=== PATIENT | male | born 1965 | race Caucasian/White ===

== ENCOUNTER 2019-12-11 11:06 | Outpatient (REF) | payer OTHER, SELFPAY ==
[2019-12-11 15:08] LABS: Alanine Aminotransferase 51 U/L (0-40); Albumin Level 4.7 g/dL (3.5-5.0); Alkaline Phosphatase 66 U/L (39-117); Anion Gap 14 (12-20); Aspartate Amino Transferase 38 U/L (5-37); Bilirubin Total 0.8 mg/dL (0.0-1.0); Blood Urea Nitrogen 19 mg/dL (9-16); Calcium 9.6 mg/dL (8.4-10.2); Carbon Dioxide 29 mmol/L (22-29); Chloride 100 mmol/L (96-108); Cholesterol 246 mg/dL; Estimated Glomerular Filt Rate > 60; Glucose Fasting 96 mg/dL (60-99); HDL Cholesterol 44 mg/dL; Potassium 4.2 mmol/l (3.3-5.1); Sodium 139 mmol/L (135-145); Total Protein 7.1 g/dL (6.5-8.0); Triglycerides 565 mg/dL
== END 2019-12-11 11:07 | disposition home or self-care (01) ==
LOC: HO.HMGCLDS 11:06
PROVIDERS: PCP Internal Medicine; Visit Provider Internal Medicine
DX: I10 Essential (primary) hypertension (principal); R79.89 Other specified abnormal findings of blood chemistry
CPT/HCPCS: 80053; 80061

== ENCOUNTER 2019-12-18 11:42 | Outpatient (REF) | payer OTHER, SELFPAY ==
[2019-12-18 13:53] LABS: MANUAL DIFF FLAG NO
[2019-12-18 14:04] LABS: Basophils Percent Auto 0.8 % (0-2); Eosinophils Absolute Auto 0.1 X10*3/uL (0.0-0.4); Eosinophils Percent Auto 2.7 % (0-4); Hematocrit 39.4 % (42-52); Hemoglobin 12.9 g/dl (14.0-18.0); Imm Gran Abs Auto 0.02 X10*3/uL (0.00-0.03); Imm Gran Pct Auto 0.5 % (0.0-0.4); Lymphocytes Absolute Auto 1.3 X10*3/uL (1.2-4.9); Lymphocytes Percent Auto 35.8 % (20-40); Mean Corpuscular HGB Conc 32.7 g/dl (31.0-36.0); Mean Corpuscular Hemoglobin 29.5 pg (27.0-33.0); Mean Corpuscular Volume 90.2 fL (80-98); Mean Platelet Volume 10.2 fL (9.4-12.4); Monocytes Absolute Auto 0.4 X10*3/uL (0.1-1.2); Monocytes Percent Auto 9.5 % (2-11); Neutrophils Absolute Auto 1.9 X10*3/uL (2.0-8.3); Neutrophils Percent Auto 50.7 % (45-73); Platelet Count 192 X10*3/uL (160-400); Red Blood Count 4.37 X10*6/uL (4.60-5.80); Red Cell Distribution Width 12.9 % (11.0-16.0); White Blood Count 3.7 X10*3/uL (4.8-10.8)
[2019-12-18 14:39] LABS: Glucose Urine UA NEG (NEG); Leukocyte Esterase Urine NEG (NEG); Nitrite Urine NEG (NEG); PH 8.5 (5.0-8.0); Specific Gravity - Urine 1.015 (1.005-1.025); Urine Blood NEG (NEG); Urine Ketones NEG (NEG); Urine Protein NEG (NEG-TRACE)
[2019-12-18 14:40] LABS: C Reactive Protein 6.06 mg/dL (< or = 0.50)
[2019-12-18 14:42] LABS: Appearance Urine CLEAR; Color Urine YELLOW
== END 2019-12-18 11:43 | disposition home or self-care (01) ==
LOC: HO.HMGCLDS 11:42
PROVIDERS: PCP Internal Medicine; Visit Provider Internal Medicine
DX: R10.32 Left lower quadrant pain (principal); Z86.010 Personal history of colon polyps; I10 Essential (primary) hypertension
CPT/HCPCS: 36415; 81003; 85025; 86140

== ENCOUNTER 2020-02-10 06:52 | Day surgery (SDC) | payer OTHER, SELFPAY ==
[2020-02-04 15:31] VITALS: BMI 33.0
--- NOTE | 2020-02-07 09:34 | HO.ANESPROP2 ---
Documented by User: Ludmila Saini 02/07/20 09:38 HPI - Anesthesia Eval Consult details Narrative: 54yo M for Upper Endoscopy and Colonoscopy [facility] Past Medical History Medical History Anxiety Asthma Back pain Elevated cholesterol HTN (hypertension) Left elbow tendonitis Nephrotic syndrome Sleep apnea Surgical History Surgical History H/O bilateral inguinal hernia repair History of arthroscopy of both shoulders History of bilateral carpal tunnel release Social History Social History Alcohol intake: current Alcohol intake frequency: a few times a month Alcohol type: beer Smoking Status: Never smoker Use of substances other than those prescribed or required for medical reasons: No Advance Directives: No Advance Directives Information Provided: No Advance Directives on File: No Meds Allergies Allergy/AdvReac Type Severity Reaction Status Date / Time No Known Allergies Allergy Mild N/A Verified 02/04/20 15:25 most pain meds Allergy Unknown mild Uncoded 09/11/18 00:00 itching Home Medications Medication Instructions Recorded Confirmed Type Flovent 02/04/20 02/04/20 History atorvastatin 40 mg PO DAILY 02/04/20 02/04/20 History citalopram 40 mg PO DAILY 02/04/20 02/04/20 History fenofibrate nanocrystallized 145 mg PO DAILY 02/04/20 02/04/20 History lisinopril 40 mg PO DAILY 02/04/20 02/04/20 History meclizine 12.5 mg PO BID PRN 02/04/20 02/04/20 History omeprazole 20 mg PO DAILY 02/04/20 02/10/20 History zolpidem [Ambien] 10 mg PO BEDTIME PRN 02/04/20 02/04/20 History Exam Exam Date and Time: February 07, 2020 0934 Height,Weight and Vital Signs: Height 5 ft 10 in Weight 104.326 kg Pertinent Lab Results Pertinent Lab Results: Laboratory Tests 12/11/19 12/18/19 11:16 11:52 WBC 3.7 L Hgb 12.9 L Hct 39.4 L Plt Count 192 Sodium 139 Potassium 4.2 Chloride 100 Carbon Dioxide 29 BUN 19 H Creatinine 1.01 Assessment and Plan Assessment Anesthesia Assessment: Chart Reviewed Documented by User: Real Cooper 02/10/20 08:11 PMFSH Past Medical History Medical History Anxiety Asthma Back pain Elevated cholesterol HTN (hypertension) Left elbow tendonitis Nephrotic syndrome Sleep apnea Surgical History Surgical History H/O bilateral inguinal hernia repair History of arthroscopy of both shoulders History of bilateral carpal tunnel release Social History Social History Alcohol intake: current Alcohol intake frequency: a few times a month Alcohol type: beer Smoking Status: Never smoker Use of substances other than those prescribed or required for medical reasons: No Advance Directives: No Advance Directives Information Provided: No Advance Directives on File: No Meds Allergies Allergy/AdvReac Type Severity Reaction Status Date / Time No Known Allergies Allergy Mild N/A Verified 02/04/20 15:25 most pain meds Allergy Unknown mild Uncoded 09/11/18 00:00 itching Home Medications Medication Instructions Recorded Confirmed Type Flovent 02/04/20 02/04/20 History atorvastatin 40 mg PO DAILY 02/04/20 02/04/20 History citalopram 40 mg PO DAILY 02/04/20 02/04/20 History fenofibrate nanocrystallized 145 mg PO DAILY 02/04/20 02/04/20 History lisinopril 40 mg PO DAILY 02/04/20 02/04/20 History meclizine 12.5 mg PO BID PRN 02/04/20 02/04/20 History omeprazole 20 mg PO DAILY 02/04/20 02/10/20 History zolpidem [Ambien] 10 mg PO BEDTIME PRN 02/04/20 02/04/20 History Exam Airway Mallampati Class: III TM Dist: >3cm Neck ROM: Full
[2020-02-10 07:27] VITALS: BP 139/93; PULSE 72; RESP 16; TEMP 36; O2SAT 98
[2020-02-10] MEDS: Lactated Ringers 1,000 ML 100 ML IVCONT (07:35)
[2020-02-10 09:09] VITALS: BP 115/81; PULSE 68; RESP 17; TEMP 36.1; O2SAT 97
--- NOTE | 2020-02-10 09:13 | PM.OP ---
Brief Operative Note Date of Service: 02/10/20 Pre-op diagnosis: Hx of gastric ulcer and screening Post-op diagnosis: other (Erosive gastritis, Hiatal hernia, Diverticulosis, Internal hemorrhoids) Procedure: EGD with biopsies, Colonoscopy to cecum Surgeon: Anthony Hidalgo Anesthesia: MAC Estimated blood loss (mL): 3.0 Pathology: other (A. Gastric antrum) Condition: stable Disposition: PACU
[2020-02-10 09:24] VITALS: PULSE 69; RESP 16; O2SAT 97
--- NOTE | 2020-02-10 09:39 | HO.POSTANES ---
Post Anesthesia Evaluation Post Anesthesia Evaluation Vital Signs: Vital Signs Temp Pulse Resp BP Pulse Ox 02/10/20 09:24 69 16 97 02/10/20 09:09 97 F 68 17 115/81 97 02/10/20 07:27 96.8 F 72 16 139/93 H 98 Anesthesia: Monitored Mental Status: Awake Pain Control: Satisfactory Nausea/Vomiting: None Hydration: Adequate Anesthesia-Related Issues: No Anes. Related Issues
--- NOTE | 2020-02-10 10:08 | OP_ITS ---
SURGEON: Anthony Hidalgo MD INDICATIONS: The patient presents for evaluation of previous history of gastric ulcer and personal history of tubular adenoma of the colon. Full consent has been obtained from him for both procedures, including risks of bleeding and perforation. PREOPERATIVE DIAGNOSIS: POSTOPERATIVE DIAGNOSIS: PROCEDURE PERFORMED: Esophagogastroduodenoscopy with biopsies and colonoscopy to the cecum. ESTIMATED BLOOD LOSS: COMPLICATIONS: ANESTHESIA: Monitored anesthesia care. ASSISTANTS: SPECIMENS: PREOPERATIVE DIAGNOSES: History of gastric ulcer and personal history of tubular adenoma of the colon. POSTOPERATIVE DIAGNOSES: History of gastric ulcer, personal history of tubular adenoma of the colon, gastritis, hiatal hernia, diverticulosis, and internal hemorrhoids. DESCRIPTION OF PROCEDURE: The patient was placed in the left lateral decubitus position. The Olympus video gastroscope was passed in the posterior oropharynx and upper esophagus under direct vision. The scope was passed slowly into the distal esophagus. The gastroesophageal junction appeared at 38 cm. There was some slight irregularity consistent with his known area of Ojeda's esophagus. There was no esophagitis. The scope was entered into the stomach. There was a moderate-sized hiatal hernia. The scope was advanced to the pylorus and duodenum was cannulated to the descending portion. The duodenum including the bulb appeared normal without mass or ulceration. The scope was withdrawn back into the stomach. The gastric antrum had areas of gastritis and less than 5 mm erosions in the prepyloric antrum. There was no ulceration or mass. There was good peristalsis. The scope was retroflexed visualizing the proximal stomach carefully, which appeared normal, without any sign of mass or ulceration. The scope was straightened. Biopsies were obtained from the gastric antrum. The scope was withdrawn back into the esophagus. The esophageal mucosa otherwise appeared normal. Biopsies were not obtained from the Ojeda's mucosa, given that he had biopsies 1 year ago that were negative for dysplasia. The scope was withdrawn from the patient. He was turned around for colonoscopy. The digital rectal exam revealed no abnormalities. The Olympus video pediatric colonoscope was entered into the rectum and advanced easily to the cecum. Once in the cecum, I did identify cecal pouch with appendiceal orifice and a normal-appearing ileocecal valve. The entire cecum was carefully inspected and appeared normal other than a single diverticulum as well as some scarring from the presumed previous polypectomy site. I did not see any sign of residual polyp tissue. The scope was then slowly withdrawn assessing all mucosal surfaces carefully. For the most part, preparation was very good, although there were some small areas of liquid stool, which were suctioned and irrigated as best as possible. I did not visualize any polyps, colitis, or angiodysplasia. There was a mild amount of sigmoid diverticulosis. In the rectum, scope was retroflexed visualizing internal hemorrhoids, but no other pathology. The rectal mucosa appeared normal. The scope was straightened out and withdrawn from the patient. He tolerated both procedures well and was returned to the recovery area in stable condition. IMPRESSION: 1. Erosive gastritis. 2. Hiatal hernia. 3. Diverticulosis. 4. Internal hemorrhoids. PLAN: The results of the biopsies will be checked. If Helicobacter pylori is present in the gastric biopsies, I would recommend treating that, although biopsies from last year were negative. I do suspect the residual erosive gastritis is as a result of his continued alcohol use. He was advised to continue his daily omeprazole. I would recommend a repeat upper endoscopy and colonoscopy in 2 years for further surveillance in regard to the Ojeda's esophagus and history of cecal adenoma. He will otherwise see me on a p.r.n. basis. MD ISAAC Hyatt/KEN / [id number]
== END 2020-02-10 09:45 | disposition home or self-care (01) ==
PROVIDERS: PCP Internal Medicine; Visit Provider Internal Medicine
PROC: (CPT 45378; principal; 2020-02-10 08:10)
DX: Z12.11 Encounter for screening for malignant neoplasm of colon (principal); K57.30 Diverticulosis of large intestine without perforation or abscess without bleeding; K64.8 Other hemorrhoids; K29.60 Other gastritis without bleeding; K44.9 Diaphragmatic hernia without obstruction or gangrene; K22.70 Barrett's esophagus without dysplasia; K21.9 Gastro-esophageal reflux disease without esophagitis; Z86.010 Personal history of colon polyps; Z87.19 Personal history of other diseases of the digestive system; Z90.49 Acquired absence of other specified parts of digestive tract
CPT/HCPCS: 45378; 43239; 88305; 88342

== ENCOUNTER 2020-02-27 06:51 | Outpatient (REF) | payer OTHER, SELFPAY ==
[2020-02-27 12:06] LABS: Cholesterol 238 mg/dL; HDL Cholesterol 46 mg/dL; LDL Cholesterol Calculated 127 mg/dl; Triglycerides 327 mg/dL
== END 2020-02-27 06:52 | disposition home or self-care (01) ==
LOC: HO.HMGCLDS 06:51
PROVIDERS: PCP Internal Medicine; Visit Provider Internal Medicine
DX: E78.5 Hyperlipidemia, unspecified (principal)
CPT/HCPCS: 80061

== ENCOUNTER 2020-06-04 11:21 | Outpatient (REF) | payer OTHER, SELFPAY ==
[2020-06-04 14:25] LABS: Cholesterol 227 mg/dL; HDL Cholesterol 43 mg/dL; LDL Cholesterol Calculated 107 mg/dl; Triglycerides 387 mg/dL
[2020-06-04 14:44] LABS: Glucose Urine UA NEG (NEG); Leukocyte Esterase Urine NEG (NEG); Nitrite Urine NEG (NEG); PH >= 9.0 (5.0-8.0); Specific Gravity - Urine 1.015 (1.005-1.025); Urine Blood NEG (NEG); Urine Ketones NEG (NEG); Urine Protein NEG (NEG-TRACE)
[2020-06-04 14:49] LABS: Appearance Urine CLEAR; Color Urine YELLOW
== END 2020-06-04 11:22 | disposition home or self-care (01) ==
LOC: HO.HMGCLDS 11:21
PROVIDERS: PCP Internal Medicine; Visit Provider Internal Medicine
DX: E78.00 Pure hypercholesterolemia, unspecified (principal)
CPT/HCPCS: 36415; 80061; 81003

== ENCOUNTER 2020-07-28 09:33 | Outpatient (REF) | payer OTHER, SELFPAY ==
[2020-07-28 11:28] LABS: MANUAL DIFF FLAG NO
[2020-07-28 11:36] LABS: Glucose Urine UA NEG (NEG); Leukocyte Esterase Urine NEG (NEG); Nitrite Urine NEG (NEG); PH 8.5 (5.0-8.0); Urine Blood NEG (NEG); Urine Ketones NEG (NEG); Urine Protein NEG (NEG-TRACE)
[2020-07-28 11:44] LABS: Basophils Percent Auto 0.8 % (0-2); Eosinophils Absolute Auto 0.1 X10*3/uL (0.0-0.4); Eosinophils Percent Auto 2.4 % (0-4); Hematocrit 41.9 % (42-52); Hemoglobin 13.6 g/dl (14.0-18.0); Imm Gran Abs Auto 0.03 X10*3/uL (0.00-0.03); Imm Gran Pct Auto 0.8 % (0.0-0.4); Lymphocytes Absolute Auto 1.3 X10*3/uL (1.2-4.9); Lymphocytes Percent Auto 35.9 % (20-40); Mean Corpuscular HGB Conc 32.5 g/dl (31.0-36.0); Mean Corpuscular Volume 92.5 fL (80-98); Mean Platelet Volume 10.3 fL (9.4-12.4); Monocytes Absolute Auto 0.4 X10*3/uL (0.1-1.2); Monocytes Percent Auto 9.5 % (2-11); Neutrophils Absolute Auto 1.9 X10*3/uL (2.0-8.3); Neutrophils Percent Auto 50.6 % (45-73); Platelet Count 180 X10*3/uL (160-400); Red Blood Count 4.53 X10*6/uL (4.60-5.80); Red Cell Distribution Width 12.6 % (11.0-16.0); White Blood Count 3.7 X10*3/uL (4.8-10.8)
[2020-07-28 11:48] LABS: Appearance Urine CLEAR; Color Urine YELLOW
[2020-07-28 12:11] LABS: Alanine Aminotransferase 45 U/L (0-40); Albumin Level 4.5 g/dL (3.5-5.0); Alkaline Phosphatase 65 U/L (39-117); Anion Gap 16 (12-20); Aspartate Amino Transferase 30 U/L (5-37); Bilirubin Total 0.6 mg/dL (0.0-1.0); Blood Urea Nitrogen 19 mg/dL (9-16); Calcium 9.3 mg/dL (8.4-10.2); Carbon Dioxide 27 mmol/L (22-29); Chloride 101 mmol/L (96-108); Cholesterol 238 mg/dL; Estimated Glomerular Filt Rate > 60; Glucose Fasting 110 mg/dL (60-99); HDL Cholesterol 53 mg/dL; Potassium 4.1 mmol/L (3.3-5.1); Sodium 140 mmol/L (135-145); Total Protein 6.9 g/dL (6.5-8.0); Triglycerides 497 mg/dL
== END 2020-07-28 09:34 | disposition home or self-care (01) ==
LOC: HO.HMGCLDS 09:33
PROVIDERS: PCP Internal Medicine; Visit Provider Internal Medicine
DX: E78.00 Pure hypercholesterolemia, unspecified (principal); N05.9 Unspecified nephritic syndrome with unspecified morphologic changes
CPT/HCPCS: 36415; 80053; 80061; 81003; 85025

== ENCOUNTER 2020-09-17 10:45 | Outpatient (REF) | payer OTHER, SELFPAY ==
[2020-09-17 12:23] LABS: Influenza A PCR NEGATIVE (Negative); Influenza B PCR NEGATIVE (Negative); Resp Syncy Virus RNA Qual PCR NEGATIVE (Negative); SARS COV2 PCR INHOUSE NEGATIVE (Negative)
== END 2020-09-17 10:46 | disposition home or self-care (01) ==
LOC: HO.LNP 10:45
PROVIDERS: Visit Provider Internal Medicine
DX: Z20.822 Contact with and (suspected) exposure to COVID-19 (principal)
CPT/HCPCS: 0241U

== ENCOUNTER 2020-09-21 09:33 | Outpatient (REF) | payer OTHER, SELFPAY | END 2020-09-21 09:34 | disposition home or self-care (01) | LOC: HO.LAB 09:33 | PROVIDERS: PCP Internal Medicine; Visit Provider Internal Medicine | DX: Z20.822 Contact with and (suspected) exposure to COVID-19 (principal) | CPT/HCPCS: C9803; U0003; U0005 ==

== ENCOUNTER 2020-09-24 14:17 | Outpatient (REF) | payer OTHER, SELFPAY ==
--- NOTE | ~2020-09-24 | XR_ITS ---
EXAMINATION: XR CHEST CLINICAL INFORMATION: : Positive, cough. COMPARISON: None TECHNIQUE: 2 views of the chest were obtained. FINDINGS: The lungs are well-expanded and clear of acute process. The heart size and pulmonary vascularity is normal. No gross bony abnormality seen. XR/XR chest 2V IMPRESSION: Unremarkable chest exam.
== END 2020-09-24 14:18 | disposition home or self-care (01) ==
LOC: HO.HMGCX 14:17
PROVIDERS: PCP Internal Medicine; Visit Provider Internal Medicine
DX: U07.1 COVID-19 (principal); R05 Cough
CPT/HCPCS: 71046

== ENCOUNTER 2020-12-07 10:46 | Outpatient (REF) | payer OTHER, SELFPAY ==
[2020-12-07 11:52] LABS: MANUAL DIFF FLAG NO
[2020-12-07 11:53] LABS: Appearance Urine HAZY; Color Urine YELLOW; Glucose Urine UA NEG (NEG); Leukocyte Esterase Urine NEG (NEG); Nitrite Urine NEG (NEG); PH 7.5 (5.0-8.0); Urine Blood NEG (NEG); Urine Ketones NEG (NEG); Urine Protein NEG (NEG-TRACE)
[2020-12-07 12:11] LABS: Basophils Percent Auto 0.5 % (0-2); Eosinophils Absolute Auto 0.1 X10*3/uL (0.0-0.4); Eosinophils Percent Auto 2.7 % (0-4); Hematocrit 42.6 % (42-52); Imm Gran Abs Auto 0.02 X10*3/uL (0.00-0.03); Imm Gran Pct Auto 0.5 % (0.0-0.4); Lymphocytes Percent Auto 25.5 % (20-40); Mean Corpuscular HGB Conc 32.9 g/dl (31.0-36.0); Mean Corpuscular Volume 91.2 fL (80-98); Mean Platelet Volume 10.5 fL (9.4-12.4); Monocytes Absolute Auto 0.4 X10*3/uL (0.1-1.2); Monocytes Percent Auto 9.7 % (2-11); Neutrophils Absolute Auto 2.5 X10*3/uL (2.0-8.3); Neutrophils Percent Auto 61.1 % (45-73); Platelet Count 199 X10*3/uL (160-400); Red Blood Count 4.67 X10*6/uL (4.60-5.80); Red Cell Distribution Width 13.2 % (11.0-16.0)
[2020-12-07 12:38] LABS: Alanine Aminotransferase 33 U/L (0-40); Albumin Level 4.4 g/dL (3.5-5.0); Alkaline Phosphatase 48 U/L (39-117); Anion Gap 11 (12-20); Aspartate Amino Transferase 25 U/L (5-37); Bilirubin Total 0.6 mg/dL (0.0-1.0); Blood Urea Nitrogen 16 mg/dL (9-16); Calcium 9.1 mg/dL (8.4-10.2); Carbon Dioxide 29 mmol/L (22-29); Chloride 104 mmol/L (96-108); Cholesterol 202 mg/dL; Estimated Glomerular Filt Rate > 60; Glucose Fasting 102 mg/dL (60-99); HDL Cholesterol 51 mg/dL; LDL Cholesterol Calculated 107 mg/dl; Potassium 4.4 mmol/L (3.3-5.1); Sodium 140 mmol/L (135-145); Total Protein 6.7 g/dL (6.5-8.0); Triglycerides 222 mg/dL
[2020-12-07 12:51] LABS: Vitamin D 25-OH Total 13.5 ng/mL (>30)
== END 2020-12-07 10:47 | disposition home or self-care (01) ==
LOC: HO.HMGCLDS 10:46
PROVIDERS: PCP Internal Medicine; Visit Provider Internal Medicine
DX: Z00.00 Encounter for general adult medical examination without abnormal findings (principal); D64.9 Anemia, unspecified; J45.909 Unspecified asthma, uncomplicated; K21.9 Gastro-esophageal reflux disease without esophagitis; I10 Essential (primary) hypertension; E78.00 Pure hypercholesterolemia, unspecified
CPT/HCPCS: 36415; 80053; 80061; 81003; 82306; 85025

== ENCOUNTER 2021-04-12 11:41 | Outpatient (REF) | payer OTHER, SELFPAY ==
--- NOTE | ~2021-04-12 | XR_ITS ---
EXAMINATION: XR TIBIA AND FIBULA, LEFT CLINICAL INFORMATION: Left lower leg pain. COMPARISON: None TECHNIQUE: AP and lateral views of the left tibia and fibula were obtained. FINDINGS: The bones and soft tissues are normal. No fracture. No osseous lesions. XR/XR tibia fibula LT 2V IMPRESSION: Normal left tibia and fibula.
[2021-04-12 13:57] LABS: MANUAL DIFF FLAG NO
[2021-04-12 14:04] LABS: Basophils Percent Auto 0.8 % (0-2); Eosinophils Absolute Auto 0.1 X10*3/uL (0.0-0.4); Eosinophils Percent Auto 2.4 % (0-4); Hematocrit 39.2 % (42.0-52.0); Hemoglobin 12.9 g/dl (14.0-18.0); Imm Gran Abs Auto 0.02 X10*3/uL (0.00-0.03); Imm Gran Pct Auto 0.5 % (0.0-0.4); Lymphocytes Absolute Auto 1.2 X10*3/uL (1.2-4.9); Lymphocytes Percent Auto 33.2 % (20-40); Mean Corpuscular HGB Conc 32.9 g/dl (31.0-36.0); Mean Corpuscular Hemoglobin 29.8 pg (27.0-33.0); Mean Corpuscular Volume 90.5 fL (80.0-98.0); Mean Platelet Volume 10.4 fL (9.4-12.4); Monocytes Absolute Auto 0.3 X10*3/uL (0.1-1.2); Monocytes Percent Auto 7.3 % (2-11); Neutrophils Absolute Auto 2.1 x10*3/uL (2.0-8.3); Neutrophils Percent Auto 55.8 % (45-73); Platelet Count 194 X10*3/uL (160-400); Red Blood Count 4.33 X10*6/uL (4.60-5.80); Red Cell Distribution Width 12.5 % (11.0-16.0); White Blood Count 3.7 X10*3/uL (4.8-10.8)
[2021-04-12 14:21] LABS: Alanine Aminotransferase 32 U/L (0-40); Albumin Level 4.3 g/dL (3.5-5.0); Alkaline Phosphatase 48 U/L (39-117); Anion Gap 12 (12-20); Aspartate Amino Transferase 23 U/L (5-37); Bilirubin Total 0.4 mg/dL (0.0-1.0); Blood Urea Nitrogen 15 mg/dL (9-16); Calcium 9.3 mg/dL (8.4-10.2); Carbon Dioxide 28 mmol/L (22-29); Chloride 104 mmol/L (96-108); Cholesterol 194 mg/dL; Estimated Glomerular Filt Rate > 60; Glucose Fasting 94 mg/dL (60-99); HDL Cholesterol 53 mg/dL; LDL Cholesterol Calculated 102 mg/dl; Potassium 4.1 mmol/L (3.3-5.1); Sodium 140 mmol/L (135-145); Total Protein 6.6 g/dL (6.5-8.0); Triglycerides 198 mg/dL
== END 2021-04-12 11:42 | disposition home or self-care (01) ==
LOC: HO.HMGCLDS 11:41
PROVIDERS: PCP Internal Medicine; Visit Provider Internal Medicine
DX: Z12.5 Encounter for screening for malignant neoplasm of prostate (principal); N40.0 Benign prostatic hyperplasia without lower urinary tract symptoms; E78.00 Pure hypercholesterolemia, unspecified; I10 Essential (primary) hypertension; M79.662 Pain in left lower leg
CPT/HCPCS: 36415; 73590; 80053; 80061; 84153; 85025

== ENCOUNTER 2021-07-31 11:31 | Outpatient (REF) | payer OTHER, SELFPAY ==
[2021-07-31 13:27] LABS: MANUAL DIFF FLAG NO
[2021-07-31 13:29] LABS: Basophils Percent Auto 0.8 % (0-2); Eosinophils Absolute Auto 0.1 X10*3/uL (0.0-0.4); Eosinophils Percent Auto 2.7 % (0-4); Hematocrit 41.2 % (42.0-52.0); Hemoglobin 13.7 g/dl (14.0-18.0); Imm Gran Abs Auto 0.07 X10*3/uL (0.00-0.03); Imm Gran Pct Auto 1.4 % (0.0-0.4); Lymphocytes Absolute Auto 1.6 X10*3/uL (1.2-4.9); Lymphocytes Percent Auto 30.7 % (20-40); Mean Corpuscular HGB Conc 33.3 g/dl (31.0-36.0); Mean Corpuscular Hemoglobin 29.7 pg (27.0-33.0); Mean Corpuscular Volume 89.4 fL (80.0-98.0); Monocytes Absolute Auto 0.5 X10*3/uL (0.1-1.2); Monocytes Percent Auto 9.7 % (2-11); Neutrophils Absolute Auto 2.8 x10*3/uL (2.0-8.3); Neutrophils Percent Auto 54.7 % (45-73); Platelet Count 215 X10*3/uL (160-400); Red Blood Count 4.61 X10*6/uL (4.60-5.80); Red Cell Distribution Width 12.8 % (11.0-16.0); White Blood Count 5.2 X10*3/uL (4.8-10.8)
[2021-07-31 13:41] LABS: Alanine Aminotransferase 35 U/L (0-40); Albumin Level 4.3 g/dL (3.5-5.0); Alkaline Phosphatase 53 U/L (39-117); Anion Gap 13 (12-20); Aspartate Amino Transferase 22 U/L (5-37); Bilirubin Total 0.3 mg/dL (0.0-1.0); Blood Urea Nitrogen 22 mg/dL (9-16); Calcium 9.1 mg/dL (8.4-10.2); Carbon Dioxide 26 mmol/L (22-29); Chloride 104 mmol/L (96-108); Cholesterol 213 mg/dL; Estimated Glomerular Filt Rate > 60; Glucose Fasting 102 mg/dL (60-99); HDL Cholesterol 48 mg/dL; LDL Cholesterol Calculated 120 mg/dl; Potassium 4.5 mmol/L (3.3-5.1); Sodium 138 mmol/L (135-145); Total Protein 6.5 g/dL (6.5-8.0); Triglycerides 229 mg/dL
[2021-07-31 14:02] LABS: Prostate Specific Antigen 0.37 ng/mL (<0.05-4.0)
== END 2021-07-31 11:32 | disposition home or self-care (01) ==
LOC: HO.HMGCLDS 11:31
PROVIDERS: PCP Internal Medicine; Visit Provider Internal Medicine
DX: I10 Essential (primary) hypertension (principal); E78.00 Pure hypercholesterolemia, unspecified; N40.0 Benign prostatic hyperplasia without lower urinary tract symptoms; Z12.5 Encounter for screening for malignant neoplasm of prostate
CPT/HCPCS: 36415; 80053; 80061; 84153; 85025

== ENCOUNTER 2021-12-14 16:10 | Outpatient (REF) | payer OTHER, SELFPAY ==
--- NOTE | ~2021-12-14 | XR_ITS ---
EXAMINATION: CERVICAL AND THORACIC SPINE X-RAY CLINICAL INFORMATION: Neck and back pain COMPARISON: None TECHNIQUE: 5 views of the cervical spine and 3 views of the thoracic spine FINDINGS: Cervical spine: Bone alignment is normal. No fracture or dislocation is seen. There is degenerative spondylosis at C4-C5 to C6-C7. There is disc space narrowing at C6-C7. There is bilateral neural foraminal narrowing from bony osteophyte at C3-C4-C5, C5-C6 and C6-C7. Prevertebral soft tissues are normal. Thoracic spine: Bone alignment is normal. No fracture or dislocation. There is mild degenerative spondylosis and degenerative disc disease of the mid and lower thoracic spine. Paraspinal soft tissues are normal. XR/XR thoracic spine 3V IMPRESSION: Cervical spine: Multilevel degenerative changes from C4-C5 to C6-C7. Thoracic spine: Mild degenerative changes of the mid and lower thoracic spine.
--- NOTE | ~2021-12-14 | XR_ITS ---
EXAMINATION: CERVICAL AND THORACIC SPINE X-RAY CLINICAL INFORMATION: Neck and back pain COMPARISON: None TECHNIQUE: 5 views of the cervical spine and 3 views of the thoracic spine FINDINGS: Cervical spine: Bone alignment is normal. No fracture or dislocation is seen. There is degenerative spondylosis at C4-C5 to C6-C7. There is disc space narrowing at C6-C7. There is bilateral neural foraminal narrowing from bony osteophyte at C3-C4-C5, C5-C6 and C6-C7. Prevertebral soft tissues are normal. Thoracic spine: Bone alignment is normal. No fracture or dislocation. There is mild degenerative spondylosis and degenerative disc disease of the mid and lower thoracic spine. Paraspinal soft tissues are normal. XR/XR cervical spine 5V IMPRESSION: Cervical spine: Multilevel degenerative changes from C4-C5 to C6-C7. Thoracic spine: Mild degenerative changes of the mid and lower thoracic spine.
== END 2021-12-14 16:11 | disposition home or self-care (01) ==
LOC: HO.HMGCX 16:10
PROVIDERS: PCP Internal Medicine; Visit Provider Chiropractor
DX: M54.2 Cervicalgia (principal); M54.6 Pain in thoracic spine
CPT/HCPCS: 72050; 72072

== ENCOUNTER 2021-12-20 06:03 | Outpatient (REF) | payer OTHER, SELFPAY ==
[2021-12-20 11:16] LABS: MANUAL DIFF FLAG NO
[2021-12-20 11:31] LABS: Appearance Urine Clear; Color Urine Yellow; Glucose Urine UA Negative (Negative); Leukocyte Esterase Urine Negative (Negative); Nitrite Urine Negative (Negative); Urine Blood Negative (Negative); Urine Ketones Negative (Negative); Urine Protein Negative (Neg-Trace)
[2021-12-20 11:36] LABS: Basophils Percent Auto 0.6 % (0-2); Eosinophils Absolute Auto 0.1 X10*3/uL (0.0-0.4); Eosinophils Percent Auto 2.7 % (0-4); Hematocrit 42.5 % (42.0-52.0); Imm Gran Abs Auto 0.07 X10*3/uL (0.00-0.03); Imm Gran Pct Auto 1.5 % (0.0-0.4); Lymphocytes Absolute Auto 1.9 X10*3/uL (1.2-4.9); Lymphocytes Percent Auto 39.4 % (20-40); Mean Corpuscular HGB Conc 32.9 g/dl (31.0-36.0); Mean Corpuscular Hemoglobin 29.9 pg (27.0-33.0); Mean Corpuscular Volume 90.6 fL (80.0-98.0); Mean Platelet Volume 10.1 fL (9.4-12.4); Monocytes Absolute Auto 0.4 X10*3/uL (0.1-1.2); Monocytes Percent Auto 7.5 % (2-11); Neutrophils Absolute Auto 2.3 x10*3/uL (2.0-8.3); Neutrophils Percent Auto 48.3 % (45-73); Platelet Count 224 X10*3/uL (160-400); Red Blood Count 4.69 X10*6/uL (4.60-5.80); Red Cell Distribution Width 12.5 % (11.0-16.0); White Blood Count 4.8 X10*3/uL (4.8-10.8)
[2021-12-20 12:00] LABS: Alanine Aminotransferase 38 U/L (0-40); Albumin Level 4.5 g/dL (3.5-5.0); Alkaline Phosphatase 55 U/L (39-117); Anion Gap 17 (12-20); Aspartate Amino Transferase 28 U/L (5-37); Bilirubin Total 0.4 mg/dL (0.0-1.0); Blood Urea Nitrogen 18 mg/dL (9-16); Calcium 9.6 mg/dL (8.4-10.2); Carbon Dioxide 28 mmol/L (22-29); Chloride 100 mmol/L (96-108); Cholesterol 203 mg/dL; Estimated Glomerular Filt Rate > 60; Glucose Fasting 124 mg/dL (60-99); HDL Cholesterol 41 mg/dL; LDL Cholesterol Calculated 109 mg/dl; Potassium 4.4 mmol/L (3.3-5.1); Sodium 141 mmol/L (135-145); Total Protein 6.9 g/dL (6.5-8.0); Triglycerides 268 mg/dL
[2021-12-20 12:08] LABS: Prostate Specific Antigen 0.54 ng/mL (<0.05-4.0)
== END 2021-12-20 06:04 | disposition home or self-care (01) ==
LOC: HO.HMGCLDS 06:03
PROVIDERS: PCP Internal Medicine; Visit Provider Internal Medicine
DX: Z00.00 Encounter for general adult medical examination without abnormal findings (principal); Z12.5 Encounter for screening for malignant neoplasm of prostate
CPT/HCPCS: 36415; 80053; 80061; 81003; 84153; 85025

== ENCOUNTER 2022-01-21 13:58 | Outpatient (REF) | payer OTHER, SELFPAY ==
--- NOTE | ~2022-01-21 | MR_ITS ---
EXAMINATION: MR CERVICAL SPINE WITHOUT CONTRAST CLINICAL INFORMATION: Numbness in right arm. COMPARISON: None. TECHNIQUE: Multiplanar, multisequential imaging of the cervical spine was performed without contrast. Slightly limited study with motion artifacts. FINDINGS: VERTEBRAL BODIES AND PARASPINAL SOFT TISSUES: The marrow signal is within normal limits. Bulky anterior endplate spurring noted from the C4 through the C6 levels. There is a [id number] loss of disc height at the C6-C7 level with a slight retrosubluxation. Mild posterior subluxation also evident at the C5-C6 level. There are no compression fractures. Mild leftward curvature of the cervical spine evident. The paraspinal soft tissues are normal. The vertebral artery flow-voids are maintained. The imaged lung apices are grossly clear. CERVICOMEDULLARY JUNCTION AND VISUALIZED POSTERIOR FOSSA: The craniovertebral junction and imaged portions of the brain parenchyma are grossly unremarkable. No cord signal abnormality or syrinx is seen. SPINAL LEVELS: C2-C3: No disc pathology, central canal stenosis, or foraminal narrowing. Mild facet arthropathy. C3-C4: Very mild disc bulge and uncovertebral joint spurring without central canal stenosis. Mild facet arthropathy. Patent foramina. C4-C5: Anterior endplate spurring and mild disc bulge with uncovertebral joint spurring and facet arthropathy, more so on the right side. No central canal stenosis. [id number] foraminal narrowing, worse on the right side. C5-C6: Retrosubluxation and disc-osteophyte complex with significant bilateral foraminal narrowing. No central canal stenosis. C6-C7: Moderate loss of disc height and mild posterior subluxation with a disc-osteophyte complex. No central canal stenosis. Severe bilateral foraminal narrowing. C7-T1: No disc pathology. No central canal stenosis or foraminal narrowing. MR/MR cervical spine wo con IMPRESSION: 1. Limited study with motion artifacts. Hgysthhw-od-xertcb foraminal narrowing at the C4-C5 level with a mild disc bulge and endplate spurring. 2. Disc-osteophyte complex and mild retrosubluxation at the C5-C6 level with severe bilateral foraminal narrowing. 3. Moderate loss of disc height and mild retrosubluxation with a disc-osteophyte complex at the C6-C7 level. Severe bilateral foraminal narrowing.
== END 2022-01-21 13:59 | disposition home or self-care (01) ==
LOC: HO.MRI 13:58
PROVIDERS: Visit Provider Internal Medicine
DX: M50.30 Other cervical disc degeneration, unspecified cervical region (principal); R53.1 Weakness
CPT/HCPCS: 72141

== ENCOUNTER 2022-02-26 09:20 | Outpatient (REF) | payer OTHER, SELFPAY ==
[2022-02-26 11:12] LABS: Estimated Average Glucose 126 mg/dL; Hemoglobin A1C 149.7117 umol/L
[2022-02-26 11:32] LABS: Alanine Aminotransferase 44 U/L (0-40); Albumin Level 4.5 g/dL (3.5-5.0); Alkaline Phosphatase 56 U/L (39-117); Anion Gap 11 (12-20); Aspartate Amino Transferase 32 U/L (5-37); Bilirubin Total 0.6 mg/dL (0.0-1.0); Blood Urea Nitrogen 18 mg/dL (9-16); Calcium 9.4 mg/dL (8.4-10.2); Carbon Dioxide 30 mmol/L (22-29); Chloride 102 mmol/L (96-108); Cholesterol 199 mg/dL; Estimated Glomerular Filt Rate > 60; Glucose Fasting 108 mg/dL (60-99); Glucose Random 108 mg/dL (60-115); HDL Cholesterol 47 mg/dL; LDL Cholesterol Calculated 116 mg/dl; Potassium 4.2 mmol/L (3.3-5.1); Sodium 139 mmol/L (135-145); Total Protein 6.6 g/dL (6.5-8.0); Triglycerides 181 mg/dL
== END 2022-02-26 09:21 | disposition home or self-care (01) ==
LOC: HO.HMGCLDS 09:20
PROVIDERS: PCP Internal Medicine; Visit Provider Internal Medicine
DX: R73.03 Prediabetes (principal); I10 Essential (primary) hypertension
CPT/HCPCS: 36415; 80048; 80053; 80061; 83036

== ENCOUNTER 2022-05-27 06:01 | Outpatient (REF) | payer OTHER, SELFPAY ==
[2022-05-27 11:40] LABS: MANUAL DIFF FLAG NO
[2022-05-27 11:54] LABS: Basophils Percent Auto 1.1 % (0-2); Eosinophils Absolute Auto 0.1 X10*3/uL (0.0-0.4); Eosinophils Percent Auto 3.6 % (0-4); Hematocrit 41.2 % (42.0-52.0); Hemoglobin 13.3 g/dl (14.0-18.0); Imm Gran Abs Auto 0.02 X10*3/uL (0.00-0.03); Imm Gran Pct Auto 0.6 % (0.0-0.4); Lymphocytes Absolute Auto 1.6 X10*3/uL (1.2-4.9); Lymphocytes Percent Auto 44.3 % (20-40); Mean Corpuscular HGB Conc 32.3 g/dl (31.0-36.0); Mean Corpuscular Hemoglobin 29.3 pg (27.0-33.0); Mean Corpuscular Volume 90.7 fL (80.0-98.0); Mean Platelet Volume 10.2 fL (9.4-12.4); Monocytes Absolute Auto 0.3 X10*3/uL (0.1-1.2); Monocytes Percent Auto 8.4 % (2-11); Neutrophils Absolute Auto 1.5 x10*3/uL (2.0-8.3); Platelet Count 189 X10*3/uL (160-400); Red Blood Count 4.54 X10*6/uL (4.60-5.80); Red Cell Distribution Width 12.9 % (11.0-16.0); White Blood Count 3.6 X10*3/uL (4.8-10.8)
[2022-05-27 12:23] LABS: D Dimer High Sensitivity < 150 NG/ML
[2022-05-27 12:44] LABS: Alanine Aminotransferase 38 U/L (0-40); Albumin Level 4.2 g/dL (3.5-5.0); Alkaline Phosphatase 51 U/L (39-117); Anion Gap 12 (12-20); Aspartate Amino Transferase 26 U/L (5-37); Bilirubin Total 0.5 mg/dL (0.0-1.0); Blood Urea Nitrogen 14 mg/dL (9-16); C Reactive Protein 0.19 mg/dL (< or = 0.50); Calcium 9.3 mg/dL (8.4-10.2); Carbon Dioxide 33 mmol/L (22-29); Chloride 104 mmol/L (96-108); Estimated Glomerular Filt Rate > 60; Glucose Random 102 mg/dL (60-115); Potassium 4.4 mmol/L (3.3-5.1); Sodium 145 mmol/L (135-145); Total Protein 6.3 g/dL (6.5-8.0)
== END 2022-05-27 06:02 | disposition home or self-care (01) ==
LOC: HO.HMGCLDS 06:01
PROVIDERS: PCP Internal Medicine; Visit Provider Internal Medicine
DX: I10 Essential (primary) hypertension (principal); E78.00 Pure hypercholesterolemia, unspecified
CPT/HCPCS: 36415; 80053; 82550; 85025; 85379; 86140

== ENCOUNTER → 2022-06-02 07:47 | Outpatient (REF) | payer OTHER, SELFPAY ==
--- NOTE | 2022-06-02 07:53 | CA_ITS ---
Acquisition Time: 2022-06-02 08:08:55 Total Exercise Time: 00:07:00 Test Indications: CP Medications: SEE CHART Protocol: URI Max HR: 157 BPM 94% of Pred: 166 BPM Max BP: 148/080 mmHG Max Work Load: 8.4 METS PT EXERCISED ON STD URI PROTOCOL FOR 7 MIN INTO STAGE 3. MAX HR 153-92%MAX. SOME MILD SOB. NONSPECIFIC ST CHANGES IN INF WALL IRBBB AT BASELINE. SOME SOB. REDUCED EXERCISE TOLERANSE DUE TO DECONDITIOONING. CONSIDER REPEAT STUDY WITH MIBI. Referred By: Irvin Lundberg Overread By: ZEV LUNDBERG MD
== END ==
LOC: HO.CARD 07:47
PROVIDERS: PCP Internal Medicine; Visit Provider Internal Medicine
DX: R07.9 Chest pain, unspecified (principal)
CPT/HCPCS: 93017

== ENCOUNTER 2022-06-16 13:53 | Outpatient (REF) | payer OTHER, SELFPAY ==
--- NOTE | ~2022-06-16 | CT_ITS ---
CT SINUS WITHOUT CONTRAST CLINICAL INFORMATION: Polyp. Deviated septum. COMPARISON: None available. TECHNIQUE: Multidetector CT acquisition of the sinuses obtained without contrast. This CT examination was performed using dose optimization techniques as appropriate, variously including the following: *Automated exposure control *Adjustment of mA and/or kV according to patient size (this includes techniques or standardized protocols for targeted exams where dose is matched to indication/reason for exam; i.e. extremities or head) *Use of iterative reconstruction technique FINDINGS: The paranasal sinuses remain well-aerated. There is trace mucosal thickening within the ethmoid air cells bilaterally and along the anterior margin of the right sphenoid sinus. There is significant leftward deviation of the nasal septum with a leftward directed septal spur that extends between the left middle and inferior turbinates. Honey bullosa within the right middle turbinate. The right fovea ethmoidalis is 3 mm deeper than the left side. Chronic left orbital floor fracture with mild herniation of extraconal fat through the fracture defect into the upper left maxillary sinus. Bony orbits are otherwise intact. Internal carotid arteries remain will cover with bone. The mastoid air cells and middle ear cavities are clear. TMJs are unremarkable. No significant soft tissue findings. CT/CT sinus wo IV con IMPRESSION: - No active sinus disease. - Chronic left orbital floor fracture with mild herniation of extraconal fat through the fracture defect into the upper left maxillary sinus. - There is significant leftward deviation of the nasal septum with a leftward directed septal spur that extends between the left middle and inferior turbinates. Honey bullosa within the right middle turbinate.
== END 2022-06-16 13:54 | disposition home or self-care (01) ==
LOC: HO.CT 13:53
PROVIDERS: Visit Provider Otolaryngology
DX: J33.0 Polyp of nasal cavity (principal); J34.2 Deviated nasal septum
CPT/HCPCS: 70486

== ENCOUNTER 2022-09-03 09:57 | Outpatient (REF) | payer OTHER, SELFPAY ==
[2022-09-03 11:17] LABS: MANUAL DIFF FLAG NO
[2022-09-03 11:23] LABS: Basophils Percent Auto 1.1 % (0-2); Eosinophils Absolute Auto 0.1 X10*3/uL (0.0-0.4); Eosinophils Percent Auto 2.8 % (0-4); Hemoglobin 13.5 g/dl (14.0-18.0); Imm Gran Abs Auto 0.02 X10*3/uL (0.00-0.03); Imm Gran Pct Auto 0.6 % (0.0-0.4); Lymphocytes Absolute Auto 1.2 X10*3/uL (1.2-4.9); Lymphocytes Percent Auto 34.3 % (20-40); Mean Corpuscular HGB Conc 32.9 g/dl (31.0-36.0); Mean Corpuscular Hemoglobin 29.3 pg (27.0-33.0); Mean Corpuscular Volume 88.9 fL (80.0-98.0); Mean Platelet Volume 10.2 fL (9.4-12.4); Monocytes Absolute Auto 0.4 X10*3/uL (0.1-1.2); Monocytes Percent Auto 10.4 % (2-11); Neutrophils Absolute Auto 1.8 x10*3/uL (2.0-8.3); Neutrophils Percent Auto 50.8 % (45-73); Platelet Count 166 X10*3/uL (160-400); Red Blood Count 4.61 X10*6/uL (4.60-5.80); Red Cell Distribution Width 12.7 % (11.0-16.0); White Blood Count 3.6 X10*3/uL (4.8-10.8)
[2022-09-03 11:54] LABS: Alanine Aminotransferase 50 U/L (0-40); Albumin Level 4.3 g/dL (3.5-5.0); Alkaline Phosphatase 53 U/L (39-117); Anion Gap 14 (12-20); Aspartate Amino Transferase 39 U/L (5-37); Bilirubin Total 0.6 mg/dL (0.0-1.0); Blood Urea Nitrogen 14 mg/dL (9-16); Calcium 9.5 mg/dL (8.4-10.2); Carbon Dioxide 26 mmol/L (22-29); Chloride 106 mmol/L (96-108); Cholesterol 202 mg/dL; Estimated Glomerular Filt Rate > 60; Glucose Random 111 mg/dL (60-115); HDL Cholesterol 43 mg/dL; LDL Cholesterol Calculated 113 mg/dl; Potassium 4.2 mmol/L (3.3-5.1); Sodium 142 mmol/L (135-145); Total Protein 6.6 g/dL (6.5-8.0); Triglycerides 230 mg/dL
[2022-09-03 11:56] LABS: Creatinine Urine 87.87 mg/dL; Microalbum/Creatinine Ratio Ur 36.4 ug/mg cr
== END 2022-09-03 09:58 | disposition home or self-care (01) ==
LOC: HO.HMGCLDS 09:57
PROVIDERS: PCP Internal Medicine; Visit Provider Internal Medicine
DX: E78.00 Pure hypercholesterolemia, unspecified (principal); Z82.49 Family history of ischemic heart disease and other diseases of the circulatory system
CPT/HCPCS: 36415; 80053; 80061; 82043; 85025

== ENCOUNTER 2022-09-07 15:20 | Outpatient (AMB) | payer OTHER, SELFPAY ==
--- NOTE | 2022-09-07 15:28 | A.OFFVIS_ITS ---
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 Commutator Operator Required: No Accompanied by: Self / Same As Patient Allergies most pain meds Allergy (Unknown, Uncoded 09/07/22 15:31) mild itching Medication List - Last Reconciled 09/07/22 by Nabeel Alcaraz MD atorvastatin 40 mg PO DAILY citalopram 40 mg PO DAILY fenofibrate nanocrystallized 145 mg PO DAILY lisinopril 40 mg PO DAILY meclizine 12.5 mg PO BID PRN omeprazole 20 mg PO DAILY zolpidem (Ambien) 10 mg PO BEDTIME PRN HPI HPI Comments History of Present Illness Details 56-year-old gentleman with chronic right bundle-branch block, hypertension and hyperlipidemia who is presenting for assessment of chest discomfort. He was seen in 2018 when he presented with dyspnea and equivocal exercise stress test. After discussion she was taken for cardiac catheterization. He did not have any epicardial coronary artery stenosis. He did have some sluggish flow in the coronary arteries with unclear etiology. He has not followed up since then. Recently he had exercise stress testing performed for chest pressure. He has been experiencing chest pressure like feeling for the last 5 months. This is present on most days all the time. At time he gets worse after eating or when he is laying down. He has not had any worsening in symptoms with activity. He has gained weight. He has some shortness of breath with activity. He has known history of exercise induced asthma. He has not been using his inhalers. He again had exercise stress test which was inconclusive. He clearly did not have any ischemic EKG changes but also did not exercise for long time. [facility] Medical History (Updated 09/07/22 @ 16:09 by Nabeel Alcaraz MD) Anxiety Asthma Back pain Elevated cholesterol HTN (hypertension) Left elbow tendonitis Nephrotic syndrome Sleep apnea Surgical History (Updated 09/07/22 @ 15:31 by CHRISTIN Samayoa) H/O bilateral inguinal hernia repair History of arthroscopy of both shoulders History of bilateral carpal tunnel release History of cholecystectomy Family History (Updated 09/07/22 @ 15:32 by CHRISTIN Samayoa) Father Heart disease Mother HTN (hypertension) Dementia Kidney disease Hypercholesteremia Social History (Updated 09/07/22 @ 15:33 by CHRISTIN Samayoa) Alcohol intake: current Alcohol intake frequency: a few times a month Alcohol type: beer Patient Tobacco Use Status: Never used Tobacco Review of Systems Const Denies chills, Denies daytime sleepiness, Denies fatigue, Denies fever(s), Denies frequent falls, Denies night sweats, Denies snoring, Denies weakness, Denies weight gain and Denies weight loss Eyes Denies loss of vision ENT Denies dizziness and Denies hearing loss Card Denies chest pain, Denies chest pain with activity, Denies syncope, Denies rapid heart rate, Denies edema, Denies claudication, Denies leg edema, Denies lightheadedness, Denies palpitations, Denies dyspnea, Denies dyspnea on exertion and Denies orthopnea Resp Denies cough, Denies excessive phlegm production, Denies dyspnea, Denies dyspnea on exertion, Denies snoring and Denies wheezing GI Denies abdominal pain, Denies hematochezia, Denies change in bowel habits, Denies change in stool character, Denies heartburn, Denies nausea and Denies vomiting Denies hematuria, Denies dysuria and Denies urinary frequency Musc Denies arthralgias, Denies muscle weakness, Denies numbness and Denies tingling Skin/Breast Denies nail changes and Denies rash Neuro Denies Abnormal speech present, Denies dizziness, Denies syncope, Denies frequent falls, Denies loss of vision, Denies memory loss, Denies numbness, Denies tingling and Denies weakness Psych Denies depression and Denies memory loss Endo Denies fatigue and Denies palpitations Aller/Immun Denies wheezing Physical Exam Vital Signs: Last Vital Signs Pulse 69 09/07/22 15:29 BP 108/72 09/07/22 15:29 BMI result Body Mass Index 33.7 GENERAL APPEARANCE: in no acute distress, pleasant. NECK: no carotid bruit, no jugular venous distention. SKIN: no suspicious lesions, warm and dry. HEART: no murmurs, regular rate and rhythm. LUNGS: clear to auscultation bilaterally. ABDOMEN: soft, nontender. EXTREMITIES: no edema. PERIPHERAL PULSES: equal. NEUROLOGIC: No gross deficits, AAO X 3 Neuro Speech: No Abnormal speech present Office Procedures EKG Details: Sinus rhythm 69 beats per min, normal axis, right bundle-branch block, QTc 450 msec. [id number], Complete Assessment & Plan Assessment & Plan (1) Chest discomfort: Code(s): R07.89 - Other chest pain (2) PHILLIP (dyspnea on exertion): Code(s): R06.09 - Other forms of dyspnea Plan Pleasant 56-year-old gentleman who is here for assessment of dyspnea and chest discomfort. He he was seen in 2018 when he presented with dyspnea and underwent stress testing followed by diagnostic angiogram which did not show any epicardial coronary stenosis. He was diagnosed with exercise-induced asthma. He continues to get some dyspnea with exertion. Does not use inhalers regularly. He has quite atypical chest pain which has been present for 5 months and is present all the time on most days. I think this is related to acid reflux. I have advised him to increase the omeprazole to 20 mg twice a day and discuss with GI. Sometime acid reflux leads to esophageal spasm which can give pressure-like feeling too. I am going to decrease the lisinopril to 20 mg and add amlodipine 2.5 mg once a day. Will do echocardiogram to assess for any structural heart issues. Follow-up in few months. Thank you for allowing me to participate in the care of your patient. Please feel free to contact me if you have any questions. Orders: Orders CA echo transthoracic complete Today R06.09 - Other forms of dyspnea Medications: New omeprazole 20 mg PO BID 180 caps 0RF R06.09 - Other forms of dyspnea lisinopril 20 mg PO DAILY 90 tabs 3RF R06.09 - Other forms of dyspnea amlodipine 2.5 mg PO DAILY 90 tabs 3RF R06.09 - Other forms of dyspnea Coding Level of Care Code New Pt Level 4 (51399) Diagnoses Chest discomfort R07.89 PHILLIP (dyspnea on exertion) R06.09 CPT Codes EKG - CPT: 58474-[id number], Complete ([id number])
[2022-09-07 15:29] VITALS: BP 108/72; PULSE 69; BMI 33.7
== END 2022-09-07 16:10 | disposition home or self-care (01) ==
PROVIDERS: Visit Provider Internal Medicine Cardiovascular Disease
DX: R07.89 Other chest pain (principal); R06.09 Other forms of dyspnea; R94.31 Abnormal electrocardiogram [ECG] [EKG]; I45.10 Unspecified right bundle-branch block
CPT/HCPCS: 93010; 99204

== ENCOUNTER → 2022-09-07 15:20 | Outpatient (BNVA) | payer OTHER, SELFPAY | PROVIDERS: Visit Provider Internal Medicine Cardiovascular Disease | DX: R07.89 Other chest pain (principal); R06.09 Other forms of dyspnea; I45.10 Unspecified right bundle-branch block; I10 Essential (primary) hypertension; E78.5 Hyperlipidemia, unspecified; Z79.899 Other long term (current) drug therapy | CPT/HCPCS: 93005 ==

== ENCOUNTER → 2022-10-06 14:36 | Outpatient (REF) | payer OTHER, SELFPAY ==
--- NOTE | 2022-10-06 14:39 | CA_ITS ---
Transthoracic Echocardiogram Patient (Last, First, Middle): Claudy Berger J Gender: Male Date of : 1965 Age: 56 Procedure Date: 10/06/2022 Procedure Type: Transthoracic Echocardiogram Location: OP Height: 177.8 cm Weight: 106.14 kg BSA: 2.23 m2 Heart Rate: 63 bpm BP: 130 / 85 mmHg Acid Tank Liner: ANABEL Referring MD: Nabeel Alcaraz MD Symptoms: R06.09 - Other forms of dyspnea Study Quality: Fair ECG Rhythm: Sinus Conclusions: - Normal left ventricular size and systolic function. The visually estimated ejection fraction is between 60-65%. There is no evidence of regional wall motion abnormalities. Diastolic function is normal for age. There is mild septal asymmetric hypertrophy. Normal global longitudinal strain -18%. - Normal right ventricular cavity size and systolic function. - There is mild dilatation of the sinuses of Valsalva measuring 4.10 cm and mild dilatation of the ascending aorta measuring 3.90 cm. Findings Left Ventricle Normal left ventricular size and systolic function. The visually estimated ejection fraction is between 60-65%. There is no evidence of regional wall motion abnormalities. Diastolic function is normal for age. There is mild septal asymmetric hypertrophy. Normal global longitudinal strain -18%. Right Ventricle Normal right ventricular cavity size and systolic function. Atria The left atrium is normal in size. The right atrium is normal in size. Aortic Valve Normal aortic valve structure and function. There is no aortic valve stenosis. There is no aortic valve regurgitation. Mitral Valve The mitral valve appears normal. There is no mitral valve regurgitation. There is no mitral valve stenosis. Pulmonic Valve Normal pulmonic valve structure and function. There is no pulmonic valve regurgitation. Tricuspid Valve Normal tricuspid valve structure and function. There is no tricuspid valve regurgitation. Tricuspid regurgitation envelope is inadequate for calculation of right ventricular systolic pressure. Normal right atrial pressure. Great Vessels There is mild dilatation of the sinuses of Valsalva measuring 4.10 cm and mild dilatation of the ascending aorta measuring 3.90 cm. The visualized portions of the pulmonary artery and branches are normal. Venous The inferior vena cava is normal in size and collapses greater than 50% with inspiration. Pericardium/Pleural There is no evidence of pericardial effusion. Prior Study Comparison Changes noted compared to prior study dated: 12/18/2017. Mildly increased LV wall thickness. Mild dilation of aorta. Measurements 2D Linear Measurements IVSd: 1.12 0.6-0.9/0.6-1.0 cm LVIDd: 4.58 3.9-5.3/4.2-5.9 cm LVIDd Index: 2.05 2.4-3.2/2.2-3.1 cm/m2 LVIDs: 2.24 2.0-3.6 cm LVPWd: 0.86 0.7-1.1 cm LA Diam: 3.20 2.7-3.8/3.0-4.0 cm LAIDs Index: 1.43 1.5-2.3 cm/m2 LV Mass: 193.41 67-162/88-224 g LV Mass Index: 86.73 43-95/49-115 g/m2 LVOT Diam: 2.10 3.0+(-)1.3 cm 2D Systolic Function EF 4C: 63.00 >55% EF 2C: 61.20 >55% EF BiP: 62.20 >55% Mitral Valve MV Pk E: 0.83 MV PK A: 0.70 MV Decel Time: 285.00 E/A: 1.20 E'Lateral: 11.20 E'Medial: 7.18 E/E' Med: 11.50 E/E' Lat: 7.40 PHT: 84.00 MVA PHT: 2.62 Decel Billings: 2.90 Aortic Valve AoV Pk Bakari: 1.41 AoV Mn Bakari: 1.06 AoV VTI: 0.29 AoV Pk Grad: 8.00 Aov Mn Grad: 5.00 DELFINO Cont.VTI: 2.65 LVOT LVOT Pk Bakari: 1.18 LVOT Mn Bakari: 0.81 LVOT VTI: 0.22 LVOT Pk Grad: 6.00 LVOT Mn Grad: 3.00 LVOT Diam: 2.10 LVOT Area: 3.46 Diastolic Function MV Pk E: 0.83 MV Pk A: 0.70 E/A: 1.20 E'Medial: 7.18 E/E' Med: 11.50 E' Laterial: 11.20 E/E' Lat: 7.40 Right Ventricle TAPSE (mm): 23.90 TVS' Bakari: 13.50 Great Vessels Aorta Sinus of Valsalva: 4.10 2.0-3.5 cm Ao Asc: 3.90 2.1-3.4 cm Pulmonary Valve PV Pk Bakari: 1.07 Peak PV Grad: 5.00 Updated in Other Vendor System with Status of Final Nabeel Alcaraz MD electronically signed on 10/07/2022 11:25:24 AM with status of Final
== END ==
LOC: HO.CARD 14:36
PROVIDERS: PCP Internal Medicine; Visit Provider Internal Medicine Cardiovascular Disease
DX: R06.09 Other forms of dyspnea (principal)
CPT/HCPCS: 93306; 93356

== ENCOUNTER → 2022-10-06 14:39 | Outpatient (BNV) | payer OTHER, SELFPAY | PROVIDERS: PCP Internal Medicine; Visit Provider Internal Medicine Cardiovascular Disease | DX: I51.7 Cardiomegaly (principal) | CPT/HCPCS: 93306 ==

== ENCOUNTER 2022-11-28 07:17 | Day surgery (SDC) | payer OTHER, SELFPAY ==
--- NOTE | 2022-11-25 08:51 | HO.ANESPROP2 ---
Documented by User: Ludmila Saini NP 11/25/22 13:04 HPI - Anesthesia Eval Consult details Narrative: 56yo M for Upper Endoscopy and Colonoscopy Cardiac cleared. Per 11/25/22 workload Atypical chest pain on last visit. KM saw and felt it was more GI related. EKG 09/07/22 SR, RBBB, rate 69.Echo done 10/06/22 showing EF 60-65%, no regional WMA. Cath from 2018 showed no CAD. Can proceed with low cardiac risk. [facility] Active Problems Active Problems: All Active Problems (Updated 11/25/22 @ 06:38 by Hilda Randhawa RN) Chest discomfort (Acute) PHILLIP (dyspnea on exertion) (Acute) Past Medical History Medical History (Updated 11/28/22 @ 08:29 by Penny Zeng MD) Orbit injury, left GERD (gastroesophageal reflux disease) Left elbow tendonitis Back pain Nephrotic syndrome Elevated cholesterol HTN (hypertension) Anxiety Sleep apnea Asthma Family History Family History Father Heart disease Mother HTN (hypertension) Dementia Kidney disease Hypercholesteremia Surgical History Surgical History Hx of elbow surgery Hx of esophagogastroduodenoscopy Hx of colonoscopy History of cholecystectomy History of arthroscopy of both shoulders History of bilateral carpal tunnel release H/O bilateral inguinal hernia repair Social History Social History Alcohol intake: current Alcohol intake frequency: a few times a month Alcohol type: beer Patient Tobacco Use Status: Never used Tobacco Meds Allergies Allergy/AdvReac Type Severity Reaction Status Date / Time most pain meds Allergy Unknown mild Uncoded 09/07/22 15:31 itching Home Medications Medication Instructions Recorded Confirmed Last Taken Type atorvastatin 40 mg tablet 40 mg PO DAILY 02/04/20 02/04/20 11/28/22 History citalopram 40 mg tablet 40 mg PO DAILY 02/04/20 02/04/20 Unknown History fenofibrate nanocrystallized 145 145 mg PO DAILY 02/04/20 02/04/20 11/28/22 History mg tablet meclizine 12.5 mg tablet 12.5 mg PO BID PRN Vertigo 02/04/20 02/04/20 Unknown History zolpidem 10 mg tablet (Ambien) 10 mg PO BEDTIME PRN Insomnia 02/04/20 02/04/20 Unknown History Exam Exam Date and Time: November 25, 2022 0851 Pertinent Lab Results Pertinent Lab Results: Laboratory Tests 09/03/22 10:00 WBC 3.6 L Hgb 13.5 L Hct 41.0 L Plt Count 166 Sodium 142 Potassium 4.2 Chloride 106 Carbon Dioxide 26 BUN 14 Creatinine 0.87 Narrative Narrative: EKG 08/2022 Sinus rhythm 69 beats per min, normal axis, right bundle-branch block, QTc 450 msec ECHO 09/2022 Conclusions: - Normal left ventricular size and systolic function. The visually estimated ejection fraction is between 60-65%. There is no evidence of regional wall motion abnormalities. Diastolic function is normal for age. There is mild septal asymmetric hypertrophy. Normal global longitudinal strain -18%. - Normal right ventricular cavity size and systolic function. - There is mild dilatation of the sinuses of Valsalva measuring 4.10 cm and mild dilatation of the ascending aorta measuring 3.90 cm. Exercise Stress 05/2022 Protocol: URI Max HR: 157 BPM 94% of Pred: 166 BPM Max BP: 148/080 mmHG Max Work Load: 8.4 METS PT EXERCISED ON STD URI PROTOCOL FOR 7 MIN INTO STAGE 3. MAX HR 153-92%MAX. SOME MILD SOB. NONSPECIFIC ST CHANGES IN INF WALL IRBBB AT BASELINE. SOME SOB. REDUCED EXERCISE TOLERANSE DUE TO DECONDITIOONING. CONSIDER REPEAT STUDY WITH MIBI. Assessment and Plan Assessment Anesthesia Assessment: Chart Reviewed Documented by User: Penny Zeng MD 11/28/22 08:32 [facility] Active Problems Active Problems: All Active Problems (Updated 11/28/22 @ 06:38 by Penny Zeng MD) Chest discomfort (Acute) -seen by cardiology. Thought GI-related PHILLIP (dyspnea on exertion) (Acute) ARPIT- not using CPAP. Cannot tolerate C/o some discomfort Left abdomen for 1 week. Patient will inform Dr Hidalgo Past Medical History Medical History (Updated 11/28/22 @ 08:29 by Penny eZng MD) Orbit injury, left GERD (gastroesophageal reflux disease) Left elbow tendonitis Back pain Nephrotic syndrome Elevated cholesterol HTN (hypertension) Anxiety Sleep apnea Asthma Family History Family History Father Heart disease Mother HTN (hypertension) Dementia Kidney disease Hypercholesteremia Family history of problems with anesthesia: No Surgical History Surgical History Hx of elbow surgery Hx of esophagogastroduodenoscopy Hx of colonoscopy History of cholecystectomy History of arthroscopy of both shoulders History of bilateral carpal tunnel release H/O bilateral inguinal hernia repair History of Problems with Anesthesia: No Social History Social History Alcohol intake: current Alcohol intake frequency: a few times a month Alcohol type: beer Patient Tobacco Use Status: Never used Tobacco Meds Allergies Allergy/AdvReac Type Severity Reaction Status Date / Time most pain meds Allergy Unknown mild Uncoded 09/07/22 15:31 itching Home Medications Medication Instructions Recorded Confirmed Last Taken Type atorvastatin 40 mg tablet 40 mg PO DAILY 02/04/20 02/04/20 11/28/22 History citalopram 40 mg tablet 40 mg PO DAILY 02/04/20 02/04/20 Unknown History fenofibrate nanocrystallized 145 145 mg PO DAILY 02/04/20 02/04/20 11/28/22 History mg tablet meclizine 12.5 mg tablet 12.5 mg PO BID PRN Vertigo 02/04/20 02/04/20 Unknown History zolpidem 10 mg tablet (Ambien) 10 mg PO BEDTIME PRN Insomnia 02/04/20 02/04/20 Unknown History Exam Height,Weight and Vital Signs: Height 5 ft 10 in Weight 102.512 kg Vital Signs Temp Pulse Resp BP Pulse Ox O2 Del Method 11/28/22 08:13 97.9 F 73 18 108/80 96 Room Air Airway Mallampati Class: III TM Dist: >3cm Neck ROM: Full Loose/Missing/Broken Teeth: No (Dental bridge-fixed. Denies broken, loose, missing teeth) Heart: RRR Lungs: CTAB Assessment and Plan Assessment Anesthesia Assessment: Anesthesia Plan Discussed Final Anesthetic Review Family History of Problems with Anesthesia: No History of Problems with Anesthesia: No NPO: Yes ASA Class: III Final Preanesthetic Review: No Changes in Pt Med Stat, Meds/Allgs Chart Reviewed, Consent Obtained/Reviewed and Anes Risks/Benef Reviewed Patient Risk: Intermediate Procedure Risk: Low Assessment/Block/Sedation in SS: Assess/Block/Sedation-SS Anesthetic Plan Anesthetic Plan: MAC: Disposition: Standard PACU
[2022-11-28 08:13] VITALS: BP 108/80; PULSE 73; RESP 18; TEMP 36.6; O2SAT 96; BMI 32.4
[2022-11-28] MEDS: Lactated Ringers 1,000 ML 100 ML IVCONT (08:19)
[2022-11-28 09:44] VITALS: BP 110/58; PULSE 81; RESP 16; TEMP 36.1; O2SAT 96
--- NOTE | 2022-11-28 09:52 | P.BOP_ITS ---
Brief Operative Note Date of Service: 11/28/22 Pre-op diagnosis: Ojeda's, Screening Post-op diagnosis: other (Hiatal hernia, Colon polyp) Procedure: EGD with biopsies, Colonoscopy to the cecum and TI with bx/removal of polyp Surgeon: Anthony Hidalgo Anesthesia: MAC Was an [employer] Hospitalist used for this Procedure?: No Estimated blood loss (mL): 2.0 Pathology: other (A. EG Junction at 38cm B. Ascending colon polyp) Condition: stable Disposition: PACU
[2022-11-28 09:59] VITALS: BP 100/67; PULSE 68; RESP 16; TEMP 36.2; O2SAT 96
--- NOTE | 2022-11-28 11:17 | OP_ITS ---
DATE OF SERVICE: 11/28/2022 SURGEON: Anthony Hidalgo MD INDICATIONS: Patient presents for evaluation of chronic gastroesophageal reflux, history of Ojeda's esophagus, history of tubular adenoma of the colon, and colorectal cancer screening. Full consent has been obtained from him for both procedures including risks of bleeding and perforation. PREOPERATIVE DIAGNOSIS: Gastroesophageal reflux, Ojeda's esophagus, personal history of tubular adenoma of the colon, and colorectal cancer screening. POSTOPERATIVE DIAGNOSIS: Gastroesophageal reflux, Ojeda's esophagus, personal history of tubular adenoma of the colon, and colorectal cancer screening, hiatal hernia, colon polyp, diverticulosis, and internal hemorrhoids. PROCEDURE PERFORMED: Esophagogastroduodenoscopy with biopsies and colonoscopy to the cecum and terminal ileum with biopsy and removal of polyps. ESTIMATED BLOOD LOSS: COMPLICATIONS: ANESTHESIA: Monitored anesthesia care. ASSISTANTS: SPECIMENS: DESCRIPTION OF PROCEDURE: The patient was placed in the left lateral decubitus position. The Olympus video gastroscope was passed in the posterior oropharynx and upper esophagus under direct vision. The scope was passed slowly to the distal esophagus. The gastroesophageal junction appeared at 38 cm. There was some slight irregularity consistent with reflux and small, less than 1 cm areas of Ojeda's mucosa. There was no esophagitis nor any lesions. The scope entered the stomach. There was a small hiatal hernia. The scope was advanced to pylorus. The duodenum was cannulated to the descending portion. The duodenum including the bulb appeared normal without mass or ulceration. The scope was withdrawn back to the stomach. The gastric antrum and body appeared normal with good peristalsis. Scope was retroflexed, visualizing the proximal stomach carefully, which appeared normal, without any sign of mass or ulceration. The scope was straightened and withdrawn back to the esophagus. Biopsies were obtained at the EG junction at 38 cm. Proximal to that, the esophageal mucosa appeared normal. Scope was withdrawn from the patient. He was turned around for colonoscopy. The digital rectal exam revealed no abnormalities. The Olympus video pediatric colonoscope was entered into the rectum and advanced easily to the cecum. Once in the cecum, I did identify normal-appearing cecal pouch with appendiceal orifice and a normal-appearing ileocecal valve. The terminal ileum was cannulated and appeared normal. Scope was withdrawn back in the colon. The entire cecum and ileocecal valve appeared normal. The scope was then slowly withdrawn, assessing all mucosal surfaces carefully. Preparation for the most part was good throughout the colon although there were some areas of liquid stool, which were difficult to remove. In the proximal ascending colon, there was a flat less than 5 mm polyp, which was biopsied and completely removed with cold biopsy forceps. I did not visualize any other polyps, colitis, nor angiodysplasia. There was a mild amount of sigmoid diverticulosis. In the rectum, scope was retroflexed visualizing internal hemorrhoids, but no other pathology. The rectal mucosa appeared normal. Scope was straightened and withdrawn from the patient. He tolerated both procedures well and was returned to the recovery area in stable condition. IMPRESSION: 1. Hiatal hernia, history of Ojeda's esophagus. 2. Small colon polyp. 3. Diverticulosis. 4. Internal hemorrhoids. PLAN: The results of the biopsies will be checked. He will continue his daily omeprazole. He was advised not to use any aspirin or NSAIDs long-term given a previous history of ulcer disease and his chronic alcohol use. I would recommend both upper endoscopy and colonoscopy again in 3 years for further surveillance in regard to the reflux, Ojeda's esophagus, history of polyps, and somewhat limited prep today. He will otherwise see me on a p.r.n. basis. MD ISAAC Hyatt/KEN / [id number] LUIS
== END 2022-11-28 10:49 | disposition home or self-care (01) ==
PROVIDERS: PCP Internal Medicine; Visit Provider Internal Medicine
PROC: (CPT 45380; principal; 2022-11-28 08:40)
DX: Z12.11 Encounter for screening for malignant neoplasm of colon (principal); Z86.010 Personal history of colon polyps; D12.2 Benign neoplasm of ascending colon; K57.30 Diverticulosis of large intestine without perforation or abscess without bleeding; K64.8 Other hemorrhoids; K21.9 Gastro-esophageal reflux disease without esophagitis; K22.70 Barrett's esophagus without dysplasia; K44.9 Diaphragmatic hernia without obstruction or gangrene; I10 Essential (primary) hypertension; E78.5 Hyperlipidemia, unspecified; J45.909 Unspecified asthma, uncomplicated; N04.9 Nephrotic syndrome with unspecified morphologic changes; G89.4 Chronic pain syndrome; M54.50 Low back pain, unspecified; G47.33 Obstructive sleep apnea (adult) (pediatric); Z79.899 Other long term (current) drug therapy; F10.90 Alcohol use, unspecified, uncomplicated; Z87.11 Personal history of peptic ulcer disease; Z98.890 Other specified postprocedural states
CPT/HCPCS: 45380; 43239; 88305

== ENCOUNTER 2022-12-23 10:10 | Outpatient (REF) | payer OTHER, SELFPAY ==
[2022-12-23 14:04] LABS: Alanine Aminotransferase 50 U/L (0-40); Albumin Level 4.3 g/dL (3.5-5.0); Alkaline Phosphatase 61 U/L (39-117); Anion Gap 13 (12-20); Aspartate Amino Transferase 37 U/L (5-37); Bilirubin Total 0.5 mg/dL (0.0-1.0); Blood Urea Nitrogen 13 mg/dL (9-16); Calcium 9.6 mg/dL (8.4-10.2); Carbon Dioxide 24 mmol/L (22-29); Chloride 106 mmol/L (96-108); Cholesterol 185 mg/dL (<200); Estimated Glomerular Filt Rate > 60; Glucose Random 107 mg/dL (60-115); HDL Cholesterol 45 mg/dL (>40); LDL Cholesterol Calculated 109 mg/dL (<100); Potassium 4.3 mmol/L (3.3-5.1); Sodium 139 mmol/L (135-145); Total Protein 6.7 g/dL (6.5-8.0); Triglycerides 159 mg/dL (<150)
== END 2022-12-23 10:11 | disposition home or self-care (01) ==
LOC: HO.HMGCLDS 10:10
PROVIDERS: PCP Internal Medicine; Visit Provider Internal Medicine
DX: I10 Essential (primary) hypertension (principal); K21.9 Gastro-esophageal reflux disease without esophagitis; J45.909 Unspecified asthma, uncomplicated; R79.89 Other specified abnormal findings of blood chemistry
CPT/HCPCS: 36415; 80053; 80061

== ENCOUNTER 2023-05-29 12:15 | Outpatient (REF) | payer OTHER, SELFPAY ==
--- NOTE | ~2023-05-29 | XR_ITS ---
EXAMINATION: XR SHOULDER, LEFT CLINICAL INFORMATION: Shoulder pain. COMPARISON: Chest radiograph 09/24/2020. TECHNIQUE: AP external rotation, Grashey, scapular Y, and axillary views of the left shoulder. FINDINGS: Again seen is presumed resection of the distal left clavicle - please correlate with surgical history. The glenohumeral joint appears normal. The bones and soft tissues are otherwise unremarkable. No fracture. No abnormal soft tissue calcifications. XR/XR shoulder LT min 2V IMPRESSION: 1. No acute finding. 2. Presumed resection of the distal left clavicle.
== END 2023-05-29 12:16 | disposition home or self-care (01) ==
LOC: HO.HOSX 12:15
PROVIDERS: Visit Provider Orthopaedic Surgery
DX: M75.102 Unspecified rotator cuff tear or rupture of left shoulder, not specified as traumatic (principal)
CPT/HCPCS: 20610; 73030; J0665; J1100

== ENCOUNTER 2023-05-29 14:34 | Outpatient (AMB) | payer OTHER, SELFPAY ==
--- NOTE | 2023-05-29 14:43 | A.OFFVIS_ITS ---
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 Patient reports he has been experiencing ongoing pain for a few months, pain is worsening with anterior rotation of the shoulder. He has a history of injections in the past which did give him relief. He would like to receive an injection in his left shoulder today. He also reports history of arthroscopic surgery. 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 Patient reports he has been experiencing ongoing pain for a few months, pain is worsening with anterior rotation of the shoulder. He has a history of injections in the past which did give him relief. He would like to receive an injection in his left shoulder today. He also reports history of arthroscopic surgery. [facility] Medical History Orbit injury, left GERD (gastroesophageal reflux disease) Left elbow tendonitis Back pain Nephrotic syndrome Elevated cholesterol HTN (hypertension) Anxiety Sleep apnea Asthma Surgical History Hx of elbow surgery Hx of esophagogastroduodenoscopy Hx of colonoscopy History of cholecystectomy History of arthroscopy of both shoulders History of bilateral carpal tunnel release H/O bilateral inguinal hernia repair Family History Father Heart disease Mother HTN (hypertension) Dementia Kidney disease Hypercholesteremia Social History Alcohol intake: current Alcohol intake frequency: a few times a month Alcohol type: beer Patient Tobacco Use Status: Never used Tobacco Physical Exam Vital Signs: BMI result Body Mass Index 33.7 Extrem Other: positive Vogt and Neer Negative empty can 40/90/130/L5 Office Procedures Joint Injection/Drain Joint Injection/Drain Details: Injected 1 mL of Decadron and 3 mL 1% lidocaine and 3 mL of 0.25% Marcaine. Site was prepped using aseptic technique. Patient tolerated the procedure well. Primary Site: left shoulder Approach Used: posterolateral Coding 28737 - Large joint Procedure code (CPT) selection complete Results Reviewed Results Reviewed: I personally reviewed relevant radiographs. Unremarkable left shoulder radiographs Assessment & Plan Assessment & Plan (1) Painful arc syndrome of left shoulder: Code(s): M75.102 - Unspecified rotator cuff tear or rupture of left shoulder, not specified as traumatic Plan: 57-year-old gentleman with painful arc syndrome of the left shoulder. He has had injections in the past which have been helpful. I injected his left shoulder. If this is not sufficiently helpful I would recommend physical therapy. Orders: Orders XR shoulder LT min 2V 05/29/23 M25.519 - Pain in unspecified shoulder Coding Level of Care Code New Pt Level 3 (03804) Diagnoses Painful arc syndrome of left shoulder M75.102 CPT Codes Coding - Large joint: 87785 - Large joint ([id number])
[2023-05-29 14:56] VITALS: BMI 33.7
== END 2023-05-29 15:18 | disposition home or self-care (01) ==
PROVIDERS: PCP Internal Medicine; Visit Provider Orthopaedic Surgery
DX: M75.102 Unspecified rotator cuff tear or rupture of left shoulder, not specified as traumatic (principal)
CPT/HCPCS: 20610; 99203

== ENCOUNTER 2023-06-15 08:57 | Outpatient (REF) | payer OTHER, SELFPAY ==
[2023-06-15 10:20] LABS: MANUAL DIFF FLAG NO
[2023-06-15 10:36] LABS: Basophils Percent Auto 0.8 % (0-2); Eosinophils Absolute Auto 0.1 X10*3/uL (0.0-0.4); Eosinophils Percent Auto 2.5 % (0-4); Hematocrit 39.6 % (42.0-52.0); Hemoglobin 13.2 g/dl (14.0-18.0); Imm Gran Abs Auto 0.01 X10*3/uL (0.00-0.03); Imm Gran Pct Auto 0.3 % (0.0-0.4); Lymphocytes Absolute Auto 1.2 X10*3/uL (1.2-4.9); Lymphocytes Percent Auto 33.9 % (20-40); Mean Corpuscular HGB Conc 33.3 g/dl (31.0-36.0); Mean Corpuscular Hemoglobin 29.4 pg (27.0-33.0); Mean Corpuscular Volume 88.2 fL (80.0-98.0); Mean Platelet Volume 10.7 fL (9.4-12.4); Monocytes Absolute Auto 0.3 X10*3/uL (0.1-1.2); Monocytes Percent Auto 9.5 % (2-11); Neutrophils Absolute Auto 1.9 x10*3/uL (2.0-8.3); Platelet Count 166 X10*3/uL (160-400); Red Blood Count 4.49 X10*6/uL (4.60-5.80); Red Cell Distribution Width 12.9 % (11.0-16.0); White Blood Count 3.6 X10*3/uL (4.8-10.8)
[2023-06-15 10:40] LABS: Alanine Aminotransferase 44 U/L (0-40); Albumin Level 4.2 g/dL (3.5-5.0); Alkaline Phosphatase 58 U/L (39-117); Anion Gap 13 (12-20); Aspartate Amino Transferase 30 U/L (5-37); Bilirubin Total 0.4 mg/dL (0.0-1.0); Blood Urea Nitrogen 13 mg/dL (9-16); Calcium 9.3 mg/dL (8.4-10.2); Carbon Dioxide 28 mmol/L (22-29); Chloride 104 mmol/L (96-108); Cholesterol 175 mg/dL (<200); Estimated Glomerular Filt Rate > 60; Glucose Fasting 120 mg/dL (60-99); HDL Cholesterol 44 mg/dL (>40); LDL Cholesterol Calculated 98 mg/dL (<100); Lipase 21 U/L (8-78); Potassium 4.3 mmol/L (3.3-5.1); Sodium 141 mmol/L (135-145); Total Protein 6.6 g/dL (6.5-8.0); Triglycerides 166 mg/dL (<150)
[2023-06-15 10:55] LABS: Prostate Specific Antigen Scr 0.65 ng/mL (<0.05-4.0)
[2023-06-15 12:50] LABS: Appearance Urine Clear; Color Urine Yellow; Glucose Urine UA Negative (Negative); Leukocyte Esterase Urine Negative (Negative); Nitrite Urine Negative (Negative); PH >= 9.0 (5.0-9.0); Specific Gravity - Urine 1.015 (1.005-1.025); Urine Blood Negative (Negative); Urine Ketones Negative (Negative); Urine Protein Negative (Neg-Trace)
== END 2023-06-15 08:58 | disposition home or self-care (01) ==
LOC: HO.HMGCLDS 08:57
PROVIDERS: PCP Internal Medicine; Visit Provider Internal Medicine
DX: Z12.5 Encounter for screening for malignant neoplasm of prostate (principal); E78.5 Hyperlipidemia, unspecified; I12.9 Hypertensive chronic kidney disease with stage 1 through stage 4 chronic kidney disease, or unspecified chronic kidney disease; N18.9 Chronic kidney disease, unspecified
CPT/HCPCS: 36415; 80053; 80061; 81003; 83690; 84153; 85025

== ENCOUNTER 2023-12-04 13:38 | Outpatient (AMB) | payer OTHER, SELFPAY ==
[2023-12-04 13:54] VITALS: BP 120/70; PULSE 70; BMI 34.8
--- NOTE | 2023-12-04 13:54 | A.OFFVIS_ITS ---
Vital Signs 12/04/23 13:54 Height 5 ft 10 in Weight 242 lb 8.136 oz BMI 34.8 BP 120/70 Blood Pressure Location Lt brachial Position Sitting Pulse 70 Pulse Source Monitor Intake Visit Reasons: f/up Emotionally Impaired Teacher Required: No Accompanied by: Self / Same As Patient Allergies most pain meds Allergy (Unknown, Uncoded 09/07/22 15:31) mild itching Medication List - Last Reconciled 12/04/23 by Nabeel Alcaraz MD atorvastatin 40 mg PO DAILY citalopram 40 mg PO DAILY fenofibrate nanocrystallized 145 mg PO DAILY lisinopril 20 mg PO DAILY meclizine 12.5 mg PO BID PRN omeprazole 20 mg PO BID zolpidem (Ambien) 10 mg PO BEDTIME PRN HPI Comments Details: 57-year-old gentleman with chronic right bundle-branch block, hypertension and hyperlipidemia who is presenting for assessment of chest discomfort. He was seen in 2018 when he presented with dyspnea and equivocal exercise stress test. After discussion she was taken for cardiac catheterization. He did not have any epicardial coronary artery stenosis. He did have some sluggish flow in the coronary arteries with unclear etiology. He has not followed up since then. Recently he had exercise stress testing performed for chest pressure. He has been experiencing chest pressure like feeling for the last 5 months. This is present on most days all the time. At time he gets worse after eating or when he is laying down. He has not had any worsening in symptoms with activity. He has gained weight. He has some shortness of breath with activity. He has known history of exercise induced asthma. He has not been using his inhalers. He again had exercise stress test which was inconclusive. He clearly did not have any ischemic EKG changes but also did not exercise for long time. 12/04/2023: He returns for follow-up. He continues to get a pressure-like feeling in his chest which lasts 4 weeks at times. No exertional component. He gets exertional dyspnea due to exercise-induced asthma but does not use inhalers before exercise or physical activity. Blood pressure is controlled. On last admission we decrease the lisinopril to 20 mg and added amlodipine 2.5 mg to see if his pressure would improve. I was thinking he may have esophageal spasm. He is saying that he has not use the amlodipine because he does not want to add another medication. After some discussion he is agreeable to start amlodipine and will send the script again. [facility] Medical History Orbit injury, left GERD (gastroesophageal reflux disease) Left elbow tendonitis Back pain Nephrotic syndrome Elevated cholesterol HTN (hypertension) Anxiety Sleep apnea Asthma Surgical History Hx of elbow surgery Hx of esophagogastroduodenoscopy Hx of colonoscopy History of cholecystectomy History of arthroscopy of both shoulders History of bilateral carpal tunnel release H/O bilateral inguinal hernia repair Family History Father Heart disease Mother HTN (hypertension) Dementia Kidney disease Hypercholesteremia Social History Alcohol intake: current Alcohol intake frequency: a few times a month Alcohol type: beer Patient Tobacco Use Status: Never used Tobacco Review of Systems Const Denies chills, Denies fatigue, Denies fever(s), Denies frequent falls, Denies weakness, Denies weight gain and Denies weight loss ENT Denies dizziness Card Denies chest pain, Denies leg edema, Denies lightheadedness, Denies palpitations, Denies dyspnea and Denies dyspnea on exertion Resp Denies cough, Denies dyspnea and Denies dyspnea on exertion GI Denies hematochezia Musc Denies abnormal gait, Denies muscle weakness, Denies numbness, Denies radiating pain into limb and Denies tingling Neuro Denies abnormal gait, Denies dizziness, Denies frequent falls, Denies numbness, Denies tingling and Denies weakness Endo Denies fatigue and Denies palpitations Physical Exam Vital Signs: Last Vital Signs Pulse 70 12/04/23 13:54 BP 120/70 12/04/23 13:54 BMI result Body Mass Index 34.8 GENERAL APPEARANCE: in no acute distress, pleasant. NECK: no carotid bruit, no jugular venous distention. SKIN: no suspicious lesions, warm and dry. HEART: no murmurs, regular rate and rhythm. LUNGS: clear to auscultation bilaterally. ABDOMEN: soft, nontender. EXTREMITIES: no edema. PERIPHERAL PULSES: equal. NEUROLOGIC: No gross deficits, AAO X 3 Office Procedures EKG Details: Sinus rhythm 70 beats per minute, normal axis, right bundle-branch block, QRS duration 136 milliseconds, QTC 473 milliseconds. 85582-Czljoykliylegsohm, Complete Assessment & Plan Assessment & Plan (1) Chest discomfort: Code(s): R07.89 - Other chest pain Category: Medical (2) PHILLIP (dyspnea on exertion): Code(s): R06.09 - Other forms of dyspnea Category: Medical (3) Ascending aorta dilatation: Code(s): I77.810 - Thoracic aortic ectasia Category: Medical Plan 57-year-old gentleman who is here for follow-up. He was seen previously for dyspnea and chest discomfort in 2018 when he underwent cardiac catheterization which did not show any coronary artery disease. Was diagnosed with exercise- induced asthma. He recently started seeing us again. He has similar symptoms before. He does not use inhalers before exercise. I have advised him that he should use that before any significant physical exertion. In terms of his chest discomfort it is noncardiac in origin. I think it is due to esophageal spasm. We will send amlodipine 2.5 mg and he will try it. If he has improvement in symptoms with this strategy then he is to discuss with Gastroenterology for further management. He has mild ascending aortic dilatation. We will arrange repeat echocardiogram to see if there is any significant exchange underwriting consultant the last year. Thank you for allowing me to participate in the care of your patient. Please feel free to contact me if you have any questions. Orders: Orders CA echo transthoracic complete Today I77.810 - Thoracic aortic ectasia Medications: New amlodipine 2.5 mg PO DAILY 30 tabs 0RF I77.810 - Thoracic aortic ectasia Coding Level of Care Code Est Pt Level 4 (90772) Diagnoses Chest discomfort R07.89 PHILLIP (dyspnea on exertion) R06.09 Ascending aorta dilatation I77.810 CPT Codes EKG - CPT: 05970-Qtaqvikfnftdzgumz, Complete ([id number])
== END 2023-12-04 14:19 | disposition home or self-care (01) ==
PROVIDERS: PCP Internal Medicine; Visit Provider Internal Medicine Cardiovascular Disease
DX: R07.89 Other chest pain (principal); R06.09 Other forms of dyspnea; I77.810 Thoracic aortic ectasia
CPT/HCPCS: 93010; 99214

== ENCOUNTER → 2023-12-04 13:38 | Outpatient (BNVA) | payer OTHER, SELFPAY | PROVIDERS: PCP Internal Medicine; Visit Provider Internal Medicine Cardiovascular Disease | DX: R07.89 Other chest pain (principal); R06.09 Other forms of dyspnea; I77.810 Thoracic aortic ectasia | CPT/HCPCS: 93005 ==

== ENCOUNTER 2023-12-22 06:02 | Outpatient (REF) | payer OTHER, SELFPAY ==
[2023-12-22 10:02] LABS: Appearance Urine Clear; Color Urine Yellow; Glucose Urine UA Negative (Negative); Leukocyte Esterase Urine Negative (Negative); Nitrite Urine Negative (Negative); PH 7.5 (5.0-9.0); Urine Blood Negative (Negative); Urine Ketones Negative (Negative); Urine Protein Negative (Neg-Trace)
[2023-12-22 10:07] LABS: MANUAL DIFF FLAG NO
[2023-12-22 10:12] LABS: Basophils Percent Auto 0.8 % (0-2); Eosinophils Absolute Auto 0.1 X10*3/uL (0.0-0.4); Eosinophils Percent Auto 2.7 % (0-4); Hematocrit 41.4 % (42.0-52.0); Hemoglobin 13.6 g/dl (14.0-18.0); Imm Gran Abs Auto 0.01 X10*3/uL (0.00-0.03); Imm Gran Pct Auto 0.3 % (0.0-0.4); Lymphocytes Absolute Auto 1.5 X10*3/uL (1.2-4.9); Lymphocytes Percent Auto 40.4 % (20-40); Mean Corpuscular HGB Conc 32.9 g/dl (31.0-36.0); Mean Corpuscular Hemoglobin 29.8 pg (27.0-33.0); Mean Corpuscular Volume 90.6 fL (80.0-98.0); Mean Platelet Volume 10.3 fL (9.4-12.4); Monocytes Absolute Auto 0.3 X10*3/uL (0.1-1.2); Monocytes Percent Auto 9.2 % (2-11); Neutrophils Absolute Auto 1.7 x10*3/uL (2.0-8.3); Neutrophils Percent Auto 46.6 % (45-73); Platelet Count 175 X10*3/uL (160-400); Red Blood Count 4.57 X10*6/uL (4.60-5.80); White Blood Count 3.7 X10*3/uL (4.8-10.8)
[2023-12-22 10:20] LABS: Estimated Average Glucose 154 mg/dL; Total Hemoglobin (HGBA1C) 3470.6591 umol/L
[2023-12-22 10:46] LABS: Prostate Specific Antigen 0.49 ng/mL (<0.05-4.0)
[2023-12-22 10:46] LABS: Alanine Aminotransferase 40 U/L (0-40); Albumin Level 4.2 g/dL (3.5-5.0); Alkaline Phosphatase 55 U/L (39-117); Anion Gap 13 (12-20); Aspartate Amino Transferase 28 U/L (5-37); Bilirubin Total 0.4 mg/dL (0.0-1.0); Blood Urea Nitrogen 12 mg/dL (9-16); Calcium 9.6 mg/dL (8.4-10.2); Carbon Dioxide 28 mmol/L (22-29); Chloride 104 mmol/L (96-108); Cholesterol 177 mg/dL (<200); Estimated Glomerular Filt Rate > 60; Glucose Fasting 130 mg/dL (60-99); HDL Cholesterol 46 mg/dL (>40); LDL Cholesterol Calculated 92 mg/dL (<100); Potassium 4.2 mmol/L (3.3-5.1); Sodium 141 mmol/L (135-145); Total Protein 6.5 g/dL (6.5-8.0); Triglycerides 197 mg/dL (<150)
== END 2023-12-22 06:03 | disposition home or self-care (01) ==
LOC: HO.HMGCLDS 06:02
PROVIDERS: PCP Internal Medicine; Visit Provider Internal Medicine
DX: I10 Essential (primary) hypertension (principal); R73.03 Prediabetes; Z12.5 Encounter for screening for malignant neoplasm of prostate; Z87.441 Personal history of nephrotic syndrome
CPT/HCPCS: 36415; 80053; 80061; 81003; 83036; 84153; 85025

== ENCOUNTER 2024-02-19 10:49 | Outpatient (AMB) | payer OTHER, SELFPAY ==
--- OUTSIDE RECORDS SUMMARY | 2024-02-19 10:52 | XMS_ITS ---
Author Organization [facility] Address [address] [place] [address] Care Team Providers Care Licensed Massage Therapist Name Role Phone Irvin Rosen MD Primary Care Provider Anthony Lantigua [phone] REASON FOR VISIT screening PROBLEMS Problem Type ICD Code Onset Dates Problem Status W/U Status Risk SNOMED Code Notes Problem Diverticulosis of large intestine without perforation or abscess without bleeding (K57.30) Active confirmed Diverticul ar disease of colon (276526102) Problem Gastroesophageal reflux disease (K21.9) Active confirmed Gastroesophagea l reflux disease (029668627) Problem 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 Ojeda esophag us (502439199) Encounters Encounter Location Date Provider Diagnosis [facility] [address] [place] [id number] 11/28/2022 Anthony Hidalgo Encounter for screen ing colonoscopy Z12.11 ; Colon polyps K63.5 ; Diverticulosis of large intestine without perforation or abscess without bleeding K57.30 ; Other hemorrhoids K64.8 ; Gastroesophageal reflux disease K21.9 ; Ojeda esophagus K22.70 and Hiatal hernia K44.9 ASSESSMENTS Encounter Date Diagnosis Assessment Notes Treatment Notes Treatment Clinical Notes 11/28/2022 Encounter for screen ing colonoscopy (ICD-10 - Z12.11) 11/28/2022 Colon polyps (ICD-10 - K63.5) 11/28/2022 Diverticulosis of la rge intestine without perforation or abscess without bleeding (ICD-10 - K57.30) 11/28/2022 Other hemorrhoids (ICD-10 - K64.8) 11/28/2022 Gastroesophageal ref lux disease (ICD-10 - K21.9) 11/28/2022 Ojeda esophagus (ICD-10 - K22.70) 11/28/2022 Hiatal hernia (ICD-1 0 - K44.9) PLAN OF TREATMENT No Information
--- OUTSIDE RECORDS SUMMARY | 2024-02-19 10:52 | XMS_ITS ---
Author Organization [facility] Address [address] [place] [address] Care Team Providers Care Resident Surgeon Name Role Phone Irvin Rosen MD Primary Care Provider Anthony Lantigua [phone] REASON FOR VISIT cancel appt Encounters Encounter Location Date Provider Diagnosis [facility] [address] [place] [address] 11/25/2022 Anthony Hidalgo PLAN OF TREATMENT No Information
--- OUTSIDE RECORDS SUMMARY | 2024-02-19 10:52 | XMS_ITS | Patient Health Record ---
Author Organization [facility] Address [address] [place] [address] Care Team Providers Care Forensic Scientist Name Role Phone Irvin Rosen MD Primary Care Provider Anthony Lantigua Unavailable [phone] ALLERGIES No Known Allergies REASON FOR REFERRAL No Information MEDICATIONS Medication SIG (Take, Route, Frequency, Duration) Notes Start Date End Date Status Lisinopril 40 MG 1 tablet Orally Once a day Active Citalopram Hydrobromide 40 MG 0.5 tablet Orally Once a day Active Meclizine HCl as needed Active Atorvastatin Calcium 40 MG 1 tablet Orally Once a day Active Fenofibrate 145 MG 1 tablet with food Orally Once a day for 30 day(s) Active Ambien 10 MG 1 tablet at bedtime as needed Orally Once a day Active Omeprazole 40 MG 1 capsule 30 minutes before morning meal Orally Once a day for 90 days 02/06/2019 Not-Taking Omeprazole 20 MG 1 capsule Orally Onc e a day Active IMMUNIZATIONS Vaccine Route Administration Date Status Comme nts Influenza Unknown 08/17/2022 Refused SOCIAL HISTORY Sex Assigned At : Social History Observation Description Sex Assigned At Unknown Alcohol Screen Question Answer Notes Did you have a drink contain ing alcohol in the past year? Yes How often did you have a dri nk containing alcohol in the past year? 2 to 4 times a month (2 points) How many drinks did you have on a typical day when you were drinking in the past year? 10 or more drinks (4 points) How often did you have 6 or more drinks on one occasion in the past year? Weekly (3 points) Points 9 Interpretation Positive PROBLEMS Problem Type ICD Code Onset Dates Problem Status W/U Status Risk SNOMED Code Notes Problem Encounter for screening for malignant neoplasm of colon (Z12.11) Active confirmed 444264315 Problem History of adenomatous polyp of colon (Z86.010) Active confirmed 635430194 Problem Diverticulosis of large intestine without perforation or abscess without bleeding (K57.30) Active confirmed Diverticul ar disease of colon (690654383) Problem Gastroesophageal reflux disease (K21.9) Active confirmed Gastroesophagea l reflux disease (455974700) Problem Gastroesophageal reflux disease, esophagitis presence not specified (K21.9) Active confirmed 160442375 Problem Irregular bowel habits (R19.8) Active confirmed 921997029 Problem 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 Ojeda esophag us (239252414) Problem Abdominal pain, generalized (R10.84) Active confirmed 836706265 Problem Ojeda''s esophagus without dysplasia (K22.70) Active confirmed 297572536 Problem Chronic gastric ulcer without hemorrhage and without perforation (K25.7) Active confirmed 16767035 PLAN OF TREATMENT Pending Test Test Name Order Date Pathology 11/28/2022 Future Test Test Name Order Date UPPER GI ENDOSCOPY 08/12/2014 UPPER GI ENDOSCOPY 01/04/2019 COLONOSCOPY 01/04/2019 COLONOSCOPY 06/24/2019 UPPER GI ENDOSCOPY 08/17/2022 COLONOSCOPY 08/17/2022 Insurance Providers Payer Name Payer Address Payer Phone Subscriber Number Group Number Insured Name Patient Relationship to Insured Coverage Start Date Coverage End Date [employer] [address] [address] [place] [address] [id number] AMAN HANLEY Self - patient is the insured MEDICAL (GENERAL) HISTORY Medical History History ICD Code Denies MS,DM,CVA,Lung disease Hypertension Nephrotic syndrome- Dr. Henson Hyperlipidemia Anxiety Asthma/bronchitis Chronic back pain--gets atul odic RFA for nerve pain in the lower back/SI joints GERD Sleep apnea--not using CPAP Positive Hpylori serology treated with a ntibiotics and PPI in the past Screening colonoscopy Decemb er 2018 with removal of a cecal tubular adenoma. He did have some post-polypectomy bleeding and had to undergo a followup colonoscopy the following day. At that point there was no sign of any active bleeding from the polypectomy site and he did not require any further intervention. Upper endoscopy in January of 2019 revealed a small to moderate sized hiatal hernia, tiny area of Ojeda's esophagus with no dysplasia, prepyloric gastric ulcer with biopsies negative for H. pylori Followup colonoscopy in 2019 was negative for any recurrent polyps Upper endoscopy in January of 2020 revealed some erosive gastritis with biopsies negative for H. pylori Seeing Dr. Alcaraz 08/2022 to review chest discomfort. He had a negative ETT in Spring 2022 Surgical History Surgery Date(Month/Year) CCY 1991 Bilateral inguinal hernia repair 1996 Bilateral shoulder surgeries Bilateral carpal tunnel Left elbow Left orbit surgery due to trauma
[2024-02-19 11:08] VITALS: BP 140/90; PULSE 73; TEMP 37.5; O2SAT 99
--- NOTE | 2024-02-19 11:08 | MHC.OFFWIV ---
Intake Vital Signs 02/19/24 11:08 Weight 258 lb BP 140/90 H Blood Pressure Location Lt brachial Position Sitting Pulse 73 Pulse Source Pulse Oximeter Temp 99.5 F Temp Source Oral Pulse Oximetry (%) 99 Oxygen Delivery Method Room Air Intake Visit Reasons: EP cough, congestion, headache Intake Note: Patient here for cough, chest congestion and headache which started last monday Patient Tobacco Use Status: Never used Tobacco Allergies most pain meds Allergy (Unknown, Uncoded 02/19/24 11:15) mild itching Do you need a note to return to daycare/school/sports/work: No HPI EP cough, congestion, headache HPI Details This note is constructed using voice recognition software. While every effort has been made to ensure accuracy, supervising nurse errors may have been included. The patient is a 58 year old male who presents to the clinic today with cough, congestion, headache for the past 6 days. His was recently sick with COVID. He denies fever, chills, does report some mild dyspnea with coughing. He has been using his albuterol inhaler, which has not been helping the symptoms. He typically has asthma that is triggered by exercise or URIs. [facility] Medical History Orbit injury, left GERD (gastroesophageal reflux disease) Left elbow tendonitis Back pain Nephrotic syndrome Elevated cholesterol HTN (hypertension) Anxiety Sleep apnea Asthma Surgical History Hx of elbow surgery Hx of esophagogastroduodenoscopy Hx of colonoscopy History of cholecystectomy History of arthroscopy of both shoulders History of bilateral carpal tunnel release H/O bilateral inguinal hernia repair Family History Father Heart disease Mother HTN (hypertension) Dementia Kidney disease Hypercholesteremia Social History Alcohol intake: current Alcohol intake frequency: a few times a month Alcohol type: beer Patient Tobacco Use Status: Never used Tobacco Review of Systems Const All systems reviewed & are unremarkable except as noted in HPI and below Physical Exam Vital Signs: Last Vital Signs Temp 99.5 F 02/19/24 11:08 Pulse 73 02/19/24 11:08 BP 140/90 H 1223/24 11:08 Pulse Ox 99 02/19/24 11:08 Oxygen Delivery Method Room Air 02/19/24 11:08 Const General: cooperative, healthy appearing, comfortable and no acute distress Orientation/consciousness: patient oriented x3 Limitations: no limitations HEENT Head: Yes normal to inspection Ears: hearing grossly normal bilaterally, external ears normal and TM's normal bilaterally General nose exam: Normal external nose present, Normal nares present and No nasal discharge present Face and sinus: Yes normal facial exam and Yes sinuses nontender Mouth: Normal oral and palatal mucosa present and moist mucous membranes Throat: Yes tonsils normal, Yes uvula midline and Yes posterior oropharynx abnormal (Erythema) Eyes General: appearance normal, both eyes and all related structures Neck Neck: Yes normal visual inspection Resp Effort & Inspection: normal respiratory effort, able to speak in complete sentences, Actively coughing, no respiratory distress, not tachypneic, no tripod positioning and no use of accessory muscles Auscultation: clear to auscultation bilaterally (but tight sounding) Cardio Jugular venous distension: no JVD Rate: regular rate Rhythm: regular rhythm Heart sounds: S1 normal heart sound present, S2 normal heart sound present, no click, no gallops, no murmurs and no rubs Skin General skin exam: no rashes or lesions noted, elasticity normal and turgor normal Neuro General: patient oriented x3 Extrem General: Yes normal to inspection and Yes no clubbing, cyanosis or edema Assessment & Plan Assessment & Plan (1) URI (upper respiratory infection): Code(s): J06.9 - Acute upper respiratory infection, unspecified Qualifiers: URI type: unspecified URI Qualified Code(s): J06.9 - Acute upper respiratory infection, unspecified Plan: Viral swab obtained to rule out Covid, Influenza, and RSV based on symptoms. Advised mask wearing while symptomatic and quarantine per current CDC guidelines. Reviewed at home support methods including hydration, humidification, vix vapor rub, sinus rinse, and otc treatment options. Patient is outside of treatment window for antiviral therapy. Prednisone burst sent for symptomatic management of asthma trigger, as well as benzonatate for symptomatic management of cough. Advised follow up with worsening symptoms such as dyspnea at rest, which would require emergent evaluation. Plan See above for full details and plan. Orders: Orders SARS-CoV2/FLU/RSV Today J06.9 - Acute upper respiratory infection, unspecified Medications: New prednisone 40 mg (2 x 20 mg) PO DAILY 5 days 10 tabs 0RF benzonatate 100 mg PO TID 5 days PRN 15 caps 0RF Cough Coding Level of Care Code Est Pt Level 3 (20371) Diagnoses Upper respiratory tract infection, unspecified type J06.9 URI type: unspecified URI
== END 2024-02-19 11:35 | disposition home or self-care (01) ==
PROVIDERS: PCP Internal Medicine; Visit Provider Registered Nurse
DX: J06.9 Acute upper respiratory infection, unspecified (principal)

== ENCOUNTER 2024-02-19 10:49 | Outpatient (REF) | payer OTHER, SELFPAY ==
[2024-02-19 16:49] LABS: Influenza A PCR NEGATIVE (Negative); Influenza B PCR NEGATIVE (Negative); Resp Syncy Virus RNA Qual PCR NEGATIVE (Negative); SARS COV2 PCR INHOUSE NEGATIVE (Negative)
== END 2024-02-19 10:50 | disposition home or self-care (01) ==
LOC: HO.LAB 10:49
PROVIDERS: Registered Nurse; PCP Internal Medicine
DX: J06.9 Acute upper respiratory infection, unspecified (principal)
CPT/HCPCS: 0241U

== ENCOUNTER 2024-02-22 14:49 | Outpatient (REF) | payer OTHER, SELFPAY ==
--- OUTSIDE RECORDS SUMMARY | 2024-02-22 14:51 | XMS_ITS ---
Author Organization [facility] Address [address] [place] [address] Care Team Providers Care Inventory Control Manager Name Role Phone Irvin Rosen MD Primary Care Provider Anthony Lantigua [phone] REASON FOR VISIT cancel appt Encounters Encounter Location Date Provider Diagnosis [facility] [address] [place] [address] 11/25/2022 Anthony Hidalgo PLAN OF TREATMENT No Information
--- OUTSIDE RECORDS SUMMARY | 2024-02-22 14:51 | XMS_ITS | Patient Health Record ---
Author Organization [facility] Address [address] [place] [address] Care Team Providers Care Joss House Keeper Name Role Phone Irvin Rosen MD Primary Care Provider Anthony Lantigua Unavailable [phone] ALLERGIES No Known Allergies REASON FOR REFERRAL [...] malignant neoplasm of colon (Z12.11) Active confirmed 068859586 Problem History of adenomatous polyp of colon (Z86.010) Active confirmed 095612371 Problem Diverticulosis of large intestine without perforation or abscess without bleeding (K57.30) Active confirmed Diverticul ar disease of colon (147830120) Problem Gastroesophageal reflux disease (K21.9) Active confirmed Gastroesophagea l reflux disease (143159428) Problem Gastroesophageal reflux disease, esophagitis presence not specified (K21.9) Active confirmed 647204981 Problem Irregular bowel habits (R19.8) Active confirmed 178860081 Problem 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 [address] [place] [address] [id number] AMAN HANLEY Self - patient is the insured MEDICAL (GENERAL) HISTORY Medical History History ICD Code Denies ID,DM,CVA,Lung disease Hypertension Nephrotic syndrome- Dr. Henson Hyperlipidemia [...]
[2024-02-22 16:04] LABS: Appearance Urine Clear; Color Urine Yellow; Glucose Urine UA Negative (Negative); Leukocyte Esterase Urine Negative (Negative); Nitrite Urine Negative (Negative); PH 6.5 (5.0-9.0); Specific Gravity - Urine 1.015 (1.005-1.025); UMIC TRIGGER UA YES; Urine Blood Trace (Negative); Urine Ketones Negative (Negative); Urine Protein >=1000 (4+) mg/dL (Neg-Trace)
[2024-02-22 16:25] LABS: Anion Gap 14 (12-20); Blood Urea Nitrogen 32 mg/dL (9-16); Carbon Dioxide 30 mmol/L (22-29); Chloride 105 mmol/L (96-108); Estimated Glomerular Filt Rate 59; Glucose Random 230 mg/dL (60-115); Sodium 145 mmol/L (135-145)
[2024-02-22 16:41] LABS: Bacteria Urine None Seen (None Seen); Squamous Epithelial Cell Urine 0-2 /HPF (0-2); WBC Urine 0-5 /HPF (0-5)
== END 2024-02-22 14:50 | disposition home or self-care (01) ==
LOC: HO.HMGCLDS 14:49
PROVIDERS: PCP Internal Medicine; Visit Provider Family Medicine
DX: I10 Essential (primary) hypertension (principal); E11.9 Type 2 diabetes mellitus without complications; R60.9 Edema, unspecified; R80.9 Proteinuria, unspecified
CPT/HCPCS: 36415; 80051; 81001; 81003; 82565; 82947; 84520

== ENCOUNTER 2024-03-02 10:04 | Outpatient (REF) | payer OTHER, SELFPAY ==
--- OUTSIDE RECORDS SUMMARY | 2024-03-02 10:07 | XMS_ITS ---
Author Organization [facility] Address [address] [place] [address] Care Team Providers Care Tourism Radio Presenter Name Role Phone Irvin Rosen MD Primary Care Provider Anthony Lantigua [phone] REASON FOR VISIT cancel appt Encounters Encounter Location Date Provider Diagnosis [facility] [address] [place] [address] 11/25/2022 Anthony Hidalgo PLAN OF TREATMENT No Information
--- OUTSIDE RECORDS SUMMARY | 2024-03-02 10:08 | XMS_ITS | Patient Health Record ---
Author Organization [facility] Address [address] [place] [address] Care Team Providers Care Successfactors Consultant Name Role Phone Irvin Rosen MD Primary Care Provider Anthony Lantigua Unavailable [phone] ALLERGIES No Known Allergies REASON FOR REFERRAL [...] malignant neoplasm of colon (Z12.11) Active confirmed 760476216 Problem History of adenomatous polyp of colon (Z86.010) Active confirmed 154086726 Problem Diverticulosis of large intestine without perforation or abscess without bleeding (K57.30) Active confirmed Diverticul ar disease of colon (995145028) Problem Gastroesophageal reflux disease (K21.9) Active confirmed Gastroesophagea l reflux disease (188776809) Problem Gastroesophageal reflux disease, esophagitis presence not specified (K21.9) Active confirmed 282661153 Problem Irregular bowel habits (R19.8) Active confirmed 167836410 Problem 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 Ojeda esophag us (144354037) Problem Abdominal pain, generalized (R10.84) Active confirmed 426194325 Problem Ojeda''s esophagus without dysplasia (K22.70) Active confirmed 830120807 Problem Chronic gastric ulcer without hemorrhage and without perforation (K25.7) Active confirmed 51840903 PLAN OF TREATMENT Pending Test Test Name [...] [employer] [address] [address] [place] [address] [id number] AMAN HANLEY Self - patient is [...]
[2024-03-02 11:45] LABS: Protein mg/dL 1322 mg/dL
[2024-03-02 12:02] LABS: Creatinine, 24Hr Urine 2.2 G/Day (1.0-2.0); Protein 24 Hr Urine 25118 mg/Day (<150); Total Volume 24 Hour Urine 1900 mL
== END 2024-03-02 10:05 | disposition home or self-care (01) ==
LOC: HO.LNP 10:04
PROVIDERS: Visit Provider Internal Medicine Medical Oncology
DX: N04.9 Nephrotic syndrome with unspecified morphologic changes (principal)
CPT/HCPCS: 84156

== ENCOUNTER 2024-03-05 10:42 | Outpatient (REF) | payer OTHER, SELFPAY ==
--- OUTSIDE RECORDS SUMMARY | 2024-03-05 11:56 | XMS_ITS ---
Author Organization [facility] Address [address] [place] [address] Care Team Providers Care Chain Maker Name Role Phone Irvin Rosen MD Primary Care Provider Anthony Lantigua [phone] REASON FOR VISIT cancel appt Encounters Encounter Location Date Provider Diagnosis [facility] [address] [place] [address] 11/25/2022 Anthony Hidalgo PLAN OF TREATMENT No Information
--- OUTSIDE RECORDS SUMMARY | 2024-03-05 11:56 | XMS_ITS | Patient Health Record ---
Author Organization [facility] Address [address] [place] [address] Care Team Providers Care Landscaping Crew Leader Name Role Phone Irvin Rosen MD Primary Care Provider Anthony Lantigua Unavailable [phone] ALLERGIES No Known Allergies REASON FOR REFERRAL [...] malignant neoplasm of colon (Z12.11) Active confirmed 627013307 Problem History of adenomatous polyp of colon (Z86.010) Active confirmed 541076349 Problem Diverticulosis of large intestine without perforation or abscess without bleeding (K57.30) Active confirmed Diverticul ar disease of colon (952838510) Problem Gastroesophageal reflux disease (K21.9) Active confirmed Gastroesophagea l reflux disease (055928566) Problem Gastroesophageal reflux disease, esophagitis presence not specified (K21.9) Active confirmed 205902493 Problem Irregular bowel habits (R19.8) Active confirmed 348701880 Problem 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 Ojeda esophag us (667557868) Problem Abdominal pain, generalized (R10.84) Active confirmed 159194673 Problem Ojeda''s esophagus without dysplasia (K22.70) Active confirmed 059749878 Problem Chronic gastric ulcer without hemorrhage and without perforation (K25.7) Active confirmed 92858799 PLAN OF TREATMENT Pending Test Test Name [...] [employer] [address] [address] [place] [address] [id number] 3 AMAN HANLEY Self - patient is the insured MEDICAL (GENERAL) HISTORY Medical History History ICD Code Denies AR,DM,CVA,Lung disease Hypertension Nephrotic syndrome- Dr. Henson Hyperlipidemia [...]
--- OUTSIDE RECORDS SUMMARY | 2024-03-05 11:56 | XMS_ITS ---
Author Organization [facility] Address [address] [place] [address] Care Team Providers Care Treating Engineer Helper Name Role Phone Irvin Rosen MD Primary Care Provider Anthony Lantigua [phone] REASON FOR VISIT screening PROBLEMS Problem Type ICD Code Onset Dates Problem Status W/U Status Risk SNOMED Code Notes Problem Diverticulosis of large intestine without perforation or abscess without bleeding (K57.30) Active confirmed Diverticul ar disease of colon (264736807) Problem Gastroesophageal reflux disease (K21.9) Active confirmed Gastroesophagea l reflux disease (735646374) Problem 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
[2024-03-05 13:13] LABS: MANUAL DIFF FLAG NO
[2024-03-05 13:27] LABS: Basophils Percent Auto 0.1 % (0-2); Eosinophils Percent Auto 0.3 % (0-4); Hematocrit 47.3 % (42.0-52.0); Hemoglobin 15.5 g/dl (14.0-18.0); Imm Gran Abs Auto 0.08 X10*3/uL (0.00-0.03); Imm Gran Pct Auto 1.1 % (0.0-0.4); Lymphocytes Percent Auto 26.6 % (20-40); Mean Corpuscular HGB Conc 32.8 g/dl (31.0-36.0); Mean Corpuscular Hemoglobin 29.4 pg (27.0-33.0); Mean Corpuscular Volume 89.8 fL (80.0-98.0); Mean Platelet Volume 11.1 fL (9.4-12.4); Monocytes Absolute Auto 0.5 X10*3/uL (0.1-1.2); Monocytes Percent Auto 6.7 % (2-11); Neutrophils Absolute Auto 4.9 x10*3/uL (2.0-8.3); Neutrophils Percent Auto 65.2 % (45-73); Platelet Count 265 X10*3/uL (160-400); Red Blood Count 5.27 X10*6/uL (4.60-5.80); Red Cell Distribution Width 13.2 % (11.0-16.0); White Blood Count 7.5 X10*3/uL (4.8-10.8)
[2024-03-05 13:58] LABS: Alanine Aminotransferase 27 U/L (0-40); Albumin Level 2.1 g/dL (3.5-5.0); Alkaline Phosphatase 66 U/L (39-117); Anion Gap 9 (12-20); Aspartate Amino Transferase 20 U/L (5-37); Bilirubin Total 0.3 mg/dL (0.0-1.0); Blood Urea Nitrogen 40 mg/dL (9-16); Calcium 7.3 mg/dL (8.4-10.2); Carbon Dioxide 29 mmol/L (22-29); Chloride 107 mmol/L (96-108); Estimated Glomerular Filt Rate 58; Glucose Random 175 mg/dL (60-115); Sodium 141 mmol/L (135-145); Total Protein 4.4 g/dL (6.5-8.0)
== END 2024-03-05 10:43 | disposition home or self-care (01) ==
LOC: HO.HMGCLDS 10:42
PROVIDERS: PCP Internal Medicine Medical Oncology; Visit Provider Internal Medicine Medical Oncology
DX: N04.9 Nephrotic syndrome with unspecified morphologic changes (principal)
CPT/HCPCS: 36415; 80053; 85025

== ENCOUNTER 2024-03-12 14:07 | Outpatient (AMB) | payer OTHER, SELFPAY ==
[2024-03-12 14:11] VITALS: BP 148/78; PULSE 87; O2SAT 97; BMI 40.0
--- NOTE | 2024-03-12 14:11 | HO.NEPHOV_ITS ---
Vital Signs 03/12/24 14:11 Height 5 ft 10 in Weight 279 lb BMI 40.0 BP 148/78 H Blood Pressure Location Lt brachial Position Sitting Pulse 87 Pulse Source Pulse Oximeter Pulse Oximetry (%) 97 Oxygen Delivery Method Room Air Intake Visit Reasons: INP: High Protein in Urine/CONF Clinical Laboratory Assistant Required: No Accompanied by: Self / Same As Patient Allergies most pain meds Allergy (Unknown, Uncoded 02/19/24 11:15) mild itching Medication List - Last Reconciled 03/12/24 by Cabrera Chapman MD albuterol sulfate 90 mcg/actuation inhalation PRN atorvastatin 40 mg PO DAILY citalopram 40 mg PO DAILY fenofibrate nanocrystallized 145 mg PO DAILY furosemide 80 mg PO BID lisinopril 40 mg PO DAILY meclizine 12.5 mg PO BID PRN metformin ER 500 mg PO DAILY omeprazole 40 mg PO DAILY prednisone 40 mg (2 x 20 mg) PO DAILY 5 days zolpidem (Ambien) 10 mg PO BEDTIME PRN HPI Comments Details: 58-year-old man with nephrotic syndrome. Zak had nephrotic syndrome at the age of 21. He had a biopsy and he was treated by Dr. Devries. He responded well to prednisone. Subsequently had few flare-ups which were all treated with prednisone. He also had a 2nd biopsy, along the line. He tells me that biopsy was inconclusive. I do not have the biopsy results at this time. About few weeks ago he started developing significant weight gain. He was started on prednisone 40 mg. No significant improvement. He has been started on Lasix and dose has been increased to 80 mg twice a day. Urine output has been suboptimal. He was still gained weight on over the last few months has gained about 40 lb. Recent serum albumin was 2.0. Baseline creatinine was less than 1.0. Creatinine has gradually bumped up to 1.2. FORMERLY [facility], [facility]1983 Medical History (Updated 03/12/24 @ 14:41 by Cabrera Chapman MD) Orbit injury, left GERD (gastroesophageal reflux disease) Left elbow tendonitis Back pain Nephrotic syndrome Elevated cholesterol HTN (hypertension) Anxiety Sleep apnea Asthma Surgical History Hx of elbow surgery Hx of esophagogastroduodenoscopy Hx of colonoscopy History of cholecystectomy History of arthroscopy of both shoulders History of bilateral carpal tunnel release H/O bilateral inguinal hernia repair Family History Father Heart disease Mother HTN (hypertension) Dementia Kidney disease Hypercholesteremia Social History Alcohol intake: current Alcohol intake frequency: a few times a month Alcohol type: beer Patient Tobacco Use Status: Never used Tobacco Review of Systems Const Denies fever(s) Card Denies chest pain Resp Denies cough and Denies hemoptysis GI Denies abdominal pain, Denies diarrhea and Denies nausea Musc Denies back pain Neuro Denies focal weakness Physical Exam Vital Signs: Last Vital Signs Pulse 87 03/12/24 14:11 BP 148/78 H 03/12/24 14:11 Pulse Ox 97 03/12/24 14:11 Oxygen Delivery Method Room Air 03/12/24 14:11 BMI result Body Mass Index 40.0 Comfortable Neck supple no JVD. Lungs entry equal no rales. Heart S1-S2 heard no gallop or rub. Abdomen soft nontender. Neuro alert awake oriented. No asterixis. Extremities 3+ edema. Results Reviewed Nephrology Results: Hgb 14.8 g/dl (14.0-18.0) 03/11/24 WBC 6.4 X10*3/uL (4.8-10.8) 03/11/24 Plt Count 208 X10*3/uL (160-400) 03/11/24 Sodium 143 mmol/L (135-145) 03/11/24 Potassium 3.7 mmol/L (3.3-5.1) 03/11/24 Chloride 106 mmol/L (96-108) 03/11/24 Carbon Dioxide 33 mmol/L (22-29) H 03/11/24 BUN 30 mg/dL (9-16) H 03/11/24 Creatinine 1.14 mg/dL (0.5-1.4) 03/11/24 Calcium 7.4 mg/dL (8.4-10.2) L 03/11/24 Urine Protein >=1000 (4+) mg/dL (Neg-Trace) H 4 Assessment & Plan Assessment & Plan (1) Nephrotic syndrome: Code(s): N04.9 - Nephrotic syndrome with unspecified morphologic changes Category: Medical Plan 58-year-old man with nephrotic syndrome. 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 Other possibilities including membranous nephropathy and FSGS should be considered. Currently having suboptimal response to furosemide. He could have developed a density furosemide. Since serum albumin is low I suspect Lasix is not being delivered to the tubules. Recommendations Discontinue furosemide Try torsemide 40 mg b.i.d.. I will wait couple of days and if needed add Zaroxolyn 5 mg. Encouraged to stay on a low-sodium diet Monitor weights at home. Continue with prednisone. If he fails to respond to above therapy he may require a repeat kidney biopsy to guide further therapy. Orders: Orders Basic Metabolic Panel 1 Week N04.9 - Nephrotic syndrome with unspecified morphologic changes Phospholipase A2 Receptor Pnl 1 Week N04.9 - Nephrotic syndrome with unspecified morphologic changes Protein Electrophoresis, Serum 1 Week N04.9 - Nephrotic syndrome with unspecified morphologic changes Complement C4 1 Week N04.9 - Nephrotic syndrome with unspecified morphologic changes Complement C3 1 Week N04.9 - Nephrotic syndrome with unspecified morphologic changes Medications: New torsemide 40 mg PO BID 60 tabs 1RF Coding Level of Care Code New Pt Level 5 (87968) Diagnoses Nephrotic syndrome N04.9
--- OUTSIDE RECORDS SUMMARY | 2024-03-12 16:36 | XMS_ITS ---
Author Organization [facility] Address [address] [place] [address] Care Team Providers Care Concrete Pipe Machine Operator Name Role Phone Irvin Rosen MD Primary Care Provider Anthony Lantigua [phone] REASON FOR VISIT cancel appt Encounters Encounter Location Date Provider Diagnosis [facility] [address] [place] [address] 11/25/2022 Anthony Hidalgo PLAN OF TREATMENT No Information
--- OUTSIDE RECORDS SUMMARY | 2024-03-12 16:36 | XMS_ITS ---
Author Organization [facility] Address [address] [place] [address] Care Team Providers Care Clinical Business Analyst Name Role Phone Irvin Rosen MD Primary Care Provider Anthony Lantigua [phone] REASON FOR VISIT screening PROBLEMS Problem Type ICD Code Onset Dates Problem Status W/U Status Risk SNOMED Code Notes Problem Diverticulosis of large intestine without perforation or abscess without bleeding (K57.30) Active confirmed Diverticul ar disease of colon (563363923) Problem Gastroesophageal reflux disease (K21.9) Active confirmed Gastroesophagea l reflux disease (245556662) Problem 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
--- OUTSIDE RECORDS SUMMARY | 2024-03-12 16:36 | XMS_ITS | Patient Health Record ---
Author Organization [facility] Address [address] [place] [address] Care Team Providers Care Lathe Scalper Operator Name Role Phone Irvin Rosen MD Primary Care Provider Anthony Lantigua Unavailable [phone] ALLERGIES No Known Allergies REASON FOR REFERRAL [...] malignant neoplasm of colon (Z12.11) Active confirmed 124109335 Problem History of adenomatous polyp of colon (Z86.010) Active confirmed 468467198 Problem Diverticulosis of large intestine without perforation or abscess without bleeding (K57.30) Active confirmed Diverticul ar disease of colon (610184980) Problem Gastroesophageal reflux disease (K21.9) Active confirmed Gastroesophagea l reflux disease (731935936) Problem Gastroesophageal reflux disease, esophagitis presence not specified (K21.9) Active confirmed 251788641 Problem Irregular bowel habits (R19.8) Active confirmed 028846675 Problem 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 [address] [place] [address] [id number] 3 AMAN HANLEY Self - patient is the insured MEDICAL (GENERAL) HISTORY Medical History History ICD Code Denies IN,DM,CVA,Lung disease Hypertension Nephrotic syndrome- Dr. Henson Hyperlipidemia [...]
== END 2024-03-12 14:38 | disposition home or self-care (01) ==
PROVIDERS: PCP Internal Medicine; Referring Provider Internal Medicine; Visit Provider Internal Medicine Hypertension Specialist
DX: N04.9 Nephrotic syndrome with unspecified morphologic changes (principal)
CPT/HCPCS: 99204

== ENCOUNTER → 2024-03-12 14:07 | Outpatient (BNVA) | payer OTHER, SELFPAY | PROVIDERS: PCP Internal Medicine; Referring Provider Internal Medicine; Visit Provider Internal Medicine Hypertension Specialist ==

== ENCOUNTER 2024-03-19 09:49 | Outpatient (AMB) | payer OTHER, SELFPAY ==
[2024-03-19 09:50] VITALS: BP 120/82; PULSE 96; O2SAT 98; BMI 36.3
--- NOTE | 2024-03-19 09:50 | HO.NEPHOV ---
Vital Signs 03/19/24 09:50 Height 5 ft 10 in Weight 253 lb BMI 36.3 BP 120/82 Blood Pressure Location Lt brachial Position Sitting Pulse 96 Pulse Source Pulse Oximeter Pulse Oximetry (%) 98 Oxygen Delivery Method Room Air Intake Visit Reasons: High Protein in Urine/ Conf University Relations Recruiter Required: No Accompanied by: Self / Same As Patient Allergies most pain meds Allergy (Unknown, Uncoded 02/19/24 11:15) mild itching Medication List - Last Reconciled 03/19/24 by Cabrera Cahpman MD albuterol sulfate 90 mcg/actuation inhalation PRN atorvastatin 40 mg PO DAILY citalopram 40 mg PO DAILY fenofibrate nanocrystallized 145 mg PO DAILY lisinopril 40 mg PO DAILY meclizine 12.5 mg PO BID PRN metformin ER 500 mg PO DAILY omeprazole 40 mg PO DAILY prednisone 20 mg PO DAILY torsemide 40 mg PO QAM zolpidem (Ambien) 10 mg PO BEDTIME PRN HPI Comments Details: 58-year-old man with nephrotic syndrome. Zak had nephrotic syndrome at the age of 21. He had a biopsy and he was treated by Dr. Devries. He responded well to prednisone. Subsequently had few flare-ups which were all treated with prednisone. He also had a 2nd biopsy, along the line. He tells me that biopsy was inconclusive. I do not have the biopsy results at this time. About few weeks ago he started developing significant weight gain. He was started on prednisone 40 mg. No significant improvement. He has been started on Lasix and dose has been increased to 80 mg twice a day. Urine output has been suboptimal. He was still gained weight on over the last few months has gained about 40 lb. Recent serum albumin was 2.0. Baseline creatinine was less than 1.0. Creatinine has gradually bumped up to 1.2. 03/19/24 Dropped 20 lbs He has cut back on Torsemide to 40 mg QD startign yesterday Has URTi No GI gymptoms [facility] Medical History (Updated 03/12/24 @ 14:41 by Cabrera Chapman MD) Orbit injury, left GERD (gastroesophageal reflux disease) Left elbow tendonitis Back pain Nephrotic syndrome Elevated cholesterol HTN (hypertension) Anxiety Sleep apnea Asthma Surgical History Hx of elbow surgery Hx of esophagogastroduodenoscopy Hx of colonoscopy History of cholecystectomy History of arthroscopy of both shoulders History of bilateral carpal tunnel release H/O bilateral inguinal hernia repair Family History Father Heart disease Mother HTN (hypertension) Dementia Kidney disease Hypercholesteremia Social History Alcohol intake: current Alcohol intake frequency: a few times a month Alcohol type: beer Patient Tobacco Use Status: Never used Tobacco Physical Exam Vital Signs: Last Vital Signs Pulse 96 03/19/24 09:50 BP 120/82 03/19/24 09:50 Pulse Ox 98 03/19/24 09:50 Oxygen Delivery Method Room Air 03/19/24 09:50 BMI result Body Mass Index 36.3 Comfortable Neck supple no JVD. Lungs entry equal no rales. Rhonchi + Heart S1-S2 heard no gallop or rub. Abdomen soft nontender. Neuro alert awake oriented. No asterixis. Extremities 1+ edema. Results Reviewed Nephrology Results: Hgb 14.8 g/dl (14.0-18.0) 03/11/24 WBC 6.4 X10*3/uL (4.8-10.8) 03/11/24 Plt Count 208 X10*3/uL (160-400) 03/11/24 Sodium 139 mmol/L (135-145) 03/18/24 Potassium 4.0 mmol/L (3.3-5.1) 03/18/24 Chloride 108 mmol/L (96-108) 03/18/24 Carbon Dioxide 26 mmol/L (22-29) 03/18/24 BUN 22 mg/dL (9-16) H 03/18/24 Creatinine 1.51 mg/dL (0.5-1.4) H 03/18/24 Calcium 7.2 mg/dL (8.4-10.2) L 03/18/24 Urine Protein >=1000 (4+) mg/dL (Neg-Trace) H 02/22/24 Assessment & Plan Assessment & Plan (1) Nephrotic syndrome: Code(s): N04.9 - Nephrotic syndrome with unspecified morphologic changes Category: Medical Plan 58-year-old man with nephrotic syndrome. 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 Other possibilities including membranous nephropathy and FSGS should be considered. Currently having suboptimal response to furosemide. He could have developed resistance furosemide. Since serum albumin is low I suspect Lasix is not being delivered to the tubules. Superimposed OSWALD due to hypoperfusion secondary to high dose diuretics - expected Recommendations Agree with lowering Torsemide to 40 mg QD May need to lower further based on fluid loss Encouraged to stay on a low-sodium diet Monitor weights at home. Continue to taper prednisone. Decrease to 10 mg QD in 2 weeks Repeat labs next week Await SPEP Hold off on kidney biopsy and reassess Orders: Orders Basic Metabolic Panel 1 Week Cabrera Chapman MD N04.9 - Nephrotic syndrome with unspecified morphologic changes Total Protein Urine Random Today Cabrera Chapman MD N04.9 - Nephrotic syndrome with unspecified morphologic changes Creatinine Urine Today Cabrera Chapman MD N04.9 - Nephrotic syndrome with unspecified morphologic changes Medications: Changed From torsemide 40 mg PO BID 60 tabs 1RF To torsemide 40 mg PO QAM Cabrera Chapman MD From prednisone 40 mg (2 x 20 mg) PO DAILY 5 days 10 tabs 0RF To prednisone 20 mg PO DAILY Geri Castellon NP Coding Level of Care Code Est Pt Level 4 (52626) Diagnoses Nephrotic syndrome N04.9
== END 2024-03-19 10:07 | disposition home or self-care (01) ==
PROVIDERS: PCP Internal Medicine; Visit Provider Internal Medicine Hypertension Specialist
DX: N04.9 Nephrotic syndrome with unspecified morphologic changes (principal)
CPT/HCPCS: 99214

== ENCOUNTER 2024-03-25 09:23 | Outpatient (REF) | payer OTHER, SELFPAY ==
[2024-03-25 13:32] LABS: Anion Gap 5 (12-20); Blood Urea Nitrogen 10 mg/dL (9-16); Calcium 7.7 mg/dL (8.4-10.2); Carbon Dioxide 28 mmol/L (22-29); Chloride 112 mmol/L (96-108); Estimated Glomerular Filt Rate > 60; Glucose Random 90 mg/dL (60-115); Potassium 3.8 mmol/L (3.3-5.1); Sodium 141 mmol/L (135-145)
[2024-03-25 13:52] LABS: Creatinine Urine 71.15 mg/dL
[2024-03-25 14:06] LABS: Total Protein Urine Random 409 mg/dL (<12)
== END 2024-03-25 09:24 | disposition home or self-care (01) ==
LOC: HO.HMGCLDS 09:23
PROVIDERS: PCP Internal Medicine Medical Oncology; Visit Provider Internal Medicine Hypertension Specialist
DX: N04.9 Nephrotic syndrome with unspecified morphologic changes (principal)
CPT/HCPCS: 36415; 80048; 82570; 84156

== ENCOUNTER 2024-04-01 12:16 | Outpatient (REF) | payer OTHER, SELFPAY ==
[2024-04-01 13:22] LABS: Appearance Urine Clear; Color Urine Dark Yellow; Glucose Urine UA 500 mg/dL (Negative); Leukocyte Esterase Urine Trace (Negative); Nitrite Urine Negative (Negative); Specific Gravity - Urine 1.025 (1.005-1.025); UMIC TRIGGER UA YES; Urine Blood Trace (Negative); Urine Ketones Negative (Negative); Urine Protein >=1000 (4+) mg/dL (Neg-Trace)
[2024-04-01 13:44] LABS: Bacteria Urine None Seen (None Seen); Granular Casts Urine Present; Red Blood Cell Casts Urine Present; WBC Urine 0-5 /HPF (0-5)
[2024-04-01 17:34] LABS: Creatinine Urine 166.67 mg/dL
[2024-04-01 17:54] LABS: Total Protein Urine Random 1569 mg/dL (<12)
== END 2024-04-01 12:17 | disposition home or self-care (01) ==
LOC: HO.HMGCLDS 12:16
PROVIDERS: PCP Internal Medicine Medical Oncology; Visit Provider Internal Medicine Hypertension Specialist
DX: N04.9 Nephrotic syndrome with unspecified morphologic changes (principal)
CPT/HCPCS: 81001; 82570; 84156

== ENCOUNTER 2024-04-02 09:40 | Outpatient (AMB) | payer OTHER, SELFPAY ==
[2024-04-02 09:41] VITALS: BP 122/86; PULSE 87; O2SAT 97; BMI 32.7
--- NOTE | 2024-04-02 09:41 | HO.NEPHOV ---
Vital Signs 04/02/24 09:41 Height 5 ft 10 in Weight 228 lb BMI 32.7 BP 122/86 Blood Pressure Location Lt brachial Position Sitting Pulse 87 Pulse Source Pulse Oximeter Pulse Oximetry (%) 97 Oxygen Delivery Method Room Air Intake Visit Reasons: Nephrotic syndrome/ Unable to reach Non Food Receiving Clerk Required: No Accompanied by: Self / Same As Patient Allergies most pain meds Allergy (Unknown, Uncoded 02/19/24 11:15) mild itching Medication List - Last Reconciled 04/02/24 by Cabrera Chapman MD albuterol sulfate 90 mcg/actuation inhalation PRN atorvastatin 40 mg PO DAILY citalopram 40 mg PO DAILY fenofibrate nanocrystallized 145 mg PO DAILY lisinopril 40 mg PO DAILY meclizine 12.5 mg PO BID PRN metformin ER 500 mg PO DAILY omeprazole 40 mg PO DAILY prednisone 10 mg PO DAILY torsemide 20 mg PO QAM PRN zolpidem (Ambien) 10 mg PO BEDTIME PRN HPI Comments Details: 58-year-old man with nephrotic syndrome. Zak had nephrotic syndrome at the age of 21. He had a biopsy and he was treated by Dr. Devries. He responded well to prednisone. Subsequently had few flare-ups which were all treated with prednisone. He also had a 2nd biopsy, along the line. He tells me that biopsy was inconclusive. I do not have the biopsy results at this time. About few weeks ago he started developing significant weight gain. He was started on prednisone 40 mg. No significant improvement. He has been started on Lasix and dose has been increased to 80 mg twice a day. Urine output has been suboptimal. He was still gained weight on over the last few months has gained about 40 lb. Recent serum albumin was 2.0. Baseline creatinine was less than 1.0. Creatinine has gradually bumped up to 1.2. 03/19/24 Dropped 20 lbs He has cut back on Torsemide to 40 mg QD startign yesterday Has URTi No GI gymptoms 04/02/2024. He was lost another 15 lb. He was cut back on torsemide to 20 mg as needed. Creatinine is back to 0.7. Currently he is on prednisone 10 mg every other day [facility] Medical History (Updated 03/12/24 @ 14:41 by Cabrera Chapman MD) Orbit injury, left GERD (gastroesophageal reflux disease) Left elbow tendonitis Back pain Nephrotic syndrome Elevated cholesterol HTN (hypertension) Anxiety Sleep apnea Asthma Surgical History Hx of elbow surgery Hx of esophagogastroduodenoscopy Hx of colonoscopy History of cholecystectomy History of arthroscopy of both shoulders History of bilateral carpal tunnel release H/O bilateral inguinal hernia repair Family History Father Heart disease Mother HTN (hypertension) Dementia Kidney disease Hypercholesteremia Social History Alcohol intake: current Alcohol intake frequency: a few times a month Alcohol type: beer Patient Tobacco Use Status: Never used Tobacco Physical Exam Vital Signs: Last Vital Signs Pulse 87 04/02/24 09:41 BP 122/86 04/02/24 09:41 Pulse Ox 97 04/02/24 09:41 Oxygen Delivery Method Room Air 04/02/24 09:41 BMI result Body Mass Index 32.7 Comfortable Neck supple no JVD. Lungs entry equal no rales. Heart S1-S2 heard no gallop or rub. Abdomen soft nontender. Neuro alert awake oriented. No asterixis. Extremities no edema. Results Reviewed Nephrology Results: Hgb 14.8 g/dl (14.0-18.0) 03/11/24 WBC 6.4 X10*3/uL (4.8-10.8) 03/11/24 Plt Count 208 X10*3/uL (160-400) 03/11/24 Sodium 141 mmol/L (135-145) 03/25/24 Potassium 3.8 mmol/L (3.3-5.1) 03/25/24 Chloride 112 mmol/L (96-108) H 03/25/24 Carbon Dioxide 28 mmol/L (22-29) 03/25/24 BUN 10 mg/dL (9-16) 03/25/24 Creatinine 0.74 mg/dL (0.5-1.4) 03/25/24 Calcium 7.7 mg/dL (8.4-10.2) L 03/25/24 Urine Protein >=1000 (4+) mg/dL (Neg-Trace) H 04/01/24 Urine Creatinine 166.67 mg/dL 04/01/24 Assessment & Plan Assessment & Plan (1) Nephrotic syndrome: Code(s): N04.9 - Nephrotic syndrome with unspecified morphologic changes Category: Medical Plan 58-year-old man with nephrotic syndrome. 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 Other possibilities including membranous nephropathy and FSGS should be considered. Currently having suboptimal response to furosemide. He could have developed resistance furosemide. Since serum albumin is low I suspect Lasix is not being delivered to the tubules. Superimposed OSWALD due to hypoperfusion secondary to high dose diuretics - expected After lowering diuretics creatinine is back to baseline of 0.74 Recommendations Agree with lowering Torsemide to 20 mg p.o. p.r.n. based on edema and fluid gain May need to lower further based on fluid loss Encouraged to stay on a low-sodium diet Monitor weights at home. Continue to taper prednisone. Continue prednisone 10 mg QOD for now and would not lower any further since the urine protein excretion has slightly increased to 9 g Hold off on kidney biopsy and reassess Orders: Orders Basic Metabolic Panel 6 Weeks N04.9 - Nephrotic syndrome with unspecified morphologic changes Total Protein Urine Random 6 Weeks N04.9 - Nephrotic syndrome with unspecified morphologic changes Creatinine Urine 6 Weeks N04.9 - Nephrotic syndrome with unspecified morphologic changes UA and rflx microscopic 6 Weeks N04.9 - Nephrotic syndrome with unspecified morphologic changes Coding Level of Care Code Est Pt Level 4 (74597) Diagnoses Nephrotic syndrome N04.9
== END 2024-04-02 09:54 | disposition home or self-care (01) ==
PROVIDERS: PCP Internal Medicine; Visit Provider Internal Medicine Hypertension Specialist
DX: N04.9 Nephrotic syndrome with unspecified morphologic changes (principal)
CPT/HCPCS: 99214

== ENCOUNTER → 2024-04-02 09:40 | Outpatient (BNVA) | payer OTHER, SELFPAY | PROVIDERS: PCP Internal Medicine; Visit Provider Internal Medicine Hypertension Specialist ==

== ENCOUNTER 2024-04-12 16:14 | Outpatient (REF) | payer OTHER, SELFPAY ==
--- NOTE | ~2024-04-12 | XR_ITS ---
EXAMINATION: XR CHEST CLINICAL INFORMATION: R05.3 COUGH COMPARISON: 09/24/2020. TECHNIQUE: 2 views of the chest were obtained. FINDINGS: The cardiac, hilar, and mediastinal contours are normal. The lungs are hyperaerated however clear bilaterally. There is no pneumothorax or pleural effusion. There is no focal osseous or soft tissue abnormality. XR/XR chest 2V IMPRESSION: No active pulmonary disease. Electronically signed by: Kris Zabala MD 04/16/2024 08:58 AM [facility]
== END 2024-04-12 16:15 | disposition home or self-care (01) ==
LOC: HO.HMGCX 16:14
PROVIDERS: PCP Internal Medicine Medical Oncology; Visit Provider Internal Medicine Medical Oncology
DX: R05.3 Chronic cough (principal)
CPT/HCPCS: 71046

== ENCOUNTER → 2024-04-12 16:19 | Outpatient (BNV) | payer OTHER, SELFPAY | PROVIDERS: PCP Internal Medicine Medical Oncology; Visit Provider Radiology Diagnostic Radiology | DX: R05.3 Chronic cough (principal) | CPT/HCPCS: 71046 ==

== ENCOUNTER 2024-05-02 06:08 | Outpatient (REF) | payer OTHER, SELFPAY ==
--- OUTSIDE RECORDS SUMMARY | 2024-05-02 06:11 | XMS_ITS ---
Author Organization Anthony Otero III, MD Address [address] [place] [address] Care Team Providers Care Vice President Of Compliance Name Role Phone Anthony Otero Primary Care Provider Allergies Allergen (clinical drug ingredient) Drug/Non Drug Allergy documented on EMR Reaction Allergy Type Onset Date Status Pain medication (uncoded) Unknown Allergy Active REASON FOR VISIT Viral syndrome, Refractory cough, Nephrotic syndrome Medications Medication SIG (Take, Route, Frequency, Duration) Notes Start Date End Date Status Benzonatate 200 MG 1 capsule as needed Orally Three times a day for 21 days 04/09/2024 08/13/2024 Active metFORMIN HCl 500 MG 1 tablet with a mariah l Orally Once a day Active Omeprazole 40 MG 1 capsule Orally Onc e a day Active Albuterol Sulfate HFA 108 (90 Base) MCG/ACT 1 puff as needed Inhalation every 4 hrs Active Zolpidem Tartrate 10 MG 1 tablet at bedt ashly as needed Orally Once a day Active Lisinopril 40 MG 1 tablet Orally Once a day Active Torsemide 20 MG 1 tablet Orally Once a day 04/04/2024 Active Furosemide 80 MG 1 tablet Orally twic e a day Active Atorvastatin Calcium 40 MG 1 tablet Oral ly Once a day Active Citalopram Hydrobromide 40 MG 1 tablet Orally Once a day Active Fenofibrate 145 MG 1 tablet Orally Once a day Active Social History Tobacco Use: Social History Observation Description Date Details (start date - stop date) Never Smoker NA - NA Sex Assigned At : Social History Observation Description Sex Assigned At Male Tobacco Control (Standard) Question Answer Notes Tobacco use: Nonsmoker Problems Problem Type SNOMED Code ICD Code Onset Dates Problem Status W/U Status Risk Notes Problem [id number] Acute viral syndrome (B34.9) Active confirmed He has had 3 days of severe refractory cough low-grade fever here pain sore throat and muscle aches. Vital Signs Height 70 in 04/09/2024 Encounters Encounter Location Date Provider Diagnosis Anthony Otero III, MD [address] [place] [address] [place] [address] 04/09/2024 Anthnoy Otero Nephrotic syndrome N 04.9 ; Acute viral syndrome B34.9 ; Persistent cough R05.3 ; Diabetes mellitus without complication E11.9 and Mixed hyperlipidemia E78.2 Assessments Encounter Date Diagnosis (ICD Code) Assessment Notes Treat ment Notes Treatment Clinical Notes 04/09/2024 Nephrotic syndrome (ICD-10 - N04.9) He is markedly improved. He is now being managed by nephrology on a reduced dose of prednisone. He is taking torsemide instead of furosemide. 04/09/2024 Acute viral syndrome (ICD-10 - B34.9) He has had 3 days of severe refractory cough low-grade fever here pain sore throat and muscle aches. 04/09/2024 Persistent cough (ICD-10 - R05.3) He has a severe unremitting cough for which she has been taking only acetaminophen and expectorants. He will begin taking a codeine containing cough medication. He likely has respiratory syncytial virus. A follow-up in 48 hours was made. 04/09/2024 Diabetes mellitus without complication (ICD-10 - E11.9) He is on a reduced dose of prednisone. He has been compliant with his metformin. Prior to his next visit he will have a hemoglobin A1c. 04/09/2024 Mixed hyperlipidemia (ICD-10 - E78.2) His lipids have been stable. No change in his regimen as needed. Plan Of Treatment Medication Medication Name Sig Start Date Stop Date Notes Benzonatate 200 MG 1 capsule as needed Orally Three times a day for 21 days 04/09/2024 08/13/2024 metFORMIN HCl 500 MG 1 tablet with a mariah l Orally Once a day Omeprazole 40 MG 1 capsule Orally Once a day Albuterol Sulfate HFA 108 (9 0 Base) MCG/ACT 1 puff as needed Inhalation every 4 hrs Zolpidem Tartrate 10 MG 1 tablet at bedt ashly as needed Orally Once a day Lisinopril 40 MG 1 tablet Orally Once a day Torsemide 20 MG 1 tablet Orally Once a day 04/04/2024 Furosemide 80 MG 1 tablet Orally twice a day Atorvastatin Calcium 40 MG 1 tablet Orally Once a day Citalopram Hydrobromide 40 MG 1 tablet Orally Once a day Fenofibrate 145 MG 1 tablet Orally Once a day Pending Test Test Name Order Date XR CHEST 2 VIEW PA & LAT 04/09/2024 Next Appt Details Follow Up: Monday or Monday , Reason: To discuss the results of the chest X-ray and the effectiveness of the new medication Provider Name:Anthony Otero, 05/06/2024 04:15:00 PM, [address] [place] [address] [address], [address], [place], [address], Progress Notes * Claudy HANLEY JrDOB:[birth year] (58 yo M)Acc No.[id number]:04/09/2024 Patient:?Claudy HANLEY Jr Provider:?Anthony Otero MD :1965???Age:58 Y???Sex:Male Gavin e:04/09/2024 Address:[address] [place], [place] [id number] Subjective: * Chief Complaints: * ???Viral syndromeRefractory coughNephrotic syndrome * HPI: ???:?Telehealth?Location of provider rendering services:?{...} [address] [place] [address] [address] [facility] [address] ?Location of patient:?address listed in demographics for today's visit ?Patient identification confirmed using:?Name, ?Telehealth method:?Telephone only. Patient not visible to care provider. ?Consent:?Patient verbally consented to treatment, Patient verbally consented to billing insurance company, Patient informed of any privacy concerns related to method of visit ?Total time spent with patient (mins)?15 ? The patient, a 58-year-old male, has been experiencing a persistent cough for a couple of months. The cough is severe, occurring over a hundred times a day, and is accompanied by the expulsion of a clear, salty liquid from his throat or lungs. The patient has tried doix-dxa-peoyuac cough suppressants such as Robitussin and Mucinex, but these have not been effective. The patient also reports a sensation of fluid in his right ear, which pops frequently and has resulted in some hearing loss. * ROS:?General/Constitutional:?pain?only normal aches and pains.?Chills?denies.?Fatigue?admits.?Fever?denies.?ENT:?Decreased hearing?denies.?Respiratory:?Cough?non-productive.?Cardiovascular:?Chest pain with exertion?denies.?Dyspnea on exertion?denies.?Shortness of breath?with exertion.?Gastrointestinal:?Constipation?occasional.?Decreased appetite?denies.?Diarrhea?denies.?Heartburn?denies.?Nausea?denies.?Rectal bleeding?denies.?Vomiting?denies.?Hematology:?bruising?denies.?petechiae?denies.?Swollen glands?none have been noted.?Genitourinary:?Frequent urination?twice a night.?Musculoskeletal:?Muscle aches?denies.?Painful joints?denies.?Sciatica?denies.?Weakness?that is generalized.?Skin:?Itching?denies.?Rash?denies.?Skin lesion(s)?denies.?Neurologic:?Difficulty speaking?denies.?Dizziness?denies.?Headache?denies.?Low back pain?denies.?Psychiatric:?Depressed mood?denies.? * Medical History:? * Surgical History:?cholecyste ctomy age 24 [address] [facility], remote Carpal tunnel surgery on both hands Bilateral shoulder arthroscopies Elbow surgery Upper endoscopy and colonoscopy 2018 Tubular adenoma colonoscopy 2012, Dr. Anthony Hidalgo Bilateral inguinal herniorrhaphies No history * Hospitalization/Major Diagno stic Procedure:?None reported No history * Family History:?Father: dece ased, Myocardial infarction, coronary artery disease.?Mother: alive, Hypertension, dementia, renal disease, hyperlipidemia.? He reports that his father of cardiac disease.? His mother suffered from hypertension dementia kidney disease and hyperlipidemia.? She is living.? He has no children.? He is .? He is currently employed. He is not aware of any family history of substance abuse or mental illness or addiction.? He has taken a nightly dose of zolpidem for over 20 years. * Social History:?Tobacco Use:?Tobacco Control (Standard)?Tobacco use:?Nonsmoker ?He was born in [facility].? He has been to [place] for 15 years.? He has no children.? 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 He has no sabianism objection to blood transfusion.? He does not smoke and does not drink alcohol. * Medications:?TakingmetFORMIN HCl 500 MG Tablet 1 tablet with a meal Orally Once a day Albuterol Sulfate HFA 108 (90 Base) MCG/ACT Aerosol Solution 1 puff as needed Inhalation every 4 hrs Omeprazole 40 MG Capsule Delayed Release 1 capsule Orally Once a day Fenofibrate 145 MG Tablet 1 tablet Orally Once a day Citalopram Hydrobromide 40 MG Tablet 1 tablet Orally Once a day Atorvastatin Calcium 40 MG Tablet 1 tablet Orally Once a day Lisinopril 40 MG Tablet 1 tablet Orally Once a day Zolpidem Tartrate 10 MG Tablet 1 tablet at bedtime as needed Orally Once a day Furosemide 80 MG Tablet 1 tablet Orally twice a day Torsemide 20 MG Tablet 1 tablet Orally Once a day Taking metFORMIN HCl 500 MG Tablet 1 tablet with a meal Orally Once a day Taking Albuterol Sulfate HFA 108 (90 Base) MCG/ACT Aerosol Solution 1 puff as needed Inhalation every 4 hrs Taking Omeprazole 40 MG Capsule Delayed Release 1 capsule Orally Once a day Taking Fenofibrate 145 MG Tablet 1 tablet Orally Once a day Taking Citalopram Hydrobromide 40 MG Tablet 1 tablet Orally Once a day Taking Atorvastatin Calcium 40 MG Tablet 1 tablet Orally Once a day Taking Lisinopril 40 MG Tablet 1 tablet Orally Once a day Taking Zolpidem Tartrate 10 MG Tablet 1 tablet at bedtime as needed Orally Once a day Taking Furosemide 80 MG Tablet 1 tablet Orally twice a day Taking Torsemide 20 MG Tablet 1 tablet Orally Once a day DiscontinuedpredniSONE 20 MG Tablet 3 tablets (60 mg) Orally Once a day Azithromycin 250 MG Tablet as directed Orally 2 Tablets on the first day, one tablet the rest of the days Medication List reviewed and reconciled with the patientDiscontinued predniSONE 20 MG Tablet 3 tablets (60 mg) Orally Once a day Discontinued Azithromycin 250 MG Tablet as directed Orally 2 Tablets on the first day, one tablet the rest of the days Medication List reviewed and reconciled with the patient * Allergies:?Pain medicationno [Allergies Verified] Objective: * Vitals:?Ht: 70, Ht-cm: 177.8 . Assessment: * Assessment: 1.?Acute viral syndrome - B3 4.9 (Primary)???Notes :He has had 3 days of severe refractory cough low-grade fever here pain sore throat and muscle aches.???2.?Nephrotic syndrome - N04.9???Notes :He is markedly improved. He is now being managed by nephrology on a reduced dose of prednisone. He is taking torsemide instead of furosemide.???3.?Persistent cough - R05.3???Notes :He has a severe unremitting cough for which she has been taking only acetaminophen and expectorants.? He will begin taking a codeine containing cough medication.? He likely has respiratory syncytial virus.? A follow-up in 48 hours was made.???4.?Diabetes mellitus without complication - E11.9???Notes :He is on a reduced dose of prednisone. He has been compliant with his metformin. Prior to his next visit he will have a hemoglobin A1c.???5.?Mixed hyperlipidemia - E78.2???Notes :His lipids have been stable. No change in his regimen as needed.??? Plan: * Treatment: 2.?Persistent cough?Imaging: XR CHEST 2 VIEW PA & LAT 3.?Others? Start Benzonatate Capsule, 200 MG, 1 capsule as needed, Orally, Three times a day, 21 days, 63 Capsule, Refills 5;?Continue metFORMIN HCl Tablet, 500 MG, 1 tablet with a meal, Orally, Once a day;?Continue Albuterol Sulfate HFA Aerosol Solution, 108 (90 Base) MCG/ACT, 1 puff as needed, Inhalation, every 4 hrs;?Continue Omeprazole Capsule Delayed Release, 40 MG, 1 capsule, Orally, Once a day;?Continue Fenofibrate Tablet, 145 MG, 1 tablet, Orally, Once a day;?Continue Citalopram Hydrobromide Tablet, 40 MG, 1 tablet, Orally, Once a day;?Continue Atorvastatin Calcium Tablet, 40 MG, 1 tablet, Orally, Once a day;?Continue Lisinopril Tablet, 40 MG, 1 tablet, Orally, Once a day;?Continue Zolpidem Tartrate Tablet, 10 MG, 1 tablet at bedtime as needed, Orally, Once a day;?Continue Furosemide Tablet, 80 MG, 1 tablet, Orally, twice a day.?? * Procedure Codes:? * Preventive Medicine:? ??Counseling:?Care goal follow-up plan:?Counseling for abnormal BMI given?Yes ?Above Normal BMI Follow-up?Dietary management education, guidance, and counseling ??DM Care Plan:?Patient Lifestyle Goals?Patient wants to be able to manage diabetes without too much effort.?Treatment Goals?Blood Sugars less than < 115, HbA1C < 7.0.?Barriers?no barriers.?Self-Managment Goals?Work on weight loss, with a goal of losing 1 lb per week.? * Follow Up:?Monday or Monday (Reason: To discuss the results of the chest X-ray and the effectiveness of the new medication) * Images: * Sign off status: Completed true * Provider:?Anthony Otero MD Date:?03/30 Generated for Lety garrett/Azam/Demetrismitting on:?05/02/2024 06:11 AM EST History and Physical Notes * HPI (History of Present Illness) Category Sub-Category Detail Notes Telehealth Location of [facility] rendering services:: {...} [address] [place] [address] Location of patient:: address listed in demographics for today's visit Patient identification confirmed using:: Name, Telehealth method:: Telephone only. Viviana ent not visible to care provider. Consent:: Patient verbally c onsented to treatment, Patient verbally consented to billing insurance company, Patient informed of any privacy concerns related to method of visit Total time spent with patient (mins): 15
--- OUTSIDE RECORDS SUMMARY | 2024-05-02 06:11 | XMS_ITS | Patient Health Record ---
Author Organization Anthony Otero III, MD Address [address] [place] [address] Care Team Providers Care Vine Pruner Name Role Phone Anthony Otero Primary Care Provider Allergies Allergen (clinical drug ingredient) Drug/Non Drug Allergy documented on EMR Reaction Allergy Type Onset Date Status Pain medication (uncoded) Unknown Allergy Active Results Component Value Reference Range Notes Protein, 24 Hr Urine Group Reviewed date:03/04/2024 09:18:29 AM Interpretation: Performing Lab:[facility], [address] [place] [phone] Notes/Report: 1900 [id number] 0900 1000 Protein 24 Hr Urine 02307 <150 mg/Day Protein mg/dL 1322 Creatinine, 24Hr Urine 2.2 1.0-2.0 G/Day Creatinine, mg/dL 113.30 Total Volume 24 Hour Urine 1900 Complete Blood Count Auto Di ff Reviewed date:03/05/2024 05:15:10 PM Interpretation: Performing Lab:[facility], [address] [place] [phone] Notes/Report: White Blood Count 7.5 4.8-10.8 X10*3/uL Red Blood Count 5.27 4.60-5.80 X10*6/uL Hemoglobin 15.5 14.0-18.0 g/dl Hematocrit 47.3 42.0-52.0 % Mean Corpuscular Volume 89.8 80.0-98.0 fL Mean Corpuscular Hemoglobin 29.4 27.0-33.0 pg Mean Corpuscular HGB Conc 32.8 31.0-36.0 g/dl Red Cell Distribution Width 13.2 11.0-16.0 % Platelet Count 265 160-400 X10*3/uL Mean Platelet Volume 11.1 9.4-12.4 fL Neutrophils Percent Auto 65.2 45-73 % Imm Gran Pct Auto 1.1 0.0-0.4 % Lymphocytes Percent Auto 26.6 20-40 % Monocytes Percent Auto 6.7 2-11 % Eosinophils Percent Auto 0.3 0-4 % Basophils Percent Auto 0.1 0-2 % NRBC Pct Auto 0.0 0.0-0.2 /100WBC Neutrophils Absolute Auto 4.9 2.0-8.3 x10*3/uL Imm Gran Abs Auto 0.08 0.00-0.03 X10*3/uL Lymphocytes Absolute Auto 2.0 1.2-4.9 X10*3/uL Monocytes Absolute Auto 0.5 0.1-1.2 X10*3/uL Eosinophils Absolute Auto 0.0 0.0-0.4 X10*3/uL Basophils Absolute Auto 0.0 0.0-0.2 X10*3/uL NRBC Abs Auto 0.000 0.0-0.012 X10*3/uL Comprehensive Met. Panel Reviewed date:03/05/2024 05:15:10 PM Interpretation: Performing Lab:[facility], [address] [place] [phone] Notes/Report: Sodium 141 135-145 mmol/L Potassium 4.0 3.3-5.1 mmol/L Chloride 107 96-108 mmol/L Carbon Dioxide 29 22-29 mmol/L Anion Gap 9 12-20 Blood Urea Nitrogen 40 9-16 mg/dL Creatinine 1.29 0.5-1.4 mg/dL Estimated Glomerular Filt Rate 58 Chronic Kidney Disease: Estimated GFR < 60 mL/min/1.73m2 Severe Kidney Disease: Estimated GFR < 15 mL/min/1.73m2 Glucose Random 175 60-115 mg/dL Calcium 7.3 8.4-10.2 mg/dL Bilirubin Total 0.3 0.0-1.0 mg/dL Aspartate Amino Transferase 20 5-37 U/L Alanine Aminotransferase 27 0-40 U/L Total Protein 4.4 6.5-8.0 g/dL Albumin Level 2.1 3.5-5.0 g/dL Alkaline Phosphatase 66 39-117 U/L Complete Blood Count Auto Di ff Reviewed date:03/11/2024 02:33:07 PM Interpretation: Performing Lab:[facility], [address] [place] [phone] Notes/Report: White Blood Count 6.4 4.8-10.8 X10*3/uL Red Blood Count 5.00 4.60-5.80 X10*6/uL Hemoglobin 14.8 14.0-18.0 g/dl Hematocrit 44.4 42.0-52.0 % Mean Corpuscular Volume 88.8 80.0-98.0 fL Mean Corpuscular Hemoglobin 29.6 27.0-33.0 pg Mean Corpuscular HGB Conc 33.3 31.0-36.0 g/dl Red Cell Distribution Width 13.2 11.0-16.0 % Platelet Count 208 160-400 X10*3/uL Mean Platelet Volume 10.2 9.4-12.4 fL Neutrophils Percent Auto 49.0 45-73 % Imm Gran Pct Auto 0.5 0.0-0.4 % Lymphocytes Percent Auto 41.5 20-40 % Monocytes Percent Auto 6.9 2-11 % Eosinophils Percent Auto 1.9 0-4 % Basophils Percent Auto 0.2 0-2 % NRBC Pct Auto 0.0 0.0-0.2 /100WBC Neutrophils Absolute Auto 3.1 2.0-8.3 x10*3/uL Imm Gran Abs Auto 0.03 0.00-0.03 X10*3/uL Lymphocytes Absolute Auto 2.7 1.2-4.9 X10*3/uL Monocytes Absolute Auto 0.4 0.1-1.2 X10*3/uL Eosinophils Absolute Auto 0.1 0.0-0.4 X10*3/uL Basophils Absolute Auto 0.0 0.0-0.2 X10*3/uL NRBC Abs Auto 0.000 0.0-0.012 X10*3/uL Erythrocyte Sedimentation Ra te Reviewed date:03/11/2024 02:33:07 PM Interpretation: Performing Lab:[facility], [address] [place] [phone] Notes/Report: Erythrocyte Sedimentation Rate 13 0-15 MM/HR Patients with polycythemia and many hemoglobin abnormalities may have depressed sed rates whereas patients with anemia may have elevated sed rates. Comprehensive Met. Panel Reviewed date:03/11/2024 02:33:07 PM Interpretation: Performing Lab:[address] [phone] Notes/Report: Sodium 143 135-145 mmol/L Potassium 3.7 3.3-5.1 mmol/L Chloride 106 96-108 mmol/L Carbon Dioxide 33 22-29 mmol/L Anion Gap 8 12-20 Blood Urea Nitrogen 30 9-16 mg/dL Creatinine 1.14 0.5-1.4 mg/dL Estimated Glomerular Filt Rate > 60 Chronic Kidney Disease: Estimated GFR < 60 mL/min/1.73m2 Severe Kidney Disease: Estimated GFR < 15 mL/min/1.73m2 Glucose Random 92 60-115 mg/dL Calcium 7.4 8.4-10.2 mg/dL Bilirubin Total 0.3 0.0-1.0 mg/dL Aspartate Amino Transferase 31 5-37 U/L Alanine Aminotransferase 40 0-40 U/L Total Protein 4.1 6.5-8.0 g/dL Albumin Level 2.0 3.5-5.0 g/dL Alkaline Phosphatase 58 39-117 U/L Basic Metabolic Panel Reviewed date:03/21/2024 06:28:51 AM Interpretation: Performing Lab:[address] [phone] Notes/Report: Sodium 139 135-145 mmol/L Potassium 4.0 3.3-5.1 mmol/L Chloride 108 96-108 mmol/L Carbon Dioxide 26 22-29 mmol/L Anion Gap 9 12-20 Blood Urea Nitrogen 22 9-16 mg/dL Creatinine 1.51 0.5-1.4 mg/dL Estimated Glomerular Filt Rate 48 Chronic Kidney Disease: Estimated GFR < 60 mL/min/1.73m2 Severe Kidney Disease: Estimated GFR < 15 mL/min/1.73m2 Glucose Random 125 60-115 mg/dL Calcium 7.2 8.4-10.2 mg/dL Protein Electrophoresis, Ser um Reviewed date:03/28/2024 09:26:04 AM Interpretation: Performing Lab:[address] [place] [address] Notes/Report: Prot Elec - Total Protein 3.6 6.1-8.1 g/dL Prot Elec - Albumin 1.9 3.8-4.8 g/dL Prot Elec - Alpha1 0.3 0.2-0.3 g/dL Prot Elec - Alpha2 0.9 0.5-0.9 g/dL Prot Elec - Beta 1 0.2 0.4-0.6 g/dL Prot Elec - Beta 2 0.2 0.2-0.5 g/dL Prot Elec - Gamma 0.2 0.8-1.7 g/dL PES - Abn Protein Band 1 TNP PES-Abn Protein Band 2 TNP PES-Abn Protein Band 3 TNP Prot Elec - Interpretation SEE NOTE Consistent with hypogammaglobulinemia. Serum free light chains or urine immunofixation should be considered if plasma cell dyscrasias are a possible clinical diagnosis. THIS TEST WAS PERFORMED AT: [facility] [facility] [address] [place] [phone] REMINGTON WILLIASMON MD Complement C3 Reviewed date:03/21/2024 06:28:51 AM Interpretation: Performing Lab:[address] [phone] Notes/Report: Complement C3 151 82-185 mg/dL THIS TEST WAS PERFORMED AT: [facility] [facility] [employer] [address] [place] [phone] REMINGTON WILLIAMSON MD Complement C4 Reviewed date:03/21/2024 06:28:51 AM Interpretation: Performing Lab:[facility], [address] [place] [phone] Notes/Report: Complement C4 35 15-53 mg/dL THIS TEST WAS PERFORMED AT: [facility] [employer] [address] [place] [phone] REMINGTON WILLIAMSON MD Phospholipase A2 Receptor Pn l Reviewed date:03/28/2024 09:26:04 AM Interpretation: Performing Lab:[address] [phone] Notes/Report: Phospholipase A2 IgG SUSU <4 Reference Range: <14: NEGATIVE 14-19: BORDERLINE >19: POSITIVE Phospholipase A2 IgG IFA NEGATIVE NEGATIVE THIS TEST WAS PERFORMED AT: [employer] [address] [place] [address] EVAN SOMMER MD,PHD,VALERIO Basic Metabolic Panel Reviewed date:03/28/2024 09:26:04 AM Interpretation: Performing Lab:[facility], [address] [place] [phone] Notes/Report: Sodium 141 135-145 mmol/L Potassium 3.8 3.3-5.1 mmol/L Chloride 112 96-108 mmol/L Carbon Dioxide 28 22-29 mmol/L Anion Gap 5 12-20 Blood Urea Nitrogen 10 9-16 mg/dL Creatinine 0.74 0.5-1.4 mg/dL Estimated Glomerular Filt Rate > 60 Chronic Kidney Disease: Estimated GFR < 60 mL/min/1.73m2 Severe Kidney Disease: Estimated GFR < 15 mL/min/1.73m2 Glucose Random 90 60-115 mg/dL Calcium 7.7 8.4-10.2 mg/dL Creatinine Urine Reviewed date:03/28/2024 09:26:04 AM Interpretation: Performing Lab:[facility], [address] [place] [phone] Notes/Report: Creatinine Urine 71.15 Total Protein Urine Random Reviewed date:03/28/2024 09:26:04 AM Interpretation: Performing Lab:[facility], [address] [place] [phone] Notes/Report: Total Protein Urine Random 409 <12 mg/dL Urinalysis and Microscopic Reviewed date:04/01/2024 06:09:31 PM Interpretation: Performing Lab:[facility], [address] [place] [phone] Notes/Report: Color Urine Dark Yellow Appearance Urine Clear PH 7.0 5.0-9.0 Glucose Urine UA 500 Negative mg/dL Urine Blood Trace Negative Specific Lacey - Urine 1.025 1.005-1.025 Urine Protein >=1000 (4+) Neg-Trace mg/dL Urine Ketones Negative Negative mg/dL Nitrite Urine Negative Negative Leukocyte Esterase Urine Trace Negative RBC Urine 3-5 0-2 /HPF WBC Urine 0-5 0-5 /HPF Squamous Epithelial Cell Urine 3-5 0-2 /HPF Bacteria Urine None Seen None Seen Hyaline Casts Urine 3-5 0-2 /LPF Granular Casts Urine Present Red Blood Cell Casts Urine Present Creatinine Urine Reviewed date:04/01/2024 06:09:32 PM Interpretation: Performing Lab:[facility], [address] [place] [phone] Notes/Report: Creatinine Urine 166.67 Total Protein Urine Random Reviewed date:04/01/2024 06:09:32 PM Interpretation: Performing Lab:[facility], [address] [place] [phone] Notes/Report: Total Protein Urine Random 1569 <12 mg/dL XR chest 2V Reviewed date:04/21/2024 09:08:31 AM Interpretation: Performing Lab: Notes/Report: [facility] [address] [place] [address] [place] [address] XRay Report Signed Patient: Claudy Berger Jr MR#: [id number] : 1965 Acct:[id number] Age/Sex: 58 / M ADM Date: 04/12/24 [facility] Dr: Anthony Otero MD Ordering Physician: Anthony Otero MD Date of Service: 04/12/24 Procedure(s): XR chest 2V Accession Number(s): [id number] cc: Anthony Otero MD EXAMINATION: XR CHEST CLINICAL INFORMATION: R05.3 COUGH COMPARISON: 09/24/2020. TECHNIQUE: 2 views of the chest were obtained. FINDINGS: The cardiac, hilar, and mediastinal contours are normal. The lungs are hyperaerated however clear bilaterally. There is no pneumothorax or pleural effusion. There is no focal osseous or soft tissue abnormality. XR/XR chest 2V IMPRESSION: No active pulmonary disease. Electronically signed by: Kris Zabala MD 04/16/2024 08:58 AM [facility] Dictated By: Kris Zabala MD Signed By: <Electronically signed by Kris Zabala MD in OV> 04/16/24 0858 DD/ 1619 TD/TT: 04/12/24 1625 Wood Box Maker: [facility] [address] [place] [address] [place] [address] XRay Report Signed Patient: Chandan Berger Jr MR#: [id number] : 1965 Acct:[id number] Age/Sex: 58 / M ADM Date: 04/12/24 Loc: [facility] Attending Dr: Anthony Otero MD Ordering Physician: Anthony Otero MD Date of Service: 04/12/24 Procedure(s): XR man st 2V Accession Number(s): [id number] cc: Anthony Otero MD EXAMINATION: XR CHEST CLINICAL INFORMATION: R05.3 COUGH COMPARISON: 09/24/2020. TECHNIQUE: 2 views of the chest were obtained. FINDINGS: The cardiac, hilar, and mediastinal contours are normal. The lungs are hyperaerated however clear bilaterally. There is no pneumothorax or pleural effusion. There is no focal osseous or soft tissue abnormality. XR/XR chest 2V IMPRESSION: No active pulmonary disease. Electronically sid d by: Kris Zabala MD 04/16/2024 08:58 AM EST Dictated By: Kris Zabala MD Signed By: <Electronically signed by Kris Zabala MD in OV> 04/16/24 0858 DD/ 1619 TD/TT: 04/12/24 1625 Wood Box Maker: Reason For Referral No Information Medications Medication SIG (Take, Route, Frequency, Duration) Notes Start Date End Date Status Fenofibrate 145 MG 1 tablet Orally Once a day Active Omeprazole 40 MG 1 capsule Orally Onc e a day Active Atorvastatin Calcium 40 MG 1 tablet Oral ly Once a day Active Citalopram Hydrobromide 40 MG 1 tablet Orally Once a day Active Lisinopril 40 MG 1 tablet Orally Once a day Active Furosemide 80 MG 1 tablet Orally twic e a day Active Zolpidem Tartrate 10 MG 1 tablet at bedt ashly as needed Orally Once a day Active predniSONE 20 MG TAKE TWO (2) TABLETS (40MG) BY MOUTH EVERY DAY Active Benzonatate 200 MG 1 capsule as needed Orally Three times a day 04/09/2024 Active Torsemide 20 MG 1 tablet Orally Once a day 04/04/2024 Active Albuterol Sulfate HFA 108 (90 Base) MCG/ACT 1 puff as needed Inhalation every 4 hrs Active metFORMIN HCl 500 MG 1 tablet with a mariah l Orally Once a day Active Immunizations Vaccine Route Administration Date Status Comme nts COVID 19 Moderna Unknown 09/17/2020 Administered COVID 19 Moderna Unknown 10/15/2020 Administered Social History Tobacco Use: Social History Observation Description Date Details (start date - stop date) Never Smoker NA - NA Sex Assigned At : Social History Observation Description Sex Assigned At Male Tobacco Control (Standard) Question Answer Notes Tobacco use: Nonsmoker Problems Problem Type SNOMED Code ICD Code Onset Dates Problem Status W/U Status Risk Notes Problem 408881670 Other neutropenia (D70.8) Active confirmed This value will be followed carefully. He has had no infections and seems to be doing well. Problem 009456222 Mixed hyperlipidemia (E78.2) Active confirmed His lipids have been stable. No change in his regimen as needed. Problem 808736543353936 Primary osteoarthritis, right shoulder (M19.011) Active confirmed Problem 603598326917861 Primary osteoarthritis, left shoulder (M19.012) Active confirmed Problem 20698046 Essential hypertension (I10) Active confirmed His blood pressure is 134/78. He was continued on the diuretic without change. Problem 411914246 History of cholecystectomy (Z90.49) Active confirmed Problem 955895021 Chronic insomnia (F51.04) Active confirmed He reports that he is now able to sleep again since the refractory cough has resolved. Problem Nephrotic syndrome (51100933) Nephrotic syndrome (N04.9) Active confirmed He is markedly improved. He is now being managed by nephrology on a reduced dose of prednisone. He is taking torsemide instead of furosemide. Problem 405359995 History of inguinal hernia (Z87.19) Active confirmed Problem 10877443019473712 Bilateral carp al tunnel syndrome (G56.03) Active confirmed Problem 796274651 History of asthma (Z87.09) Active confirmed He did not give a history of asthma but this was documented no records. This will be further pursued. He does not require treatment at this time. Problem 128647475 Acute viral syndrome (B34.9) Active confirmed He has had 3 days of severe refractory cough low-grade fever here pain sore throat and muscle aches. Problem 916138394 Diabetes mellitus without complication (E11.9) Active confirmed He is on a reduced dose of prednisone. He has been compliant with his metformin. Prior to his next visit he will have a hemoglobin A1c. Problem 170490090 Obesity, class 2 (E66.812) Active confirmed Problem 16107993862936757 History of Ojeda's esophagus (Z87.19) Active confirmed He has reported no recent history of dysphagia or esophageal pain. He will need to have upper endoscopy periodically . Problem 160911352 Ascending aorta dilation (I77.810) Active confirmed This is a finding on a recent echocardiogr am. He is asymptomatic . The ascending aortic diameter was 3.9 cm. He will be observed. 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 He is currently asymptomatic . Vital Signs Heart Rate 72 /min 03/28/2024 Temperature 97.0 degrees Fahrenheit 03/28/2024 Oximetry 99 % 03/28/2024 Blood pressure diastolic 78 mm Hg 03/28/2024 Height 70 in 04/16/2024 Blood pressure systolic 134 mm Hg 03/28/2024 Weight 227 lbs 04/16/2024 BMI 32.57 kg/m2 04/16/2024 Encounters Encounter Location Date Provider Diagnosis Anthony Otero III, MD [address] [place] [address] [place] [address] 02/29/2024 Anthony Otero Nephrotic syndrome N 04.9 ; Essential hypertension I10 ; Mixed hyperlipidemia E78.2 ; Diabetes mellitus without complication E11.9 ; Chronic insomnia F51.04 ; Ascending aorta dilation I77.810 ; Other neutropenia D70.8 ; History of asthma Z87.09 and Spondylosis of cervicothoracic region without myelopathy or radiculopathy M47.813 Anthony Otero III, MD [address] [place] [address] [place] [address] 03/07/2024 Anthony Otero Mixed hyperlipidemia E78.2 ; Nephrotic syndrome N04.9 ; Other neutropenia D70.8 ; Essential hypertension I10 and Diabetes mellitus without complication E11.9 Anthony Otero III, MD [address] [place] [address] [place] [address] 03/28/2024 Anthony Otero Nephrotic syndrome N 04.9 ; Essential hypertension I10 ; Diabetes mellitus without complication E11.9 ; Other neutropenia D70.8 and Mixed hyperlipidemia E78.2 Anthony Otero III, MD [address] [place] [address] [place] [address] 04/03/2024 Anthony Otero Nephrotic syndrome N 04.9 ; Essential hypertension I10 ; Mixed hyperlipidemia E78.2 and Diabetes mellitus without complication E11.9 Anthony Otero III, MD [address] [place] [address] [place] [address] 04/09/2024 Anthony Otero Nephrotic syndrome N 04.9 ; Acute viral syndrome B34.9 ; Persistent cough R05.3 ; Diabetes mellitus without complication E11.9 and Mixed hyperlipidemia E78.2 Anthony Otero III, MD [address] [place] [address] [place] [address] 04/16/2024 Anthony Otero Nephrotic syndrome N 04.9 ; Diabetes mellitus without complication E11.9 ; Mixed hyperlipidemia E78.2 ; Essential hypertension I10 ; Ascending aorta dilation I77.810 ; Chronic insomnia F51.04 ; History of Ojeda's esophagus Z87.19 and Viral syndrome B34.9 Anthony Otero III, MD [address] [place] [address] [place] [address] 03/04/2024 Anthony Otero III, MD [address] [place] [address] [place] [address] 02/29/2024 Anthony Otero III, MD [address] [place] [address] [place] [address] 03/01/2024 Anthony Otero III, MD [address] [place] [address] [place] [address] 03/04/2024 Anthony Otero III, MD [address] [place] [address] [place] [address] 03/20/2024 Anthony Otero III, MD [address] [place] [address] [place] [address] 04/17/2024 Anthony Otero Assessments Encounter Date Diagnosis (ICD Code) Assessment Notes Treat ment Notes Treatment Clinical Notes 02/29/2024 Essential hypertension (ICD-10 - I10) His blood pressure was elevated today. He was anxious about his health and under the stress of a new physician visit. He was continued on current medications and his blood pressure will be reviewed. He will continue on the furosemide. 02/29/2024 Nephrotic syndrome (ICD-10 - N04.9) In the past his program management analyst has been Dr. Lionel Henson. He has not been seen in several years. An appointment has been made for him by Dr. Fenton to see the program management analyst at [facility] later this month. He does appear to have an exacerbation and recurrence of nephrotic syndrome peripheral edema and weight gain. He was continued on 20 mg of prednisone a day and 20 mg of furosemide daily. These will be increased if he tolerates them. A 24-hour urine for total protein excretion has been ordered. He will be seen weekly. Database has been sampled. I will discuss him with the program management analyst at [facility] with whom he has the appointment and try to have him seen expeditiously. 03/07/2024 Mixed hyperlipidemia (ICD-10 - E78.2) His lipids have been stable. No change in his regimen as needed. 03/07/2024 Nephrotic syndrome (ICD-10 - N04.9) He has gained 10 pounds since his last visit. He has peripheral edema now. His total protein is 4.4, which is causing a low calcium level. He feels weak but is awake and alert and medically stable. Remainder of his blood work is fairly normal. I have increased his prednisone and increase his furosemide. I talked to him about the addition of bumetanide. He is going to see nephrology in 5 more days. I have reviewed the case with a program management analyst and strongly recommended he see the patient as early as possible. I have enclosed a two liter fluid restriction beginning today. He is going to call me every other day and report his weight using the same scale at home. 03/28/2024 Essential hypertension (ICD-10 - I10) His blood pressure is 134/78. He was continued on the diuretic without change. 03/28/2024 Nephrotic syndrome (ICD-10 - N04.9) He is markedly improved. He is now being managed by nephrology on a reduced dose of prednisone. He is taking torsemide instead of furosemide. 04/03/2024 Essential hypertension (ICD-10 - I10) His blood pressure is 134/78. He was continued on the diuretic without change. 04/03/2024 Nephrotic syndrome (ICD-10 - N04.9) He is markedly improved. He is now being managed by nephrology on a reduced dose of prednisone. He is taking torsemide instead of furosemide. 04/09/2024 Nephrotic syndrome (ICD-10 - N04.9) He is markedly improved. He is now being managed by nephrology on a reduced dose of prednisone. He is taking torsemide instead of furosemide. 04/09/2024 Acute viral syndrome (ICD-10 - B34.9) He has had 3 days of severe refractory cough low-grade fever here pain sore throat and muscle aches. 04/16/2024 Nephrotic syndrome (ICD-10 - N04.9) He is markedly improved. He is now being managed by nephrology on a reduced dose of prednisone. He is taking torsemide instead of furosemide. 04/16/2024 Diabetes mellitus without complication (ICD-10 - E11.9) He is on a reduced dose of prednisone. He has been compliant with his metformin. Prior to his next visit he will have a hemoglobin A1c. 02/29/2024 Mixed hyperlipidemia (ICD-10 - E78.2) His total cholesterol was acceptable. His triglycerides are elevated. A repeat fasting lipid profile will be done when the acute nephrotic syndrome episode has resolved. 03/07/2024 Other neutropenia (ICD-10 - D70.8) He has a mild neutropenia. This problem will be addressed when the nephrotic syndrome has been controlled. 03/28/2024 Diabetes mellitus without complication (ICD-10 - E11.9) He is on a reduced dose of prednisone. He has been compliant with his metformin. Prior to his next visit he will have a hemoglobin A1c. 04/03/2024 Mixed hyperlipidemia (ICD-10 - E78.2) His lipids have been stable. No change in his regimen as needed. 04/09/2024 Persistent cough (ICD-10 - R05.3) He has a severe unremitting cough for which she has been taking only acetaminophen and expectorants. He will begin taking a codeine containing cough medication. He likely has respiratory syncytial virus. A follow-up in 48 hours was made. 04/16/2024 Mixed hyperlipidemia (ICD-10 - E78.2) His lipids have been stable. No change in his regimen as needed. 02/29/2024 Diabetes mellitus without complication (ICD-10 - E11.9) He will need better control of his diabetes. His blood glucose level will be done fasting while he is on the prednisone and his glucose will be controlled as well as possible. He will be referred to ophthalmology. Consideration would be given to an DAMION inhibitor and a statin drug and podiatry. 03/07/2024 Essential hypertension (ICD-10 - I10) His blood pressure was elevated today. He was anxious about his health and under the stress of a new physician visit. He was continued on current medications and his blood pressure will be reviewed. He will continue on the furosemide. 03/28/2024 Other neutropenia (ICD-10 - D70.8) This value will be followed carefully. He has had no infections and seems to be doing well. 04/03/2024 Diabetes mellitus without complication (ICD-10 - E11.9) He is on a reduced dose of prednisone. He has been compliant with his metformin. Prior to his next visit he will have a hemoglobin A1c. 04/09/2024 Diabetes mellitus without complication (ICD-10 - E11.9) He is on a reduced dose of prednisone. He has been compliant with his metformin. Prior to his next visit he will have a hemoglobin A1c. 04/16/2024 Essential hypertension (ICD-10 - I10) His blood pressure is 134/78. He was continued on the diuretic without change. 02/29/2024 Chronic insomnia (ICD-10 - F51.04) He gave a history today that he has taken so PDM 10 mg daily for over 20 years. He maintains emphatically that he cannot sleep without this medication. He tanisha an adequate supply at this time. When his acute illness has resolved I will discuss with him the wisdom learned to sleep without medication. 03/07/2024 Diabetes mellitus without complication (ICD-10 - E11.9) The prednisone is going to exacerbate her hyperglycemia. He was continued on his metformin. He will be carefully observed. 03/28/2024 Mixed hyperlipidemia (ICD-10 - E78.2) His lipids have been stable. No change in his regimen as needed. 04/09/2024 Mixed hyperlipidemia (ICD-10 - E78.2) His lipids have been stable. No change in his regimen as needed. 04/16/2024 Ascending aorta dilation (ICD-10 - I77.810) This is a finding on a recent echocardiogram. He is asymptomatic. The ascending aortic diameter was 3.9 cm. He will be observed. 02/29/2024 Ascending aorta dilation (ICD-10 - I77.810) This is a finding on a recent echocardiogram. He is asymptomatic. The ascending aortic diameter was 3.9 cm. He will be observed. 04/16/2024 Chronic insomnia (ICD-10 - F51.04) He reports that he is now able to sleep again since the refractory cough has resolved. 02/29/2024 Other neutropenia (ICD-10 - D70.8) Review of laboratory data in the [facility] database shows he is mildly but chronically neutropenic. He has no history of significant infections. This value will be followed without treatment at this time. 04/16/2024 History of Ojeda's esophagus (ICD-10 - Z87.19) He has reported no recent history of dysphagia or esophageal pain. He will need to have upper endoscopy periodically. 02/29/2024 History of asthma (ICD-10 - Z87.09) He did not give a history of asthma but this was documented no records. This will be further pursued. He does not require treatment at this time. 04/16/2024 Viral syndrome (ICD-10 - B34.9) He has continued his medications and says he continues to lose weight. His viral syndrome has resolved and the cough is no longer present. 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 He is currently asymptomatic. Plan Of Treatment Pending Test Test Name Order Date PROFILE, FASTING (COMPREHENSIVE METABOLI C) 03/28/2024 PROFILE, RANDOM (COMPREHENSIVE METABOLIC ) 02/29/2024 PROFILE, RANDOM (COMPREHENSIVE METABOLIC ) 03/07/2024 BRAIN NATRIURETIC PEPTIDE (BNP) 03/28/19 25 CBC w DIFF 03/28/2024 SED RATE (ESR) 03/07/2024 XR CHEST 2 VIEW PA & LAT 04/09/2024 CBC WITH AUTO DIFF 03/07/2024 CBC WITH AUTO DIFF 02/29/2024 Microalbumin, Random 03/28/2024 Protein 24 Hour Urine 02/29/2024 Hemoglobin A1c 03/28/2024 Next Appt Details Provider Name:Anthony Otero, 05/06/2024 04:15:00 PM, [address] [place] [address] [address], [place], [address], Insurance Providers Payer Name Payer Address Payer Phone Subscriber Number Group Number Insured Name Patient Relationship to Insured Coverage Start Date Coverage End Date [employer] [place] [address] [address] [place] [address] [id number] Claudy Berger Self - patient is the insured Medical (General) History Medical History History ICD Code Nephrotic syndrome N04.9 cholecystectomy 1991 hypertension hyperlipidemia prediabetes obesity carpal tunnel syndrome osteoarthritis both shoulders Dilated ascending aorta 3.9 cm by echoca rdiogram seborrhea actinic keratosis Ojeda's esophagus by upper endoscopy, Dr. Anthony Hidalgo Chronic insomnia Repaired bilateral inguinal hernias Hyper lipidemia 2017 pulmonary function tests within nor mal limits Chronic low white blood cell count Sleep apnea History of asthma Spondylosis and foraminal narrowing cerv ical spine by MRI 2021 Normal MIBI and echocardiogram 2022 Tubular adenoma of colon 2022 Focal segmental glomerulosclerosis, yash l biopsy, [facility] Normal cardiac catheterization January 26, 2018 [facility] Surgical History Surgery Date(Month/Year) No history Bilateral inguinal herniorrhaphies Tubular adenoma colonoscopy 2012, Dr. Dimple Hidalgo Upper endoscopy and colonoscopy 2018 Elbow surgery Bilateral shoulder arthroscopies Carpal tunnel surgery on both hands Renal biopsy [facility], remot e cholecystectomy age 24 Hospitalization History Reason Date(Month/Year) No history None reported
--- OUTSIDE RECORDS SUMMARY | 2024-05-02 06:11 | XMS_ITS | Patient Health Record ---
Author Organization [facility] Address [address] [place] [address] Care Team Providers Care Technical Sales Representative Name Role Phone Irvin Rosen MD Primary Care Provider Anthony Lantigua Unavailable [phone] Allergies No Known Allergies Reason For Referral No Information Medications Medication [...] capsule Orally Onc e a day Active Immunizations Vaccine Route Administration Date Status Comme nts Influenza Unknown 08/17/2022 Refused Social History Alcohol Screen Question Answer Notes Did you [...] Weekly (3 points) Points 9 Interpretation Positive Section Notes: Nonsmoker; 1 case of beer on the weekends Nonsmoker; 1 case of beer on the weekends--update 12/2018-- beers 2-3 times a week 6-8 beers Nonsmoker; 1 case of beer on the weekends--update 12/2018-- beers 2-3 times a week 6-8 beers Problems Problem Type SNOMED Code ICD Code Onset Dates Problem Status W/U Status Risk Notes Problem 348952472 Encounter for screening for malignant neoplasm of colon (Z12.11) Active confirmed Problem 059504141 History of adenomatous polyp of colon (Z86.010) Active confirmed Problem Diverticular disease of colon (426554973) Diverticulosis of large intestine without perforation or abscess without bleeding (K57.30) Active confirmed Problem Gastroesophageal reflux disease (472183188) Gastroesophageal reflux disease (K21.9) Active confirmed Problem 218353518 Gastroesophageal reflux disease, esophagitis presence not specified (K21.9) Active confirmed Problem 417340941 Irregular bowel habits (R19.8) Active confirmed Problem Ojeda esophagus (973044029) 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 Problem 204827950 Abdominal pain, generalized (R10.84) Active confirmed Problem 511320069 Ojeda''s esophagus without dysplasia (K22.70) Active confirmed Problem 93550792 Chronic gastric ulcer without hemorrhage and without perforation (K25.7) Active confirmed Plan Of Treatment Pending Test Test Name Order Date Pathology 11/28/2022 Future Test Test Name Order Date UPPER GI ENDOSCOPY 08/12/2014 UPPER GI ENDOSCOPY 01/04/2019 COLONOSCOPY 01/04/2019 COLONOSCOPY 06/24/2019 UPPER GI ENDOSCOPY 08/17/2022 COLONOSCOPY 08/17/2022 Insurance Providers Payer Name Payer Address Payer Phone Subscriber Number Group Number Insured Name Patient Relationship to Insured Coverage Start Date Coverage End Date [employer] [place] [address] [address] [place] [address] [id number] AMAN Self - patient is the insured Medical (General) History Medical History History ICD Code Denies IA,DM,CVA,Lung disease Hypertension Nephrotic syndrome- Dr. Henson Hyperlipidemia [...]
--- OUTSIDE RECORDS SUMMARY | 2024-05-02 06:11 | XMS_ITS ---
Author Organization Anthony Otero III, MD Address [address] [place] [address] Care Team Providers Care Cream Tester Name Role Phone Anthony Otero Primary Care Provider [phone] REASON FOR VISIT New Refill Request Social History Sex Assigned At : Social History Observation Description Sex Assigned At Male Encounters Encounter Location Date Provider Diagnosis Anthony Otero III, MD [address] [place] [address] [place] [address] 04/17/2024 Anthony Otero Plan Of Treatment Next Appt Details Provider Name:Anthony Otero, 05/06/2024 04:15:00 PM, [address] [place] [address] [place], [address], Progress Notes * Claudy HANLEY JrDOB:[birth year] (58 yo M)Acc No.[id number]:04/17/2024 Patient:?Claudy HANLEY Jr :1965???Age:58 Y???Sex:Male [address] [place], [address] * true * Date:? Generated for Lety garrett/Azam/eTransmitting on:?05/02/2024 06:11 AM EST
--- OUTSIDE RECORDS SUMMARY | 2024-05-02 06:12 | XMS_ITS ---
Author Organization [facility] Address [address] [place] [address] Care Team Providers Care Loading Unit Tool Setter Name Role Phone Irvin Rosen MD Primary Care Provider Anthony Lantigua [phone] REASON FOR VISIT screening Problems Problem Type SNOMED Code ICD Code Onset Dates Problem Status W/U Status Risk Notes Problem Diverticular disease of colon (708895543) Diverticulosis of large intestine without perforation or abscess without bleeding (K57.30) Active confirmed Problem Gastroesophageal reflux disease (453012901) Gastroesophageal reflux disease (K21.9) Active confirmed Problem Ojeda esophagus (452191407) 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 Encounters Encounter Location Date Provider Diagnosis [facility] Outpatient [address] [place] [phone] 11/28/2022 Anthony Hidalgo Encounter for screen ing colonoscopy Z12.11 ; Colon polyps K63.5 ; Diverticulosis of large intestine without perforation or abscess without bleeding K57.30 ; Other hemorrhoids K64.8 ; Gastroesophageal reflux disease K21.9 ; Ojeda esophagus K22.70 and Hiatal hernia K44.9 Assessments Encounter Date Diagnosis (ICD Code) Assessment Notes Treatment Notes Treatment Clinical Notes Section Notes 11/28/2022 Encounter for screening colonoscopy (ICD-10 - Z12.11) 11/28/2022 Colon polyps (ICD-10 - K63.5) 11/28/2022 Diverticulosis of large intestine without perforation or abscess without bleeding (ICD-10 - K57.30) 11/28/2022 Other hemorrhoids (ICD-10 - K64.8) 11/28/2022 Gastroesophageal reflux disease (ICD-10 - K21.9) 11/28/2022 Ojeda esophagus (ICD-10 - K22.70) 11/28/2022 Hiatal hernia (ICD-10 - K44.9) Plan Of Treatment No Information Progress Notes * AMAN HANLEY JrDOB:1965 (58 yo M)Acc No.[id number]:11/28/2022 EGD&COL/MAC Patient:?AMAN HANLEY Jr Provider:?Anthony Hidalgo MD :1965???Age:56 Y???Sex:Male Gavin e:11/28/2022 Address:[address] [place], [place] [id number] Pcp:Irvin Rosen MD Subjective: * Chief Complaints: * ???1. Screening. * Medical History:? Objective: * Vitals:? Assessment: * Assessment: 1.?Encounter for screening c olonoscopy - Z12.11 (Primary)???2.?Colon polyps - K63.5???3.?Diverticulosis of large intestine without perforation or abscess without bleeding - K57.30???4.?Other hemorrhoids - K64.8???5. Gastroesophageal reflux disease - K21.9???6.?Ojeda esophagus - K22.70???7.?Hiatal hernia - K44.9??? Plan: * Treatment: * Procedure Codes:?49834 COLON OSCOPY AND BIOPSY, Modifiers: 33 , 17264 UPPER GI ENDOSCOPY, BIOPSY * * The named appointment provid er may or may not be the originator of this progress note, and it is not deemed complete until electronically signed by the appointment provider. Sign off status: Pending * Provider:?Anthony Hidalgo MD Date:? 023 Generated for Lety garrett/Azam/eTtroysmitting on:?05/02/2024 06:11 AM EST
--- OUTSIDE RECORDS SUMMARY | 2024-05-02 06:12 | XMS_ITS ---
Author Organization Anthony Otero III, MD Address [address] [place] [address] Care Team Providers Care Cell Repairer Name Role Phone Anthony Otero Primary Care Provider Allergies Allergen (clinical drug ingredient) Drug/Non Drug Allergy documented on EMR Reaction Allergy Type Onset Date Status Pain medication (uncoded) Unknown Allergy Active REASON FOR VISIT Nephrotic syndrome, Hypertension, Diabetes, Obesity, Arthritis right shoulder, Viral syndrome Medications Medication SIG (Take, Route, Frequency, Duration) Notes Start Date End Date Status Atorvastatin Calcium 40 MG 1 tablet Oral ly Once a day Active Citalopram Hydrobromide 40 MG 1 tablet Orally Once a day Active Lisinopril 40 MG 1 tablet Orally Once a day Active Furosemide 80 MG 1 tablet Orally twic e a day Active Zolpidem Tartrate 10 MG 1 tablet at bedt ashly as needed Orally Once a day Active Fenofibrate 145 MG 1 tablet Orally Once a day Active Omeprazole 40 MG 1 capsule Orally Onc e a day Active predniSONE 20 MG TAKE TWO (2) TABLETS (40MG) BY MOUTH EVERY DAY Active Albuterol Sulfate HFA 108 (90 Base) MCG/ACT 1 puff as needed Inhalation every 4 hrs Active metFORMIN HCl 500 MG 1 tablet with a mariah l Orally Once a day Active Benzonatate 200 MG 1 capsule as needed Orally Three times a day 04/09/2024 Active Torsemide 20 MG 1 tablet Orally Once a day 04/04/2024 Active Social History Tobacco Use: Social History Observation Description Date Details (start date - stop date) Never Smoker NA - NA Sex Assigned At : Social History Observation Description Sex Assigned At Male Tobacco Control (Standard) Question Answer Notes Tobacco use: Nonsmoker Vital Signs Height 70 in 04/16/2024 Weight 227 lbs 04/16/2024 BMI 32.57 kg/m2 04/16/2024 Encounters Encounter Location Date Provider Diagnosis Anthony Otero III, MD [address] [place] [address] [place] [address] 04/16/2024 Anthony Otero Nephrotic syndrome N 04.9 ; Diabetes mellitus without complication E11.9 ; Mixed hyperlipidemia E78.2 ; Essential hypertension I10 ; Ascending aorta dilation I77.810 ; Chronic insomnia F51.04 ; History of Ojeda's esophagus Z87.19 and Viral syndrome B34.9 Assessments Encounter Date Diagnosis (ICD Code) Assessment Notes Treat ment Notes Treatment Clinical Notes 04/16/2024 Nephrotic syndrome (ICD-10 - N04.9) He [...] he will have a hemoglobin A1c. 04/16/2024 Mixed hyperlipidemia (ICD-10 - E78.2) His lipids have been stable. No change in his regimen as needed. 04/16/2024 Essential hypertension (ICD-10 - I10) His blood pressure is 134/78. He was continued on the diuretic without change. 04/16/2024 Ascending aorta dilation (ICD-10 - I77.810) This is a finding on a recent echocardiogram. He is asymptomatic. The ascending aortic diameter was 3.9 cm. He will be observed. 04/16/2024 Chronic insomnia (ICD-10 - F51.04) He reports that he is now able to sleep again since the refractory cough has resolved. 04/16/2024 History of Ojeda's esophagus (ICD-10 - Z87.19) He has reported no recent history of dysphagia or esophageal pain. He will need to have upper endoscopy periodically. 04/16/2024 Viral syndrome (ICD-10 - B34.9) He has continued his medications and says he continues to lose weight. His viral syndrome has resolved and the cough is no longer present. Plan Of Treatment Medication Medication Name Sig Start Date Stop Date Notes Atorvastatin Calcium 40 MG 1 tablet Orally Once a day Citalopram Hydrobromide 40 MG 1 tablet Orally Once a day Lisinopril 40 MG 1 tablet Orally Once a day Furosemide 80 MG 1 tablet Orally twice a day Zolpidem Tartrate 10 MG 1 tablet at bedt ashly as needed Orally Once a day Fenofibrate 145 MG 1 tablet Orally Once a day Omeprazole 40 MG 1 capsule Orally Once a day predniSONE 20 MG TAKE TWO (2) TABLETS (40MG) BY MOUTH EVERY DAY Albuterol Sulfate HFA 108 (9 0 Base) MCG/ACT 1 puff as needed Inhalation every 4 hrs metFORMIN HCl 500 MG 1 tablet with a mariah l Orally Once a day Benzonatate 200 MG 1 capsule as needed Orally Three times a day 04/09/2024 Torsemide 20 MG 1 tablet Orally Once a day 04/04/2024 Next Appt Details Follow Up: 2 Weeks, Reason: Office visit Provider Name:Anthony Otero, 05/06/2024 04:15:00 PM, [address] [place] [address], [address], [id number], Progress Notes * Claudy HANLEY JrDOB:[birth year] (58 yo M)Acc No.[id number]:04/16/2024 Patient:?Claudy HANLEY Provider:?Anthony Otero MD :1965???Age:58 Y???Sex:Male Gavin e:04/16/2024 Address:[address] [place], [place] [id number] Subjective: * Chief Complaints: * ???Nephrotic syndromeHyperte nsionDiabetesObesityArthritis right shoulderViral syndrome * HPI: ???:? On his last visit she complains of a refractory cough and inability to sleep fine with a viral syndrome.? He now reports that this has completely resolved. He has been compliant with all of his medications.? He believes he continues to lose weight.? He feels otherwise stable.? He was given an appointment to come to the office to be weighed monitor his nephrotic syndrome in a couple weeks. ?Telehealth?Location of provider rendering services:?{...} [address] [facility] [address] ?Location of patient:?address listed in demographics for today's visit ?Patient identification confirmed using:?Name, ?Telehealth method:?Telephone only. Patient not visible to care provider. ?Consent:?Patient verbally consented to treatment, Patient verbally consented to billing insurance company, Patient informed of any privacy concerns related to method of visit ?Total time spent with patient (mins)?15 * ROS:?General/Constitutional:?pain?only normal aches and pains.?Chills?denies.?Fatigue?admits.?Fever?denies.?ENT:?Decreased hearing?denies.?Respiratory:?Cough?The refractory cough has resolved.?Cardiovascular:?Chest pain with exertion?denies.?Dyspnea on exertion?denies.?Shortness of breath?denies.?Gastrointestinal:?Constipation?occasional.?Decreased appetite?denies.?Diarrhea?denies.?Heartburn?denies.?Nausea?denies.?Rectal bleeding?denies.?Vomiting?denies.?Hematology:?bruising?denies.?petechiae?denies.?Swollen glands?none have been noted.?Genitourinary:?Frequent urination?once a night.?Musculoskeletal:?Muscle aches?denies.?Painful joints?denies.?Sciatica?denies.?Weakness?denies.?Skin:?Itching?denies.?Rash?denies.?Skin lesion(s)?denies.?Neurologic:?Difficulty speaking?denies.?Dizziness?denies.?Headache?denies.?Low back pain?denies.?Psychiatric:?Depressed mood?denies.? * Medical History:? * Surgical History:?cholecyste ctomy age 24 Renal biopsy [facility], remote Carpal tunnel surgery on both hands [...] Control (Standard)?Tobacco use:?Nonsmoker ?He was born in [facility].? He has been to [facility] for 15 years.? He has no children.? 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 He has no faith objection to blood transfusion.? He does not smoke and does not drink alcohol. * Medications:?TakingBenzonata te 200 MG Capsule 1 capsule as needed Orally Three times a day , stop date 08/13/2024metFORMIN HCl 500 MG Tablet 1 tablet with [...] Tablet 1 tablet Orally Once a day predniSONE 20 MG Tablet TAKE TWO (2) TABLETS (40MG) BY MOUTH EVERY DAY Medication List reviewed and reconciled with the patientTaking Benzonatate 200 MG Capsule 1 capsule as needed Orally Three times a day , stop date 08/13/2024Taking metFORMIN HCl 500 MG Tablet 1 tablet [...] 1 tablet Orally Once a day Taking predniSONE 20 MG Tablet TAKE TWO (2) TABLETS (40MG) BY MOUTH EVERY DAY Medication List reviewed and reconciled with the patient * Allergies:?Pain medicationno [Allergies Verified] Objective: * Vitals:?Ht: 70, Wt: 227, BMI :32.57, Ht-cm: 177.8, Wt-k.97. * ???Past Orders: Lab:Creatinine Urine * Collection Date 04/01/2024 03/25/2024 Collection Time 12:21 PM 09:45 AM Order Date 04/01/2024 03/25/2024 Creatinine Urine 166.67 (Ref Range: mg/dL) 71.15 (Ref Range: mg/dL) * Lab:Total Protein Urine [place] om * Collection Date 04/01/2024 03/25/2024 Collection Time 12:21 PM 09:45 AM Order Date 04/01/2024 03/25/2024 Total Protein Urine Random 1569?H (Ref Range: <12 mg/dL) 409?H (Ref Range: <12 mg/dL) ???Lab:Urinalysis and Microscopic (Order Date - 04/01/2024) (Collection Date & Time - 04/01/2024 12:21 PM)?ValueReference Range?Color UrineDark Yellow-?RBC Atcho7-1V8-4 - /HPF?Appearance UrineClear-?PH 7.05.0-9.0 -?Glucose Urine [id number] - mg/dL?Urine BloodTrace ANegative -?Specific [place] - Urine1.0251.005-1.025 -?Urine Protein>=1000 (4+)ANeg-Trace - mg/dL?Urine KetonesNegativeNegative - mg/dL?Nitrite UrineNegativeNegative -?Leukocyte Esterase Urine TraceANegative -?WBC Urine0-50-5 - /HPF?Squamous Epithelial Cell Urine3-50-2 - /HPF?Bacteria UrineNone SeenNone Seen -?Hyaline Casts Urine3-50-2 - /LPF?Granular Casts UrinePresent-?Red Blood Cell Casts UrinePresent- * Lab:Basic Metabolic Panel * Collection Date 03/25/2024 03/18/2024 Collection Time 09:40 AM 11:17 AM Order Date 03/25/2024 03/18/2024 Sodium 141 (Ref Range: 135-145 mmol/L) 139 (Ref Range: 135-145 mmol/L) Blood Urea Nitrogen 10 (Ref Range: 9-16 mg/dL) 22?H (Ref Range: 9-16 mg/dL) Creatinine 0.74 (Ref Range: 0.5-1.4 mg/dL) 1.51?H (Ref Range: 0.5-1.4 mg/dL) Glucose Random 90 (Ref Range: 60-115 mg/dL) 125?H (Ref Range: 60-115 mg/dL) Calcium 7.7?L (Ref Range: 8.4-10.2 mg/dL) 7.2?L (Ref Range: 8.4-10.2 mg/dL) Potassium 3.8 (Ref Range: 3.3-5.1 mmol/L) 4.0 (Ref Range: 3.3-5.1 mmol/L) Chloride 112?H (Ref Range: 96-108 mmol/L) 108 (Ref Range: 96-108 mmol/L) Carbon Dioxide 28 (Ref Range: 22-29 mmol/L) 26 (Ref Range: 22-29 mmol/L) Anion Gap 5?L (Ref Range: 12-20) 9?L (Ref Range: 12-20) Estimated Glomerular Filt Rate > 60 48 ???Lab:Complement C4 (Order Date - 03/18/2024) (Collection Date & Time - 03/18/2024 11:17 AM)?ValueReference Range?Complement [id number] - mg/dL ???Lab:Phospholipase A2 Receptor Pnl (Order Date - 03/18/2024) (Collection Date & Time - 03/18/2024 11:17 AM)?ValueReference Range?Phospholipase A2 IgG SUSU<4- RU/mL?Phospholipase A2 IgG IFANEGATIVENEGATIVE - ???Lab:Protein Electrophoresis, Serum (Order Date - 03/18/2024) (Collection Date & Time - 03/18/2024 11:17 AM)?ValueReference Range?Prot Elec - Total Protein3.6A6.1-8.1 - g/dL?Prot Elec - Albumin1.9A3.8-4.8 - g/dL ?Prot Elec - Alpha10.30.2-0.3 - g/dL?Prot Elec - Alpha20.90.5-0.9 - g/dL?Prot Elec - Beta 10.2A0.4-0.6 - g/dL?Prot Elec - Beta 20.2 0.2-0.5 - g/dL?Prot Elec - Gamma0.2A0.8-1.7 - g/dL?PES - Abn Protein Band 1TNP-?PES-Abn Protein Band 2TNP-?PES-Abn Protein Band 3TNP-?Prot Elec - InterpretationSEE NOTE- ???Lab:Complement C3 (Order Date - 03/18/2024) (Collection Date & Time - 03/18/2024 11:17 AM)?ValueReference Range?Complement [id number] - mg/dL ???Lab:Erythrocyte Sedimentation Rate (Order Date - 03/11/2024) (Collection Date & Time - 03/11/2024 11:38 AM)?ValueReference Range?Erythrocyte Sedimentation Mjro319-42 - MM/HR ???Lab:Protein, 24 Hr Urine Group (Order Date - 03/02/2024) (Collection Date & Time - 03/02/2024 09:00 AM)?ValueReference Range?Protein 24 Hr [id number]<150 - mg/Day?Protein mg/lF5909- mg/dL?Creatinine, 24Hr Urine2.2H1.0-2.0 - G/Day?Total Volume 24 Hour Vyqdm8005- mL ?Creatinine, mg/dL113.30- * Lab:Complete Blood Count Aut o Diff * Collection Date 03/11/2024 03/05/2024 Collection Time 11:38 AM 10:50 AM Order Date 03/11/2024 03/05/2024 White Blood Count 6.4 (Ref Range: 4.8-10.8 X10*3/uL) 7.5 (Ref Range: 4.8-10.8 X10*3/uL) Red Blood Count 5.00 (Ref Range: 4.60-5.80 X10*6/uL) 5.27 (Ref Range: 4.60-5.80 X10*6/uL) Hemoglobin 14.8 (Ref Range: 14.0-18.0 g/dl) 15.5 (Ref Range: 14.0-18.0 g/dl) Hematocrit 44.4 (Ref Range: 42.0-52.0 %) 47.3 (Ref Range: 42.0-52.0 %) Mean Corpuscular Volume 88.8 (Ref Range: 80.0-98.0 fL) 89.8 (Ref Range: 80.0-98.0 fL) Mean Corpuscular Hemoglobin 29.6 (Ref Range: 27.0-33.0 pg) 29.4 (Ref Range: 27.0-33.0 pg) Mean Corpuscular HGB Conc 33.3 (Ref Range: 31.0-36.0 g/dl) 32.8 (Ref Range: 31.0-36.0 g/dl) Red Cell Distribution Width 13.2 (Ref Range: 11.0-16.0 %) 13.2 (Ref Range: 11.0-16.0 %) Platelet Count 208 (Ref Range: 160-400 X10*3/uL) 265 (Ref Range: 160-400 X10*3/uL) Mean Platelet Volume 10.2 (Ref Range: 9.4-12.4 fL) 11.1 (Ref Range: 9.4-12.4 fL) Neutrophils Percent Auto 49.0 (Ref Range: 45-73 %) 65.2 (Ref Range: 45-73 %) Imm Gran Pct Auto 0.5?H (Ref Range: 0.0-0.4 %) 1.1?H (Ref Range: 0.0-0.4 %) Lymphocytes Percent Auto 41.5?H (Ref Range: 20-40 %) 26.6 (Ref Range: 20-40 %) Monocytes Percent Auto 6.9 (Ref Range: 2-11 %) 6.7 (Ref Range: 2-11 %) Eosinophils Percent Auto 1.9 (Ref Range: 0-4 %) 0.3 (Ref Range: 0-4 %) Basophils Percent Auto 0.2 (Ref Range: 0-2 %) 0.1 (Ref Range: 0-2 %) NRBC Pct Auto 0.0 (Ref Range: 0.0-0.2 /100WBC) 0.0 (Ref Range: 0.0-0.2 /100WBC) Neutrophils Absolute Auto 3.1 (Ref Range: 2.0-8.3 x10*3/uL) 4.9 (Ref Range: 2.0-8.3 x10*3/uL) Imm Gran Abs Auto 0.03 (Ref Range: 0.00-0.03 X10*3/uL) 0.08?H (Ref Range: 0.00-0.03 X10*3/uL) Lymphocytes Absolute Auto 2.7 (Ref Range: 1.2-4.9 X10*3/uL) 2.0 (Ref Range: 1.2-4.9 X10*3/uL) Monocytes Absolute Auto 0.4 (Ref Range: 0.1-1.2 X10*3/uL) 0.5 (Ref Range: 0.1-1.2 X10*3/uL) Eosinophils Absolute Auto 0.1 (Ref Range: 0.0-0.4 X10*3/uL) 0.0 (Ref Range: 0.0-0.4 X10*3/uL) Basophils Absolute Auto 0.0 (Ref Range: 0.0-0.2 X10*3/uL) 0.0 (Ref Range: 0.0-0.2 X10*3/uL) NRBC Abs Auto 0.000 (Ref Range: 0.0-0.012 X10*3/uL) 0.000 (Ref Range: 0.0-0.012 X10*3/uL) * Lab:Comprehensive Met. Panel * Collection Date 03/11/2024 03/05/2024 Collection Time 11:38 AM 10:50 AM Order Date 03/11/2024 03/05/2024 Sodium 143 (Ref Range: 135-145 mmol/L) 141 (Ref Range: 135-145 mmol/L) Bilirubin Total 0.3 (Ref Range: 0.0-1.0 mg/dL) 0.3 (Ref Range: 0.0-1.0 mg/dL) Aspartate Amino Transferase 31 (Ref Range: 5-37 U/L) 20 (Ref Range: 5-37 U/L) Alanine Aminotransferase 40 (Ref Range: 0-40 U/L) 27 (Ref Range: 0-40 U/L) Total Protein 4.1?L (Ref Range: 6.5-8.0 g/dL) 4.4?L (Ref Range: 6.5-8.0 g/dL) Albumin Level 2.0?L (Ref Range: 3.5-5.0 g/dL) 2.1?L (Ref Range: 3.5-5.0 g/dL) Alkaline Phosphatase 58 (Ref Range: 39-117 U/L) 66 (Ref Range: 39-117 U/L) Potassium 3.7 (Ref Range: 3.3-5.1 mmol/L) 4.0 (Ref Range: 3.3-5.1 mmol/L) Chloride 106 (Ref Range: 96-108 mmol/L) 107 (Ref Range: 96-108 mmol/L) Carbon Dioxide 33?H (Ref Range: 22-29 mmol/L) 29 (Ref Range: 22-29 mmol/L) Anion Gap 8?L (Ref Range: 12-20) 9?L (Ref Range: 12-20) Blood Urea Nitrogen 30?H (Ref Range: 9-16 mg/dL) 40?H (Ref Range: 9-16 mg/dL) Creatinine 1.14 (Ref Range: 0.5-1.4 mg/dL) 1.29 (Ref Range: 0.5-1.4 mg/dL) Estimated Glomerular Filt Rate > 60 58 Glucose Random 92 (Ref Range: 60-115 mg/dL) 175?H (Ref Range: 60-115 mg/dL) Calcium 7.4?L (Ref Range: 8.4-10.2 mg/dL) 7.3?L (Ref Range: 8.4-10.2 mg/dL) Assessment: * Assessment: 1.?Nephrotic syndrome - N04. 9 (Primary)???Notes :He is markedly improved. He is now being managed by nephrology on a reduced dose of prednisone. He is taking torsemide instead of furosemide.???2.?Diabetes mellitus without complication - E11.9???Notes :He is on a reduced dose of prednisone. He has been compliant with his metformin. Prior to his next visit he will have a hemoglobin A1c.???3.?Mixed hyperlipidemia - E78.2???Notes :His lipids have been stable. No change in his regimen as needed.???4.?Essential hypertension - I10???Notes :His blood pressure is 134/78. He was continued on the diuretic without change.???5.?Ascending aorta dilation - I77.810???Notes :This is a finding on a recent echocardiogram. He is asymptomatic. The ascending aortic diameter was 3.9 cm. He will be observed.???6.?Chronic insomnia - F51.04???Notes :He reports that he is now able to sleep again since the refractory cough has resolved.???7.?History of Ojeda's esophagus - Z87.19???Notes :He has reported no recent history of dysphagia or esophageal pain.? He will need to have upper endoscopy periodically.???8.?Viral syndrome - B34.9???Notes :He has continued his medications and says he continues to lose weight.? His viral syndrome has resolved and the cough is no longer present.??? Plan: * Treatment: 2.?Others? Continue predniSONE Tablet, 20 MG, TAKE TWO (2) TABLETS (40MG) BY MOUTH EVERY DAY;?Continue metFORMIN HCl Tablet, 500 MG, 1 tablet [...] 80 MG, 1 tablet, Orally, twice a day;?Continue Benzonatate Capsule, 200 MG, 1 capsule as needed, Orally, Three times a day.?? * Procedure Codes:? * Preventive Medicine:? ??Counseling:?Care goal follow-up plan:?Counseling for abnormal BMI given?Yes ?Above Normal BMI Follow-up?Dietary management education, guidance, and counseling, Dietary needs education ??DM Care Plan:?Patient Lifestyle Goals?Patient wants to be able to manage diabetes without too much effort.?Treatment Goals?Blood Sugars less than < 115, HbA1C < 7.0.?Barriers?no barriers.? * Follow Up:?2 Weeks (Reason: Office visit) * Images: * Sign off status: Completed true * Provider:?Anthony Otero MD Date:?03/30 Generated for Lety garrett/Azam/Makiitting on:?05/02/2024 06:11 AM EST History and Physical Notes * HPI (History of Present Illness) Category Sub-Category Detail Notes Telehealth Location [facility]:: {...} [address] [place] [address] Location of patient:: address listed in demographics [...]
--- OUTSIDE RECORDS SUMMARY | 2024-05-02 06:12 | XMS_ITS ---
Author Organization [facility] Address [address] [place] [address] Care Team Providers Care Medical Record Librarian Name Role Phone Irvin Rosen MD Primary Care Provider Anthony Lantigua [phone] REASON FOR VISIT cancel appt Encounters Encounter Location Date Provider Diagnosis [facility] [address] [place] [address] 11/25/2022 Anthony Hidalgo Plan Of Treatment No Information Progress Notes * AMAN HANLEY JrDOB:1965 (56 yo M)Acc No.[id number]:11/25/2022 Patient:?AAMN HANLEY :1965???Age:56 Y???Sex:Male Address:[address] [place], [address] * true * Date:? Generated for Lety garrett/Azam/eTransmitting on:?05/02/2024 06:12 AM EST
[2024-05-02 08:56] LABS: B Type Natriuretic Peptide 12 pg/mL (<100)
[2024-05-02 10:41] LABS: MANUAL DIFF FLAG NO
[2024-05-02 10:49] LABS: Basophils Percent Auto 0.8 % (0-2); Eosinophils Absolute Auto 0.1 X10*3/uL (0.0-0.4); Eosinophils Percent Auto 2.7 % (0-4); Hematocrit 37.2 % (42.0-52.0); Hemoglobin 12.3 g/dl (14.0-18.0); Imm Gran Abs Auto 0.03 X10*3/uL (0.00-0.03); Imm Gran Pct Auto 0.8 % (0.0-0.4); Lymphocytes Absolute Auto 1.6 X10*3/uL (1.2-4.9); Lymphocytes Percent Auto 43.1 % (20-40); Mean Corpuscular HGB Conc 33.1 g/dl (31.0-36.0); Mean Corpuscular Hemoglobin 30.3 pg (27.0-33.0); Mean Corpuscular Volume 91.6 fL (80.0-98.0); Mean Platelet Volume 10.4 fL (9.4-12.4); Monocytes Absolute Auto 0.4 X10*3/uL (0.1-1.2); Monocytes Percent Auto 9.6 % (2-11); Neutrophils Absolute Auto 1.6 x10*3/uL (2.0-8.3); Platelet Count 182 X10*3/uL (160-400); Red Blood Count 4.06 X10*6/uL (4.60-5.80); Red Cell Distribution Width 15.4 % (11.0-16.0); White Blood Count 3.6 X10*3/uL (4.8-10.8)
[2024-05-02 11:14] LABS: Estimated Average Glucose 140 mg/dL; Hemoglobin A1C 141.5725 umol/L; Hemoglobin A1c % 6.5 % (<6.0); Total Hemoglobin (HGBA1C) 3012.8498 umol/L
[2024-05-02 11:29] LABS: Alanine Aminotransferase 42 U/L (0-40); Albumin Level 3.3 g/dL (3.5-5.0); Alkaline Phosphatase 45 U/L (39-117); Anion Gap 13 (12-20); Aspartate Amino Transferase 28 U/L (5-37); Bilirubin Total 0.5 mg/dL (0.0-1.0); Blood Urea Nitrogen 17 mg/dL (9-16); Calcium 8.5 mg/dL (8.4-10.2); Carbon Dioxide 26 mmol/L (22-29); Chloride 106 mmol/L (96-108); Estimated Glomerular Filt Rate > 60; Glucose Fasting 112 mg/dL (60-99); Potassium 3.9 mmol/L (3.3-5.1); Sodium 141 mmol/L (135-145); Total Protein 5.5 g/dL (6.5-8.0)
[2024-05-02 11:44] LABS: Appearance Urine Clear; Color Urine Yellow; Glucose Urine UA Negative (Negative); Leukocyte Esterase Urine Negative (Negative); Nitrite Urine Negative (Negative); PH 7.5 (5.0-9.0); UMIC TRIGGER UA YES; Urine Blood Negative (Negative); Urine Ketones Negative (Negative); Urine Protein 300 (3+) mg/dL (Neg-Trace)
[2024-05-02 11:47] LABS: Bacteria Urine None Seen (None Seen); Hyaline Casts Urine 0-2 /LPF (0-2); RBC Urine 0-2 /HPF (0-2); Squamous Epithelial Cell Urine 0-2 /HPF (0-2); WBC Urine 0-5 /HPF (0-5)
[2024-05-02 12:14] LABS: Creatinine Urine 124.68 mg/dL
[2024-05-02 12:15] LABS: Creatinine Urine 125.53 mg/dL
[2024-05-02 12:29] LABS: Microalbum/Creatinine Ratio Ur 1593.2 ug/mg cr (<30); Microalbumin Urine > 2000.0 mg/L
[2024-05-02 12:39] LABS: Total Protein Urine Random 346 mg/dL (<12)
== END 2024-05-02 06:09 | disposition home or self-care (01) ==
LOC: HO.HMGCLDS 06:08
PROVIDERS: PCP Internal Medicine Medical Oncology; Referring Provider Internal Medicine Hypertension Specialist; Visit Provider Internal Medicine Medical Oncology
DX: N04.9 Nephrotic syndrome with unspecified morphologic changes (principal); I10 Essential (primary) hypertension; E11.9 Type 2 diabetes mellitus without complications; D70.8 Other neutropenia
CPT/HCPCS: 36415; 80053; 81001; 82043; 82570; 83036; 83880; 84156; 85025

== ENCOUNTER 2024-05-07 15:41 | Outpatient (AMB) | payer OTHER, SELFPAY ==
[2024-05-07 15:44] VITALS: BP 110/80; PULSE 72; O2SAT 97; BMI 31.9
--- NOTE | 2024-05-07 15:44 | HO.NEPHOV_ITS ---
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 Zak had nephrotic syndrome at the age of 21. He had a biopsy and he was treated by Dr. Devries. He responded well to prednisone. Subsequently had few flare-ups which were all treated with prednisone. He also had a 2nd biopsy, along the line. He tells me that biopsy was inconclusive. I do not have the biopsy results at this time. About few weeks ago he started developing significant weight gain. He was started on prednisone 40 mg. No significant improvement. He has been started on Lasix and dose has been increased to 80 mg twice a day. Urine output has been suboptimal. He was still gained weight on over the last few months has gained about 40 lb. Recent serum albumin was 2.0. Baseline creatinine was less than 1.0. Creatinine has gradually bumped up to 1.2. 03/19/24 Dropped 20 lbs; He has cut back on Torsemide to 40 mg QD startign yesterday; Has URTi ;No GI gymptoms 04/02/2024. He was lost another 15 lb. He was cut back on torsemide to 20 mg as needed. Creatinine is back to 0.7. Currently he is on prednisone 10 mg every other day 05/07/2024. Today he has no new complaints. Currently on prednisone 10 mg every other day. No edema he is not on diuretics [facility] Medical History (Updated 03/12/24 @ 14:41 by Cabrera Chapman MD) Orbit injury, left GERD (gastroesophageal reflux disease) Left elbow tendonitis Back pain Nephrotic syndrome Elevated cholesterol HTN (hypertension) Anxiety Sleep apnea Asthma Surgical History Hx of elbow surgery Hx of esophagogastroduodenoscopy Hx of colonoscopy History of cholecystectomy History of arthroscopy of both shoulders History of bilateral carpal tunnel release H/O bilateral inguinal hernia repair Family History Father Heart disease Mother HTN (hypertension) Dementia Kidney disease Hypercholesteremia Social History Alcohol intake: current Alcohol intake frequency: a few times a month Alcohol type: beer Patient Tobacco Use Status: Never used Tobacco Physical Exam Vital Signs: Last Vital Signs Pulse 72 05/07/24 15:44 BP 110/80 05/07/24 15:44 Pulse Ox 97 05/07/24 15:44 Oxygen Delivery Method Room Air 05/07/24 15:44 BMI result Body Mass Index 31.9 Comfortable Neck supple no JVD. Lungs entry equal no rales. Heart S1-S2 heard no gallop or rub. Abdomen soft nontender. Neuro alert awake oriented. No asterixis. Extremities no edema. Results Reviewed Nephrology Results: Hgb 12.3 g/dl (14.0-18.0) L 05/02/24 WBC 3.6 X10*3/uL (4.8-10.8) L 05/02/24 Plt Count 182 X10*3/uL (160-400) 05/02/24 Sodium 141 mmol/L (135-145) 05/02/24 Potassium 3.9 mmol/L (3.3-5.1) 05/02/24 Chloride 106 mmol/L (96-108) 05/02/24 Carbon Dioxide 26 mmol/L (22-29) 05/02/24 BUN 17 mg/dL (9-16) H 05/02/24 Creatinine 0.75 mg/dL (0.5-1.4) 05/02/24 Calcium 8.5 mg/dL (8.4-10.2) 05/02/24 Urine Protein 300 (3+) mg/dL (Neg-Trace) H 05/02/24 Urine Creatinine 125.53 mg/dL 05/02/24 Assessment & Plan Assessment & Plan (1) Nephrotic syndrome: Code(s): N04.9 - Nephrotic syndrome with unspecified morphologic changes Category: Medical Plan 58-year-old man with nephrotic syndrome. 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 Other possibilities including membranous nephropathy and FSGS should be considered. Currently having suboptimal response to furosemide. He could have developed resistance furosemide. Since serum albumin is low I suspect Lasix is not being delivered to the tubules. Superimposed OSWALD due to hypoperfusion secondary to high dose diuretics - expected After lowering diuretics creatinine is back to baseline of 0.74 Urine protein excretion decrease down to 2.2 g as of April based on urine protein creatinine ratio. (protein excretion was 25 g back in 02/16/2024. Dropped to 9.7 g in 03/2024.) Recommendations Torsemide p.r.n. based on leg edema Encouraged to stay on a low-sodium diet Monitor weights at home. Continue to taper prednisone. Decrease prednisone to 10 mg every other day alternating with 5 mg every other day for 2 weeks and then drop it to 5 mg a day. Hold off on kidney biopsy and reassess Orders: Orders Basic Metabolic Panel 3 Months N04.9 - Nephrotic syndrome with unspecified morphologic changes Total Protein Urine Random 3 Months N04.9 - Nephrotic syndrome with unspecified morphologic changes UA and rflx microscopic 3 Months N04.9 - Nephrotic syndrome with unspecified morphologic changes Creatinine Urine 3 Months N04.9 - Nephrotic syndrome with unspecified morphologic changes Medications: Changed From prednisone 5 mg PO DAILY To prednisone 5 mg PO DAILY 90 tabs 3RF Coding Level of Care Code Est Pt Level 4 (35236) Diagnoses Nephrotic syndrome N04.9
--- OUTSIDE RECORDS SUMMARY | 2024-05-07 19:06 | XMS_ITS | Patient Health Record ---
Author Organization Anthony Otero III, MD Address [address] [address] Care Team Providers Care Bending Roll Hand Name Role Phone Anthony Otero Primary Care Provider Allergies Allergen (clinical drug ingredient) Drug/Non Drug Allergy documented on EMR Reaction Allergy Type Onset Date Status Pain medication (uncoded) Unknown Allergy Active Results Component Value Reference Range Notes Protein, 24 Hr Urine Group Reviewed date:03/04/2024 09:18:29 AM Interpretation: Performing Lab:[facility], [address] [place] [address] Notes/Report: 1900 [id number] 0900 1000 Protein 24 Hr Urine 71490 <150 mg/Day Protein mg/dL 1322 Creatinine, 24Hr Urine 2.2 1.0-2.0 G/Day Creatinine, mg/dL 113.30 Total Volume 24 Hour Urine 1900 Complete Blood Count Auto Di ff Reviewed date:03/05/2024 05:15:10 PM Interpretation: Performing Lab:[facility], [address] [place] [address] Notes/Report: White Blood Count 7.5 4.8-10.8 X10*3/uL [...] Panel Reviewed date:03/05/2024 05:15:10 PM Interpretation: Performing Lab:[facility], [address] [place] [address] Notes/Report: Sodium 141 135-145 mmol/L Potassium 4.0 [...] ff Reviewed date:03/11/2024 02:33:07 PM Interpretation: Performing Lab:[facility], [address] [place] [address] Notes/Report: White Blood Count 6.4 4.8-10.8 X10*3/uL [...] te Reviewed date:03/11/2024 02:33:07 PM Interpretation: Performing Lab:[facility], [address] [place] [address] Notes/Report: Erythrocyte Sedimentation Rate 13 0-15 MM/HR Patients with polycythemia and many hemoglobin abnormalities may have depressed sed rates whereas patients with anemia may have elevated sed rates. Comprehensive Met. Panel Reviewed date:03/11/2024 02:33:07 PM Interpretation: Performing Lab:[address] [address] Notes/Report: Sodium 143 135-145 mmol/L Potassium 3.7 [...] Panel Reviewed date:03/21/2024 06:28:51 AM Interpretation: Performing Lab:[address] [address] Notes/Report: Sodium 139 135-145 mmol/L Potassium 4.0 [...] um Reviewed date:03/28/2024 09:26:04 AM Interpretation: Performing Lab:[address] [place] [address] Notes/Report: Prot Elec - Total Protein 3.6 [...] clinical diagnosis. THIS TEST WAS PERFORMED AT: [facility] [address] [place] [phone] REMINGTON WILLIAMSON MD Complement C3 Reviewed date:03/21/2024 06:28:51 AM Interpretation: Performing Lab:[address] [address] Notes/Report: Complement C3 151 82-185 mg/dL THIS TEST WAS PERFORMED AT: [facility] [address] [place] [phone] REMINGTON WILLIAMSON MD Complement C4 Reviewed date:03/21/2024 06:28:51 AM Interpretation: Performing Lab:[facility], [address] [place] [address] Notes/Report: Complement C4 35 15-53 mg/dL THIS TEST WAS PERFORMED AT: [facility] [address] [place] [phone] REMINGTON WILLIAMSON MD Phospholipase A2 Receptor Pn l Reviewed date:03/28/2024 09:26:04 AM Interpretation: Performing Lab:[address] [address] Notes/Report: Phospholipase A2 IgG SUSU <4 Reference Range: <14: NEGATIVE 14-19: BORDERLINE >19: POSITIVE Phospholipase A2 IgG IFA NEGATIVE NEGATIVE THIS TEST WAS PERFORMED AT: [facility] [address] [place] [address] EVAN SOMMER MD,PHD,VALERIO Basic Metabolic Panel Reviewed date:03/28/2024 09:26:04 AM Interpretation: Performing Lab:[facility], [address] [place] [address] Notes/Report: Sodium 141 135-145 mmol/L Potassium 3.8 [...] Urine Reviewed date:03/28/2024 09:26:04 AM Interpretation: Performing Lab:[facility], [address] [place] [address] Notes/Report: Creatinine Urine 71.15 Total Protein Urine Random Reviewed date:03/28/2024 09:26:04 AM Interpretation: Performing Lab:[facility], [address] [place] [address] Notes/Report: Total Protein Urine Random 409 <12 mg/dL Urinalysis and Microscopic Reviewed date:04/01/2024 06:09:31 PM Interpretation: Performing Lab:[facility], [address] [place] [address] Notes/Report: Color Urine Dark Yellow Appearance Urine Clear PH 7.0 5.0-9.0 Glucose Urine UA 500 Negative mg/dL Urine Blood Trace Negative Specific [place] - Urine 1.025 1.005-1.025 Urine Protein >=1000 [...] Urine Reviewed date:04/01/2024 06:09:32 PM Interpretation: Performing Lab:[facility], [address] [place] [address] Notes/Report: Creatinine Urine 166.67 Total Protein Urine Random Reviewed date:04/01/2024 06:09:32 PM Interpretation: Performing Lab:[facility], [address] [place] [address] Notes/Report: Total Protein Urine Random 1569 <12 mg/dL XR chest 2V Reviewed date:04/21/2024 09:08:31 AM Interpretation: Performing Lab: Notes/Report: [facility] [address] [place] [address] [place] [address] XRay Report Signed Patient: Claudy Berger Jr MR#: [id number] : 1965 Acct:[id number] Age/Sex: 58 / M ADM Date: 04/12/24 [facility] Dr: Anthony Otero MD Ordering Physician: Anthony Otero MD Date of Service: 04/12/24 Procedure(s): XR chest 2V Accession Number(s): [id number] cc: Anthony Otero MD EXAMINATION: XR CHEST [...] by: Kris Zabala MD 04/16/2024 08:58 AM [facility] Dictated By: Kris Zabala MD Signed By: <Electronically signed by Kris Zabala MD in OV> 04/16/24 0858 DD/ 1619 TD/TT: 04/12/24 1625 Parts Department Supervisor: [facility] [address] [place] [address] [place] [address] XRay Report Signed Patient: Chandan Berger Jr MR#: [id number] : 1965 Acct:[id number] Age/Sex: 58 / M ADM Date: 04/12/24 Loc: [facility] Attending Dr: Anthony Otero MD Ordering Physician: Anthony Otero MD Date of Service: 04/12/24 Procedure(s): XR man st 2V Accession Number(s): [id number] cc: Anthony Otero MD EXAMINATION: XR CHEST [...] by: Kris Zabala MD 04/16/2024 08:58 AM [facility] Dictated By: Kris Zabala MD Signed By: <Electronically signed by Kris Zabala MD in OV> 04/16/24 0858 DD/ 1619 TD/TT: 04/12/24 1625 Parts Department Supervisor: Complete Blood Count Auto Di ff Reviewed date:05/02/2024 08:46:40 PM Interpretation: Performing Lab:[facility], [address] [place] [address] Notes/Report: White Blood Count 3.6 4.8-10.8 X10*3/uL Red Blood Count 4.06 4.60-5.80 X10*6/uL Hemoglobin 12.3 14.0-18.0 g/dl Hematocrit 37.2 42.0-52.0 % Mean Corpuscular Volume 91.6 80.0-98.0 fL Mean Corpuscular Hemoglobin 30.3 27.0-33.0 pg Mean Corpuscular HGB Conc 33.1 31.0-36.0 g/dl Red Cell Distribution Width 15.4 11.0-16.0 % Platelet Count 182 160-400 X10*3/uL Mean Platelet Volume 10.4 9.4-12.4 fL Neutrophils Percent Auto 43.0 45-73 % Imm Gran Pct Auto 0.8 0.0-0.4 % Lymphocytes Percent Auto 43.1 20-40 % Monocytes Percent Auto 9.6 2-11 % Eosinophils Percent Auto 2.7 0-4 % Basophils Percent Auto 0.8 0-2 % NRBC Pct Auto 0.0 0.0-0.2 /100WBC Neutrophils Absolute Auto 1.6 2.0-8.3 x10*3/uL Imm Gran Abs Auto 0.03 0.00-0.03 X10*3/uL Lymphocytes Absolute Auto 1.6 1.2-4.9 X10*3/uL Monocytes Absolute Auto 0.4 0.1-1.2 X10*3/uL Eosinophils Absolute Auto 0.1 0.0-0.4 X10*3/uL Basophils Absolute Auto 0.0 0.0-0.2 X10*3/uL NRBC Abs Auto 0.000 0.0-0.012 X10*3/uL Urinalysis and Microscopic Reviewed date:05/02/2024 08:46:40 PM Interpretation: Performing Lab:[facility], [address] [place] [address] Notes/Report: Color Urine Yellow Appearance Urine Clear PH 7.5 5.0-9.0 Glucose Urine UA Negative Negative mg/dL Urine Blood Negative Negative Specific [place] - Urine 1.020 1.005-1.025 Urine Protein 300 (3+) Neg-Trace mg/dL Urine Ketones Negative Negative mg/dL Nitrite Urine Negative Negative Leukocyte Esterase Urine Negative Negative RBC Urine 0-2 0-2 /HPF WBC Urine 0-5 0-5 /HPF Squamous Epithelial Cell Urine 0-2 0-2 /HPF Bacteria Urine None Seen None Seen Hyaline Casts Urine 0-2 0-2 /LPF Comprehensive [place]. Panel Fa st Reviewed date:05/02/2024 08:46:40 PM Interpretation: Performing Lab:[address] [address] Notes/Report: Sodium 141 135-145 mmol/L Potassium 3.9 3.3-5.1 mmol/L Chloride 106 96-108 mmol/L Carbon Dioxide 26 22-29 mmol/L Anion Gap 13 12-20 Blood Urea Nitrogen 17 9-16 mg/dL Creatinine 0.75 0.5-1.4 mg/dL Estimated Glomerular Filt Rate > 60 Chronic Kidney Disease: Estimated GFR < 60 mL/min/1.73m2 Severe Kidney Disease: Estimated GFR < 15 mL/min/1.73m2 Glucose Fasting 112 60-99 mg/dL A fasting glucose from 100-125 mg/dl is considered impaired (pre-diabetes). Calcium 8.5 8.4-10.2 mg/dL Bilirubin Total 0.5 0.0-1.0 mg/dL Aspartate Amino Transferase 28 5-37 U/L Alanine Aminotransferase 42 0-40 U/L Total Protein 5.5 6.5-8.0 g/dL Albumin Level 3.3 3.5-5.0 g/dL Alkaline Phosphatase 45 39-117 U/L B Type Natriuretic Peptide Reviewed date:05/02/2024 08:46:40 PM Interpretation: Performing Lab:[address] [address] Notes/Report: B Type Natriuretic Peptide 12 <100 pg/mL For those patients who are being treated with Natrecor (nesiritide, recombinant BNP), BNP testing should be performed at least two hours post treatment in order to ensure that only endogenous levels of BNP are detected. Microalbumin, Random Reviewed date:05/02/2024 08:46:40 PM Interpretation: Performing Lab:[address] [address] Notes/Report: Creatinine Urine 125.53 Microalbumin Urine > 2000.0 Microalbum/Creatinine Ratio Ur 1593.2 <30 ug/mg cr Albumin/Creatinine Ratio Reference Ranges: Normal: < 30 ug/mg creatinine Microalbuminuria: 30 - 300 ug/mg creatinine Clinical Albuminuria: > 300 ug/mg creatinine Creatinine Urine Reviewed date:05/02/2024 08:46:40 PM Interpretation: Performing Lab:[address] [address] Notes/Report: Creatinine Urine 124.68 Total Protein Urine Random Reviewed date:05/02/2024 08:46:40 PM Interpretation: Performing Lab:[address] [address] Notes/Report: Total Protein Urine Random 346 <12 mg/dL Hemoglobin A1c Reviewed date:05/02/2024 08:46:40 PM Interpretation: Performing Lab:[facility], [address] [place] [address], [place] [address] Notes/Report: Hemoglobin A1c % 6.5 <6.0 % Hemoglobin A1C Reference Range Adults: 4.8 - 6.0 % Non diabetic: < 6.0 % Goal: < 7.0 % Additional Action Suggested: > 8.0 % Note: Hemoglobin A1c results are invalid for patients with abnormal amounts of HbF. Blood transfusions may impact the HbA1c concentration in the patient sample. Estimated Average Glucose 140 eAG = Estimated average glucose which is %A1C expressed as average glucose, using the formula of the I1O-Awdzavj Average Glucose study (ADAG), Diabetes Care, Vol.31,#8, 2007 Reason For Referral No Information Medications Medication SIG (Take, Route, Frequency, Duration) Notes Start Date End Date Status metFORMIN HCl 500 MG 1 tablet with a mariah l Orally Once a day Active predniSONE 20 MG TAKE TWO (2) TABLETS (40MG) BY MOUTH EVERY DAY Active Benzonatate 200 MG 1 capsule as needed Orally Three times a day 04/09/2024 Active Omeprazole 40 MG 1 capsule Orally Onc e a day Active Albuterol Sulfate HFA 108 (90 Base) MCG/ACT 1 puff as needed Inhalation every 4 hrs Active Torsemide 20 MG 1 tablet Orally Once a day 04/04/2024 Active Furosemide 80 MG 1 tablet Orally twic e a day Active Zolpidem Tartrate 10 MG 1 tablet at bedt ashly as needed Orally Once a day Active Citalopram Hydrobromide 40 MG 1 tablet Orally Once a day Active Fenofibrate 145 MG 1 tablet Orally Once a day Active Lisinopril 40 MG 1 tablet Orally Once a day Active Atorvastatin Calcium 40 MG 1 tablet Oral ly Once a day Active Immunizations Vaccine Route [...] Problem Status W/U Status Risk Notes Problem 215812876 Other neutropenia (D70.8) Active confirmed This value will be followed carefully. He has had no infections and seems to be doing well. Problem 695999007 Mixed hyperlipidemia (E78.2) Active confirmed His lipids have been stable. No change in his regimen as needed. Problem 344858586924846 Primary osteoarthritis, right shoulder (M19.011) Active confirmed Problem 929213796325906 Primary osteoarthritis, left shoulder (M19.012) Active confirmed Problem 87806521 Essential hypertension (I10) Active confirmed His blood pressure is 134/78. He was continued on the diuretic without change. Problem 103545957 History of cholecystectomy (Z90.49) Active confirmed Problem 956954274 Chronic insomnia (F51.04) Active confirmed He reports that he is now able to sleep again since the refractory cough has resolved. Problem Nephrotic syndrome (83740012) Nephrotic syndrome (N04.9) Active confirmed He is markedly improved. He is now being managed by nephrology on a reduced dose of prednisone. He is taking torsemide instead of furosemide. Problem 487615180 History of inguinal hernia (Z87.19) Active confirmed Problem 81139942206098836 Bilateral carp al tunnel syndrome (G56.03) Active confirmed Problem 036441815 History of asthma (Z87.09) Active confirmed He did not give a history of asthma but this was documented no records. This will be further pursued. He does not require treatment at this time. Problem 962252103 Acute viral syndrome (B34.9) Active confirmed He has had 3 days of severe refractory cough low-grade fever here pain sore throat and muscle aches. Problem 335079483 Diabetes mellitus without complication (E11.9) Active confirmed He is on a reduced dose of prednisone. He has been compliant with his metformin. Prior to his next visit he will have a hemoglobin A1c. Problem 653355636 Obesity, class 2 (E66.812) Active confirmed Problem 80563822279524647 History of Ojeda's esophagus (Z87.19) Active confirmed He has reported no recent history of dysphagia or esophageal pain. He will need to have upper endoscopy periodically . Problem 139563786 Ascending aorta dilation (I77.810) Active confirmed This is a finding on a recent echocardiogr am. He is asymptomatic . The ascending aortic diameter was 3.9 cm. He will be observed. 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 He is currently asymptomatic . Vital Signs Heart Rate 74 /min 05/06/2024 Temperature 97.9 degrees Fahrenheit 05/06/2024 Oximetry 99 % 03/28/2024 Blood pressure diastolic 79 mm Hg 05/06/2024 Height 70 in 05/06/2024 Blood pressure systolic 133 mm Hg 05/06/2024 Weight 220 lbs 05/06/2024 BMI 31.56 kg/m2 05/06/2024 Encounters Encounter Location Date Provider Diagnosis Anthony Otero III, MD [address] [place] [address] [place] [address] 05/06/2024 Anthony Otero Nephrotic syndrome N 04.9 ; Mixed hyperlipidemia E78.2 ; Other neutropenia D70.8 and Essential hypertension I10 Anthony Otero III, MD [address] [place] [address] [place] [address] 02/29/2024 Anthony Otero Nephrotic syndrome N 04.9 ; Essential hypertension I10 ; Mixed hyperlipidemia E78.2 ; Diabetes mellitus without complication E11.9 ; Chronic insomnia F51.04 ; Ascending aorta dilation I77.810 ; Other neutropenia D70.8 ; History of asthma Z87.09 and Spondylosis of cervicothoracic region without myelopathy or radiculopathy M47.813 Anthony Otero III, MD [address] [place] [address] [place] [address] 03/07/2024 Anthony Otero Mixed hyperlipidemia E78.2 ; Nephrotic syndrome N04.9 ; Other neutropenia D70.8 ; Essential hypertension I10 and Diabetes mellitus without complication E11.9 Anthony Otero III, MD [address] [place] [address] [place] [address] 03/28/2024 Anthony Otero Nephrotic syndrome N 04.9 ; Essential hypertension I10 ; Diabetes mellitus without complication E11.9 ; Other neutropenia D70.8 and Mixed hyperlipidemia E78.2 Anthony Otero III, MD [address] [place] [address] [place] [address] 04/03/2024 Anthony Otero Nephrotic syndrome N 04.9 ; Essential hypertension I10 ; Mixed hyperlipidemia E78.2 and Diabetes mellitus without complication E11.9 Anthony Otero III, MD [address] [place] [address] [place] [address] 04/09/2024 Anthony Otero Nephrotic syndrome N 04.9 ; Acute viral syndrome B34.9 ; Persistent cough R05.3 ; Diabetes mellitus without complication E11.9 and Mixed hyperlipidemia E78.2 Anthony Otero III, MD [address] [place] [address] [place] [address] 04/16/2024 Anthony Branden Nephrotic syndrome N 04.9 ; Diabetes mellitus without complication E11.9 ; Mixed hyperlipidemia E78.2 ; Essential hypertension I10 ; Ascending aorta dilation I77.810 ; Chronic insomnia F51.04 ; History of Ojeda's esophagus Z87.19 and Viral syndrome B34.9 Anthony Otero III, MD [address] [place] [address] [place] [address] 03/04/2024 Anthony Otero III, MD [address] [place] [address] [place] [address] 02/29/2024 Anthony Otero III, MD [address] [place] [address] [place] [address] 03/01/2024 Anthony Otero III, MD [address] [place] [address] [place] [address] 03/04/2024 Anthony Otero III, MD [address] [place] [address] [place] [address] 03/20/2024 Anthony Otero III, MD [address] [place] [address] [place] [address] 04/17/2024 Anthony Otero Assessments Encounter Date Diagnosis (ICD Code) Assessment Notes Treat ment Notes Treatment Clinical Notes 05/06/2024 Nephrotic syndrome (ICD-10 - N04.9) He is markedly improved. He is now being managed by nephrology on a reduced dose of prednisone. He is taking torsemide instead of furosemide. 02/29/2024 Essential hypertension (ICD-10 - I10) His blood pressure was elevated today. He was anxious about his health and under the stress of a new physician visit. He was continued on current medications and his blood pressure will be reviewed. He will continue on the furosemide. 02/29/2024 Nephrotic syndrome (ICD-10 - N04.9) In the past his certified surgical technologist has been Dr. Lionel Henson. He has not been seen in several years. An appointment has been made for him by Dr. Fenton to see the certified surgical technologist at [facility] later this month. He does appear [...] sampled. I will discuss him with the certified surgical technologist at [facility] with whom he has the appointment [...] I have reviewed the case with a certified surgical technologist and strongly recommended he see the patient [...] visit he will have a hemoglobin A1c. 05/06/2024 Mixed hyperlipidemia (ICD-10 - E78.2) 02/29/2024 Mixed hyperlipidemia (ICD-10 - E78.2) His [...] No change in his regimen as needed. 05/06/2024 Other neutropenia (ICD-10 - D70.8) 02/29/2024 Diabetes mellitus without complication (ICD-10 - [...] was continued on the diuretic without change. 05/06/2024 Essential hypertension (ICD-10 - I10) 02/29/2024 Chronic insomnia (ICD-10 - F51.04) He [...] D70.8) Review of laboratory data in the [facility] database shows he is mildly but [...] PROFILE, FASTING (COMPREHENSIVE METABOLI C) 03/28/2024 PROFILE, FASTING (COMPREHENSIVE METABOLI C) 05/06/2024 PROFILE, RANDOM (COMPREHENSIVE METABOLIC ) 02/29/2024 PROFILE, RANDOM (COMPREHENSIVE METABOLIC ) 03/07/2024 BRAIN NATRIURETIC PEPTIDE (BNP) 03/28/19 25 PSA, TOTAL 05/06/2024 CBC w DIFF 03/28/2024 CBC w DIFF 05/06/2024 SED RATE (ESR) 03/07/2024 XR CHEST 2 VIEW PA & LAT 04/09/2024 CBC WITH AUTO DIFF 03/07/2024 CBC WITH AUTO DIFF 02/29/2024 Lipid Panel 05/06/2024 Microalbumin, Random 03/28/2024 Protein 24 Hour Urine 02/29/2024 Hemoglobin A1c 03/28/2024 Next Appt Details Provider Name:Anthony Otero, 07/17/2024 04:15:00 PM, [address] [place] [address] [address], [place], [address], Provider Name:Anthony Otero, 03/10/2025 04:15:00 PM, [address] [place] [address] [address], [place], [address], Insurance Providers Payer Name Payer Address Payer Phone Subscriber Number Group Number Insured Name Patient Relationship to Insured Coverage Start Date Coverage End Date [employer] [place] [address] [address] [place] [address] [id number] Claudy Berger Self - patient is the [...] 2022 Focal segmental glomerulosclerosis, yash l biopsy, [facility] Normal cardiac catheterization January 26, 2018 [facility] Surgical History Surgery Date(Month/Year) No history Bilateral inguinal herniorrhaphies Tubular adenoma colonoscopy 2012, Dr. Dimple Hidalgo Upper endoscopy and colonoscopy 2018 Elbow surgery Bilateral shoulder arthroscopies Carpal tunnel surgery on both hands Renal biopsy [facility], remot e cholecystectomy age 24 Hospitalization History Reason Date(Month/Year) No history None reported
--- OUTSIDE RECORDS SUMMARY | 2024-05-07 19:06 | XMS_ITS ---
Author Organization [facility] Address [address] [place] [address] Care Team Providers Care Marine Designer Name Role Phone Irvin Rosen MD Primary Care Provider Anthony Lantigua [phone] REASON FOR VISIT screening Problems Problem Type SNOMED Code ICD Code Onset Dates Problem Status W/U Status Risk Notes Problem Diverticular disease of colon (067382202) Diverticulosis of large intestine without perforation or abscess without bleeding (K57.30) Active confirmed Problem Gastroesophageal reflux disease (136549020) Gastroesophageal reflux disease (K21.9) Active confirmed Problem Ojeda esophagus (878225537) 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 Encounters Encounter Location Date Provider Diagnosis [facility] Outpatient [address] [place] [id number] 11/28/2022 Anthony Hidalgo Encounter for screen ing [...] * AMAN HANLEY JrDOB:1965 (58 yo M)Acc No.[id number]:11/28/2022 EGD and COL/MAC Patient:?AMAN HANLEY Jr Provider:?Anthony Hidalgo MD :1965???Age:56 Y???Sex:Male Gavin e:11/28/2022 Address:[address] [place], [place] [id number] Pcp:Irvin Rosen MD Subjective: * Chief Complaints: * ???1. Screening. * Medical History:? Objective: * Vitals:? Assessment: * Assessment: 1.?Encounter for screening c olonoscopy - Z12.11 (Primary)???2.?Colon polyps - K63.5???3.?Diverticulosis of large intestine without perforation or abscess without bleeding - K57.30???4.?Other hemorrhoids - K64.8???5. Gastroesophageal reflux disease - K21.9???6.?Ojeda esophagus - K22.70???7.?Hiatal hernia - K44.9??? Plan: * Treatment: * Procedure Codes:?14854 COLON OSCOPY AND BIOPSY, Modifiers: 33 , 45703 UPPER GI ENDOSCOPY, BIOPSY * * The named appointment provid er may or may not be the originator of this progress note, and it is not deemed complete until electronically signed by the appointment provider. Sign off status: Pending * Provider:?Anthony Hidalgo MD Date:? 023 Generated for Lety garrett/Azam/eTtroysmitting on:?05/07/2024 07:06 PM EDT
--- OUTSIDE RECORDS SUMMARY | 2024-05-07 19:06 | XMS_ITS ---
Author Organization Anthony Otero III, MD Address [address] [place] [place] [address] Care Team Providers Care Cord Maker Name Role Phone Anthony Otero Primary Care Provider [phone] Allergies Allergen (clinical drug ingredient) Drug/Non Drug [...] Date Provider Diagnosis Anthony Otero III, MD [address] [place] [address] [place] [address] 04/16/2024 Anthony Otero Nephrotic syndrome N 04.9 [...] Weeks, Reason: Office visit Provider Name:Anthony Otero, 07/17/2024 04:15:00 PM, [address] [place] [address] [address], [place], [address], Provider Name:Anthony Otero, 03/10/2025 04:15:00 PM, [address] [place] [address] [address], [place], [address], Progress Notes * Claudy HANLEY JrDOB:[birth year] (58 yo M)Acc No.[id number]:04/16/2024 Patient:?Claudy HANLEY Provider:?Anthony Otero MD :1965???Age:58 Y???Sex:Male Gavin e:04/16/2024 Address:[address] [place] [address] [id number] Subjective: * Chief Complaints: * ???Nephrotic syndromeHyperte [...] weeks. ?Telehealth?Location of provider rendering services:?{...} [address] [facility] [address] ?Location of patient:?address listed in demographics for [...] Surgical History:?cholecyste ctomy age 24 Renal biopsy [facility], remote Carpal tunnel surgery on both [...] Control (Standard)?Tobacco use:?Nonsmoker ?He was born in [facility].? He has been to [facility] for [facility] years.? He has no children.? 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 He has no catholic objection to blood transfusion.? He does not [...] (Ref Range: mg/dL) * Lab:Total Protein Urine [place] om * Collection Date 04/01/2024 03/25/2024 Collection Time 12:21 PM 09:45 AM Order Date 04/01/2024 03/25/2024 Total Protein Urine Random 1569?H (Ref Range: <12 mg/dL) 409?H (Ref Range: <12 mg/dL) ???Lab:Urinalysis and Microscopic (Order Date - 04/01/2024) (Collection Date & Time - 04/01/2024 12:21 PM)?ValueReference Range?Color UrineDark Yellow-?RBC Rxqew1-0K2-9 - /HPF?Appearance UrineClear-?PH 7.05.0-9.0 -?Glucose Urine YU560IDawckrgt - mg/dL?Urine BloodTrace ANegative -?Specific Maynard - Urine1.0251.005-1.025 -?Urine Protein>=1000 (4+)ANeg-Trace - mg/dL?Urine [...] & Time - 03/18/2024 11:17 AM)?ValueReference Range?Complement T71981-70 - mg/dL ???Lab:Phospholipase A2 Receptor Pnl (Order [...] & Time - 03/18/2024 11:17 AM)?ValueReference Range?Complement E700497-107 - mg/dL ???Lab:Erythrocyte Sedimentation Rate (Order Date - 03/11/2024) (Collection Date & Time - 03/11/2024 11:38 AM)?ValueReference Range?Erythrocyte Sedimentation Wzsd670-49 - MM/HR ???Lab:Protein, 24 Hr Urine Group (Order Date - 03/02/2024) (Collection Date & Time - 03/02/2024 09:00 AM)?ValueReference Range?Protein 24 Hr Bgatx81842N<150 - mg/Day?Protein mg/kD9858- mg/dL?Creatinine, 24Hr Urine2.2H1.0-2.0 - G/Day?Total Volume 24 Hour Tdulw3741- mL ?Creatinine, mg/dL113.30- * Lab:Complete Blood Count [...] Provider:?Anthony Otero MD Date:?03/30 Generated for Lety garrett/Azam/Dannielle on:?05/07/2024 07:06 PM EDT History and Physical Notes * HPI (History of Present Illness) Category Sub-Category Detail Notes Telehealth Location of [facility] rendering services:: {...} [address] [place] [address] Location of patient:: address listed in demographics [...]
--- OUTSIDE RECORDS SUMMARY | 2024-05-07 19:06 | XMS_ITS ---
Author Organization Anthony Otero III, MD Address [address] [place] [address] Care Team Providers Care Hvac Refrigeration Technician Name Role Phone Anthony Otero Primary Care Provider Allergies Allergen (clinical drug ingredient) Drug/Non Drug Allergy documented on EMR Reaction Allergy Type Onset Date Status Pain medication (uncoded) Unknown Allergy Active REASON FOR VISIT Follow up Medications Medication SIG (Take, Route, Frequency, Duration) [...] Date Provider Diagnosis Anthony Otero III, MD [address] [place] [address] [place], [place] [address] 05/06/2024 Anthony Otero Nephrotic syndrome N 04.9 [...] furosemide. 05/06/2024 Mixed hyperlipidemia (ICD-10 - E78.2) 05/06/2024 Other neutropenia (ICD-10 - D70.8) 05/06/2024 Essential hypertension (ICD-10 - I10) Plan Of Treatment Medication Medication Name Sig [...] june, Reason: ov review labs Provider Name:Anthony Otero, 07/17/2024 04:15:00 PM, [address], [place], [address], Provider Name:Anthony Otero, 03/10/2025 04:15:00 PM, [address] [place], [address], Progress Notes * Claudy HANLEY JrDOB:[birth year] (58 yo M)Acc No.[id number]:05/06/2024 Progress Notes Patient:?Claudy HANLEY Jr Provider:?Anthony Otero MD :1965???Age:58 Y???Sex:Male Gavin e:05/06/2024 Address:[address] [place], [place] [address] Subjective: * Chief Complaints: * ???1. Follow up. * HPI: ???COVID-19 Screening:?Questions?Have you had any new onset fever, chills, cough, congestion, sore throat, shortness of breath, muscle aches??No * ROS:?General/Constitutional:?pain?only normal aches and pains.?Chills?denies.?Fatigue?admits.?Fever?denies.?ENT:?Decreased hearing?denies.?Respiratory:?Cough?denies.?Cardiovascular:?Chest pain with exertion?denies.?Dyspnea on exertion?denies.?Shortness of breath?denies.?Gastrointestinal:?Constipation?denies.?Decreased appetite?denies.?Diarrhea?denies.?Heartburn?denies.?Nausea?denies.?Rectal bleeding?denies.?Vomiting?denies.?Hematology:?bruising?denies.?petechiae?denies.?Swollen glands?none have been noted.?Genitourinary:?Frequent urination?denies.?Musculoskeletal:?Muscle aches?denies.?Painful joints?denies.?Sciatica?denies.?Weakness?denies.?Skin:?Itching?denies.?Rash?denies.?Skin lesion(s)?denies.?Neurologic:?Difficulty speaking?denies.?Dizziness?denies.?Headache?denies.?Low back pain?denies.?Psychiatric:?Depressed mood?denies.? * Medical History:?Nephrotic s yndrome, Cholecystectomy 1991, Hypertension, Hyperlipidemia, Prediabetes, Obesity, Carpal tunnel syndrome, Osteoarthritis both shoulders, Dilated ascending aorta 3.9 cm by echocardiogram, Seborrhea, Actinic keratosis, Joeda's esophagus by upper endoscopy, Dr. Anthony Hidalgo, Chronic insomnia, Repaired bilateral inguinal hernias, Hyper lipidemia, 2018 pulmonary function tests within normal limits, Chronic low white blood cell count, Sleep apnea, History of asthma, Spondylosis and foraminal narrowing cervical spine by MRI 2021, Normal MIBI and echocardiogram 2022, Tubular adenoma of colon 2022, Focal segmental glomerulosclerosis, renal biopsy, [facility], Normal cardiac catheterization January 26, 2018 [facility]. * Surgical History:?cholecyste ctomy age 24 , Renal biopsy [facility], remote , Carpal tunnel surgery on both hands , Bilateral shoulder arthroscopies , Elbow surgery , Upper endoscopy and colonoscopy 2018 , Tubular adenoma colonoscopy 2012, Dr. Anthony Hidalgo , Bilateral inguinal herniorrhaphies , No history . * Hospitalization/Major Diagno stic Procedure:?None reported , No history . * Family History:?Father: dece ased, Myocardial infarction, [...] Control (Standard)?Tobacco use:?Nonsmoker ?He was born in [facility].? He has been to [place] for 15 years.? He has no children.? 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 He has no jainism objection to blood transfusion.? He does not smoke and does not drink alcohol. * Medications:?Taking predniSO NE 20 MG Tablet TAKE TWO (2) TABLETS (40MG) BY MOUTH EVERY DAY , Taking metFORMIN HCl 500 MG Tablet 1 tablet with a meal Orally Once a day , Taking Albuterol Sulfate HFA 108 (90 Base) MCG/ACT Aerosol Solution 1 puff as needed Inhalation every 4 hrs , Taking Omeprazole 40 MG Capsule Delayed Release 1 capsule Orally Once a day , Taking Fenofibrate 145 MG Tablet 1 tablet Orally Once a day , Taking Citalopram Hydrobromide 40 MG Tablet 1 tablet Orally Once a day , Taking Atorvastatin Calcium 40 MG Tablet 1 tablet Orally Once a day , Taking Lisinopril 40 MG Tablet 1 tablet Orally Once a day , Taking Zolpidem Tartrate 10 MG Tablet 1 tablet at bedtime as needed Orally Once a day , Taking Furosemide 80 MG Tablet 1 tablet Orally twice a day , Taking Torsemide 20 MG Tablet 1 tablet Orally Once a day , Taking Benzonatate 200 MG Capsule 1 capsule as needed Orally Three times a day , Medication List reviewed and reconciled with the patient * Allergies:?Pain medication. Objective: * Vitals:?Ht: 70, Wt: 220, BMI :31.56, BP: 133/79, HR: 74, Temp: 97.9, Ht-cm: 177.8, Wt-k.79. * ???Past Orders: Lab:Urinalysis and Microscop ic * Collection Date 05/02/2024 04/01/2024 Collection Time 06:35 AM 12:21 PM Order Date 05/02/2024 04/01/2024 Color Urine Yellow Dark Yellow RBC Urine 0-2 (Ref Range: 0-2 /HPF) 3-5?A (Ref Range: 0-2 /HPF) Appearance Urine Clear Clear PH 7.5 (Ref Range: 5.0-9.0) 7.0 (Ref Range: 5.0-9.0) Glucose Urine UA Negative (Ref Range: Negative mg/dL) 500?A (Ref Range: Negative mg/dL) Urine Blood Negative (Ref Range: Negative) Trace?A (Ref Range: Negative) Specific Melvin - Urine 1.020 (Ref Range: 1.005-1.025) 1.025 (Ref Range: 1.005-1.025) Urine Protein 300 (3+)?A (Ref Range: Neg-Trace mg/dL) >=1000 (4+)?A (Ref Range: Neg-Trace mg/dL) Urine Ketones Negative (Ref Range: Negative mg/dL) Negative (Ref Range: Negative mg/dL) Nitrite Urine Negative (Ref Range: Negative) Negative (Ref Range: Negative) Leukocyte Esterase Urine Negative (Ref Range: Negative) Trace?A (Ref Range: Negative) WBC Urine 0-5 (Ref [...] AM)?ValueReference Range?Hemoglobin A1c %6.5H<6.0 - %?Estimated Average Brctlcq161- mg/dL ???Lab:Comprehensive [place]. Panel Fast (Order Date - 05/02/2024) (Collection Date & Time - 05/02/2024 06:35 AM)?ValueReference Range?Fmcwqk989019- 145 - mmol/L?Bilirubin Total0.50.0-1.0 - mg/dL?Aspartate Amino Xcronbsrxfw950-42 - U/L?Alanine Omdweyanymuolfnf12X9-54 - U/L ?Total Protein5.5L6.5-8.0 - g/dL?Albumin Level3.3L3.5-5.0 - g/dL ?Alkaline Wgvtttaitfu0439-948 - U/L?Potassium3.93.3-5.1 - mmol/L ?Dpqatprh88630-077 - mmol/L?Carbon Drnsirt9564-74 - mmol/L ?Anion Yak7734-43 -?Blood Urea Rfiynnae68R7-80 - mg/dL ?Creatinine0.750.5-1.4 - mg/dL?Estimated Glomerular Filt Rate> 60- ?Glucose Ytultmm917V63-34 - mg/dL?Calcium8.58.4-10.2 - mg/dL ???Lab:B Type Natriuretic Peptide (Order Date - 05/02/2024) (Collection Date & Time - 05/02/2024 06:35 AM)?ValueReference Range?B Type Natriuretic Rnsbujt35<100 - pg/mL ???Lab:Microalbumin, Random (Order Date - 05/02/2024) (Collection Date & Time - 05/02/2024 06:35 AM)?ValueReference Range?Creatinine Yszec892.53- mg/dL?Microalbumin Urine> 2000.0- mg/L?Microalbum Creatinine Ratio Zp6202.2H<30 - ug/mg cr * Lab:Total Protein Urine [place] om * Collection Date 05/02/2024 04/01/2024 03/25/2024 Collection Time 06:35 AM 12:21 PM 09:45 AM Order Date 05/02/2024 04/01/2024 03/25/2024 Total Protein Urine Random 346?H (Ref Range: <12 mg/dL) 1569?H (Ref Range: <12 mg/dL) 409?H (Ref Range: <12 mg/dL) * Lab:Complete Blood Count Aut o Diff * Collection Date 05/02/2024 03/11/2024 03/05/2024 Collection Time 06:35 AM 11:38 AM 10:50 AM Order Date 05/02/2024 03/11/2024 03/05/2024 White Blood Count 3.6?L (Ref Range: 4.8-10.8 X10*3/uL) 6.4 (Ref Range: 4.8-10.8 X10*3/uL) 7.5 (Ref Range: 4.8-10.8 X10*3/uL) Red Blood Count 4.06?L (Ref Range: 4.60-5.80 X10*6/uL) 5.00 (Ref Range: 4.60-5.80 X10*6/uL) 5.27 (Ref Range: 4.60-5.80 X10*6/uL) Hemoglobin 12.3?L (Ref Range: 14.0-18.0 g/dl) 14.8 (Ref Range: 14.0-18.0 g/dl) 15.5 (Ref Range: 14.0-18.0 g/dl) Hematocrit 37.2?L (Ref Range: 42.0-52.0 %) 44.4 (Ref Range: [...] (Ref Range: 9.4-12.4 fL) Neutrophils Percent Auto 43.0?L (Ref Range: 45-73 %) 49.0 (Ref Range: 45-73 %) 65.2 (Ref Range: 45-73 %) Imm Gran Pct Auto 0.8?H (Ref Range: 0.0-0.4 %) 0.5?H (Ref Range: 0.0-0.4 %) 1.1?H (Ref Range: 0.0-0.4 %) Lymphocytes Percent Auto 43.1?H (Ref Range: 20-40 %) 41.5?H (Ref Range: 20-40 %) 26.6 (Ref [...] (Ref Range: 0.0-0.2 /100WBC) Neutrophils Absolute Auto 1.6?L (Ref Range: 2.0-8.3 x10*3/uL) 3.1 (Ref Range: 2.0-8.3 x10*3/uL) 4.9 (Ref Range: 2.0-8.3 x10*3/uL) Imm Gran Abs Auto 0.03 (Ref Range: 0.00-0.03 X10*3/uL) 0.03 (Ref Range: 0.00-0.03 X10*3/uL) 0.08?H (Ref [...] & Time - 03/18/2024 11:17 AM)?ValueReference Range?Complement B83622-15 - mg/dL ???Lab:Phospholipase A2 Receptor Pnl (Order Date - 03/18/2024) (Collection Date & Time - 03/18/2024 11:17 AM)?ValueReference Range?Phospholipase A2 IgG SUSU<4- RU/mL?Phospholipase A2 IgG IFANEGATIVENEGATIVE - ???Imaging:XR chest 2V (Order Date - 04/12/2024) (Performed Date - 04/12/2024) ???Lab:Protein, 24 Hr Urine Group (Order Date - 03/02/2024) (Collection Date & Time - 03/02/2024 09:00 AM)?ValueReference Range?Protein 24 Hr Gllrm67039X<150 - mg/Day?Protein mg/fA3061- mg/dL?Creatinine, 24Hr Urine2.2H1.0-2.0 - G/Day?Total Volume 24 Hour Nisht9221- mL ?Creatinine, mg/dL113.30- * Lab:Comprehensive Met. Panel [...] 8.4-10.2 mg/dL) 7.3?L (Ref Range: 8.4-10.2 mg/dL) ???Lab:Erythrocyte Sedimentation Rate (Order Date - 03/11/2024) (Collection Date & Time - 03/11/2024 11:38 AM)?ValueReference Range?Erythrocyte Sedimentation Fusx234-32 - MM/HR ???Lab:Complement C3 (Order Date - 03/18/2024) (Collection Date & Time - 03/18/2024 11:17 AM)?ValueReference Range?Complement H493927-185 - mg/dL ???Lab:Protein Electrophoresis, Serum (Order Date [...] 3TNP-?Prot Elec - InterpretationSEE NOTE- * Examination: ???General Examination: ?GENERAL APPEARANCE:?pleasant, well nourished, well developed, in no acute distress, calm and relaxed.?HEAD:?atraumatic, normocephalic.?EYES:?eomi, perrla, anicteric, conjugate.?EARS:?normal.?NOSE:?septum intact.?ORAL CAVITY:?normal, unremarkable.?NECK/THYROID:?no jugular venous distention, no carotid bruit, thyroid normal.?LYMPH NODES:?no enlarged lymph nodes,spleen normal.?SKIN:?no suspicious lesions, anicteric.?HEART:?no clicks, gallops, murmurs, or rubs, regular rhythm, S1, S2 normal, no s3, or vascular bruits.?LUNGS:?clear to auscultation .?BREASTS:??no masses palpable bilaterally.?ABDOMEN:?bowel sounds normal, no ascites, no organomegaly, no mass.?RECTAL EXAM:?not examined.?MUSCULOSKELETAL:?extremities unremarkable, no clubbing, cyanosis or edema.?PERIPHERAL PULSES:?normal.?NEUROLOGIC:?alert and oriented, cranial nerves 2-12 grossly intact, deep tendon reflexes 2+ symmetrical, motor strength normal upper and lower extremities, sensory exam intact.?PSYCH:?alert, oriented.? Assessment: * Assessment: 1.?Nephrotic syndrome - N04. 9???Notes :He is markedly improved. He is now being managed by nephrology on a reduced dose of prednisone. He is taking torsemide instead of furosemide.???2.?Mixed hyperlipidemia - E78.2???3.?Other neutropenia - D70.8???4.?Essential hypertension - I10??? Plan: * Treatment: 2.?Mixed hyperlipidemia?LAB: PROFILE, FASTING (COMPREHENSIVE METABOLIC) ?LAB: PSA, TOTAL ?LAB: CBC w DIFF ?LAB: Lipid Panel 3.?Other neutropenia?LAB: PROFILE, FASTING (COMPREHENSIVE METABOLIC) ?LAB: PSA, TOTAL ?LAB: CBC w DIFF ?LAB: Lipid Panel 4.?Essential hypertension?LAB: PROFILE, FASTING (COMPREHENSIVE METABOLIC) ?LAB: PSA, TOTAL ?LAB: CBC w DIFF ?LAB: Lipid Panel 5.?Others? Continue predniSONE Tablet, 20 MG, TAKE TWO [...] needed, Orally, Three times a day.?? * Preventive Medicine:? ??Counseling:?Care goal follow-up plan:?Counseling [...] done: Medical or Other reason not done * Follow Up:?mid june (Reason: ov review labs) * Images: * The named appointment provid er may or may not be the originator of this progress note, and it is not deemed complete until electronically signed by the appointment provider. Sign off status: Pending * Provider:?Anthony Otero MD Date:?04/27 Generated for Lety garrett/Azam/Dannielle on:?05/07/2024 07:06 PM [...] developed, in no acute distress, calm and relaxed HEAD: atraumatic, normocep halic EYES: eomi, perrla, anicte reanna, conjugate EARS: normal NOSE: septum intact NECK/THYROID: no jugular venous di stention, no carotid bruit, thyroid normal HEART: no clicks, gallops, murmurs, or rubs, regular rhythm, S1, S2 normal, no s3, or vascular bruits LUNGS: clear to auscultatio n ABDOMEN: bowel sounds normal, no ascites, no organomegaly, no mass NEUROLOGIC: alert and oriented, cranial nerves 2-12 grossly intact, deep tendon reflexes 2+ symmetrical, motor strength normal upper and lower extremities, sensory exam intact SKIN: no suspicious lesion s, anicteric PERIPHERAL PULSES: normal BREASTS: no masses palpable b ilaterally MUSCULOSKELETAL: extremities unremark able, no clubbing, cyanosis or edema LYMPH NODES: no enlarged lymph no trena,spleen normal RECTAL EXAM: not examined PSYCH: alert, oriented ORAL CAVITY: normal, unremarkable
--- OUTSIDE RECORDS SUMMARY | 2024-05-07 19:06 | XMS_ITS ---
Author Organization Anthony Otero III, MD Address [address] [place] [address] Care Team Providers Care Outside Repairer Special Name Role Phone Anthony Otero Primary Care Provider [phone] REASON FOR VISIT New Refill Request Social History Sex Assigned At : Social History Observation Description Sex Assigned At Male Encounters Encounter Location Date Provider Diagnosis Anthony Otero III, MD [address] [place] [address] [place] [address] 04/17/2024 Anthony Otero Plan Of Treatment Next Appt Details Provider Name:Anthony Otero, 07/17/2024 04:15:00 PM, [address] [place] [address] [place], [address], Provider Name:Anthony Otero, 03/10/2025 04:15:00 PM, [address] [place] [address] [place], [address], Progress Notes * Claudy HANLEY JrDOB:[birth year] (58 yo M)Acc No.[id number]:04/17/2024 Patient:?Claudy HANLEY Jr :1965???Age:58 Y???Sex:Male Address:[place], [address] * true * Date:? Generated for Printi ng/Faxing/eTransmitting on:?05/07/2024 07:05 PM EDT
--- OUTSIDE RECORDS SUMMARY | 2024-05-07 19:06 | XMS_ITS | Patient Health Record ---
Author Organization [facility] Address [address] [place] [address] Care Team Providers Care Boil Off Worker Name Role Phone Irvin Rosen MD Primary Care Provider Anthony Lantigua Unavailable [phone] Allergies No Known Allergies Reason For Referral [...] Problem Status W/U Status Risk Notes Problem 624568422 Encounter for screening for malignant neoplasm of colon (Z12.11) Active confirmed Problem 146888496 History of adenomatous polyp of colon (Z86.010) Active confirmed Problem Diverticular disease of colon (662643419) Diverticulosis of large intestine without perforation or abscess without bleeding (K57.30) Active confirmed Problem Gastroesophageal reflux disease (121732953) Gastroesophageal reflux disease (K21.9) Active confirmed Problem 402873843 Gastroesophageal reflux disease, esophagitis presence not specified (K21.9) Active confirmed Problem 686155478 Irregular bowel habits (R19.8) Active confirmed Problem Ojeda esophagus (797777573) 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 [address] [place] [address] [id number] DAYAN AMAN Self - patient is the insured Medical (General) History Medical History History ICD Code Denies RI,DM,CVA,Lung disease Hypertension Nephrotic syndrome- Dr. Henson Hyperlipidemia [...]
--- OUTSIDE RECORDS SUMMARY | 2024-05-07 19:06 | XMS_ITS ---
Author Organization [facility] Address [address] [place] [address] Care Team Providers Care Qa Analyst Name Role Phone Irvin Rosen MD Primary Care Provider Anthony Lantigua [phone] REASON FOR VISIT cancel appt Encounters Encounter Location Date Provider Diagnosis [facility] [address] [place] [address] 11/25/2022 Anthony Hidalgo Plan Of Treatment No Information Progress Notes * AMAN HANLEY JrDOB:1965 (56 yo M)Acc No.[id number]:11/25/2022 Patient:?AMAN HANLEY :1965???Age:56 Y???Sex:Male Address:[address] [place], [address] * true * Date:? Generated for Lety garrett/Azam/eTransmitting on:?05/07/2024 07:06 PM EDT
== END 2024-05-07 16:00 | disposition home or self-care (01) ==
LOC: HO.HKA 15:46
PROVIDERS: PCP Internal Medicine; Visit Provider Internal Medicine Hypertension Specialist
DX: N04.9 Nephrotic syndrome with unspecified morphologic changes (principal)
CPT/HCPCS: 99214

== ENCOUNTER → 2024-05-07 15:41 | Outpatient (BNVA) | payer OTHER, SELFPAY | PROVIDERS: PCP Internal Medicine; Visit Provider Internal Medicine Hypertension Specialist ==

== ENCOUNTER 2024-06-01 11:39 | Outpatient (REF) | payer OTHER, SELFPAY ==
--- OUTSIDE RECORDS SUMMARY | 2024-06-01 11:42 | XMS_ITS | Patient Health Record ---
Author Organization Anthony Otero III, MD Address [address] [address] Care Team Providers Care Medical Authorization Specialist Name Role Phone Anthony Otero Primary Care Provider Allergies Allergen (clinical drug ingredient) Drug/Non Drug Allergy documented on EMR Reaction Allergy Type Onset Date Status Pain medication (uncoded) Unknown Allergy Active Results Component Value Reference Range Notes Protein, 24 Hr Urine Group Reviewed date:03/04/2024 09:18:29 AM Interpretation: Performing Lab:[facility], [address] [place] [phone] Notes/Report: 1900 [id number] 0900 1000 Protein 24 Hr Urine 41859 <150 mg/Day Protein mg/dL 1322 Creatinine, 24Hr Urine 2.2 1.0-2.0 G/Day Creatinine, mg/dL 113.30 Total Volume 24 Hour Urine 1900 Complete Blood Count Auto Di ff Reviewed date:03/05/2024 05:15:10 PM Interpretation: Performing Lab:[facility], [address] [place] [phone] Notes/Report: White Blood Count 7.5 4.8-10.8 X10*3/uL [...] Panel Reviewed date:03/05/2024 05:15:10 PM Interpretation: Performing Lab:[facility], [address] [place] [phone] Notes/Report: Sodium 141 135-145 mmol/L Potassium 4.0 [...] ff Reviewed date:03/11/2024 02:33:07 PM Interpretation: Performing Lab:[facility], [address] [place] [phone] Notes/Report: White Blood Count 6.4 4.8-10.8 X10*3/uL [...] te Reviewed date:03/11/2024 02:33:07 PM Interpretation: Performing Lab:[facility], [address] [place] [phone] Notes/Report: Erythrocyte Sedimentation Rate 13 0-15 MM/HR Patients with polycythemia and many hemoglobin abnormalities may have depressed sed rates whereas patients with anemia may have elevated sed rates. Comprehensive Met. Panel Reviewed date:03/11/2024 02:33:07 PM Interpretation: Performing Lab:[address] [address] Notes/Report: Sodium 143 135-145 mmol/L Potassium 3.7 [...] Panel Reviewed date:03/21/2024 06:28:51 AM Interpretation: Performing Lab:[address] [address] Notes/Report: Sodium 139 135-145 mmol/L Potassium 4.0 [...] um Reviewed date:03/28/2024 09:26:04 AM Interpretation: Performing Lab:[address] [place] [address] Notes/Report: Prot Elec - Total Protein 3.6 [...] clinical diagnosis. THIS TEST WAS PERFORMED AT: [employer] [address] [place] [phone] REMINGTON WILLIAMSON MD Complement C3 Reviewed date:03/21/2024 06:28:51 AM Interpretation: Performing Lab:[address] [address] Notes/Report: Complement C3 151 82-185 mg/dL THIS TEST WAS PERFORMED AT: [facility] [address] [place] [phone] REMINGTON WILLIAMSON MD Complement C4 Reviewed date:03/21/2024 06:28:51 AM Interpretation: Performing Lab:[facility], [address] [place] [phone] Notes/Report: Complement C4 35 15-53 mg/dL THIS TEST WAS PERFORMED AT: [facility] [address] [place] [phone] REMINGTON WILLIAMSON MD Phospholipase A2 Receptor Pn l Reviewed date:03/28/2024 09:26:04 AM Interpretation: Performing Lab:[address] [address] Notes/Report: Phospholipase A2 IgG SUSU <4 Reference Range: <14: NEGATIVE 14-19: BORDERLINE >19: POSITIVE Phospholipase A2 IgG IFA NEGATIVE NEGATIVE THIS TEST WAS PERFORMED AT: [employer] [address] [place] [address] EVAN SOMMER MD,PHD,VALERIO Basic Metabolic Panel Reviewed date:03/28/2024 09:26:04 AM Interpretation: Performing Lab:[facility], [address] [place] [address] Notes/Report: Sodium 141 135-145 mmol/L Potassium 3.8 [...] Urine Reviewed date:03/28/2024 09:26:04 AM Interpretation: Performing Lab:[facility], [address] [place] [phone] Notes/Report: Creatinine Urine 71.15 Total Protein Urine Random Reviewed date:03/28/2024 09:26:04 AM Interpretation: Performing Lab:[facility], [address] [place] [phone] Notes/Report: Total Protein Urine Random 409 <12 mg/dL Urinalysis and Microscopic Reviewed date:04/01/2024 06:09:31 PM Interpretation: Performing Lab:[facility], [address] [place] [phone] Notes/Report: Color Urine Dark Yellow Appearance Urine Clear PH 7.0 5.0-9.0 Glucose Urine UA 500 Negative mg/dL Urine Blood Trace Negative Specific [place] - Urine 1.025 1.005-1.025 Urine Protein >=1000 [...] Urine Reviewed date:04/01/2024 06:09:32 PM Interpretation: Performing Lab:[facility], [address] [place] [phone] Notes/Report: Creatinine Urine 166.67 Total Protein Urine Random Reviewed date:04/01/2024 06:09:32 PM Interpretation: Performing Lab:[facility], [address] [place] [phone] Notes/Report: Total Protein Urine Random 1569 <12 mg/dL XR chest 2V Reviewed date:04/21/2024 09:08:31 AM Interpretation: Performing Lab: Notes/Report: [facility] [address] [place] [address] [place] [address] XRay Report Signed Patient: Claudy Berger Jr MR#: [id number] : 1965 Acct:[id number] Age/Sex: 58 / M ADM Date: 04/12/24 [facility]: Anthony Otero MD Ordering Physician: Anthony Otero MD Date of Service: 04/12/24 Procedure(s): XR chest 2V Accession Number(s): [id number] cc: Anthony Otero MD EXAMINATION: XR CHEST [...] by: Kris Zabala MD 04/16/2024 08:58 AM [facility] Dictated By: Kris Zabala MD Signed By: <Electronically signed by Kris Zabala MD in OV> 04/16/24 0858 DD/ 1619 TD/TT: 04/12/24 1625 Pyrometer Temperature Regulator: [facility] [address] [place] [address] [place] [address] XRay Report Signed Patient: Chandan Berger Jr MR#: [id number] : 1965 Acct:[id number] Age/Sex: 58 / M ADM Date: 04/12/24 Loc: [facility] Attending Dr: Anthony Otero MD Ordering Physician: Anthony Otero MD Date of Service: 04/12/24 Procedure(s): XR man st 2V Accession Number(s): [id number] cc: Anthony Otero MD EXAMINATION: XR CHEST [...] by: Kris Zabala MD 04/16/2024 08:58 AM [facility] Dictated By: Kris Zabala MD Signed By: <Electronically signed by Kris Zabala MD in OV> 04/16/24 0858 DD/ 1619 TD/TT: 04/12/24 1625 Pyrometer Temperature Regulator: Complete Blood Count Auto Di ff Reviewed date:05/02/2024 08:46:40 PM Interpretation: Performing Lab:[facility], [address] [place] [phone] Notes/Report: White Blood Count 3.6 4.8-10.8 X10*3/uL [...] Microscopic Reviewed date:05/02/2024 08:46:40 PM Interpretation: Performing Lab:[facility], [address] [place] [phone] Notes/Report: Color Urine Yellow Appearance Urine Clear PH 7.5 5.0-9.0 Glucose Urine UA Negative Negative mg/dL Urine Blood Negative Negative Specific [place] - Urine 1.020 1.005-1.025 Urine Protein 300 (3+) Neg-Trace mg/dL Urine Ketones Negative Negative mg/dL Nitrite Urine Negative Negative Leukocyte Esterase Urine Negative Negative RBC Urine 0-2 0-2 /HPF WBC Urine 0-5 0-5 /HPF Squamous Epithelial Cell Urine 0-2 0-2 /HPF Bacteria Urine None Seen None Seen Hyaline Casts Urine 0-2 0-2 /LPF Comprehensive Elizabeth. Panel Fa st Reviewed date:05/02/2024 08:46:40 PM Interpretation: Performing Lab:[address] [address] Notes/Report: Sodium 141 135-145 mmol/L Potassium 3.9 [...] Peptide Reviewed date:05/02/2024 08:46:40 PM Interpretation: Performing Lab:[address] [address] Notes/Report: B Type Natriuretic Peptide 12 <100 pg/mL For those patients who are being treated with Natrecor (nesiritide, recombinant BNP), BNP testing should be performed at least two hours post treatment in order to ensure that only endogenous levels of BNP are detected. Microalbumin, Random Reviewed date:05/02/2024 08:46:40 PM Interpretation: Performing Lab:[address] [address] Notes/Report: Creatinine Urine 125.53 Microalbumin Urine > 2000.0 Microalbum/Creatinine Ratio Ur 1593.2 <30 ug/mg cr Albumin/Creatinine Ratio Reference Ranges: Normal: < 30 ug/mg creatinine Microalbuminuria: 30 - 300 ug/mg creatinine Clinical Albuminuria: > 300 ug/mg creatinine Creatinine Urine Reviewed date:05/02/2024 08:46:40 PM Interpretation: Performing Lab:[address] [address] Notes/Report: Creatinine Urine 124.68 Total Protein Urine Random Reviewed date:05/02/2024 08:46:40 PM Interpretation: Performing Lab:[address] [address] Notes/Report: Total Protein Urine Random 346 <12 mg/dL Hemoglobin A1c Reviewed date:05/02/2024 08:46:40 PM Interpretation: Performing Lab:[facility], [address] [place] [address], [place] [address] Notes/Report: Hemoglobin A1c % 6.5 <6.0 % [...] average glucose, using the formula of the E2Q-Hsraikz Average Glucose study (ADAG), Diabetes Care, Vol.31,#8, [...] Problem Status W/U Status Risk Notes Problem 444583000 Other neutropenia (D70.8) Active confirmed His white blood cell count is stable. The value will be followed carefully periodically . He has had no infections recently. Problem 440779345 Mixed hyperlipidemia (E78.2) Active confirmed His lipids will be evaluated periodically . Statin will be considered. Problem 620753763125393 Primary osteoarthritis, right shoulder (M19.011) Active confirmed Problem 858091945268124 Primary osteoarthritis, left shoulder (M19.012) Active confirmed Problem 02221824 Essential hypertension (I10) Active confirmed His blood pressure is now in the normal range. He has lost 52 pounds mostly fluid. The vital signs will be obtained and followed periodically . Problem 690368150 History of cholecystectomy (Z90.49) Active confirmed Problem 562127824 Chronic insomnia (F51.04) Active confirmed He reports that he is now able to sleep again since the refractory cough has resolved. Problem Nephrotic syndrome (77974638) Nephrotic syndrome (N04.9) Active confirmed He is markedly improved. He is now being managed by nephrology on a reduced dose of prednisone. He is taking torsemide instead of furosemide. Problem 811877261 History of inguinal hernia (Z87.19) Active confirmed Problem 50211466625827282 Bilateral carp al tunnel syndrome (G56.03) Active confirmed Problem 292213721 History of asthma (Z87.09) Active confirmed He did not give a history of asthma but this was documented no records. This will be further pursued. He does not require treatment at this time. Problem 186731078 Diabetes mellitus without complication (E11.9) Active confirmed He is on a reduced dose of prednisone. He has been compliant with his metformin. Prior to his next visit he will have a hemoglobin A1c. Problem 311309529 Obesity, class 2 (E66.812) Active confirmed Problem 58078924563128303 History of Ojeda's esophagus (Z87.19) Active confirmed He has reported no recent history of dysphagia or esophageal pain. He will need to have upper endoscopy periodically . Problem 631908372 Ascending aorta dilation (I77.810) Active confirmed This is a finding on a recent echocardiogr am. He is asymptomatic . The ascending aortic diameter was 3.9 cm. He will be observed. 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 myelopathy or radiculopathy M47.813 Anthony Otero III, MD [address] [place] [address] [place] [address] 03/07/2024 Anthony Otero Mixed hyperlipidemia E78.2 ; Nephrotic syndrome N04.9 ; Other neutropenia D70.8 ; Essential hypertension I10 and Diabetes mellitus without complication E11.9 Anthony Otero III, MD [address] [place] [address] [place] [address] 03/28/2024 Anthony Otero Nephrotic syndrome N 04.9 ; Essential hypertension I10 ; Diabetes mellitus without complication E11.9 ; Other neutropenia D70.8 and Mixed hyperlipidemia E78.2 Anthony Otero III, MD [address] [place] [address] [place] [address] 04/03/2024 Anthony Otero Nephrotic syndrome N 04.9 ; Essential hypertension I10 ; Mixed hyperlipidemia E78.2 and Diabetes mellitus without complication E11.9 Anthony Otero III, MD [address] [place] [address] [place] [address] 04/09/2024 Anthony Otero Nephrotic syndrome N 04.9 ; Acute viral syndrome B34.9 ; Persistent cough R05.3 ; Diabetes mellitus without complication E11.9 and Mixed hyperlipidemia E78.2 Anthony Otero III, MD [address] [place] [address] [place] [address] 04/16/2024 Anthony Otero Nephrotic syndrome N 04.9 ; Diabetes mellitus without complication E11.9 ; Mixed hyperlipidemia E78.2 ; Essential hypertension I10 ; Ascending aorta dilation I77.810 ; Chronic insomnia F51.04 ; History of Ojeda's esophagus Z87.19 and Viral syndrome B34.9 Anthony Otero III, MD [address] [place] [address] [place] [address] 05/06/2024 Anthony Otero Nephrotic syndrome N 04.9 ; Mixed hyperlipidemia E78.2 ; Other neutropenia D70.8 and Essential hypertension I10 Anthony Otero III, MD [address] [place] [address] [place] [address] 03/04/2024 Anthony Otero III, MD [address] [place] [address] [place] [address] 02/29/2024 Anthony Otero III, MD [address] [place] [address] [place] [address] 03/01/2024 Anthony Otero III, MD [address] [place] [address] [place] [address] 03/04/2024 Anthony Otero III, MD [address] [place] [address] [place] [address] 03/20/2024 Anthony Otero III, MD [address] [place] [address] [place] [address] 04/17/2024 Anthony Otero Assessments Encounter Date Diagnosis [...] (ICD-10 - N04.9) In the past his nursing scheduler has been Dr. Lionel Henson. He has not been seen in several years. An appointment has been made for him by Dr. Fenton to see the nursing scheduler at [facility] later this month. He [...] sampled. I will discuss him with the nursing scheduler at [facility] with whom he has [...] I have reviewed the case with a nursing scheduler and strongly recommended he see the patient [...] A1c. 05/06/2024 Mixed hyperlipidemia (ICD-10 - E78.2) His lipids will be evaluated periodically. Statin will be considered. 05/06/2024 Nephrotic syndrome (ICD-10 - N04.9) He is markedly improved. He is now being managed by nephrology on a reduced dose of prednisone. He is taking torsemide instead of furosemide. 02/29/2024 Mixed hyperlipidemia (ICD-10 - E78.2) His [...] needed. 05/06/2024 Other neutropenia (ICD-10 - D70.8) His white blood cell count is stable. The value will be followed carefully periodically. He has had no infections recently. 02/29/2024 Diabetes mellitus without complication (ICD-10 - [...] change. 05/06/2024 Essential hypertension (ICD-10 - I10) His blood pressure is now in the normal range. He has lost 52 pounds mostly fluid. The vital signs will be obtained and followed periodically. 02/29/2024 Chronic insomnia (ICD-10 - F51.04) He [...] Details Provider Name:Anthony Otero, 07/17/2024 04:15:00 PM, [address] [place] [address] [address], [place], [address], Provider Name:Anthony Branden, 03/10/2025 04:15:00 PM, [address] [place] [address] [address], [place], [address], Insurance Providers Payer Name Payer Address Payer Phone Subscriber Number Group Number Insured Name Patient Relationship to Insured Coverage Start Date Coverage End Date [employer] [place] [address] [address] [place] [address] [id number] Claudy Berger Self - patient is the insured Medical (General) History Medical History History ICD Code Nephrotic syndrome N04.9 cholecystectomy 1992 hypertension hyperlipidemia prediabetes obesity carpal tunnel syndrome [...] 2022 Focal segmental glomerulosclerosis, yash l biopsy, [facility] Normal cardiac catheterization January 26, 2018 [facility] Surgical History Surgery Date(Month/Year) No history Bilateral inguinal herniorrhaphies Tubular adenoma colonoscopy 2012, Dr. Dimple Hidalgo Upper endoscopy and colonoscopy 2018 Elbow surgery Bilateral shoulder arthroscopies Carpal tunnel surgery on both hands Renal biopsy [facility], remot e cholecystectomy age 24 Hospitalization History Reason Date(Month/Year) No history None reported
--- OUTSIDE RECORDS SUMMARY | 2024-06-01 11:42 | XMS_ITS ---
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 Name Role Phone Anthony Otero Primary Care Provider REASON FOR VISIT New Refill Request Social History Sex Assigned At : Social History Observation Description Sex Assigned At Male Encounters Encounter Location Date Provider Diagnosis Anthony Otero III, MD [address] [place] [address] [place] [address] 04/17/2024 Anthony Otero Plan Of Treatment Next Appt Details Provider Name:Anthony Otero, 07/17/2024 04:15:00 PM, [address] [place] [address] [place], [address], Provider Name:Anthony Otero, 03/10/2025 04:15:00 PM, [address] [place] [address] [place], [address], Progress Notes * Claudy HANLEY JrDOB:[birth year] (58 yo M)Acc No.[id number]:04/17/2024 Patient:?Claudy HANLEY Jr :1965???Age:58 Y???Sex:Male Address:[place], [address] * true * Date:? Generated for Printi ng/Faxing/eTransmitting on:?06/01/2024 11:42 AM EDT
--- OUTSIDE RECORDS SUMMARY | 2024-06-01 11:42 | XMS_ITS ---
Author Organization Anthony Otero III, MD Address [address] [place] [address] Care Team Providers Care Roller Painter Name Role Phone Anthony Otero Primary Care [...] Date Provider Diagnosis Anthony Otero III, MD [address] [place] [address] [place] [address] 04/16/2024 Anthony Otero Nephrotic syndrome N 04.9 [...] visit Provider Name:Anthony Otero, 07/17/2024 04:15:00 PM, [address] [place] [address] [address], [place], [address], Provider Name:Anthony Otero, 03/10/2025 04:15:00 PM, [address] [place] [address] [address], [place], [address], Progress Notes * Claudy HANLEY JrDOB:[birth year] (58 yo M)Acc No.[id number]:04/16/2024 Patient:?Claudy HANLEY Provider:?Anthony Otero MD :1965???Age:58 Y???Sex:Male Gavin e:04/16/2024 Address:[address] [place] [address] [id number] Subjective: * Chief Complaints: * ???Nephrotic syndromeHyperte [...] weeks. ?Telehealth?Location of provider rendering services:?{...} [address] [facility] [address] ?Location of patient:?address listed in demographics for [...] History:?cholecyste ctomy age [address] [facility], remote Carpal tunnel surgery on both [...] Control (Standard)?Tobacco use:?Nonsmoker ?[facility] He has been to [facility] for [facility] years.? He has no children.? 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 He has no samaritan objection to blood transfusion.? He does not [...] (Ref Range: mg/dL) * Lab:Total Protein Urine Baring om * Collection Date 04/01/2024 03/25/2024 Collection Time 12:21 PM 09:45 AM Order Date 04/01/2024 03/25/2024 Total Protein Urine Random 1569?H (Ref Range: <12 mg/dL) 409?H (Ref Range: <12 mg/dL) ???Lab:Urinalysis and Microscopic (Order Date - 04/01/2024) (Collection Date & Time - 04/01/2024 12:21 PM)?ValueReference Range?Color UrineDark Yellow-?RBC Blpow7-8A4-1 - /HPF?Appearance UrineClear-?PH 7.05.0-9.0 -?Glucose Urine MR007YLgsecfld - mg/dL?Urine BloodTrace ANegative -?Specific [place] - Urine1.0251.005-1.025 -?Urine Protein>=1000 (4+)ANeg-Trace - mg/dL?Urine [...] & Time - 03/18/2024 11:17 AM)?ValueReference Range?Complement E42514-25 - mg/dL ???Lab:Phospholipase A2 Receptor Pnl (Order [...] & Time - 03/18/2024 11:17 AM)?ValueReference Range?Complement Q788677-626 - mg/dL ???Lab:Erythrocyte Sedimentation Rate (Order Date - 03/11/2024) (Collection Date & Time - 03/11/2024 11:38 AM)?ValueReference Range?Erythrocyte Sedimentation Hpqw096-80 - MM/HR ???Lab:Protein, 24 Hr Urine Group (Order Date - 03/02/2024) (Collection Date & Time - 03/02/2024 09:00 AM)?ValueReference Range?Protein 24 Hr Amtqf21997G<150 - mg/Day?Protein mg/zX7217- mg/dL?Creatinine, 24Hr Urine2.2H1.0-2.0 - G/Day?Total Volume 24 Hour Mbmsm2575- mL ?Creatinine, mg/dL113.30- * Lab:Complete Blood Count [...] Otero MD Date:?03/30 Generated for Lety garrett/Azam/Dannielle on:?06/01/2024 11:42 AM EDT History and Physical Notes * HPI (History of Present Illness) Category Sub-Category Detail Notes Telehealth Location of [facility] rendering services:: {...} [address] [place] [address] Location of patient:: address listed in demographics [...]
--- OUTSIDE RECORDS SUMMARY | 2024-06-01 11:42 | XMS_ITS | Patient Health Record ---
Author Organization [facility] Address [address] [place] [address] Care Team Providers Care Pinion Polisher Name Role Phone Irvin Rosen MD Primary Care Provider Anthony Lantigua Unavailable [phone] Allergies No Known Allergies Reason For Referral [...] Problem Status W/U Status Risk Notes Problem 096165771 Encounter for screening for malignant neoplasm of colon (Z12.11) Active confirmed Problem 083623413 History of adenomatous polyp of colon (Z86.010) Active confirmed Problem Diverticular disease of colon (599195571) Diverticulosis of large intestine without perforation or abscess without bleeding (K57.30) Active confirmed Problem Gastroesophageal reflux disease (183780061) Gastroesophageal reflux disease (K21.9) Active confirmed Problem 651188106 Gastroesophageal reflux disease, esophagitis presence not specified (K21.9) Active confirmed Problem 686126764 Irregular bowel habits (R19.8) Active confirmed Problem Ojeda esophagus (655958335) 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 [address] [place] [address] [id number] DAYAN AMAN Self - patient is the insured Medical (General) History Medical History History ICD Code Denies MO,DM,CVA,Lung disease Hypertension Nephrotic syndrome- Dr. Henson Hyperlipidemia [...]
--- OUTSIDE RECORDS SUMMARY | 2024-06-01 11:42 | XMS_ITS ---
Author Organization Anthony Otero III, MD Address [address] [place] [address] Care Team Providers Care Elevated Motorman Name Role Phone Anthony Otero Primary Care Provider [phone] Allergies Allergen (clinical drug ingredient) Drug/Non Drug [...] Date Provider Diagnosis Anthony Otero III, MD [address] [place] [address] [place] [address] 05/06/2024 Anthony Otero Nephrotic syndrome N 04.9 [...] labs Provider Name:Anthony Otero, 07/17/2024 04:15:00 PM, [address] [place] [address] [address], [place], [id number], Provider Name:Anthony Otero, 03/10/2025 04:15:00 PM, [address] [place] [address] [address], [place], [id number], Progress Notes * Claudy HANLEY JrDOB:[birth year] (58 yo M)Acc No.[id number]:05/06/2024 Progress Notes Patient:?Claudy HANLEY Jr Provider:?Anthony Otero MD :1965???Age:58 Y???Sex:Male Gavin e:05/06/2024 Address:[address] [place] [address] [address] [place], [id number] Subjective: * Chief Complaints: * ???Nephrotic syndromeType 2 diabetes mellitusHypertensionObesityOsteoarthritis both shoulders * HPI: ???COVID-19 Screening:?Questions?Have you had any new onset fever, chills, cough, congestion, sore throat, shortness of breath, muscle aches??No * ROS:?General/Constitutional:?pain?Both shoulders, otherwise only normal aches and pains.?Chills?denies.?Fatigue?admits.?Fever?denies.?ENT:?Decreased hearing?denies.?Respiratory:?Cough?denies.?Cardiovascular:?Chest pain with exertion?denies.?Dyspnea on exertion?with prolonged activity.?Shortness of breath?denies.?Gastrointestinal:?Constipation?denies.?Decreased appetite?denies.?Diarrhea?denies.?Heartburn?denies.?Nausea?denies.?Rectal bleeding?denies.?Vomiting?denies.?Hematology:?bruising?denies.?petechiae?denies.?Swollen glands?none have been noted.?Genitourinary:?Frequent urination?denies.?Musculoskeletal:?Muscle aches?denies.?Painful joints?Both shoulders.?Sciatica?denies.?Weakness?denies.?Skin:?Itching?denies.?Rash?denies.?Skin lesion(s)?denies.?Neurologic:?Difficulty speaking?denies.?Dizziness?denies.?Headache?denies.?Low back pain?denies.?Psychiatric:?Depressed mood?denies.? * Medical [...] Control (Standard)?Tobacco use:?Nonsmoker ?He was born in [facility].? He has been to [place] for 15 years.? He has no children.? 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 He has no nondenominational objection to blood transfusion.? He does not smoke and does not drink alcohol. * Medications:?TakingpredniSON E 20 MG Tablet TAKE TWO (2) TABLETS [...] [Allergies Verified] Objective: * Vitals:?Ht: 70, Wt: 220, BMI [...] Range: Negative) Trace?A (Ref Range: Negative) Specific [place] - Urine 1.020 (Ref Range: 1.005-1.025) 1.025 [...] AM)?ValueReference Range?Hemoglobin A1c %6.5H<6.0 - %?Estimated Average Putenzk020- mg/dL ???Lab:Comprehensive [place]. Panel Fast (Order Date - 05/02/2024) (Collection Date & Time - 05/02/2024 06:35 AM)?ValueReference Range?Xgpsvq439775- 145 - mmol/L?Bilirubin Total0.50.0-1.0 - mg/dL?Aspartate Amino Afnpqjllyfp831-06 - U/L?Alanine Qulfnvpcyrthmsas37J6-53 - U/L ?Total Protein5.5L6.5-8.0 - g/dL?Albumin Level3.3L3.5-5.0 - g/dL ?Alkaline Udmzudbcyiq4888-823 - U/L?Potassium3.93.3-5.1 - mmol/L ?Knssnrul87019-113 - mmol/L?Carbon Fjdguse4987-34 - mmol/L ?Anion Jqo8015-78 -?Blood Urea Gycisteq77P7-77 - mg/dL ?Creatinine0.750.5-1.4 - mg/dL?Estimated Glomerular Filt Rate> 60- ?Glucose Wisbmpr487R32-78 - mg/dL?Calcium8.58.4-10.2 - mg/dL ???Lab:B Type Natriuretic Peptide (Order Date - 05/02/2024) (Collection Date & Time - 05/02/2024 06:35 AM)?ValueReference Range?B Type Natriuretic Bfljuet37<100 - pg/mL ???Lab:Microalbumin, Random (Order Date - 05/02/2024) (Collection Date & Time - 05/02/2024 06:35 AM)?ValueReference Range?Creatinine Eqtbq918.53- mg/dL?Microalbumin Urine> 2000.0- mg/L?Microalbum Creatinine Ratio Rn9993.2H<30 - ug/mg cr * Lab:Total Protein Urine Capac om * Collection Date 05/02/2024 04/01/2024 03/25/2024 [...] & Time - 03/18/2024 11:17 AM)?ValueReference Range?Complement G96317-15 - mg/dL ???Lab:Phospholipase A2 Receptor Pnl (Order Date - 03/18/2024) (Collection Date & Time - 03/18/2024 11:17 AM)?ValueReference Range?Phospholipase A2 IgG SUSU<4- RU/mL?Phospholipase A2 IgG IFANEGATIVENEGATIVE - ???Imaging:XR chest 2V (Order Date - 04/12/2024) (Performed Date - 04/12/2024) ???Lab:Protein, 24 Hr Urine Group (Order Date - 03/02/2024) (Collection Date & Time - 03/02/2024 09:00 AM)?ValueReference Range?Protein 24 Hr Tiwri08267G<150 - mg/Day?Protein mg/zO6359- mg/dL?Creatinine, 24Hr Urine2.2H1.0-2.0 - G/Day?Total Volume 24 Hour Ddpfj3790- mL ?Creatinine, mg/dL113.30- * Lab:Comprehensive Met. Panel [...] Time - 03/11/2024 11:38 AM)?ValueReference Range?Erythrocyte Sedimentation Spnl199-28 - MM/HR ???Lab:Complement C3 (Order Date - 03/18/2024) (Collection Date & Time - 03/18/2024 11:17 AM)?ValueReference Range?Complement [id number] - mg/dL ???Lab:Protein Electrophoresis, Serum (Order Date [...] no acute distress, calm and relaxed, obese, man.?HEAD:?atraumatic, normocephalic.?EYES:?eomi, perrla, anicteric, conjugate.?EARS:?normal.?NOSE:?septum intact.?ORAL CAVITY:?normal, unremarkable.?NECK/THYROID:?no jugular venous distention, no carotid bruit, thyroid normal.?LYMPH NODES:?no enlarged lymph nodes,spleen normal.?SKIN:?no suspicious lesions, anicteric.?HEART:?no clicks, gallops, murmurs, or rubs, regular rhythm, S1, S2 normal, no s3, or vascular bruits.?LUNGS:?clear to auscultation .?BREASTS:??no masses palpable bilaterally.?ABDOMEN:?bowel sounds normal, no ascites, no organomegaly, no mass, centripital obesity.?RECTAL EXAM:?not examined.?MUSCULOSKELETAL:?extremities unremarkable, no clubbing, cyanosis or edema.?PERIPHERAL PULSES:?normal.?NEUROLOGIC:?alert and oriented, cranial nerves 2-12 grossly intact, deep tendon reflexes 2+ symmetrical, motor strength normal upper and lower extremities, sensory exam intact.?PSYCH:?alert, oriented, good eye contact, cooperative with exam, cognitive function intact, thought process logical, goal directed, speech clear.? Assessment: * Assessment: 1.?Nephrotic syndrome - N04. 9 (Primary)???Notes :He is markedly improved. He is now being managed by nephrology on a reduced dose of prednisone. He is taking torsemide instead of furosemide.???2.?Mixed hyperlipidemia - E78.2???Notes :His lipids will be evaluated periodically.? Statin will be considered.???3.?Other neutropenia - D70.8???Notes :His white blood cell count is stable.? The value will be followed carefully periodically.? He has had no infections recently.???4.?Essential hypertension - I10???Notes :His blood pressure is now in the normal range.? He has lost 52 pounds mostly fluid.? The vital signs will be obtained and followed periodically.??? Plan: * Treatment: 2.?Mixed hyperlipidemia?LAB: PROFILE, FASTING [...] done: Medical or Other reason not done ??DM Care Plan:?Patient Lifestyle Goals?Patient wants to be able to manage diabetes without too much effort.?Treatment Goals?Blood Sugars less than < 115, HbA1C < 7.0.?Barriers?no barriers.?Self-Managment Goals?Work on weight loss, with a goal of losing 1 lb per week.? * Follow Up:?mid june (Reason: ov review labs) * Images: * Sign off status: Completed true * Provider:?Anthony Otero MD Date:?04/27 Generated for Lety garrett/Azam/eTtroysmitting on:?06/01/2024 11:42 AM EDT History and Physical [...]
[2024-06-01 13:41] LABS: Appearance Urine Clear; Color Urine Yellow; Glucose Urine UA Negative (Negative); Leukocyte Esterase Urine Negative (Negative); Nitrite Urine Negative (Negative); PH 7.5 (5.0-9.0); UMIC TRIGGER UA YES; Urine Blood Negative (Negative); Urine Ketones Negative (Negative); Urine Protein 300 (3+) mg/dL (Neg-Trace)
[2024-06-01 13:48] LABS: Anion Gap 10 (12-20); Blood Urea Nitrogen 13 mg/dL (9-16); Calcium 8.7 mg/dL (8.4-10.2); Carbon Dioxide 26 mmol/L (22-29); Chloride 109 mmol/L (96-108); Estimated Glomerular Filt Rate > 60; Glucose Random 104 mg/dL (60-115); Potassium 4.1 mmol/L (3.3-5.1); Sodium 141 mmol/L (135-145)
[2024-06-01 13:50] LABS: Bacteria Urine None Seen (None Seen); Hyaline Casts Urine 0-2 /LPF (0-2); RBC Urine 0-2 /HPF (0-2); Squamous Epithelial Cell Urine 0-2 /HPF (0-2); WBC Urine 0-5 /HPF (0-5)
== END 2024-06-01 11:40 | disposition home or self-care (01) ==
LOC: HO.HMGCLDS 11:39
PROVIDERS: PCP Internal Medicine Medical Oncology; Visit Provider Internal Medicine Hypertension Specialist
DX: N04.9 Nephrotic syndrome with unspecified morphologic changes (principal)
CPT/HCPCS: 36415; 80048; 81001

== ENCOUNTER 2024-06-03 14:40 | Outpatient (AMB) | payer OTHER, SELFPAY ==
--- NOTE | 2024-06-03 14:53 | A.OFFVIS_ITS ---
Vital Signs 06/03/24 14:55 Height 5 ft 10 in Weight 222 lb BMI 31.9 Intake Visit Reasons: INJ Left shoulder injection last 05/29/23 Intake Note: Claudy is a 57 year old right hand dominate male who presents today for a left shoulder injection, last injection 05/29/23. Patient reports last injection provided him with relief. He complains of a constant dull ache in his right shoulder. He is requesting bilateral shoulder injections today. Allergies most pain meds Allergy (Unknown, Uncoded 06/03/24 14:55) mild itching HPI HPI INJ Left shoulder injection last 05/29/23: Details: 58 yo M with left painful arc syndrome and now also complains of right shoulder pain. Pain is predominantly at night and with overhead activity. 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 He benefitted from his last injection one year ago. [facility] Medical History (Updated 06/03/24 @ 17:57 by Amilcar Hartmann MD) Orbit injury, left GERD (gastroesophageal reflux disease) Left elbow tendonitis Back pain Nephrotic syndrome Elevated cholesterol HTN (hypertension) Anxiety Sleep apnea Asthma Surgical History Hx of elbow surgery Hx of esophagogastroduodenoscopy Hx of colonoscopy History of cholecystectomy History of arthroscopy of both shoulders History of bilateral carpal tunnel release H/O bilateral inguinal hernia repair Family History Father Heart disease Mother HTN (hypertension) Dementia Kidney disease Hypercholesteremia Social History Alcohol intake: current Alcohol intake frequency: a few times a month Alcohol type: beer Patient Tobacco Use Status: Never used Tobacco Physical Exam Vital Signs: BMI result Body Mass Index 31.9 Extrem Other: positive Vogt and Neer Negative empty can 40/90/130/L5 bilaterally Office Procedures Joint Inj/Aspir; Non-Pain Clin Joint Injection/Drain Details: Injected 1 mL of Decadron and 3 mL 1% lidocaine and 3 mL of 0.25% Marcaine. Site was prepped using aseptic technique. Patient tolerated the procedure well. Shoulders, Hips, Knees, Shoulder Injection Large joint : Left Shoulder Coding Procedure code (CPT) selection complete Assessment & Plan Assessment & Plan (1) Painful arc syndrome of right shoulder: Code(s): M75.101 - Unspecified rotator cuff tear or rupture of right shoulder, not specified as traumatic Category: Medical Plan: I injected his right shoulder. He has home exercises which I recommend he do. (2) Painful arc syndrome of left shoulder: Code(s): M75.102 - Unspecified rotator cuff tear or rupture of left shoulder, not specified as traumatic Category: Medical Plan: I injected his right shoulder. He has home exercises which I recommend he do. Coding Level of Care Code Est Pt Level 4 (36062) Diagnoses Painful arc syndrome of right shoulder M75.101 Painful arc syndrome of left shoulder M75.102 CPT Codes Shoulders, Hips, Knees, - Shoulder Injection Large joint : Left Shoulder ([id number])
[2024-06-03 14:55] VITALS: BMI 31.9
--- OUTSIDE RECORDS SUMMARY | 2024-06-03 17:32 | XMS_ITS | Patient Health Record ---
Author Organization Anthony Otero III, MD Address [address] [place] [address] Care Team Providers Care Steeping Press Tender Name Role Phone Anthony Otero Primary Care Provider [phone] Allergies Allergen (clinical drug ingredient) Drug/Non Drug Allergy documented on EMR Reaction Allergy Type Onset Date Status Pain medication (uncoded) Unknown Allergy Active Results Component Value Reference Range Notes Protein, 24 Hr Urine Group Reviewed date:03/04/2024 09:18:29 AM Interpretation: Performing Lab:[facility], [address] [place] [phone] Notes/Report: 1900 [id number] 0900 1000 Protein 24 Hr Urine 38701 <150 mg/Day Protein mg/dL 1322 Creatinine, 24Hr Urine 2.2 1.0-2.0 G/Day Creatinine, mg/dL 113.30 Total Volume 24 Hour Urine 1900 Complete Blood Count Auto Di ff Reviewed date:03/05/2024 05:15:10 PM Interpretation: Performing Lab:[facility], [address] [place] [address] Notes/Report: White Blood Count 7.5 4.8-10.8 X10*3/uL [...] Panel Reviewed date:03/05/2024 05:15:10 PM Interpretation: Performing Lab:[facility], [address] [place] [address] Notes/Report: Sodium 141 135-145 mmol/L Potassium 4.0 [...] ff Reviewed date:03/11/2024 02:33:07 PM Interpretation: Performing Lab:[facility], [address] [place] [address] Notes/Report: White Blood Count 6.4 4.8-10.8 X10*3/uL [...] te Reviewed date:03/11/2024 02:33:07 PM Interpretation: Performing Lab:[facility], [address] [place] [address] Notes/Report: Erythrocyte Sedimentation Rate 13 0-15 MM/HR Patients with polycythemia and many hemoglobin abnormalities may have depressed sed rates whereas patients with anemia may have elevated sed rates. Comprehensive Met. Panel Reviewed date:03/11/2024 02:33:07 PM Interpretation: Performing Lab:[address] [address] Notes/Report: Sodium 143 135-145 mmol/L Potassium 3.7 [...] Panel Reviewed date:03/21/2024 06:28:51 AM Interpretation: Performing Lab:[address] [address] Notes/Report: Sodium 139 135-145 mmol/L Potassium 4.0 [...] um Reviewed date:03/28/2024 09:26:04 AM Interpretation: Performing Lab:[address] [place] [address] Notes/Report: Prot Elec - Total Protein 3.6 [...] clinical diagnosis. THIS TEST WAS PERFORMED AT: [facility] [address] [place] [phone] REMINGTON WILLIAMSON MD Complement C3 Reviewed date:03/21/2024 06:28:51 AM Interpretation: Performing Lab:[address] [address] Notes/Report: Complement C3 151 82-185 mg/dL THIS TEST WAS PERFORMED AT: [facility] [address] [place] [phone] REMINGTON WILLIAMSON MD Complement C4 Reviewed date:03/21/2024 06:28:51 AM Interpretation: Performing Lab:[facility], [address] [place] [address] Notes/Report: Complement C4 35 15-53 mg/dL THIS TEST WAS PERFORMED AT: [facility] [address] [place] [phone] REMINGTON WILLIAMSON MD Phospholipase A2 Receptor Pn l Reviewed date:03/28/2024 09:26:04 AM Interpretation: Performing Lab:[address] [address] Notes/Report: Phospholipase A2 IgG SUSU <4 Reference Range: <14: NEGATIVE 14-19: BORDERLINE >19: POSITIVE Phospholipase A2 IgG IFA NEGATIVE NEGATIVE THIS TEST WAS PERFORMED AT: [facility] [address] [place] [address] EVAN SOMMER MD,PHD,VALERIO Basic Metabolic Panel Reviewed date:03/28/2024 09:26:04 AM Interpretation: Performing Lab:[facility], [address] [place] [phone] Notes/Report: Sodium 141 135-145 mmol/L Potassium 3.8 [...] Urine Reviewed date:03/28/2024 09:26:04 AM Interpretation: Performing Lab:[facility], [address] [place] [phone] Notes/Report: Creatinine Urine 71.15 Total Protein Urine Random Reviewed date:03/28/2024 09:26:04 AM Interpretation: Performing Lab:[facility], [address] [place] [address] Notes/Report: Total Protein Urine Random 409 <12 mg/dL Urinalysis and Microscopic Reviewed date:04/01/2024 06:09:31 PM Interpretation: Performing Lab:[facility], [address] [place] [address] Notes/Report: Color Urine Dark Yellow Appearance Urine Clear PH 7.0 5.0-9.0 Glucose Urine UA 500 Negative mg/dL Urine Blood Trace Negative Specific Edson - Urine 1.025 1.005-1.025 Urine Protein >=1000 [...] Urine Reviewed date:04/01/2024 06:09:32 PM Interpretation: Performing Lab:[facility], [address] [place] [phone] Notes/Report: Creatinine Urine 166.67 Total Protein Urine Random Reviewed date:04/01/2024 06:09:32 PM Interpretation: Performing Lab:[facility], [address] [place] [phone] Notes/Report: Total Protein Urine Random 1569 <12 mg/dL XR chest 2V Reviewed date:04/21/2024 09:08:31 AM Interpretation: Performing Lab: Notes/Report: [facility] [address] [place] [address] [place] [address] XRay Report Signed Patient: Claudy Berger Jr MR#: [id number] : 1965 Acct:[id number] Age/Sex: 58 / M ADM Date: 04/12/24 [facility] Dr: Anthony Otero MD Ordering Physician: Anthony Otero MD Date of Service: 04/12/24 Procedure(s): XR chest 2V Accession Number(s): [id number] cc: Anthony Otero MD EXAMINATION: XR CHEST [...] MD 04/16/2024 08:58 AM [facility] Dictated By: Kris Zabala MD Signed By: <Electronically signed by Kris Zabala MD in OV> 04/16/24 0858 DD/ 1619 TD/TT: 04/12/24 1625 Spooling Machine Operator: [facility] [address] [place] [address] [place] [address] XRay Report Signed Patient: Chandan Berger Jr MR#: [id number] : 1965 Acct:[id number] Age/Sex: 58 / M ADM Date: 04/12/24 Loc: [facility] Attending Dr: Anthony Otero MD Ordering Physician: Anthony Otero MD Date of Service: 04/12/24 Procedure(s): XR man st 2V Accession Number(s): [id number] cc: Anthony Otero MD EXAMINATION: XR CHEST [...] MD 04/16/2024 08:58 AM [facility] Dictated By: Kris Zabala MD Signed By: <Electronically signed by Kris Zabala MD in OV> 04/16/24 0858 DD/ 1619 TD/TT: 04/12/24 1625 Spooling Machine Operator: Complete Blood Count Auto Di ff Reviewed date:05/02/2024 08:46:40 PM Interpretation: Performing Lab:[facility], [address] [place] [address] Notes/Report: White Blood Count 3.6 4.8-10.8 X10*3/uL [...] Microscopic Reviewed date:05/02/2024 08:46:40 PM Interpretation: Performing Lab:[facility], [address] [place] [phone] Notes/Report: Color Urine Yellow Appearance Urine Clear PH 7.5 5.0-9.0 Glucose Urine UA Negative Negative mg/dL Urine Blood Negative Negative Specific Edson - Urine 1.020 1.005-1.025 Urine Protein 300 (3+) Neg-Trace mg/dL Urine Ketones Negative Negative mg/dL Nitrite Urine Negative Negative Leukocyte Esterase Urine Negative Negative RBC Urine 0-2 0-2 /HPF WBC Urine 0-5 0-5 /HPF Squamous Epithelial Cell Urine 0-2 0-2 /HPF Bacteria Urine None Seen None Seen Hyaline Casts Urine 0-2 0-2 /LPF Comprehensive [place]. Panel Fa st Reviewed date:05/02/2024 08:46:40 PM Interpretation: Performing Lab:[address] [address] Notes/Report: Sodium 141 135-145 mmol/L Potassium 3.9 [...] Peptide Reviewed date:05/02/2024 08:46:40 PM Interpretation: Performing Lab:[address] [address] Notes/Report: B Type Natriuretic Peptide 12 <100 pg/mL For those patients who are being treated with Natrecor (nesiritide, recombinant BNP), BNP testing should be performed at least two hours post treatment in order to ensure that only endogenous levels of BNP are detected. Microalbumin, Random Reviewed date:05/02/2024 08:46:40 PM Interpretation: Performing Lab:[address] [address] Notes/Report: Creatinine Urine 125.53 Microalbumin Urine > 2000.0 Microalbum/Creatinine Ratio Ur 1593.2 <30 ug/mg cr Albumin/Creatinine Ratio Reference Ranges: Normal: < 30 ug/mg creatinine Microalbuminuria: 30 - 300 ug/mg creatinine Clinical Albuminuria: > 300 ug/mg creatinine Creatinine Urine Reviewed date:05/02/2024 08:46:40 PM Interpretation: Performing Lab:[address] [address] Notes/Report: Creatinine Urine 124.68 Total Protein Urine Random Reviewed date:05/02/2024 08:46:40 PM Interpretation: Performing Lab:[address] [address] Notes/Report: Total Protein Urine Random 346 <12 mg/dL Hemoglobin A1c Reviewed date:05/02/2024 08:46:40 PM Interpretation: Performing Lab:[facility], [address] [place] [phone] Notes/Report: Hemoglobin A1c % 6.5 <6.0 % [...] average glucose, using the formula of the V0F-Mvtblik Average Glucose study (ADAG), Diabetes Care, Vol.31,#8, Sep. 2007 Urinalysis and Microscopic ( Not yet reviewed by provider) Interpretation: Performing Lab:[facility], [address] [place] [phone] Notes/Report: Color Urine Yellow Appearance Urine Clear PH 7.5 5.0-9.0 Glucose Urine UA Negative Negative mg/dL Urine Blood Negative Negative Specific Edson - Urine 1.010 1.005-1.025 Urine Protein 300 (3+) Neg-Trace mg/dL Urine Ketones Negative Negative mg/dL Nitrite Urine Negative Negative Leukocyte Esterase Urine Negative Negative RBC Urine 0-2 0-2 /HPF WBC Urine 0-5 0-5 /HPF Squamous Epithelial Cell Urine 0-2 0-2 /HPF Bacteria Urine None Seen None Seen Hyaline Casts Urine 0-2 0-2 /LPF Basic Metabolic Panel (Not y et reviewed by provider) Interpretation: Performing Lab:[facility], [address] [place] [phone] Notes/Report: Sodium 141 135-145 mmol/L Potassium 4.1 3.3-5.1 mmol/L Chloride 109 96-108 mmol/L Carbon Dioxide 26 22-29 mmol/L Anion Gap 10 12-20 Blood Urea Nitrogen 13 9-16 mg/dL Creatinine 0.77 0.5-1.4 mg/dL Estimated Glomerular Filt Rate > 60 Chronic Kidney Disease: Estimated GFR < 60 mL/min/1.73m2 Severe Kidney Disease: Estimated GFR < 15 mL/min/1.73m2 Glucose Random 104 60-115 mg/dL Calcium 8.7 8.4-10.2 mg/dL Reason For Referral No Information Medications Medication [...] Problem Status W/U Status Risk Notes Problem 215516114 Other neutropenia (D70.8) Active confirmed His white blood cell count is stable. The value will be followed carefully periodically . He has had no infections recently. Problem 057845576 Mixed hyperlipidemia (E78.2) Active confirmed His lipids will be evaluated periodically . Statin will be considered. Problem 403028333209273 Primary osteoarthritis, right shoulder (M19.011) Active confirmed Problem 494095564494046 Primary osteoarthritis, left shoulder (M19.012) Active confirmed Problem 22540432 Essential hypertension (I10) Active confirmed His blood pressure is now in the normal range. He has lost 52 pounds mostly fluid. The vital signs will be obtained and followed periodically . Problem 757219302 History of cholecystectomy (Z90.49) Active confirmed Problem 917097002 Chronic insomnia (F51.04) Active confirmed He reports that he is now able to sleep again since the refractory cough has resolved. Problem Nephrotic syndrome (28731071) Nephrotic syndrome (N04.9) Active confirmed He is markedly improved. He is now being managed by nephrology on a reduced dose of prednisone. He is taking torsemide instead of furosemide. Problem 519179016 History of inguinal hernia (Z87.19) Active confirmed Problem 95491811216358707 Bilateral carp al tunnel syndrome (G56.03) Active confirmed Problem 957895057 History of asthma (Z87.09) Active confirmed He did not give a history of asthma but this was documented no records. This will be further pursued. He does not require treatment at this time. Problem 031054314 Diabetes mellitus without complication (E11.9) Active confirmed He is on a reduced dose of prednisone. He has been compliant with his metformin. Prior to his next visit he will have a hemoglobin A1c. Problem 848762406 Obesity, class 2 (E66.812) Active confirmed Problem 55669061579702918 History of Ojeda's esophagus (Z87.19) Active confirmed He has reported no recent history of dysphagia or esophageal pain. He will need to have upper endoscopy periodically . Problem 865818157 Ascending aorta dilation (I77.810) Active confirmed This is a finding on a recent echocardiogr am. He is asymptomatic . The ascending aortic diameter was 3.9 cm. He will be observed. 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 myelopathy or radiculopathy M47.813 Anthony Otero III, MD [address] [place] [address] [place] [address] 03/07/2024 Anthony Ochoane Mixed hyperlipidemia E78.2 ; Nephrotic syndrome N04.9 ; Other neutropenia D70.8 ; Essential hypertension I10 and Diabetes mellitus without complication E11.9 Anthony Otero III, MD [address] [place] [address] [place] [address] 03/28/2024 Anthony Otero Nephrotic syndrome N 04.9 ; Essential hypertension I10 ; Diabetes mellitus without complication E11.9 ; Other neutropenia D70.8 and Mixed hyperlipidemia E78.2 Anthony Otero III, MD [address] [place] [address] [place] [address] 04/03/2024 Anthony Otero Nephrotic syndrome N 04.9 ; Essential hypertension I10 ; Mixed hyperlipidemia E78.2 and Diabetes mellitus without complication E11.9 Anthony Otero III, MD [address] [place] [address] [place] [address] 04/09/2024 Anthony Otero Nephrotic syndrome N 04.9 ; Acute viral syndrome B34.9 ; Persistent cough R05.3 ; Diabetes mellitus without complication E11.9 and Mixed hyperlipidemia E78.2 Anthony Otero III, MD [address] [place] [address] [place] [address] 04/16/2024 Anthony Branden Nephrotic syndrome N 04.9 ; Diabetes mellitus without complication E11.9 ; Mixed hyperlipidemia E78.2 ; Essential hypertension I10 ; Ascending aorta dilation I77.810 ; Chronic insomnia F51.04 ; History of Ojeda's esophagus Z87.19 and Viral syndrome B34.9 Anthony Otero III, MD [address] [place] [address] [place] [address] 05/06/2024 Anthony Otero Nephrotic syndrome N 04.9 ; Mixed hyperlipidemia E78.2 ; Other neutropenia D70.8 and Essential hypertension I10 Anthony Otero III, MD [address] [place] [address] [place] [address] 02/29/2024 Anthony Otero III, MD [address] [place] [address] [place] [address] 03/01/2024 Anthony Otero III, MD [address] [place] [address] [place] [address] 03/04/2024 Anthony Otero III, MD [address] [place] [address] [place] [address] 03/04/2024 Anthony Otero III, MD [address] [place] [address] [place] [address] 03/20/2024 Anthony Otero III, MD [address] [place] [address] [place] [address] 04/17/2024 Anthony Otero Assessments Encounter Date Diagnosis [...] (ICD-10 - N04.9) In the past his biscuit maker has been Dr. Lionel Henson. He has not been seen in several years. An appointment has been made for him by Dr. Fenton to see the biscuit maker at [facility] later this month. He does appear [...] sampled. I will discuss him with the biscuit maker at [facility] with whom he has the appointment [...] I have reviewed the case with a biscuit maker and strongly recommended he see the patient [...] D70.8) Review of laboratory data in the [facility] database shows he is mildly but [...] DIFF 03/07/2024 CBC WITH AUTO DIFF 02/29/2024 Urinalysis and Microscopic 06/01/2024 Basic Metabolic Panel 06/01/2024 Lipid Panel 05/06/2024 Microalbumin, Random 03/28/2024 Protein 24 Hour Urine 02/29/2024 Hemoglobin A1c 03/28/2024 Next Appt Details Provider Name:Anthony Otero, 07/17/2024 04:15:00 PM, [address] [place] [address] [address], [place], [address], Provider Name:Anthony Otero, 03/10/2025 04:15:00 PM, [address] [place] [address] [address], [place], [address], Insurance Providers Payer Name Payer Address Payer Phone Subscriber Number Group Number Insured Name Patient Relationship to Insured Coverage Start Date Coverage End Date [employer] [place] [address] [address] [place] [address] [id number] Claudy Berger Self - patient is the [...] 2022 Focal segmental glomerulosclerosis, yash l biopsy, Normal cardiac catheterization January 26, 2018 [facility] Surgical History Surgery Date(Month/Year) No history Bilateral inguinal herniorrhaphies Tubular adenoma colonoscopy 2012, Dr. Dimple Hidalgo Upper endoscopy and colonoscopy 2018 Elbow surgery Bilateral shoulder arthroscopies Carpal tunnel surgery on both hands Renal biopsy , remot e cholecystectomy age 24 Hospitalization History Reason Date(Month/Year) No history None reported
--- OUTSIDE RECORDS SUMMARY | 2024-06-03 17:32 | XMS_ITS ---
Author Organization Anthony Otero III, MD Address [address] [place] [address] Care Team Providers Care State Assessed Properties Director Name Role Phone Anthony Otero Primary Care Provider REASON FOR VISIT New Refill Request Social History Sex Assigned At : Social History Observation Description Sex Assigned At Male Encounters Encounter Location Date Provider Diagnosis Anthony Otero III, MD [address] [place] [address] [place] [address] 04/17/2024 Anthony Otero Plan Of Treatment Next Appt Details Provider Name:Anthony Otero, 07/17/2024 04:15:00 PM, [address] [place] [address] [place], [address], Provider Name:Anthony Otero, 03/10/2025 04:15:00 PM, [address] [place] [address] [place], [address], Progress Notes * Claudy HANLEY JrDOB:[birth year] (58 yo M)Acc No.[id number]:04/17/2024 Patient:?Claudy HANLEY Jr :1965???Age:58 Y???Sex:Male Address:[place], [address] * true * Date:? Generated for Printi ng/Faxing/eTransmitting on:?06/03/2024 05:32 PM EDT
--- OUTSIDE RECORDS SUMMARY | 2024-06-03 17:32 | XMS_ITS | Patient Health Record ---
Author Organization [facility] Address [address] [place] [address] Care Team Providers Care Superintendent Electric Power Name Role Phone Irvin Rosen MD Primary Care Provider Anthony Lantigua Unavailable [phone] Allergies No Known Allergies Reason For Referral [...] Problem Status W/U Status Risk Notes Problem 906845517 Encounter for screening for malignant neoplasm of colon (Z12.11) Active confirmed Problem 805156865 History of adenomatous polyp of colon (Z86.010) Active confirmed Problem Diverticular disease of colon (329745557) Diverticulosis of large intestine without perforation or abscess without bleeding (K57.30) Active confirmed Problem Gastroesophageal reflux disease (485103277) Gastroesophageal reflux disease (K21.9) Active confirmed Problem 717680395 Gastroesophageal reflux disease, esophagitis presence not specified (K21.9) Active confirmed Problem 480826036 Irregular bowel habits (R19.8) Active confirmed Problem Ojeda esophagus (692837784) 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 Problem 675702158 Abdominal pain, generalized (R10.84) Active confirmed Problem 872163931 Ojeda''s esophagus without dysplasia (K22.70) Active confirmed Problem 92847109 Chronic gastric ulcer without hemorrhage and without [...] [employer] [place] [address] [address] [place] [address] [id number] 3 DAYAN AMAN Self - patient is the insured Medical (General) History Medical History History ICD Code Denies [place],DM,CVA,Lung disease Hypertension Nephrotic syndrome- Dr. Henson Hyperlipidemia [...]
--- OUTSIDE RECORDS SUMMARY | 2024-06-03 17:32 | XMS_ITS ---
Author Organization Anthony Otero III, MD Address [address] [place] [address] Care Team Providers Care Network Control Technician Name Role Phone Anthony Otero Primary [...] HCl 500 MG 1 tablet with a amriah l Orally Once a day Active Benzonatate [...] Date Provider Diagnosis Anthony Otero III, MD [address] [place] [address] [place] [address] 04/16/2024 Anthony Otero Nephrotic syndrome N 04.9 [...] visit Provider Name:Anthony Otero, 07/17/2024 04:15:00 PM, [address] [place] [address] [address], [place], [address], Provider Name:Anthony Otero, 03/10/2025 04:15:00 PM, [address] [place] [address] [address], [place], [address], Progress Notes * Claudy HANLEY JrDOB:[birth year] (58 yo M)Acc No.[id number]:04/16/2024 Patient:?Claudy HANLEY Provider:?Anthony Otero MD :1965???Age:58 Y???Sex:Male Gavin e:04/16/2024 Address:[address] [place] [address] [facility] [facility] Subjective: * Chief Complaints: * ???Nephrotic syndromeHyperte [...] weeks. ?Telehealth?Location of provider rendering services:?{...} [address] [facility] [address] ?Location of patient:?address listed in demographics for [...] Surgical History:?cholecyste ctomy age 24 Renal biopsy [facility], remote Carpal tunnel surgery on both hands [...] Control (Standard)?Tobacco use:?Nonsmoker ?He was born in [facility].? He has been to [facility] for 15 years.? He has no children.? 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 He has no orthodoxy objection to blood transfusion.? He does not [...] (Ref Range: mg/dL) * Lab:Total Protein Urine Warren om * Collection Date 04/01/2024 03/25/2024 Collection Time 12:21 PM 09:45 AM Order Date 04/01/2024 03/25/2024 Total Protein Urine Random 1569?H (Ref Range: <12 mg/dL) 409?H (Ref Range: <12 mg/dL) ???Lab:Urinalysis and Microscopic (Order Date - 04/01/2024) (Collection Date & Time - 04/01/2024 12:21 PM)?ValueReference Range?Color UrineDark Yellow-?RBC Wbyqs9-1M8-5 - /HPF?Appearance UrineClear-?PH 7.05.0-9.0 -?Glucose Urine PX623GNusxonxy - mg/dL?Urine BloodTrace ANegative -?Specific [place] - Urine1.0251.005-1.025 -?Urine Protein>=1000 (4+)ANeg-Trace - mg/dL?Urine [...] & Time - 03/18/2024 11:17 AM)?ValueReference Range?Complement N07456-26 - mg/dL ???Lab:Phospholipase A2 Receptor Pnl (Order [...] & Time - 03/18/2024 11:17 AM)?ValueReference Range?Complement D372588-301 - mg/dL ???Lab:Erythrocyte Sedimentation Rate (Order Date - 03/11/2024) (Collection Date & Time - 03/11/2024 11:38 AM)?ValueReference Range?Erythrocyte Sedimentation Ozwg692-75 - MM/HR ???Lab:Protein, 24 Hr Urine Group (Order Date - 03/02/2024) (Collection Date & Time - 03/02/2024 09:00 AM)?ValueReference Range?Protein 24 Hr Nmbed45348L<150 - mg/Day?Protein mg/aM9903- mg/dL?Creatinine, 24Hr Urine2.2H1.0-2.0 - G/Day?Total Volume 24 Hour Syfvp9731- mL ?Creatinine, mg/dL113.30- * Lab:Complete Blood Count [...] Otero MD Date:?03/30 Generated for Lety garrett/Azam/Dannielle on:?06/03/2024 05:32 PM EDT History and Physical Notes * HPI (History of Present Illness) Category Sub-Category Detail Notes Telehealth Location of [facility] rendering services:: {...} [address] [place] [id number] Location of patient:: address listed in demographics [...]
--- OUTSIDE RECORDS SUMMARY | 2024-06-03 17:32 | XMS_ITS ---
Author Organization Anthony Otero III, MD Address [address] [place] [address] Care Team Providers Care Movie Star Name Role Phone Anthony Otero Primary Care [...] Provider Diagnosis Anthony Otero III, MD [address] [place] [address] [place] [address] 05/06/2024 Anthony Otero Nephrotic syndrome N 04.9 [...] labs Provider Name:Anthony Otero, 07/17/2024 04:15:00 PM, [address] [place] [address] [address], [place], [address], Provider Name:Anthony Otero, 03/10/2025 04:15:00 PM, [address] [place] [address] [address], [place], [address], Progress Notes * Claudy HANLEY JrDOB:[birth year] (58 yo M)Acc No.[id number]:05/06/2024 Progress Notes Patient:?Claudy HANLEY Jr Provider:?Anthony Otero MD :1965???Age:58 Y???Sex:Male Gavin e:05/06/2024 Address:[address] [place] [address] [address] [place], [id number] Subjective: * Chief Complaints: * ???Nephrotic syndromeType [...] Renal biopsy [facility], remote Carpal tunnel surgery on both hands [...] Control (Standard)?Tobacco use:?Nonsmoker ?He was born in [facility].? He has been to [place] for 15 years.? He has no children.? 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 He has no uatsdin objection to blood transfusion.? He does not [...] Range: Negative) Trace?A (Ref Range: Negative) Specific [place] - Urine 1.020 (Ref Range: 1.005-1.025) 1.025 [...] AM)?ValueReference Range?Hemoglobin A1c %6.5H<6.0 - %?Estimated Average Ytvyism571- mg/dL ???Lab:Comprehensive [place]. Panel Fast (Order Date - 05/02/2024) (Collection Date & Time - 05/02/2024 06:35 AM)?ValueReference Range?Owuvpn294452- 145 - mmol/L?Bilirubin Total0.50.0-1.0 - mg/dL?Aspartate Amino Ipvwexvmbkb757-89 - U/L?Alanine Kmlhcjtkmhemrhxn78E1-34 - U/L ?Total Protein5.5L6.5-8.0 - g/dL?Albumin Level3.3L3.5-5.0 - g/dL ?Alkaline Ongyqilmcsx0877-216 - U/L?Potassium3.93.3-5.1 - mmol/L ?Qxweqgse90528-303 - mmol/L?Carbon Ogxpbli5999-07 - mmol/L ?Anion Nye8408-37 -?Blood Urea Iunxerfp70C6-21 - mg/dL ?Creatinine0.750.5-1.4 - mg/dL?Estimated Glomerular Filt Rate> 60- ?Glucose Tdxprzb820F45-59 - mg/dL?Calcium8.58.4-10.2 - mg/dL ???Lab:B Type Natriuretic Peptide (Order Date - 05/02/2024) (Collection Date & Time - 05/02/2024 06:35 AM)?ValueReference Range?B Type Natriuretic Hpxyfcs82<100 - pg/mL ???Lab:Microalbumin, Random (Order Date - 05/02/2024) (Collection Date & Time - 05/02/2024 06:35 AM)?ValueReference Range?Creatinine Qkigv714.53- mg/dL?Microalbumin Urine> 2000.0- mg/L?Microalbum Creatinine Ratio Rw9000.2H<30 - ug/mg cr * Lab:Total Protein Urine [place] om * Collection Date 05/02/2024 04/01/2024 03/25/2024 [...] & Time - 03/18/2024 11:17 AM)?ValueReference Range?Complement W39010-13 - mg/dL ???Lab:Phospholipase A2 Receptor Pnl (Order Date - 03/18/2024) (Collection Date & Time - 03/18/2024 11:17 AM)?ValueReference Range?Phospholipase A2 IgG SUSU<4- RU/mL?Phospholipase A2 IgG IFANEGATIVENEGATIVE - ???Imaging:XR chest 2V (Order Date - 04/12/2024) (Performed Date - 04/12/2024) ???Lab:Protein, 24 Hr Urine Group (Order Date - 03/02/2024) (Collection Date & Time - 03/02/2024 09:00 AM)?ValueReference Range?Protein 24 Hr Fwoid42611X<150 - mg/Day?Protein mg/mR1961- mg/dL?Creatinine, 24Hr Urine2.2H1.0-2.0 - G/Day?Total Volume 24 Hour Mescw8860- mL ?Creatinine, mg/dL113.30- * Lab:Comprehensive Met. Panel [...] Time - 03/11/2024 11:38 AM)?ValueReference Range?Erythrocyte Sedimentation Kark703-26 - MM/HR ???Lab:Complement C3 (Order Date - 03/18/2024) (Collection Date & Time - 03/18/2024 11:17 AM)?ValueReference Range?Complement L397673-943 - mg/dL ???Lab:Protein Electrophoresis, Serum (Order Date [...] Otero MD Date:?04/27 Generated for Lety garrett/Azam/eTtroysmitting on:?06/03/2024 05:32 PM EDT History and Physical [...]
== END 2024-06-03 14:54 | disposition home or self-care (01) ==
LOC: HO.HOS 14:41
PROVIDERS: PCP Internal Medicine Medical Oncology; Visit Provider Orthopaedic Surgery
DX: M75.101 Unspecified rotator cuff tear or rupture of right shoulder, not specified as traumatic (principal); M75.102 Unspecified rotator cuff tear or rupture of left shoulder, not specified as traumatic
CPT/HCPCS: 20610; 99214

== ENCOUNTER → 2024-06-03 14:40 | Outpatient (BNVA) | payer OTHER, SELFPAY | PROVIDERS: PCP Internal Medicine Medical Oncology; Visit Provider Orthopaedic Surgery | DX: M75.101 Unspecified rotator cuff tear or rupture of right shoulder, not specified as traumatic (principal); M75.102 Unspecified rotator cuff tear or rupture of left shoulder, not specified as traumatic | CPT/HCPCS: 20610; J0665; J1100; J2003 ==

== ENCOUNTER → 2024-06-05 13:38 | Outpatient (REF) | payer OTHER, SELFPAY ==
--- NOTE | 2024-06-05 13:40 | CA_ITS ---
Transthoracic Echocardiogram Patient (Last, First, Middle): Claudy Berger J Gender: Male Date of : 1965 Age: 58 Procedure Date: 06/05/2024 Procedure Type: Transthoracic Echocardiogram Location: OP Height: 177.8 cm Weight: 101.61 kg BSA: 2.19 m2 Heart Rate: bpm BP: 140 / 90 mmHg Issue Clerk: PARMINDER Referring MD: Nabeel Alcaraz MD Senior Oracle Database Administrator: Chinedu Cline MD Symptoms: I77.810 - Thoracic aortic ectasia Study Quality: Adequate ECG Rhythm: Sinus Conclusions: - 1. Normal LV ejection fraction of 65-70% with impaired relaxation filling pattern 2. Normal cardiac valvular Dopplers 3. Mildly dilated ascending aorta at 3.9 cm 4. Normal RV systolic pressure 5. No gross pericardial effusion Findings Left Ventricle Normal left ventricular size, thickness, and systolic function. The visually estimated ejection fraction is between 65-70%. Spectral Doppler is indicative of an impaired relaxation filling pattern. E/E prime ratio is between 8 and 15 consistent with indeterminate filling pressures. Right Ventricle Normal right ventricular cavity size and systolic function. Atria The left atrium is likely dilated. There is no evidence of interatrial shunt. The right atrium is normal in size. Aortic Valve Normal aortic valve structure and function. There is no aortic valve stenosis. There is no aortic valve regurgitation. Mitral Valve Normal mitral valve structure and function. There is trace mitral valve regurgitation. There is no mitral valve stenosis. Pulmonic Valve The pulmonic valve was not well visualized. Tricuspid Valve Normal tricuspid valve structure. There is trace tricuspid valve regurgitation. The right ventricular systolic pressure is normal. The right ventricular systolic pressure is 26 mmHg. Normal right atrial pressure. There is no evidence of pulmonary hypertension. Great Vessels The pulmonary artery was not well visualized. There is mild dilatation of the ascending aorta measuring 3.90 cm. Venous The inferior vena cava is normal in size. Inferior vena cava flow is normal. Pericardium/Pleural There is no evidence of pericardial effusion. Prior Study Comparison No significant change compared to prior study dated: 10/06/2022. Measurements 2D Linear Measurements IVSd: 0.96 0.6-0.9/0.6-1.0 cm LVIDd: 5.21 3.9-5.3/4.2-5.9 cm LVIDd Index: 2.38 2.4-3.2/2.2-3.1 cm/m2 LVIDs: 3.43 2.0-3.6 cm LVPWd: 0.86 0.7-1.1 cm LA Diam: 4.20 2.7-3.8/3.0-4.0 cm LAIDs Index: 1.92 1.5-2.3 cm/m2 LV Mass: 213.94 67-162/88-224 g LV Mass Index: 97.69 43-95/49-115 g/m2 LVOT Diam: 2.40 3.0+(-)1.3 cm 2D Systolic Function EF 4C: 70.10 >55% EF 2C: 60.80 >55% EF BiP: 68.10 >55% Mitral Valve MV Pk E: 0.96 MV PK A: 0.90 MV Decel Time: 295.00 E/A: 1.10 E'Lateral: 8.92 E'Medial: 6.74 E/E' Med: 14.30 E/E' Lat: 10.80 PHT: 86.00 MVA PHT: 2.56 Decel Schuyler: 3.27 Aortic Valve AoV Pk Bakari: 1.71 AoV Mn Bakari: 1.26 AoV VTI: 0.39 AoV Pk Grad: 12.00 Aov Mn Grad: 7.00 DELFINO Cont.VTI: 3.43 LVOT LVOT Pk Bakari: 1.42 LVOT Mn Bakari: 0.93 LVOT VTI: 0.30 LVOT Pk Grad: 8.00 LVOT Mn Grad: 4.00 LVOT Diam: 2.40 LVOT Area: 4.52 Diastolic Function MV Pk E: 0.96 MV Pk A: 0.90 E/A: 1.10 E'Medial: 6.74 E/E' Med: 14.30 E' Laterial: 8.92 E/E' Lat: 10.80 Right Ventricle TAPSE (mm): 29.60 TVS' Bakari: 16.80 Tricuspid Valve TR Pk Bakari: 2.14 TR Pk Grad: 18.00 RA Press: 8.00 RVSP: 26.00 Great Vessels Aorta Sinus of Valsalva: 3.92 2.0-3.[address] Ridge: 3.06 1.7-3.4 cm Ao Asc: 3.90 2.1-3.4 cm Ao Arch: 3.10 Updated in Other Vendor System with Status of Final Chinedu Cline MD electronically signed on 06/05/2024 3:08:17 PM with status of Final
--- OUTSIDE RECORDS SUMMARY | 2024-06-05 15:49 | XMS_ITS ---
Author Organization Anthony Otero III, MD Address [address] [place] [address] Care Team Providers Care Customer Specialist Name Role Phone Anthony Otero Primary [...] Date Provider Diagnosis Anthony Otero III, MD [address] [place] [address] [place] [address] 04/16/2024 Anthony Otero Nephrotic syndrome N 04.9 [...] visit Provider Name:Anthony Otero, 07/17/2024 04:15:00 PM, [address] [place] [address] [address], [place], [address], Provider Name:Anthony Otero, 03/10/2025 04:15:00 PM, [address] [place] [address] [address], [place], [address], Progress Notes * Claudy HANLEY JrDOB:[birth year] (58 yo M)Acc No.[id number]:04/16/2024 Patient:?Claudy HANLEY Provider:?Anthony Otero MD :1965???Age:58 Y???Sex:Male Gavin e:04/16/2024 Address:[address] [place] [address] [facility] [id number] Subjective: * Chief Complaints: * ???Nephrotic syndromeHyperte [...] weeks. ?Telehealth?Location of provider rendering services:?{...} [address] [facility] [address] ?Location of patient:?address listed in demographics for [...] Surgical History:?cholecyste ctomy age 24 Renal biopsy [facility], remote Carpal tunnel surgery on [...] Control (Standard)?Tobacco use:?Nonsmoker ?He was born in [facility].? He has been to [facility] for [facility] years.? He has no children.? 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 He has no hinduism objection to blood transfusion.? He does not [...] (Ref Range: mg/dL) * Lab:Total Protein Urine [place] om * Collection Date 04/01/2024 03/25/2024 Collection Time 12:21 PM 09:45 AM Order Date 04/01/2024 03/25/2024 Total Protein Urine Random 1569?H (Ref Range: <12 mg/dL) 409?H (Ref Range: <12 mg/dL) ???Lab:Urinalysis and Microscopic (Order Date - 04/01/2024) (Collection Date & Time - 04/01/2024 12:21 PM)?ValueReference Range?Color UrineDark Yellow-?RBC Ulasm6-0T7-3 - /HPF?Appearance UrineClear-?PH 7.05.0-9.0 -?Glucose Urine MX994YFpsiyrxe - mg/dL?Urine BloodTrace ANegative -?Specific [place] - Urine1.0251.005-1.025 -?Urine Protein>=1000 (4+)ANeg-Trace - mg/dL?Urine [...] & Time - 03/18/2024 11:17 AM)?ValueReference Range?Complement X93656-46 - mg/dL ???Lab:Phospholipase A2 Receptor Pnl (Order [...] & Time - 03/18/2024 11:17 AM)?ValueReference Range?Complement M948392-500 - mg/dL ???Lab:Erythrocyte Sedimentation Rate (Order Date - 03/11/2024) (Collection Date & Time - 03/11/2024 11:38 AM)?ValueReference Range?Erythrocyte Sedimentation Dvpz650-98 - MM/HR ???Lab:Protein, 24 Hr Urine Group (Order Date - 03/02/2024) (Collection Date & Time - 03/02/2024 09:00 AM)?ValueReference Range?Protein 24 Hr Yjyjn51675C<150 - mg/Day?Protein mg/vN8663- mg/dL?Creatinine, 24Hr Urine2.2H1.0-2.0 - G/Day?Total Volume 24 Hour Jzpud7096- mL ?Creatinine, mg/dL113.30- * Lab:Complete Blood Count [...] Otero MD Date:?03/30 Generated for Lety garrett/Azam/Dannielle on:?06/05/2024 03:49 PM EDT History and Physical Notes * HPI (History of Present Illness) Category Sub-Category Detail Notes Telehealth Location of [facility] rendering services:: {...} [address] [place] [address] Location of patient:: address listed in demographics [...]
--- OUTSIDE RECORDS SUMMARY | 2024-06-05 15:49 | XMS_ITS ---
Author Organization Anthony Otero III, MD Address [address] [place] [address] Care Team Providers Care Scrap Drop Engineer Name Role Phone Anthony Otero Primary Care Provider REASON FOR VISIT New Refill Request Social History Sex Assigned At : Social History Observation Description Sex Assigned At Male Encounters Encounter Location Date Provider Diagnosis Anthony Otero III, MD [address] [place] [address] [place] [address] 04/17/2024 Anthony Otero Plan Of Treatment Next Appt Details Provider Name:Anthony Otero, 07/17/2024 04:15:00 PM, [address] [place] [address] [place], [address], Provider Name:Anthony Otero, 03/10/2025 04:15:00 PM, [address] [place] [address] [place], [address], Progress Notes * Claudy HANLEY JrDOB:[birth year] (58 yo M)Acc No.[id number]:04/17/2024 Patient:?Claudy HANLEY Jr :1965???Age:58 Y???Sex:Male Address:[place], [address] * true * Date:? Generated for Printi ng/Faxing/eTransmitting on:?06/05/2024 03:49 PM EDT
--- OUTSIDE RECORDS SUMMARY | 2024-06-05 15:49 | XMS_ITS | Patient Health Record ---
Author Organization [facility] Address [address] [place] [address] Care Team Providers Care Weapons System Instrument Mechanic Name Role Phone Irvin Rosen MD Primary Care Provider Anthony Lantigua Unavailable [phone] Allergies No Known Allergies Reason For Referral [...] Problem Status W/U Status Risk Notes Problem 076425350 Encounter for screening for malignant neoplasm of colon (Z12.11) Active confirmed Problem 016164115 History of adenomatous polyp of colon (Z86.010) Active confirmed Problem Diverticular disease of colon (276322467) Diverticulosis of large intestine without perforation or abscess without bleeding (K57.30) Active confirmed Problem Gastroesophageal reflux disease (088669295) Gastroesophageal reflux disease (K21.9) Active confirmed Problem 890813273 Gastroesophageal reflux disease, esophagitis presence not specified (K21.9) Active confirmed Problem 322863160 Irregular bowel habits (R19.8) Active confirmed Problem Ojeda esophagus (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 [address] [place] [address] [id number] 3 DAYAN AMAN Self - patient is the insured Medical (General) History Medical History History ICD Code Denies VA,DM,CVA,Lung disease Hypertension Nephrotic syndrome- Dr. Henson Hyperlipidemia [...]
--- OUTSIDE RECORDS SUMMARY | 2024-06-05 15:49 | XMS_ITS | Patient Health Record ---
Author Organization Anthony Otero III, MD Address [address] [address] Care Team Providers Care Coffee Urn Attendant Name Role Phone Anthony Otero Primary Care Provider Allergies Allergen (clinical drug ingredient) Drug/Non Drug Allergy documented on EMR Reaction Allergy Type Onset Date Status Pain medication (uncoded) Unknown Allergy Active Results Component Value Reference Range Notes Protein, 24 Hr Urine Group Reviewed date:03/04/2024 09:18:29 AM Interpretation: Performing Lab:[facility], [address] [place] [phone] Notes/Report: 1900 [id number] 0900 1000 Protein 24 Hr Urine 67487 <150 mg/Day Protein mg/dL 1322 Creatinine, 24Hr Urine 2.2 1.0-2.0 G/Day Creatinine, mg/dL 113.30 Total Volume 24 Hour Urine 1900 Complete Blood Count Auto Di ff Reviewed date:03/05/2024 05:15:10 PM Interpretation: Performing Lab:[facility], [address] [place] [phone] Notes/Report: White Blood Count 7.5 4.8-10.8 X10*3/uL [...] Panel Reviewed date:03/05/2024 05:15:10 PM Interpretation: Performing Lab:[facility], [address] [place] [phone] Notes/Report: Sodium 141 135-145 mmol/L Potassium 4.0 [...] ff Reviewed date:03/11/2024 02:33:07 PM Interpretation: Performing Lab:[facility], [address] [place] [phone] Notes/Report: White Blood Count 6.4 4.8-10.8 X10*3/uL [...] te Reviewed date:03/11/2024 02:33:07 PM Interpretation: Performing Lab:[facility], [address] [place] [phone] Notes/Report: Erythrocyte Sedimentation Rate 13 0-15 MM/HR Patients with polycythemia and many hemoglobin abnormalities may have depressed sed rates whereas patients with anemia may have elevated sed rates. Comprehensive Met. Panel Reviewed date:03/11/2024 02:33:07 PM Interpretation: Performing Lab:[address] [address] Notes/Report: Sodium 143 135-145 mmol/L Potassium 3.7 [...] Panel Reviewed date:03/21/2024 06:28:51 AM Interpretation: Performing Lab:[address] [address] Notes/Report: Sodium 139 135-145 mmol/L Potassium 4.0 [...] um Reviewed date:03/28/2024 09:26:04 AM Interpretation: Performing Lab:[address] [place] [address] Notes/Report: Prot Elec - Total Protein 3.6 [...] clinical diagnosis. THIS TEST WAS PERFORMED AT: [email or web address] [address] [place] [phone] REMINGTON WILLIAMSON MD Complement C3 Reviewed date:03/21/2024 06:28:51 AM Interpretation: Performing Lab:[address] [address] Notes/Report: Complement C3 151 82-185 mg/dL THIS TEST WAS PERFORMED AT: [email or web address] [address] [place] [phone] REMINGTON WILLIAMSON MD Complement C4 Reviewed date:03/21/2024 06:28:51 AM Interpretation: Performing Lab:[facility], [address] [place] [address] Notes/Report: Complement C4 35 15-53 mg/dL THIS TEST WAS PERFORMED AT: [email or web address] [address] [place] [phone] REMINGTON WILLIAMSON MD Phospholipase A2 Receptor Pn l Reviewed date:03/28/2024 09:26:04 AM Interpretation: Performing Lab:[address] [address] Notes/Report: Phospholipase A2 IgG SUSU <4 Reference Range: <14: NEGATIVE 14-19: BORDERLINE >19: POSITIVE Phospholipase A2 IgG IFA NEGATIVE NEGATIVE THIS TEST WAS PERFORMED AT: [facility] [address] [place] [address] EVAN SOMMER MD,PHD,VALERIO Basic Metabolic Panel Reviewed date:03/28/2024 09:26:04 AM Interpretation: Performing Lab:[facility], [address] [place] [phone] Notes/Report: Sodium 141 135-145 mmol/L Potassium 3.8 [...] Urine Reviewed date:03/28/2024 09:26:04 AM Interpretation: Performing Lab:[facility], [address] [place] [phone] Notes/Report: Creatinine Urine 71.15 Total Protein Urine Random Reviewed date:03/28/2024 09:26:04 AM Interpretation: Performing Lab:[facility], [address] [place] [phone] Notes/Report: Total Protein Urine Random 409 <12 mg/dL Urinalysis and Microscopic Reviewed date:04/01/2024 06:09:31 PM Interpretation: Performing Lab:[facility], [address] [place] [phone] Notes/Report: Color Urine Dark Yellow Appearance Urine Clear PH 7.0 5.0-9.0 Glucose Urine UA 500 Negative mg/dL Urine Blood Trace Negative Specific [place] - Urine 1.025 1.005-1.025 Urine Protein >=1000 [...] Urine Reviewed date:04/01/2024 06:09:32 PM Interpretation: Performing Lab:[facility], [address] [place] [phone] Notes/Report: Creatinine Urine 166.67 Total Protein Urine Random Reviewed date:04/01/2024 06:09:32 PM Interpretation: Performing Lab:[facility], [address] [place] [phone] Notes/Report: Total Protein Urine Random 1569 <12 mg/dL XR chest 2V Reviewed date:04/21/2024 09:08:31 AM Interpretation: Performing Lab: Notes/Report: [facility] [address] [place] [address] [place] [address] XRay Report Signed Patient: Claudy Berger Jr MR#: [id number] : 1965 Acct:[id number] Age/Sex: 58 / M ADM Date: 04/12/24 [facility]: Anthony Otero MD Ordering Physician: Anthony Otero MD Date of Service: 04/12/24 Procedure(s): XR chest 2V Accession Number(s): [id number] cc: Anthony Otero MD EXAMINATION: XR CHEST [...] 04/16/24 0858 DD/ 1619 TD/TT: 04/12/24 1625 [employer]: [facility] [address] [place] [address] [place] [address] XRay Report Signed Patient: Chandan Berger Jr MR#: [id number] : 1965 Acct:[id number] Age/Sex: 58 / M ADM Date: 04/12/24 Loc: [facility] Attending Dr: Anthony Otero MD Ordering Physician: Anthony Otero MD Date of Service: 04/12/24 Procedure(s): XR man st 2V Accession Number(s): [id number] cc: Anthony Otero MD EXAMINATION: XR CHEST [...] 04/16/24 0858 DD/ 1619 TD/TT: 04/12/24 1625 [employer]: Complete Blood Count Auto Di ff Reviewed date:05/02/2024 08:46:40 PM Interpretation: Performing Lab:[facility], [address] [place] [phone] Notes/Report: White Blood Count 3.6 4.8-10.8 X10*3/uL [...] Microscopic Reviewed date:05/02/2024 08:46:40 PM Interpretation: Performing Lab:[facility], [address] [place] [phone] Notes/Report: Color Urine Yellow Appearance Urine Clear PH 7.5 5.0-9.0 Glucose Urine UA Negative Negative mg/dL Urine Blood Negative Negative Specific [place] - Urine 1.020 1.005-1.025 Urine Protein 300 (3+) Neg-Trace mg/dL Urine Ketones Negative Negative mg/dL Nitrite Urine Negative Negative Leukocyte Esterase Urine Negative Negative RBC Urine 0-2 0-2 /HPF WBC Urine 0-5 0-5 /HPF Squamous Epithelial Cell Urine 0-2 0-2 /HPF Bacteria Urine None Seen None Seen Hyaline Casts Urine 0-2 0-2 /LPF Comprehensive [place]. Panel Fa st Reviewed date:05/02/2024 08:46:40 PM Interpretation: Performing Lab:[address] [address] Notes/Report: Sodium 141 135-145 mmol/L Potassium 3.9 [...] Peptide Reviewed date:05/02/2024 08:46:40 PM Interpretation: Performing Lab:[address] [address] Notes/Report: B Type Natriuretic Peptide 12 <100 pg/mL For those patients who are being treated with Natrecor (nesiritide, recombinant BNP), BNP testing should be performed at least two hours post treatment in order to ensure that only endogenous levels of BNP are detected. Microalbumin, Random Reviewed date:05/02/2024 08:46:40 PM Interpretation: Performing Lab:[address] [address] Notes/Report: Creatinine Urine 125.53 Microalbumin Urine > 2000.0 Microalbum/Creatinine Ratio Ur 1593.2 <30 ug/mg cr Albumin/Creatinine Ratio Reference Ranges: Normal: < 30 ug/mg creatinine Microalbuminuria: 30 - 300 ug/mg creatinine Clinical Albuminuria: > 300 ug/mg creatinine Creatinine Urine Reviewed date:05/02/2024 08:46:40 PM Interpretation: Performing Lab:[address] [address] Notes/Report: Creatinine Urine 124.68 Total Protein Urine Random Reviewed date:05/02/2024 08:46:40 PM Interpretation: Performing Lab:[address] [address] Notes/Report: Total Protein Urine Random 346 <12 mg/dL Hemoglobin A1c Reviewed date:05/02/2024 08:46:40 PM Interpretation: Performing Lab:[facility], [address] [place] [phone] Notes/Report: Hemoglobin A1c % 6.5 <6.0 % [...] average glucose, using the formula of the [id number]-Odppdcf Average Glucose study (ADAG), Diabetes Care, Vol.31,#8, Sep. 2007 Urinalysis and Microscopic ( Not yet reviewed by provider) Interpretation: Performing Lab:[facility], [address] [place] [phone] Notes/Report: Color Urine Yellow Appearance Urine Clear PH 7.5 5.0-9.0 Glucose Urine UA Negative Negative mg/dL Urine Blood Negative Negative Specific [place] - Urine 1.010 1.005-1.025 Urine Protein 300 [...] y et reviewed by provider) Interpretation: Performing Lab:[facility], [address] [place] [phone] Notes/Report: Sodium 141 135-145 mmol/L Potassium 4.1 [...] Problem Status W/U Status Risk Notes Problem 716566607 Other neutropenia (D70.8) Active confirmed His white blood cell count is stable. The value will be followed carefully periodically . He has had no infections recently. Problem 368088968 Mixed hyperlipidemia (E78.2) Active confirmed His lipids will be evaluated periodically . Statin will be considered. Problem 716926166435125 Primary osteoarthritis, right shoulder (M19.011) Active confirmed Problem 219882310979677 Primary osteoarthritis, left shoulder (M19.012) Active confirmed Problem 34796518 Essential hypertension (I10) Active confirmed His blood pressure is now in the normal range. He has lost 52 pounds mostly fluid. The vital signs will be obtained and followed periodically . Problem 939859957 History of cholecystectomy (Z90.49) Active confirmed Problem 023631989 Chronic insomnia (F51.04) Active confirmed He reports that he is now able to sleep again since the refractory cough has resolved. Problem Nephrotic syndrome (89685498) Nephrotic syndrome (N04.9) Active confirmed He is markedly improved. He is now being managed by nephrology on a reduced dose of prednisone. He is taking torsemide instead of furosemide. Problem 188053337 History of inguinal hernia (Z87.19) Active confirmed Problem 13811862741053784 Bilateral carp al tunnel syndrome (G56.03) Active confirmed Problem 441691825 History of asthma (Z87.09) Active confirmed He did not give a history of asthma but this was documented no records. This will be further pursued. He does not require treatment at this time. Problem 078588238 Diabetes mellitus without complication (E11.9) Active confirmed He is on a reduced dose of prednisone. He has been compliant with his metformin. Prior to his next visit he will have a hemoglobin A1c. Problem 281048438 Obesity, class 2 (E66.812) Active confirmed Problem 48403660419030320 History of Ojeda's esophagus (Z87.19) Active confirmed He has reported no recent history of dysphagia or esophageal pain. He will need to have upper endoscopy periodically . Problem 672932341 Ascending aorta dilation (I77.810) Active confirmed This is a finding on a recent echocardiogr am. He is asymptomatic . The ascending aortic diameter was 3.9 cm. He will be observed. 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 radiculopathy M47.813 Anthony Otero III, MD [address] [place] [address] [place] [address] 03/07/2024 Anthony Ochoane Mixed hyperlipidemia E78.2 ; Nephrotic syndrome N04.9 ; Other neutropenia D70.8 ; Essential hypertension I10 and Diabetes mellitus without complication E11.9 Anthony Otero III, MD [address] [place] [address] [place] [address] 03/28/2024 Anthony Otero Nephrotic syndrome N 04.9 ; Essential hypertension I10 ; Diabetes mellitus without complication E11.9 ; Other neutropenia D70.8 and Mixed hyperlipidemia E78.2 Anthony Otero III, MD [address] [place] [address] [place] [address] 04/03/2024 Anthony Otero Nephrotic syndrome N 04.9 ; Essential hypertension I10 ; Mixed hyperlipidemia E78.2 and Diabetes mellitus without complication E11.9 Anthony Otero III, MD [address] [place] [address] [place] [address] 04/09/2024 Anthony Otero Nephrotic syndrome N 04.9 ; Acute viral syndrome B34.9 ; Persistent cough R05.3 ; Diabetes mellitus without complication E11.9 and Mixed hyperlipidemia E78.2 Anthony Otero III, MD [address] [place] [address] [place] [address] 04/16/2024 Anthony Branden Nephrotic syndrome N 04.9 ; Diabetes mellitus without complication E11.9 ; Mixed hyperlipidemia E78.2 ; Essential hypertension I10 ; Ascending aorta dilation I77.810 ; Chronic insomnia F51.04 ; History of Ojeda's esophagus Z87.19 and Viral syndrome B34.9 Anthony Otero III, MD [address] [place] [address] [place] [address] 05/06/2024 Anthony Otero Nephrotic syndrome N 04.9 ; Mixed hyperlipidemia E78.2 ; Other neutropenia D70.8 and Essential hypertension I10 Anthony Otero III, MD [address] [place] [address] [place] [address] 02/29/2024 Anthony Otero III, MD [address] [place] [address] [place] [address] 03/01/2024 Anthony Otero III, MD [address] [place] [address] [place] [address] 03/04/2024 Anthony Otero III, MD [address] [place] [address] [place] [address] 03/04/2024 Anthony Otero III, MD [address] [place] [address] [place] [address] 03/20/2024 Anthony Otero III, MD [address] [place] [address] [place] [address] 04/17/2024 Anthony Otero Assessments Encounter Date Diagnosis [...] (ICD-10 - N04.9) In the past his casing operator has been Dr. Lionel Henson. He has not been seen in several years. An appointment has been made for him by Dr. Fenton to see the casing operator at [facility] later this month. He does appear [...] sampled. I will discuss him with the casing operator at [facility] with whom he has the appointment [...] I have reviewed the case with a casing operator and strongly recommended he see the patient [...] D70.8) Review of laboratory data in the [facility] database shows he is mildly but [...] Details Provider Name:Anthony Otero, 07/17/2024 04:15:00 PM, [address] [place] [address] [address], [place], [address], Provider Name:Anthony Otero, 03/10/2025 04:15:00 PM, [address] [place] [address] [address], [place], [address], Insurance Providers Payer Name Payer Address Payer Phone Subscriber Number Group Number Insured Name Patient Relationship to Insured Coverage Start Date Coverage End Date [employer] [place] [address] [address] [place] [address] [id number] Claudy Berger Self - patient is the [...] Focal segmental glomerulosclerosis, yash l biopsy, [facility] Normal cardiac catheterization January 26, 2018 [facility] Surgical History Surgery Date(Month/Year) No history Bilateral inguinal herniorrhaphies Tubular adenoma colonoscopy 2012, Dr. Dimple Hidalgo Upper endoscopy and colonoscopy 2018 Elbow surgery Bilateral shoulder arthroscopies Carpal tunnel surgery on both hands Renal biopsy [facility], remot e cholecystectomy age 24 Hospitalization History Reason Date(Month/Year) No history None reported
--- OUTSIDE RECORDS SUMMARY | 2024-06-05 15:49 | XMS_ITS ---
Author Organization Anthony Otero III, MD Address [address] [place] [address] Care Team Providers Care Plant Safety Engineer Name Role Phone Anthony Otero Primary [...] Date Provider Diagnosis Anthony Otero III, MD [address] [place] [address] [place] [address] 05/06/2024 Anthony Otero Nephrotic syndrome N 04.9 [...] labs Provider Name:Anthony Otero, 07/17/2024 04:15:00 PM, [address] [place] [address] [address], [place], [phone], Provider Name:Anthony Otero, 03/10/2025 04:15:00 PM, [address] [place] [address] [address], [place], [address], Progress Notes * Claudy HANLEY JrDOB:[birth year] (58 yo M)Acc No.[id number]:05/06/2024 Progress Notes Patient:?Claudy HANLEY Jr Provider:?Anthony Otero MD :1965???Age:58 Y???Sex:Male Gavin e:05/06/2024 Address:[address] [place] [address] [address] [place], [phone] Subjective: * Chief Complaints: * ???Nephrotic syndromeType [...] Surgical History:?cholecyste ctomy age 24 Renal biopsy [facility], remote Carpal tunnel surgery on [...] Control (Standard)?Tobacco use:?Nonsmoker ?He was born in [facility].? He has been to [place] for 15 years.? He has no children.? 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 He has no christianity objection to blood transfusion.? He does not [...] Range: Negative) Trace?A (Ref Range: Negative) Specific [place] - Urine 1.020 (Ref Range: 1.005-1.025) 1.025 [...] AM)?ValueReference Range?Hemoglobin A1c %6.5H<6.0 - %?Estimated Average Sryhtxj957- mg/dL ???Lab:Comprehensive [place]. Panel Fast (Order Date - 05/02/2024) (Collection Date & Time - 05/02/2024 06:35 AM)?ValueReference Range?Shxohx323605- 145 - mmol/L?Bilirubin Total0.50.0-1.0 - mg/dL?Aspartate Amino Uwthjivfcbz883-17 - U/L?Alanine Siqffwtzmzbpaxtg84O8-38 - U/L ?Total Protein5.5L6.5-8.0 - g/dL?Albumin Level3.3L3.5-5.0 - g/dL ?Alkaline Dtprnpdqryh5022-251 - U/L?Potassium3.93.3-5.1 - mmol/L ?Nlhnhkvb00805-503 - mmol/L?Carbon Zxsbttx8396-84 - mmol/L ?Anion Xon0204-29 -?Blood Urea Wnihxkrc79C5-86 - mg/dL ?Creatinine0.750.5-1.4 - mg/dL?Estimated Glomerular Filt Rate> 60- ?Glucose Aqfhkip403L38-76 - mg/dL?Calcium8.58.4-10.2 - mg/dL ???Lab:B Type Natriuretic Peptide (Order Date - 05/02/2024) (Collection Date & Time - 05/02/2024 06:35 AM)?ValueReference Range?B Type Natriuretic [place]17<100 - pg/mL ???Lab:Microalbumin, Random (Order Date - 05/02/2024) (Collection Date & Time - 05/02/2024 06:35 AM)?ValueReference Range?Creatinine Esxoz505.53- mg/dL?Microalbumin Urine> 2000.0- mg/L?Microalbum Creatinine Ratio Qf3824.2H<30 - ug/mg cr * Lab:Total Protein Urine [place] [facility] * Collection Date 05/02/2024 04/01/2024 03/25/2024 [...] & Time - 03/18/2024 11:17 AM)?ValueReference Range?Complement P83150-36 - mg/dL ???Lab:Phospholipase A2 Receptor Pnl (Order Date - 03/18/2024) (Collection Date & Time - 03/18/2024 11:17 AM)?ValueReference Range?Phospholipase A2 IgG SUSU<4- RU/mL?Phospholipase A2 IgG IFANEGATIVENEGATIVE - ???Imaging:XR chest 2V (Order Date - 04/12/2024) (Performed Date - 04/12/2024) ???Lab:Protein, 24 Hr Urine Group (Order Date - 03/02/2024) (Collection Date & Time - 03/02/2024 09:00 AM)?ValueReference Range?Protein 24 Hr Rltpd15174V<150 - mg/Day?Protein mg/qH8489- mg/dL?Creatinine, 24Hr Urine2.2H1.0-2.0 - G/Day?Total Volume 24 Hour Tqsli2800- mL ?Creatinine, mg/dL113.30- * Lab:Comprehensive Met. Panel [...] Time - 03/11/2024 11:38 AM)?ValueReference Range?Erythrocyte Sedimentation Yopb242-55 - MM/HR ???Lab:Complement C3 (Order Date - 03/18/2024) (Collection Date & Time - 03/18/2024 11:17 AM)?ValueReference Range?Complement W488748-673 - mg/dL ???Lab:Protein Electrophoresis, Serum (Order Date [...] Otero MD Date:?04/27 Generated for Lety garrett/Azam/eTtroysmitting on:?06/05/2024 03:49 PM EDT History and Physical [...]
== END ==
LOC: HO.CARD 13:38
PROVIDERS: PCP Internal Medicine Medical Oncology; Visit Provider Internal Medicine Cardiovascular Disease
DX: I77.810 Thoracic aortic ectasia (principal)
CPT/HCPCS: 93306

== ENCOUNTER → 2024-06-05 13:40 | Outpatient (BNV) | payer OTHER, SELFPAY | PROVIDERS: PCP Internal Medicine Medical Oncology; Visit Provider Internal Medicine Cardiovascular Disease | DX: I51.89 Other ill-defined heart diseases (principal); I77.810 Thoracic aortic ectasia | CPT/HCPCS: 93306 ==

== ENCOUNTER 2024-06-12 15:20 | Outpatient (AMB) | payer OTHER, SELFPAY ==
--- NOTE | 2024-06-12 15:23 | MHC.OFFVIS ---
Vital Signs 06/12/24 15:26 Height 5 ft 10 in Weight 225 lb 12.054 oz BMI 32.4 BP 120/70 Blood Pressure Location Lt brachial Position Sitting Pulse 72 Pulse Source Pulse Oximeter Intake Visit Reasons: 6 mth f/up echo Intake Note: 6 mth f/up-echo Claims Analyst Required: No Accompanied by: Self / Same As Patient Allergies most pain meds Allergy (Unknown, Uncoded 06/03/24 14:55) mild itching Medication List - Last Reconciled 06/12/24 by Nabeel Alcaraz MD albuterol sulfate 90 mcg/actuation inhalation PRN atorvastatin 40 mg PO DAILY citalopram 40 mg PO DAILY fenofibrate nanocrystallized 145 mg PO DAILY lisinopril 40 mg PO DAILY meclizine 12.5 mg PO BID PRN metformin ER 500 mg PO DAILY omeprazole 40 mg PO DAILY prednisone 5 mg PO DAILY zolpidem (Ambien) 10 mg PO BEDTIME PRN HPI Comments Details: 58-year-old gentleman with chronic right bundle-branch block, hypertension and hyperlipidemia who is presenting for assessment of chest discomfort. He was seen in 2018 when he presented with dyspnea and equivocal exercise stress test. After discussion she was taken for cardiac catheterization. He did not have any epicardial coronary artery stenosis. He did have some sluggish flow in the coronary arteries with unclear etiology. He has not followed up since then. Recently he had exercise stress testing performed for chest pressure. He has been experiencing chest pressure like feeling for the last 5 months. This is present on most days all the time. At time he gets worse after eating or when he is laying down. He has not had any worsening in symptoms with activity. He has gained weight. He has some shortness of breath with activity. He has known history of exercise induced asthma. He has not been using his inhalers. He again had exercise stress test which was inconclusive. He clearly did not have any ischemic EKG changes but also did not exercise for long time. 12/04/2023: He returns for follow-up. He continues to get a pressure-like feeling in his chest which lasts 4 weeks at times. No exertional component. He gets exertional dyspnea due to exercise-induced asthma but does not use inhalers before exercise or physical activity. Blood pressure is controlled. On last admission we decrease the lisinopril to 20 mg and added amlodipine 2.5 mg to see if his pressure would improve. I was thinking he may have esophageal spasm. He is saying that he has not use the amlodipine because he does not want to add another medication. After some discussion he is agreeable to start amlodipine and will send the script again. 06/12/2024: Here for follow-up. Denying chest pain or shortness of breath. Blood pressure well controlled. Repeat echocardiography has shown mild dilation of ascending aorta 3.9 cm which is stable compared to previous echocardiography from 2 years ago. [facility] Medical History (Updated 06/03/24 @ 17:57 by Amilcar Hartmann MD) Orbit injury, left GERD (gastroesophageal reflux disease) Left elbow tendonitis Back pain Nephrotic syndrome Elevated cholesterol HTN (hypertension) Anxiety Sleep apnea Asthma Surgical History Hx of elbow surgery Hx of esophagogastroduodenoscopy Hx of colonoscopy History of cholecystectomy History of arthroscopy of both shoulders History of bilateral carpal tunnel release H/O bilateral inguinal hernia repair Family History Father Heart disease Mother HTN (hypertension) Dementia Kidney disease Hypercholesteremia Social History Alcohol intake: current Alcohol intake frequency: a few times a month Alcohol type: beer Patient Tobacco Use Status: Never used Tobacco Review of Systems Const Denies chills, Denies fatigue, Denies fever(s), Denies frequent falls, Denies weakness, Denies weight gain and Denies weight loss ENT Denies dizziness Card Denies chest pain, Denies leg edema, Denies lightheadedness, Denies palpitations, Denies dyspnea and Denies dyspnea on exertion Resp Denies cough, Denies dyspnea and Denies dyspnea on exertion GI Denies hematochezia Musc Denies abnormal gait, Denies muscle weakness, Denies numbness, Denies radiating pain into limb and Denies tingling Neuro Denies abnormal gait, Denies dizziness, Denies frequent falls, Denies numbness, Denies tingling and Denies weakness Endo Denies fatigue and Denies palpitations Physical Exam Vital Signs: Last Vital Signs Pulse 72 06/12/24 15:26 BP 120/70 06/12/24 15:26 BMI result Body Mass Index 32.4 GENERAL APPEARANCE: in no acute distress, pleasant. NECK: no carotid bruit, no jugular venous distention. SKIN: no suspicious lesions, warm and dry. HEART: no murmurs, regular rate and rhythm. LUNGS: clear to auscultation bilaterally. ABDOMEN: soft, nontender. EXTREMITIES: no edema. PERIPHERAL PULSES: equal. NEUROLOGIC: No gross deficits, AAO X 3 Assessment & Plan Assessment & Plan (1) Ascending aorta dilatation: Code(s): I77.810 - Thoracic aortic ectasia Category: Medical Plan Pleasant 58 year gentleman who is here for follow-up. He had cardiac catheterization in 2018 which did not show any coronary disease. He was diagnosed with exercise-induced asthma and has been doing well with albuterol inhaler as needed. Blood pressure is well controlled. He has mild dilation of ascending aorta. He should have repeat echocardiography in 2-3 years. Overall he has been doing well from cardiovascular point of view and has no significant complaints currently. We discussed about follow-up PRN and he agrees with follow-up as needed from here onwards. He will need repeat echocardiography in 2-3 years. We will continue to follow up with his primary care physician. We will be available if there are any questions. Thank you for allowing me to participate in the care of your patient. Please feel free to contact me if you have any questions. Coding Level of Care Code Est Pt Level 4 (65007) Diagnoses Ascending aorta dilatation I77.810
[2024-06-12 15:26] VITALS: BP 120/70; PULSE 72; BMI 32.4
--- OUTSIDE RECORDS SUMMARY | 2024-06-12 17:51 | XMS_ITS ---
Author Organization Anthony Otero III, MD Address [address] [place] [address] Care Team Providers Care Composition Board Press Operator Name Role Phone Anthony Otero Primary Care Provider REASON FOR VISIT New Refill Request Social History Sex Assigned At : Social History Observation Description Sex Assigned At Male Encounters Encounter Location Date Provider Diagnosis Anthony Otero III, MD [address] [place] [address] [place] [address] 04/17/2024 Anthony Otero Plan Of Treatment Next Appt Details Provider Name:Anthony Otero, 07/17/2024 04:15:00 PM, [address] [place] [address] [place], [address], Provider Name:Anthony Otero, 03/10/2025 04:15:00 PM, [address] [place] [address] [place], [address], Progress Notes * Claudy HANLEY JrDOB:[birth year] (58 yo M)Acc No.[id number]:04/17/2024 Patient:?Claudy HANLEY Jr :1965???Age:58 Y???Sex:Male Address:[place], [address] * true * Date:? Generated for Printi ng/Faxing/eTransmitting on:?06/12/2024 05:51 PM EDT
--- OUTSIDE RECORDS SUMMARY | 2024-06-12 17:51 | XMS_ITS | Patient Health Record ---
Author Organization [facility] Address [address] [place] [address] Care Team Providers Care Keypunch Operator Name Role Phone Irvin Rosen MD Primary Care Provider Anthony Lantigua Unavailable [phone] Allergies No Known Allergies Reason For Referral [...] Problem Status W/U Status Risk Notes Problem 780541335 Encounter for screening for malignant neoplasm of colon (Z12.11) Active confirmed Problem 615206750 History of adenomatous polyp of colon (Z86.010) Active confirmed Problem Diverticular disease of colon (092475116) Diverticulosis of large intestine without perforation or abscess without bleeding (K57.30) Active confirmed Problem Gastroesophageal reflux disease (262187128) Gastroesophageal reflux disease (K21.9) Active confirmed Problem 189326657 Gastroesophageal reflux disease, esophagitis presence not specified (K21.9) Active confirmed Problem 751455092 Irregular bowel habits (R19.8) Active confirmed Problem Ojeda esophagus (879984136) 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 [address] [place] [address] [id number] DAYAN AMAN Self - patient is the insured Medical (General) History Medical History History ICD Code Denies UT,DM,CVA,Lung disease Hypertension Nephrotic syndrome- Dr. Henson Hyperlipidemia [...]
--- OUTSIDE RECORDS SUMMARY | 2024-06-12 17:51 | XMS_ITS | Patient Health Record ---
Author Organization Anthony Otero III, MD Address [address] [place] [address] Care Team Providers Care Derrick Follower Name Role Phone Anthony Otero Primary Care Provider Allergies Allergen (clinical drug ingredient) Drug/Non Drug Allergy documented on EMR Reaction Allergy Type Onset Date Status Pain medication (uncoded) Unknown Allergy Active Results Component Value Reference Range Notes Protein, 24 Hr Urine Group Reviewed date:03/04/2024 09:18:29 AM Interpretation: Performing Lab:[facility], [address] [place] [address] Notes/Report: 1900 [id number] 0900 1000 Protein 24 Hr Urine 27293 <150 mg/Day Protein mg/dL 1322 Creatinine, 24Hr Urine 2.2 1.0-2.0 G/Day Creatinine, mg/dL 113.30 Total Volume 24 Hour Urine 1900 Complete Blood Count Auto Di ff Reviewed date:03/05/2024 05:15:10 PM Interpretation: Performing Lab:[facility], [address] [place] [address] Notes/Report: White Blood Count 7.5 4.8-10.8 X10*3/uL [...] Panel Reviewed date:03/05/2024 05:15:10 PM Interpretation: Performing Lab:[facility], [address] [place] [address] Notes/Report: Sodium 141 135-145 mmol/L Potassium 4.0 [...] ff Reviewed date:03/11/2024 02:33:07 PM Interpretation: Performing Lab:[facility], [address] [place] [address] Notes/Report: White Blood Count 6.4 4.8-10.8 X10*3/uL [...] te Reviewed date:03/11/2024 02:33:07 PM Interpretation: Performing Lab:[facility], [address] [place] [address] Notes/Report: Erythrocyte Sedimentation Rate 13 0-15 MM/HR Patients with polycythemia and many hemoglobin abnormalities may have depressed sed rates whereas patients with anemia may have elevated sed rates. Comprehensive Met. Panel Reviewed date:03/11/2024 02:33:07 PM Interpretation: Performing Lab:[address] [address] Notes/Report: Sodium 143 135-145 mmol/L Potassium 3.7 [...] Panel Reviewed date:03/21/2024 06:28:51 AM Interpretation: Performing Lab:[address] [address] Notes/Report: Sodium 139 135-145 mmol/L Potassium 4.0 [...] um Reviewed date:03/28/2024 09:26:04 AM Interpretation: Performing Lab:[address] [place] [address] Notes/Report: Prot Elec - Total Protein 3.6 [...] clinical diagnosis. THIS TEST WAS PERFORMED AT: [facility] [address] [place] [phone] REMINGTON WILLIAMSON MD Complement C3 Reviewed date:03/21/2024 06:28:51 AM Interpretation: Performing Lab:[address] [address] Notes/Report: Complement C3 151 82-185 mg/dL THIS TEST WAS PERFORMED AT: [facility] [address] [place] [phone] REMINGTON WILLIAMSON MD Complement C4 Reviewed date:03/21/2024 06:28:51 AM Interpretation: Performing Lab:[facility], [address] [place] [address] Notes/Report: Complement C4 35 15-53 mg/dL THIS TEST WAS PERFORMED AT: [facility] [address] [place] [phone] REMINGTON WILLIAMSON MD Phospholipase A2 Receptor Pn l Reviewed date:03/28/2024 09:26:04 AM Interpretation: Performing Lab:[address] [address] Notes/Report: Phospholipase A2 IgG SUSU <4 Reference Range: <14: NEGATIVE 14-19: BORDERLINE >19: POSITIVE Phospholipase A2 IgG IFA NEGATIVE NEGATIVE THIS TEST WAS PERFORMED AT: [facility] [address] [place] [address] EVAN SOMMER MD,PHD,VALERIO Basic Metabolic Panel Reviewed date:03/28/2024 09:26:04 AM Interpretation: Performing Lab:[facility], [address] [place] [address] Notes/Report: Sodium 141 135-145 mmol/L Potassium 3.8 [...] Urine Reviewed date:03/28/2024 09:26:04 AM Interpretation: Performing Lab:[facility], [address] [place] [address] Notes/Report: Creatinine Urine 71.15 Total Protein Urine Random Reviewed date:03/28/2024 09:26:04 AM Interpretation: Performing Lab:[facility], [address] [place] [address] Notes/Report: Total Protein Urine Random 409 <12 mg/dL Urinalysis and Microscopic Reviewed date:04/01/2024 06:09:31 PM Interpretation: Performing Lab:[facility], [address] [place] [address] Notes/Report: Color Urine Dark Yellow Appearance Urine Clear PH 7.0 5.0-9.0 Glucose Urine UA 500 Negative mg/dL Urine Blood Trace Negative Specific [place] - Urine 1.025 1.005-1.025 Urine Protein >=1000 [...] Urine Reviewed date:04/01/2024 06:09:32 PM Interpretation: Performing Lab:[facility], [address] [place] [address] Notes/Report: Creatinine Urine 166.67 Total Protein Urine Random Reviewed date:04/01/2024 06:09:32 PM Interpretation: Performing Lab:[facility], [address] [place] [address] Notes/Report: Total Protein Urine Random 1569 <12 mg/dL XR chest 2V Reviewed date:04/21/2024 09:08:31 AM Interpretation: Performing Lab: Notes/Report: [facility] [address] [place] [address] [place] [address] XRay Report Signed Patient: Claudy Berger Jr MR#: [id number] : 1965 Acct:[id number] Age/Sex: 58 / M ADM Date: 04/12/24 [facility] Dr: Anthony Otero MD Ordering Physician: Anthony Otero MD Date of Service: 04/12/24 Procedure(s): XR chest 2V Accession Number(s): [id number] cc: Anthony Otero MD EXAMINATION: XR CHEST [...] by: Kris Zabala MD 04/16/2024 08:58 AM [facility] Dictated By: Kris Zabala MD Signed By: <Electronically signed by Kris Zabala MD in OV> 04/16/24 0858 DD/ 1619 TD/TT: 04/12/24 1625 Barrel Maker: [facility] [address] [place] [address] [place] [address] XRay Report Signed Patient: Chandan Berger Jr MR#: [id number] : 1965 Acct:[id number] Age/Sex: 58 / M ADM Date: 04/12/24 Loc: [facility] Attending Dr: Anthony Otero MD Ordering Physician: Anthony Otero MD Date of Service: 04/12/24 Procedure(s): XR man st 2V Accession Number(s): [id number] cc: Anthony Otero MD EXAMINATION: XR CHEST [...] by: Kris Zabala MD 04/16/2024 08:58 AM [facility] Dictated By: Kris Zabala MD Signed By: <Electronically signed by Kris Zabala MD in OV> 04/16/24 0858 DD/ 1619 TD/TT: 04/12/24 1625 Barrel Maker: Complete Blood Count Auto Di ff Reviewed date:05/02/2024 08:46:40 PM Interpretation: Performing Lab:[facility], [address] [place] [address] Notes/Report: White Blood Count 3.6 4.8-10.8 X10*3/uL [...] Microscopic Reviewed date:05/02/2024 08:46:40 PM Interpretation: Performing Lab:[facility], [address] [place] [phone] Notes/Report: Color Urine Yellow Appearance Urine Clear PH 7.5 5.0-9.0 Glucose Urine UA Negative Negative mg/dL Urine Blood Negative Negative Specific [place] - Urine 1.020 1.005-1.025 Urine Protein 300 (3+) Neg-Trace mg/dL Urine Ketones Negative Negative mg/dL Nitrite Urine Negative Negative Leukocyte Esterase Urine Negative Negative RBC Urine 0-2 0-2 /HPF WBC Urine 0-5 0-5 /HPF Squamous Epithelial Cell Urine 0-2 0-2 /HPF Bacteria Urine None Seen None Seen Hyaline Casts Urine 0-2 0-2 /LPF Comprehensive [place]. Panel Fa st Reviewed date:05/02/2024 08:46:40 PM Interpretation: Performing Lab:[address] [address] Notes/Report: Sodium 141 135-145 mmol/L Potassium 3.9 [...] Peptide Reviewed date:05/02/2024 08:46:40 PM Interpretation: Performing Lab:[address] [address] Notes/Report: B Type Natriuretic Peptide 12 <100 pg/mL For those patients who are being treated with Natrecor (nesiritide, recombinant BNP), BNP testing should be performed at least two hours post treatment in order to ensure that only endogenous levels of BNP are detected. Microalbumin, Random Reviewed date:05/02/2024 08:46:40 PM Interpretation: Performing Lab:[address] [address] Notes/Report: Creatinine Urine 125.53 Microalbumin Urine > 2000.0 Microalbum/Creatinine Ratio Ur 1593.2 <30 ug/mg cr Albumin/Creatinine Ratio Reference Ranges: Normal: < 30 ug/mg creatinine Microalbuminuria: 30 - 300 ug/mg creatinine Clinical Albuminuria: > 300 ug/mg creatinine Creatinine Urine Reviewed date:05/02/2024 08:46:40 PM Interpretation: Performing Lab:[address] [address] Notes/Report: Creatinine Urine 124.68 Total Protein Urine Random Reviewed date:05/02/2024 08:46:40 PM Interpretation: Performing Lab:[address] [address] Notes/Report: Total Protein Urine Random 346 <12 mg/dL Hemoglobin A1c Reviewed date:05/02/2024 08:46:40 PM Interpretation: Performing Lab:[address] [address] Notes/Report: Hemoglobin A1c % 6.5 <6.0 % [...] average glucose, using the formula of the [id number] Average Glucose study (ADAG), Diabetes Care, Vol.31,#8, Sep. 2007 Urinalysis and Microscopic Reviewed date:06/06/2024 08:25:56 PM Interpretation: Performing Lab:[address] [address] Notes/Report: Color Urine Yellow Appearance Urine Clear PH 7.5 5.0-9.0 Glucose Urine UA Negative Negative mg/dL Urine Blood Negative Negative Specific [place] - Urine 1.010 1.005-1.025 Urine Protein 300 (3+) Neg-Trace mg/dL Urine Ketones Negative Negative mg/dL Nitrite Urine Negative Negative Leukocyte Esterase Urine Negative Negative RBC Urine 0-2 0-2 /HPF WBC Urine 0-5 0-5 /HPF Squamous Epithelial Cell Urine 0-2 0-2 /HPF Bacteria Urine None Seen None Seen Hyaline Casts Urine 0-2 0-2 /LPF Basic Metabolic Panel Reviewed date:06/06/2024 08:25:56 PM Interpretation: Performing Lab:[facility], [address] [place] [address] Notes/Report: Sodium 141 135-145 mmol/L Potassium 4.1 [...] Problem Status W/U Status Risk Notes Problem 589810437 Other neutropenia (D70.8) Active confirmed His white blood cell count is stable. The value will be followed carefully periodically . He has had no infections recently. Problem 656889833 Mixed hyperlipidemia (E78.2) Active confirmed His lipids will be evaluated periodically . Statin will be considered. Problem 083898820813413 Primary osteoarthritis, right shoulder (M19.011) Active confirmed Problem 303771941422363 Primary osteoarthritis, left shoulder (M19.012) Active confirmed Problem 69605367 Essential hypertension (I10) Active confirmed His blood pressure is now in the normal range. He has lost 52 pounds mostly fluid. The vital signs will be obtained and followed periodically . Problem 823028708 History of cholecystectomy (Z90.49) Active confirmed Problem 768341212 Chronic insomnia (F51.04) Active confirmed He reports that he is now able to sleep again since the refractory cough has resolved. Problem Nephrotic syndrome (66489227) Nephrotic syndrome (N04.9) Active confirmed He is markedly improved. He is now being managed by nephrology on a reduced dose of prednisone. He is taking torsemide instead of furosemide. Problem 401334189 History of inguinal hernia (Z87.19) Active confirmed Problem 25292050840615376 Bilateral carp al tunnel syndrome (G56.03) Active confirmed Problem 075512407 History of asthma (Z87.09) Active confirmed He did not give a history of asthma but this was documented no records. This will be further pursued. He does not require treatment at this time. Problem 823367388 Diabetes mellitus without complication (E11.9) Active confirmed He is on a reduced dose of prednisone. He has been compliant with his metformin. Prior to his next visit he will have a hemoglobin A1c. Problem 404277741 Obesity, class 2 (E66.812) Active confirmed Problem 53238177505266239 History of Ojeda's esophagus (Z87.19) Active confirmed He has reported no recent history of dysphagia or esophageal pain. He will need to have upper endoscopy periodically . Problem 491457697 Ascending aorta dilation (I77.810) Active confirmed This is a finding on a recent echocardiogr am. He is asymptomatic . The ascending aortic diameter was 3.9 cm. He will be observed. 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 or [...] Provider Diagnosis Anthony Otero III, MD [address] [place] [address] [place] [address] 02/29/2024 Anthony Jamesonrne Nephrotic syndrome N 04.9 ; Essential hypertension I10 ; Mixed hyperlipidemia E78.2 ; Diabetes mellitus without complication E11.9 ; Chronic insomnia F51.04 ; Ascending aorta dilation I77.810 ; Other neutropenia D70.8 ; History of asthma Z87.09 and Spondylosis of cervicothoracic region without myelopathy or radiculopathy M47.813 Anthony Otero III, MD [address] [place] [address] [place] [address] 03/07/2024 Anthony Otero Mixed hyperlipidemia E78.2 ; Nephrotic syndrome N04.9 ; Other neutropenia D70.8 ; Essential hypertension I10 and Diabetes mellitus without complication E11.9 Anthony Otero III, MD [address] [place] [address] [place] [address] 03/28/2024 Anthony Jamesonrne Nephrotic syndrome N 04.9 ; Essential hypertension I10 ; Diabetes mellitus without complication E11.9 ; Other neutropenia D70.8 and Mixed hyperlipidemia E78.2 Anthony Otero III, MD [address] [place] [address] [facility] [place] [address] 04/03/2024 Anthony Jamesonrne Nephrotic syndrome N 04.9 ; Essential hypertension I10 ; Mixed hyperlipidemia E78.2 and Diabetes mellitus without complication E11.9 Anthony Otero III, MD [address] [place] [address] [place] [address] 04/09/2024 Anthony Branden Nephrotic syndrome N 04.9 ; Acute viral syndrome B34.9 ; Persistent cough R05.3 ; Diabetes mellitus without complication E11.9 and Mixed hyperlipidemia E78.2 Anthony Otero III, MD [address] [place] [address] [facility] [place] [address] 04/16/2024 Anthony Jamesonrne Nephrotic syndrome N 04.9 ; Diabetes mellitus without complication E11.9 ; Mixed hyperlipidemia E78.2 ; Essential hypertension I10 ; Ascending aorta dilation I77.810 ; Chronic insomnia F51.04 ; History of Ojeda's esophagus Z87.19 and Viral syndrome B34.9 Anthony Otreo III, MD [address] [place] [address] [facility] [place] [address] 05/06/2024 Anthony Jamesonrne Nephrotic syndrome N 04.9 ; Mixed hyperlipidemia E78.2 ; Other neutropenia D70.8 and Essential hypertension I10 Anthony Otero III, MD [address] [place] [address] [place] [address] 02/29/2024 Anthony Otero III, MD [address] [place] [address] [place] [address] 03/01/2024 Anthony Otero III, MD [address] [place] [address] [place] [address] 03/04/2024 Anthony Otero III, MD [address] [place] [address] [place] [address] 03/04/2024 Anthony Otero III, MD [address] [place] [address] [place] [address] 03/20/2024 Anthony Otero III, MD [address] [place] [address] [place] [address] 04/17/2024 Anthony Otero Assessments Encounter Date Diagnosis [...] (ICD-10 - N04.9) In the past his knit goods washer has been Dr. Lionel Henson. He has not been seen in several years. An appointment has been made for him by Dr. Fenton to see the knit goods washer at [facility] later this month. He does appear [...] sampled. I will discuss him with the knit goods washer at [facility] with whom he has the appointment [...] I have reviewed the case with a knit goods washer and strongly recommended he see the patient [...] D70.8) Review of laboratory data in the [facility] database shows he is mildly but [...] Details Provider Name:Anthony Otero, 07/17/2024 04:15:00 PM, [address] [place] [address] [address], [place], [address], Provider Name:Anthony Otero, 03/10/2025 04:15:00 PM, [address] [place] [address] [address], [place], [address], Insurance Providers Payer Name Payer Address Payer Phone Subscriber Number Group Number Insured Name Patient Relationship to Insured Coverage Start Date Coverage End Date [employer] [place] [address] [address] [place] [address] [id number] Claudy Berger Self - patient is the [...] 2022 Focal segmental glomerulosclerosis, yash l biopsy, [facility] Normal cardiac catheterization January 26, 2018 [facility] Surgical History Surgery Date(Month/Year) No history Bilateral inguinal herniorrhaphies Tubular adenoma colonoscopy 2012, Dr. Dimple Hidalgo Upper endoscopy and colonoscopy 2019 Elbow surgery Bilateral shoulder arthroscopies Carpal tunnel surgery on both hands Renal biopsy [facility], remot e cholecystectomy age 24 Hospitalization History Reason Date(Month/Year) No history None reported
--- OUTSIDE RECORDS SUMMARY | 2024-06-12 17:51 | XMS_ITS ---
Author Organization Anthony Otero III, MD Address [address] [place] [address] Care Team Providers Care Agile Java Developer Name Role Phone Anthony Otero Primary Care Provider [phone] Allergies Allergen (clinical drug ingredient) Drug/Non Drug [...] Date Provider Diagnosis Anthony Otero III, MD [address] [place] [address] [place] [address] 05/06/2024 Anthony Otero Nephrotic syndrome N 04.9 [...] labs Provider Name:Anthony Otero, 07/17/2024 04:15:00 PM, [address] [place] [address] [address], [place], [address], Provider Name:Anthony Otero, 03/10/2025 04:15:00 PM, [address] [place] [address] [address], [place], [address], Progress Notes * Claudy HANLEY JrDOB:[birth year] (58 yo M)Acc No.[id number]:05/06/2024 Progress Notes Patient:?Claudy HANLEY Jr Provider:?Anthony Otero MD :1965???Age:58 Y???Sex:Male Gavin e:05/06/2024 Address:[address] [place] [address] [place], [phone] Subjective: * Chief Complaints: * ???Nephrotic syndromeType [...] History:?cholecyste ctomy age [address] [facility], remote Carpal tunnel surgery on both [...] Control (Standard)?Tobacco use:?Nonsmoker ?He was born in [facility].? He has been to [place] for 15 years.? He has no children.? 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 He has no pentecostalism objection to blood transfusion.? He does not [...] Range: Negative) Trace?A (Ref Range: Negative) Specific [place] - Urine 1.020 (Ref Range: 1.005-1.025) 1.025 [...] AM)?ValueReference Range?Hemoglobin A1c %6.5H<6.0 - %?Estimated Average Vcottpj609- mg/dL ???Lab:Comprehensive [place]. Panel Fast (Order Date - 05/02/2024) (Collection Date & Time - 05/02/2024 06:35 AM)?ValueReference Range?Qcprzb195668- 145 - mmol/L?Bilirubin Total0.50.0-1.0 - mg/dL?Aspartate Amino Vzjgnspkgnb000-85 - U/L?Alanine Begihiurblzesmxy29Y5-79 - U/L ?Total Protein5.5L6.5-8.0 - g/dL?Albumin Level3.3L3.5-5.0 - g/dL ?Alkaline Vbxjgfitoaw5191-701 - U/L?Potassium3.93.3-5.1 - mmol/L ?Quvmwlqq46142-295 - mmol/L?Carbon Zopysvm2441-09 - mmol/L ?Anion Dnb6947-77 -?Blood Urea Eqsjwmdh91D5-59 - mg/dL ?Creatinine0.750.5-1.4 - mg/dL?Estimated Glomerular Filt Rate> 60- ?Glucose Zcszpas092C38-56 - mg/dL?Calcium8.58.4-10.2 - mg/dL ???Lab:B Type Natriuretic Peptide (Order Date - 05/02/2024) (Collection Date & Time - 05/02/2024 06:35 AM)?ValueReference Range?B Type Natriuretic Omvlgze76<100 - pg/mL ???Lab:Microalbumin, Random (Order Date - 05/02/2024) (Collection Date & Time - 05/02/2024 06:35 AM)?ValueReference Range?Creatinine Nmsdb531.53- mg/dL?Microalbumin Urine> 2000.0- mg/L?Microalbum Creatinine Ratio Ae6132.2H<30 - ug/mg cr * Lab:Total Protein Urine [place] om * Collection Date 05/02/2024 04/01/2024 03/25/2024 [...] & Time - 03/18/2024 11:17 AM)?ValueReference Range?Complement D22555-17 - mg/dL ???Lab:Phospholipase A2 Receptor Pnl (Order Date - 03/18/2024) (Collection Date & Time - 03/18/2024 11:17 AM)?ValueReference Range?Phospholipase A2 IgG SUSU<4- RU/mL?Phospholipase A2 IgG IFANEGATIVENEGATIVE - ???Imaging:XR chest 2V (Order Date - 04/12/2024) (Performed Date - 04/12/2024) ???Lab:Protein, 24 Hr Urine Group (Order Date - 03/02/2024) (Collection Date & Time - 03/02/2024 09:00 AM)?ValueReference Range?Protein 24 Hr Bptqn83721Z<150 - mg/Day?Protein mg/oB4977- mg/dL?Creatinine, 24Hr Urine2.2H1.0-2.0 - G/Day?Total Volume 24 Hour Zcckl8377- mL ?Creatinine, mg/dL113.30- * Lab:Comprehensive Met. Panel [...] Time - 03/11/2024 11:38 AM)?ValueReference Range?Erythrocyte Sedimentation Rbde909-74 - MM/HR ???Lab:Complement C3 (Order Date - 03/18/2024) (Collection Date & Time - 03/18/2024 11:17 AM)?ValueReference Range?Complement N909678-295 - mg/dL ???Lab:Protein Electrophoresis, Serum (Order Date [...] Otero MD Date:?04/27 Generated for Lety garrett/Azam/eTtroysmitting on:?06/12/2024 05:51 PM EDT History and Physical Notes * [...]
--- OUTSIDE RECORDS SUMMARY | 2024-06-12 17:51 | XMS_ITS ---
Author Organization Anthony Otero III, MD Address [address] [place] [address] Care Team Providers Care Plywood Matcher Name Role Phone Anthony Otero Primary Care [...] Date Provider Diagnosis Anthony Otero III, MD [address] [place] [address] [place] [address] 04/16/2024 Anthony Otero Nephrotic syndrome N 04.9 [...] visit Provider Name:Anthony Otero, 07/17/2024 04:15:00 PM, [address] [place] [address] [address], [place], [id number], Provider Name:Anthony Otero, 03/10/2025 04:15:00 PM, [address] [place] [address] [address], [place], [id number], Progress Notes * Claudy HANLEY JrDOB:[birth year] (58 yo M)Acc No.[id number]:04/16/2024 Patient:?Claudy HANLEY Provider:?Anthony Otero MD :1965???Age:58 Y???Sex:Male Gavin e:04/16/2024 Address:[address] [place] [address] [id number] Subjective: * Chief Complaints: * ???Nephrotic syndromeHyperte [...] weeks. ?Telehealth?Location of provider rendering services:?{...} [address] [place] [address] ?Location of patient:?address listed in demographics for [...] History:?cholecyste ctomy age [address] [facility], remote Carpal tunnel surgery on both hands [...] Control (Standard)?Tobacco use:?Nonsmoker ?He was born in [facility].? He has been to [facility] for 15 years.? He has no children.? 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 He has no methodist objection to blood transfusion.? He does not [...] (Ref Range: mg/dL) * Lab:Total Protein Urine [place] * Collection Date 04/01/2024 03/25/2024 Collection Time 12:21 PM 09:45 AM Order Date 04/01/2024 03/25/2024 Total Protein Urine Random 1569?H (Ref Range: <12 mg/dL) 409?H (Ref Range: <12 mg/dL) ???Lab:Urinalysis and Microscopic (Order Date - 04/01/2024) (Collection Date & Time - 04/01/2024 12:21 PM)?ValueReference Range?Color UrineDark Yellow-?RBC Pgstn4-8H7-9 - /HPF?Appearance UrineClear-?PH 7.05.0-9.0 -?Glucose Urine CW542DHxysebpe - mg/dL?Urine BloodTrace ANegative -?Specific [place] - Urine1.0251.005-1.025 -?Urine Protein>=1000 (4+)ANeg-Trace - mg/dL?Urine [...] & Time - 03/18/2024 11:17 AM)?ValueReference Range?Complement M76667-55 - mg/dL ???Lab:Phospholipase A2 Receptor Pnl (Order [...] & Time - 03/18/2024 11:17 AM)?ValueReference Range?Complement [id number] - mg/dL ???Lab:Erythrocyte Sedimentation Rate (Order Date - 03/11/2024) (Collection Date & Time - 03/11/2024 11:38 AM)?ValueReference Range?Erythrocyte Sedimentation Mzbh956-73 - MM/HR ???Lab:Protein, 24 Hr Urine Group (Order Date - 03/02/2024) (Collection Date & Time - 03/02/2024 09:00 AM)?ValueReference Range?Protein 24 Hr Sayme37235U<150 - mg/Day?Protein mg/nP4431- mg/dL?Creatinine, 24Hr Urine2.2H1.0-2.0 - G/Day?Total Volume 24 Hour Fprrm4147- mL ?Creatinine, mg/dL113.30- * Lab:Complete Blood Count [...] Otero MD Date:?03/30 Generated for Lety garrett/Azam/Dannielle on:?06/12/2024 05:51 PM EDT History and Physical Notes * HPI (History of Present Illness) Category Sub-Category Detail Notes Telehealth Location of [facility] rendering services:: {...} [address] [place] [id number] Location of patient:: address listed in demographics [...]
== END 2024-06-12 15:39 | disposition home or self-care (01) ==
LOC: HO.HCS 15:21
PROVIDERS: PCP Internal Medicine; Visit Provider Internal Medicine Cardiovascular Disease
DX: I77.810 Thoracic aortic ectasia (principal)
CPT/HCPCS: 99214

== ENCOUNTER → 2024-06-12 15:20 | Outpatient (BNVA) | payer OTHER, SELFPAY | PROVIDERS: PCP Internal Medicine; Visit Provider Internal Medicine Cardiovascular Disease ==

== ENCOUNTER 2024-07-10 06:08 | Outpatient (REF) | payer OTHER, SELFPAY ==
[2024-07-10 09:50] LABS: MANUAL DIFF FLAG NO
[2024-07-10 10:02] LABS: Basophils Percent Auto 0.8 % (0-2); Eosinophils Absolute Auto 0.1 X10*3/uL (0.0-0.4); Eosinophils Percent Auto 2.7 % (0-4); Hematocrit 37.3 % (42.0-52.0); Hemoglobin 12.6 g/dl (14.0-18.0); Imm Gran Abs Auto 0.02 X10*3/uL (0.00-0.03); Imm Gran Pct Auto 0.5 % (0.0-0.4); Lymphocytes Absolute Auto 1.6 X10*3/uL (1.2-4.9); Lymphocytes Percent Auto 41.8 % (20-40); Mean Corpuscular HGB Conc 33.8 g/dl (31.0-36.0); Mean Corpuscular Hemoglobin 30.6 pg (27.0-33.0); Mean Corpuscular Volume 90.5 fL (80.0-98.0); Mean Platelet Volume 10.3 fL (9.4-12.4); Monocytes Absolute Auto 0.3 X10*3/uL (0.1-1.2); Monocytes Percent Auto 9.2 % (2-11); Neutrophils Absolute Auto 1.7 x10*3/uL (2.0-8.3); Platelet Count 190 X10*3/uL (160-400); Red Blood Count 4.12 X10*6/uL (4.60-5.80); Red Cell Distribution Width 12.4 % (11.0-16.0); White Blood Count 3.7 X10*3/uL (4.8-10.8)
[2024-07-10 10:41] LABS: Prostate Specific Antigen 0.76 ng/mL (<0.05-4.0)
[2024-07-10 11:00] LABS: Alanine Aminotransferase 18 U/L (0-40); Alkaline Phosphatase 36 U/L (39-117); Anion Gap 11 (12-20); Aspartate Amino Transferase 26 U/L (5-37); Bilirubin Total 0.2 mg/dL (0.0-1.0); Blood Urea Nitrogen 16 mg/dL (9-16); Calcium 8.2 mg/dL (8.4-10.2); Carbon Dioxide 30 mmol/L (22-29); Chloride 105 mmol/L (96-108); Cholesterol 276 mg/dL (<200); Estimated Glomerular Filt Rate > 60; Glucose Fasting 107 mg/dL (60-99); HDL Cholesterol 78 mg/dL (>40); LDL Cholesterol Calculated 163 mg/dL (<100); Potassium 3.8 mmol/L (3.3-5.1); Sodium 142 mmol/L (135-145); Triglycerides 175 mg/dL (<150)
== END 2024-07-10 06:09 | disposition home or self-care (01) ==
LOC: HO.HMGCLDS 06:08
PROVIDERS: PCP Internal Medicine Medical Oncology; Visit Provider Internal Medicine Medical Oncology
DX: Z12.5 Encounter for screening for malignant neoplasm of prostate (principal); N04.9 Nephrotic syndrome with unspecified morphologic changes; E78.2 Mixed hyperlipidemia; I10 Essential (primary) hypertension; D70.8 Other neutropenia
CPT/HCPCS: 36415; 80053; 80061; 84153; 85025

== ENCOUNTER 2024-08-12 06:01 | Outpatient (REF) | payer OTHER, SELFPAY ==
--- OUTSIDE RECORDS SUMMARY | 2024-08-12 06:03 | XMS_ITS ---
Author Organization Anthony Otero III, MD Address [address] [place] [address] Care Team Providers Care Steersman Name Role Phone Anthony Otero Primary Care Provider REASON FOR VISIT Insurance Social History Sex Assigned At : Social History Observation Description Sex Assigned At Male Encounters Encounter Location Date Provider Diagnosis Anthony Otero III, MD [address] [place] [address] [place] [address] 07/18/2024 Anthony Otero Plan Of Treatment Next Appt Details Provider Name:Anthony Otero, 03/10/2025 04:15:00 PM, [address] [place] [address] [address] [place], [place], [address], Progress Notes * Claudy HANLEY JrDOB:[birth year] (58 yo M)Acc No.[id number]:07/18/2024 Patient:?Claudy HANLEY Jr :1965???Age:58 Y???Sex:Male Address:[address] [place], [address] * * Date:?
[2024-08-12 10:08] LABS: Appearance Urine Clear; Color Urine Yellow; Glucose Urine UA Negative (Negative); Leukocyte Esterase Urine Negative (Negative); Nitrite Urine Negative (Negative); PH 7.5 (5.0-9.0); Urine Blood Negative (Negative); Urine Ketones Negative (Negative); Urine Protein >=1000 (4+) mg/dL (Neg-Trace)
[2024-08-12 10:17] LABS: Bacteria Urine None Seen (None Seen); Hyaline Casts Urine 0-2 /LPF (0-2); RBC Urine 0-2 /HPF (0-2); Squamous Epithelial Cell Urine 0-2 /HPF (0-2); WBC Urine 0-5 /HPF (0-5)
[2024-08-12 10:22] LABS: MANUAL DIFF FLAG NO
[2024-08-12 10:29] LABS: Basophils Percent Auto 0.9 % (0-2); Eosinophils Absolute Auto 0.1 X10*3/uL (0.0-0.4); Eosinophils Percent Auto 2.3 % (0-4); Hematocrit 37.2 % (42.0-52.0); Hemoglobin 12.7 g/dl (14.0-18.0); Imm Gran Abs Auto 0.05 X10*3/uL (0.00-0.03); Imm Gran Pct Auto 1.1 % (0.0-0.4); Lymphocytes Absolute Auto 1.7 X10*3/uL (1.2-4.9); Mean Corpuscular HGB Conc 34.1 g/dl (31.0-36.0); Mean Corpuscular Hemoglobin 30.5 pg (27.0-33.0); Mean Corpuscular Volume 89.2 fL (80.0-98.0); Mean Platelet Volume 10.3 fL (9.4-12.4); Monocytes Absolute Auto 0.4 X10*3/uL (0.1-1.2); Monocytes Percent Auto 8.9 % (2-11); Neutrophils Absolute Auto 2.2 x10*3/uL (2.0-8.3); Neutrophils Percent Auto 48.8 % (45-73); Platelet Count 179 X10*3/uL (160-400); Red Blood Count 4.17 X10*6/uL (4.60-5.80); Red Cell Distribution Width 12.8 % (11.0-16.0); White Blood Count 4.4 X10*3/uL (4.8-10.8)
[2024-08-12 10:46] LABS: Alanine Aminotransferase 15 U/L (0-40); Albumin Level 2.9 g/dL (3.5-5.0); Alkaline Phosphatase 35 U/L (39-117); Anion Gap 11 (12-20); Aspartate Amino Transferase 22 U/L (5-37); Bilirubin Total 0.3 mg/dL (0.0-1.0); Blood Urea Nitrogen 27 mg/dL (9-16); Calcium 8.7 mg/dL (8.4-10.2); Carbon Dioxide 31 mmol/L (22-29); Chloride 107 mmol/L (96-108); Cholesterol 281 mg/dL (<200); Estimated Glomerular Filt Rate > 60; Glucose Fasting 99 mg/dL (60-99); HDL Cholesterol 87 mg/dL (>40); LDL Cholesterol Calculated 155 mg/dL (<100); Sodium 145 mmol/L (135-145); Total Protein 4.9 g/dL (6.5-8.0); Triglycerides 199 mg/dL (<150)
[2024-08-12 11:00] LABS: Prostate Specific Antigen 0.67 ng/mL (<0.05-4.0)
[2024-08-12 11:10] LABS: Total Protein Urine Random 615 mg/dL (<12)
== END 2024-08-12 06:02 | disposition home or self-care (01) ==
LOC: HO.HMGCLDS 06:01
PROVIDERS: PCP Internal Medicine Medical Oncology; Referring Provider Internal Medicine Hypertension Specialist; Visit Provider Internal Medicine Medical Oncology
DX: N04.9 Nephrotic syndrome with unspecified morphologic changes (principal); E78.2 Mixed hyperlipidemia; E11.9 Type 2 diabetes mellitus without complications; E66.9 Obesity, unspecified; Z12.5 Encounter for screening for malignant neoplasm of prostate
CPT/HCPCS: 36415; 80053; 80061; 81003; 84153; 84156; 85025

== ENCOUNTER 2024-10-09 12:16 | Outpatient (REF) | payer OTHER, SELFPAY ==
--- OUTSIDE RECORDS SUMMARY | 2024-07-18 06:04 | XMS_ITS ---
Author Organization Anthony Otero III, MD Address [address] [place] [address] Care Team Providers Care Automatic Presser Name Role Phone Anthony Otero Primary Care Provider REASON FOR VISIT Insurance Social History Sex Assigned At : Social History Observation Description Sex Assigned At Male Encounters Encounter Location Date Provider Diagnosis Anthony Otero III, MD [address] [place] [address] [place] [address] 07/18/2024 Anthony Otero Plan Of Treatment Next Appt Details Provider Name:Anthony Otero, 10/15/2024 02:45:00 PM, [address] [place] [address] [place], [address], Provider Name:Anthony Otero, 03/10/2025 04:15:00 PM, [address] [place] [address] [place], [address], Progress Notes * Claudy HANLEY JrDOB:[birth year] (58 yo M)Acc No.[id number]:07/18/2024 Patient: Anant Claudy TRAMMELL Jr :1965 A ge:58 Y S ex:Male Address:[place], [address] * true * Date: Generated for Printi ng/Faxing/eTransmitting on: 0 10/09/2024 12:57 PM EDT
--- OUTSIDE RECORDS SUMMARY | 2024-10-09 12:58 | XMS_ITS | Patient Health Record ---
Author Organization [facility] Address [address] [place] [address] Care Team Providers Care Diamond Broker Name Role Phone Jessika (RETIRED) Irvin BENSON Primary Care Provide r Unavailable Gwen Anthony Unavailable [phone] Allergies No Known Allergies Reason For Referral [...] Problem Status W/U Status Risk Notes Problem 489789567 Encounter for screening for malignant neoplasm of colon (Z12.11) Active confirmed Problem 340667178 History of adenomatous polyp of colon (Z86.010) Active confirmed Problem Diverticular disease of colon (290967003) Diverticulosis of large intestine without perforation or abscess without bleeding (K57.30) Active confirmed Problem Gastroesophageal reflux disease (777964805) Gastroesophageal reflux disease (K21.9) Active confirmed Problem 583039481 Gastroesophageal reflux disease, esophagitis presence not specified (K21.9) Active confirmed Problem 529931679 Irregular bowel habits (R19.8) Active confirmed Problem Ojeda esophagus (814511437) 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 [address] [place] [address] [id number] 3 AMAN HANLEY Self - patient is the insured Medical [...]
[2024-10-09 13:24] LABS: MANUAL DIFF FLAG NO
[2024-10-09 13:39] LABS: Appearance Urine Clear; Glucose Urine UA Negative (Negative); PH 8.5 (5.0-9.0); Specific Gravity - Urine 1.020 (1.005-1.025); UMIC TRIGGER UA YES
[2024-10-09 13:47] LABS: Hematocrit 37.3 % (42.0-52.0); Hemoglobin 12.6 g/dl (14.0-18.0); Imm Gran Abs Auto 0.12 X10*3/uL (0.00-0.03); Imm Gran Pct Auto 2.1 % (0.0-0.4); Lymphocytes Absolute Auto 1.6 X10*3/uL (1.2-4.9); Mean Corpuscular HGB Conc 33.8 g/dl (31.0-36.0); Mean Corpuscular Hemoglobin 30.9 pg (27.0-33.0); Mean Corpuscular Volume 91.4 fL (80.0-98.0); NRBC Abs Auto 0.000 X10*3/uL (0.0-0.012); NRBC Pct Auto 0.0 /100WBC (0.0-0.2); Platelet Count 193 X10*3/uL (160-400); Red Blood Count 4.08 X10*6/uL (4.60-5.80); White Blood Count 5.8 X10*3/uL (4.8-10.8)
[2024-10-09 13:59] LABS: Hemoglobin A1C 150.7256 umol/L; Total Hemoglobin (HGBA1C) 3307.4566 umol/L
[2024-10-09 14:22] LABS: B Type Natriuretic Peptide 21 pg/mL (<100)
[2024-10-09 14:45] LABS: Alanine Aminotransferase 20 U/L (0-40); Albumin Level 3.5 g/dL (3.5-5.0); Alkaline Phosphatase 37 U/L (39-117); Anion Gap 13 (12-20); Aspartate Amino Transferase 23 U/L (5-37); Blood Urea Nitrogen 25 mg/dL (9-16); Calcium 8.1 mg/dL (8.4-10.2); Carbon Dioxide 31 mmol/L (22-29); Chloride 103 mmol/L (96-108); Cholesterol 274 mg/dL (<200); Estimated Glomerular Filt Rate > 60; HDL Cholesterol 78 mg/dL (>40); Potassium 3.5 mmol/L (3.3-5.1); Sodium 143 mmol/L (135-145); Total Protein 5.5 g/dL (6.5-8.0); Triglycerides 304 mg/dL (<150)
== END 2024-10-09 12:17 | disposition home or self-care (01) ==
LOC: HO.HMGCLDS 12:16
PROVIDERS: PCP Internal Medicine Medical Oncology; Referring Provider Internal Medicine Hypertension Specialist; Visit Provider Internal Medicine Medical Oncology
DX: N04.9 Nephrotic syndrome with unspecified morphologic changes (principal); E78.2 Mixed hyperlipidemia; E11.9 Type 2 diabetes mellitus without complications; E66.9 Obesity, unspecified; D70.8 Other neutropenia
CPT/HCPCS: 36415; 80053; 80061; 81001; 82570; 83036; 83880; 85025

== ENCOUNTER 2024-10-15 15:07 | Outpatient (AMB) | payer OTHER, SELFPAY ==
--- OUTSIDE RECORDS SUMMARY | 2024-09-13 12:45 | XMS_ITS ---
Author Organization Anthony Otero III, MD Address [address] [place] [address] [place] [address] Care Team Providers Care Zoology Teacher Name Role Phone Anthony Otero Primary Care Provider REASON FOR VISIT Follow up Social History Sex Assigned At : Social History Observation Description Sex Assigned At Male Encounters Encounter Location Date Provider Diagnosis Anthony Otero III, MD [address] [place] [address] [place] [address] 09/13/2024 Anthony Otero Plan Of Treatment Next Appt Details Provider Name:Anthnoy Otero, 03/10/2025 04:15:00 PM, [address] [place] [address] [place], [address], Progress Notes * Claudy HANLEY JrDOB:[birth year] (58 yo M)Acc No.[id number]:09/13/2024 Progress Notes Patient: Anant Claudy TRAMMELL Jr Provider: Umm Otero MD :1965 A ge:58 Y S ex:Male Date:09/13/2024 Address:[address] [place] [address] [address] [id number] Subjective: * Chief Complaints: * 1 . [...] 0 09/13/2024 Generated for Lety garrett/Azam/Dannielle on: 0 10/15/2024 04:26 PM EDT
[2024-10-15 15:23] VITALS: BP 124/80; PULSE 70; O2SAT 96; BMI 33.7
--- NOTE | 2024-10-15 15:23 | HO.NEPHOV ---
Vital Signs 10/15/24 15:23 Height 5 ft 10 in Weight 235 lb BMI 33.7 BP 124/80 Blood Pressure Location Lt brachial Position Sitting Pulse 70 Pulse Source Pulse Oximeter Pulse Oximetry (%) 96 Oxygen Delivery Method Room Air Intake Visit Reasons: FU/ Conf Sap Business Objects Consultant Required: No Accompanied by: Self / Same As Patient Allergies most pain meds Allergy (Unknown, Uncoded 06/03/24 14:55) mild itching Medication List - Last Reconciled 10/15/24 by Cabrera Chapman MD albuterol sulfate 90 mcg/actuation inhalation PRN atorvastatin 40 mg PO DAILY citalopram 40 mg PO DAILY fenofibrate nanocrystallized 145 mg PO DAILY lisinopril 40 mg PO DAILY meclizine 12.5 mg PO BID PRN metformin ER 500 mg PO DAILY omeprazole 40 mg PO DAILY prednisone 5 mg PO DAILY torsemide 20 mg PO DAILY zolpidem (Ambien) 10 mg PO BEDTIME PRN HPI Comments Details: 58-year-old man with nephrotic syndrome. Zak had nephrotic syndrome at the age of 21. He had a biopsy and he was treated by Dr. Devries. He responded well to prednisone. Subsequently had few flare-ups which were all treated with prednisone. He also had a 2nd biopsy, along the line. He tells me that biopsy was inconclusive. I do not have the biopsy results at this time. About few weeks ago he started developing significant weight gain. He was started on prednisone 40 mg. No significant improvement. He has been started on Lasix and dose has been increased to 80 mg twice a day. Urine output has been suboptimal. He was still gained weight on over the last few months has gained about 40 lb. Recent serum albumin was 2.0. Baseline creatinine was less than 1.0. Creatinine has gradually bumped up to 1.2. 03/19/24 Dropped 20 lbs; He has cut back on Torsemide to 40 mg QD startign yesterday; Has URTi ;No GI gymptoms 04/02/2024. He was lost another 15 lb. He was cut back on torsemide to 20 mg as needed. Creatinine is back to 0.7. Currently he is on prednisone 10 mg every other day 05/07/2024. Today he has no new complaints. Currently on prednisone 10 mg every other day. No edema he is not on diuretics [facility] Medical History (Updated 06/03/24 @ 17:57 by Amilcar Hartmann MD) Orbit injury, left GERD (gastroesophageal reflux disease) Left elbow tendonitis Back pain Nephrotic syndrome Elevated cholesterol HTN (hypertension) Anxiety Sleep apnea Asthma Surgical History Hx of elbow surgery Hx of esophagogastroduodenoscopy Hx of colonoscopy History of cholecystectomy History of arthroscopy of both shoulders History of bilateral carpal tunnel release H/O bilateral inguinal hernia repair Family History Father Heart disease Mother HTN (hypertension) Dementia Kidney disease Hypercholesteremia Social History Alcohol intake: current Alcohol intake frequency: a few times a month Alcohol type: beer Patient Tobacco Use Status: Never used Tobacco Physical Exam Vital Signs: Last Vital Signs Pulse 70 10/15/24 15:23 BP 124/80 10/15/24 15:23 Pulse Ox 96 10/15/24 15:23 Oxygen Delivery Method Room Air 10/15/24 15:23 BMI result Body Mass Index 33.7 Results Reviewed Nephrology Results: Hgb, (14.0-18.0) 12.6 g/dl L 10/09/24 WBC, (4.8-10.8) 5.8 X10*3/uL 10/09/24 Plt Count, (160-400) 193 X10*3/uL 10/09/24 Sodium, (135-145) 143 mmol/L 10/09/24 Potassium, (3.3-5.1) 3.5 mmol/L 10/09/24 Chloride, (96-108) 103 mmol/L 10/09/24 Carbon Dioxide, (22-29) 31 mmol/L H 10/09/24 BUN, (9-16) 25 mg/dL H 10/09/24 Creatinine, (0.5-1.4) 1.01 mg/dL 10/09/24 Calcium, (8.4-10.2) 8.1 mg/dL L Δ 10/09/24 Urine Protein, (Neg-Trace) 300 (3+) mg/dL H 10/09/24 Urine Creatinine 121.23 mg/dL 10/09/24 Assessment & Plan Assessment & Plan (1) Nephrotic syndrome: Code(s): N04.9 - Nephrotic syndrome with unspecified morphologic changes Category: Medical Plan 58-year-old man with nephrotic syndrome. 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 Other possibilities including membranous nephropathy and FSGS should be considered. Currently having suboptimal response to furosemide. He could have developed resistance furosemide. Since serum albumin is low I suspect Lasix is not being delivered to the tubules. Superimposed OSWALD due to hypoperfusion secondary to high dose diuretics - expected After lowering diuretics creatinine is back to baseline of 0.74 Urine protein excretion decrease down to 2.2 g as of April based on urine protein creatinine ratio. (protein excretion was 25 g back in 02/16/2024. Dropped to 9.7 g in 03/2024.) Recommendations Torsemide p.r.n. based on leg edema Encouraged to stay on a low-sodium diet Monitor weights at home. Continue to prednisone 5 mg Hold off on kidney biopsy and reassess Orders: Orders Total Protein Urine Random 6 Months N04.9 - Nephrotic syndrome with unspecified morphologic changes Blood Urea Nitrogen 6 Months N04.9 - Nephrotic syndrome with unspecified morphologic changes, N18.4 - Chronic kidney disease, stage 4 (severe) Creatinine Urine 6 Months N04.9 - Nephrotic syndrome with unspecified morphologic changes Coding Level of Care Code Est Pt Level 4 (92389) Diagnoses Nephrotic syndrome N04.9
--- OUTSIDE RECORDS SUMMARY | 2024-10-15 16:27 | XMS_ITS | Patient Health Record ---
Author Organization [facility] Address [address] [place] [address] Care Team Providers Care Sulphate Tester Name Role Phone Jessika (RETIRED) Irvin BENSON Primary Care Provide r Unavailable Gwen Anthony Unavailable [phone] Allergies No Known Allergies Reason For Referral [...] Problem Status W/U Status Risk Notes Problem 411950773 Encounter for screening for malignant neoplasm of colon (Z12.11) Active confirmed Problem 293186602 History of adenomatous polyp of colon (Z86.010) Active confirmed Problem Diverticular disease of colon (883749110) Diverticulosis of large intestine without perforation or abscess without bleeding (K57.30) Active confirmed Problem Gastroesophageal reflux disease (833384031) Gastroesophageal reflux disease (K21.9) Active confirmed Problem 089458542 Gastroesophageal reflux disease, esophagitis presence not specified (K21.9) Active confirmed Problem 658293804 Irregular bowel habits (R19.8) Active confirmed Problem Ojeda esophagus (770270833) 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 [address] [place] [address] [id number] AMAN HANLEY Self - patient is the insured Medical (General) History Medical History History ICD Code Denies ME,DM,CVA,Lung disease Hypertension Nephrotic syndrome- Dr. Henson Hyperlipidemia [...]
== END 2024-10-15 15:38 | disposition home or self-care (01) ==
LOC: HO.HKA 15:08
PROVIDERS: PCP Internal Medicine Medical Oncology; Visit Provider Internal Medicine Hypertension Specialist
DX: N04.9 Nephrotic syndrome with unspecified morphologic changes (principal)
CPT/HCPCS: 99214

== ENCOUNTER 2024-12-26 14:30 | Outpatient (AMB) | payer OTHER, SELFPAY ==
--- OUTSIDE RECORDS SUMMARY | 2024-04-17 14:51 | XMS_ITS ---
Author Organization Anthony Otero III, MD Address [address] [place] [address] [place] [address] Care Team Providers Care Hose Operator Name Role Phone Dr. Anthony Oteor III Primary Care Provider REASON FOR VISIT New Refill Request Social History Sex Assigned At : Social History Observation Description Sex Assigned At Male Encounters Encounter Location Date Provider Diagnosis Anthony Otero III, MD [address] [place] [address] [place] [address] 04/17/2024 Anthony Otero Plan Of Treatment Next Appt Details Provider Name:Anthony Otero , 03/10/2025 04:15:00 PM, [address] [place] [address] [place], [address], Progress Notes * Claudy HANLEY JrDOB:[birth year] (58 yo M)Acc No.[id number]:04/17/2024 Patient: Claudy STOUT Jr :1965 A ge:58 Y S ex:Male Address:[address] [place], [address] * true * Date: Generated for Printi ng/Faxing/eTransmitting on: 05:37 PM EDT
--- OUTSIDE RECORDS SUMMARY | 2024-05-06 12:15 | XMS_ITS ---
Author Organization Anthony Otero III, MD Address [address] [place] [address] Care Team Providers Care Developmental Education Instructor Name Role Phone Dr. Anthony Otero III [...] Date Provider Diagnosis Anthony Otero III, MD [address] [place] [address] [place] [address] 05/06/2024 Anthony Otero Nephrotic syndrome N 04.9 [...] Provider Name:Anthony Jamesonrne , 03/10/2025 04:15:00 PM, [address] [place] [address] DR, [facility] [address], [place], [address], Progress Notes * Claudy HANLEY JrDOB:[birth year] (58 yo M)Acc No.[id number]:05/06/2024 Progress Notes Patient: Claudy STOUT Jr Provider: Umm Otero MD :1965 A ge:58 Y S ex:Male Date:05/06/2024 Address:[address] [place], [place] [id number] Subjective: * Chief Complaints: * N ephrotic [...] History: c holecystectomy age 24 Renal biopsy [facility], remote Carpal tunnel surgery on both [...] use: N onsmoker He was born in [facility]. He has been to [facility] for 15 years.? He has no children. 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 He has no yarsani objection to blood transfusion. He does not [...] Negative) Trace A (Ref Range: Negative) Specific [place] - Urine 1.020 (Ref Range: 1.005-1.025) 1.025 [...] AM)?ValueReference Range?Hemoglobin A1c %6.5H<6.0 - %?Estimated Average Pafxxci668- mg/dL ???Lab:Comprehensive [place]. Panel Fast (Order Date - 05/02/2024) (Collection Date & Time - 05/02/2024 06:35 AM)?ValueReference Range?Igeoin729523- 145 - mmol/L?Bilirubin Total0.50.0-1.0 - mg/dL?Aspartate Amino Bobgsayvfdb982-57 - U/L?Alanine Qaaxebmcukldbhjd70C4-84 - U/L ?Total Protein5.5L6.5-8.0 - g/dL?Albumin Level3.3L3.5-5.0 - g/dL ?Alkaline Ajdzdqtjqcm3090-381 - U/L?Potassium3.93.3-5.1 - mmol/L ?Dvvgdprq60200-101 - mmol/L?Carbon Ckjepig7905-47 - mmol/L ?Anion Mtf7670-71 -?Blood Urea Bjynewlc48S0-59 - mg/dL ?Creatinine0.750.5-1.4 - mg/dL?Estimated Glomerular Filt Rate> 60- ?Glucose Hkmmzmv847O21-83 - mg/dL?Calcium8.58.4-10.2 - mg/dL ???Lab:B Type Natriuretic Peptide (Order Date - 05/02/2024) (Collection Date & Time - 05/02/2024 06:35 AM)?ValueReference Range?B Type Natriuretic Xenftyx20<100 - pg/mL ???Lab:Microalbumin, Random (Order Date - 05/02/2024) (Collection Date & Time - 05/02/2024 06:35 AM)?ValueReference Range?Creatinine Tyilg169.53- mg/dL?Microalbumin Urine> 2000.0- mg/L?Microalbum Creatinine Ratio Uf2600.2H<30 - ug/mg cr * Lab:Total Protein Urine [place] om * Collection Date 05/02/2024 04/01/2024 03/25/2024 [...] & Time - 03/18/2024 11:17 AM)?ValueReference Range?Complement Y56753-02 - mg/dL ???Lab:Phospholipase A2 Receptor Pnl (Order Date - 03/18/2024) (Collection Date & Time - 03/18/2024 11:17 AM)?ValueReference Range?Phospholipase A2 IgG SUSU<4- RU/mL?Phospholipase A2 IgG IFANEGATIVENEGATIVE - ???Imaging:XR chest 2V (Order Date - 04/12/2024) (Performed Date - 04/12/2024) ???Lab:Protein, 24 Hr Urine Group (Order Date - 03/02/2024) (Collection Date & Time - 03/02/2024 09:00 AM)?ValueReference Range?Protein 24 Hr Tvhrn93056T<150 - mg/Day?Protein mg/oE5501- mg/dL?Creatinine, 24Hr Urine2.2H1.0-2.0 - G/Day?Total Volume 24 Hour Wncgv8015- mL ?Creatinine, mg/dL113.30- * Lab:Comprehensive Met. Panel [...] Time - 03/11/2024 11:38 AM)?ValueReference Range?Erythrocyte Sedimentation Zkvj591-25 - MM/HR ???Lab:Complement C3 (Order Date - 03/18/2024) (Collection Date & Time - 03/18/2024 11:17 AM)?ValueReference Range?Complement [id number] - mg/dL ???Lab:Protein Electrophoresis, Serum (Order Date [...] 05/06/2024 Generated for Billyi ng/Azam/eTransmitting on: 1 05:37 PM EDT History and Physical Notes * HPI (History [...]
--- OUTSIDE RECORDS SUMMARY | 2024-07-17 12:15 | XMS_ITS ---
Author Organization Anthony Otero III, MD Address [address] [place] [address] Care Team Providers Care Flow Machine Operator Name Role Phone Dr. Anthony Otero III Primary Care Provider [phone] Allergies Allergen (clinical drug ingredient) Drug/Non Drug [...] Date Provider Diagnosis Anthony Otero III, MD [address] [place] [address] [place] [address] 07/17/2024 Anthony Otero Nephrotic syndrome N 04.9 [...] Provider Name:Anthony Otero , 03/10/2025 04:15:00 PM, [address] [place] [address] , [facility] [address], [place], [address], Progress Notes * Claudy HANLEY JrDOB:[birth year] (58 yo M)Acc No.[id number]:07/17/2024 Progress Notes Patient: Claudy STOUT Jr Provider: Umm Otero MD :1965 A ge:58 Y S ex:Male Date:07/17/2024 Address:[address] [place], [place] [address] Subjective: * Chief Complaints: * N ephrotic syndromeChronic insomniaHypertensionHyperlipidemiaDiabetesObesityArthritis right shoulder * HPI: C OVID-19 Screening: Avery palacios returns for medical management. He is going to see his microbiological laboratory technician in July 2024.? His weight has increased up to 231 pounds. He had trace pedal edema on today's examination. [place] to his knees. His cholesterol was 276. He recently saw his maxillofacial pathology.? Is using his CPAP machine every night [...] History: c holecystectomy age 24 Renal biopsy [facility], remote Carpal tunnel surgery on both [...] use: N onsmoker He was born in [facility]. He has been to [facility] for [facility] years.? He has no children. 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 He has no mu-ism objection to blood transfusion. He does not [...] Range: 0.0-0.012 X10*3/uL) * Lab:Total Protein Urine [employer] om * Collection Date 05/02/2024 04/01/2024 03/25/2024 [...] Negative) Trace A (Ref Range: Negative) Specific [place] - Urine 1.010 (Ref Range: 1.005-1.025) 1.020 [...] AM)?ValueReference Range?Hemoglobin A1c %6.5H<6.0 - %?Estimated Average Vlsjhdd251- mg/dL * Lab:Comprehensive [place]. Jasone l Fast * Collection Date 07/10/2024 [...] - 05/02/2024 06:35 AM)?ValueReference Range?B Type Natriuretic Agrxgra73<100 - pg/mL * Lab:Basic Metabolic Panel * [...] Date & Time - 07/10/2024 06:18 AM)?ValueReference Range?Alewaprigrhbz071N<150 - mg/dL?Yprkprzjqaj831B<200 - mg/dL?LDL Cholesterol Vhszfmdjev254Z <100 - mg/dL?HDL Rkrhrclnheo60>40 - mg/dL ???Lab:Prostate Specific Antigen (Order Date [...] ot examined. MUSCULOSKELETAL: M ild pitting edema chcf up to the knees on either side, [...] Otero MD Date: 0 07/17/2024 Generated for Lety garrett/Azam/eTransmitting on: 05:36 PM EDT History and Physical Notes * [...]
--- OUTSIDE RECORDS SUMMARY | 2024-07-18 06:04 | XMS_ITS ---
Author Organization Anthony Otero III, MD Address [address] [place] [address] Care Team Providers Care Process Tech Name Role Phone Dr. Anthony Otero III Primary Care Provider REASON FOR VISIT Insurance Social History Sex Assigned At : Social History Observation Description Sex Assigned At Male Encounters Encounter Location Date Provider Diagnosis Anthony Otero III, MD [address] [place] [address] [place] [address] 07/18/2024 Anthony Otero Plan Of Treatment Next Appt Details Provider Name:Anthony Otero , 03/10/2025 04:15:00 PM, [address] [place] [address] [place], [address], Progress Notes * Claudy HANLEY JrDOB:[birth year] (58 yo M)Acc No.[id number]:07/18/2024 Patient: Claudy STOUT Jr :1965 A ge:58 Y S ex:Male Address:[address] [place], [address] * true * Date: Generated for Printi ng/Faxing/eTransmitting on: 05:36 PM EDT
--- OUTSIDE RECORDS SUMMARY | 2024-08-19 10:11 | XMS_ITS ---
Author Organization Anthony Otero III, MD Address [address] [address] Care Team Providers Care Car Seat Upholsterer Name Role Phone Dr. Anthony Otero III Primary Care Provider REASON FOR VISIT Lab Request Social History Sex Assigned At : Social History Observation Description Sex Assigned At Male Encounters Encounter Location Date Provider Diagnosis Anthony Otero III, MD [address] [place] [address] [place] [address] 08/19/2024 Anthony Otero Mixed hyperlipidemia E78.2 ; [...] Provider Name:Anthony Otero , 03/10/2025 04:15:00 PM, [address] [place] [address] [place], [address], Progress Notes * Claudy HANLEY JrDOB:[birth year] (58 yo M)Acc No.[id number]:08/19/2024 Patient: Claudy STOUT Jr :1965 A ge:58 Y S ex:Male Address:[address] [place] [address], [address] Subjective: * Chief Complaints: * L ab [...] * Date: Generated for Lety garrett/Azam/eTransmitting on: 1 05:36 PM EDT
--- OUTSIDE RECORDS SUMMARY | 2024-09-13 12:45 | XMS_ITS ---
Author Organization Anthony Otero III, MD Address [address] [place] [address] [place] [address] Care Team Providers Care Marketing Developer Name Role Phone Dr. Antohny Otero III Primary Care Provider [phone] REASON FOR VISIT Follow up Social History Sex Assigned At : Social History Observation Description Sex Assigned At Male Encounters Encounter Location Date Provider Diagnosis Anthony Otero III, MD [address] [place] [address] [address] [facility] [address] 09/13/2024 Anthony Otero Plan Of Treatment Next Appt Details Provider Name:Anthony Otero , 03/10/2025 04:15:00 PM, [address] [place] [address] [place], [address], Progress Notes * Claudy HANLEY JrDOB:[birth year] (58 yo M)Acc No.[id number]:09/13/2024 Progress Notes Patient: Anant TRAMMELL Claudy Eisenberg Provider: Umm Otero MD :1965 A ge:58 Y S ex:Male Date:09/13/2024 Address: [address] [id number] Subjective: * Chief Complaints: * 1 . [...] 09/13/2024 Generated for Lety garrett/Azam/Dannielle on: 1 05:35 PM EDT
--- OUTSIDE RECORDS SUMMARY | 2024-10-15 10:45 | XMS_ITS ---
Author Organization Anthony Otero III, MD Address [address] [place] [address] Care Team Providers Care Signal Maintainer Helper Name Role Phone Dr. Anthony Otero III [...] Date Provider Diagnosis Anthony Otero III, MD [address] [place] [address] [place] [address] 10/15/2024 Anthony Otero Nephrotic syndrome N 04.9 [...] Provider Name:Anthony Otero , 03/10/2025 04:15:00 PM, [address] [place] [address] DR, [address], [address], Progress Notes * Claudy HANLEY JrDOB:[birth year] (58 yo M)Acc No.[id number]:10/15/2024 Progress Notes Patient: Claudy STOUT Jr Provider: Umm Otero MD :1965 A ge:58 Y S ex:Male Date:10/15/2024 Address:[address] [place], [place] [id number] Subjective: * Chief Complaints: * N ephrotic [...] History: c holecystectomy age 24 Renal biopsy [facility], remote Carpal tunnel surgery on both [...] use: N onsmoker He was born in [facility]. He has been to [place] for 15 years.? He has no children. 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 He has no moravian objection to blood transfusion. He does not [...] Range: 0.0-0.012 X10*3/uL) * Lab:Total Protein Urine [place] om * Collection Date 08/12/2024 05/02/2024 04/01/2024 [...] Urine UA NegativeNegative - mg/dL?Urine BloodNegativeNegative -?Specific [place] - Urine1.0201.005-1.025 -?Urine Protein>=1000 (4+)ANeg-Trace - mg/dL?Urine [...] Range: Negative) Negative (Ref Range: Negative) Specific [place] - Urine 1.020 (Ref Range: 1.005-1.025) 1.010 [...] 10/15/2024 Generated for Lety garrett/Azam/eTransmitting on: 1 05:37 PM EDT History and [...]
--- OUTSIDE RECORDS SUMMARY | 2024-12-03 13:45 | XMS_ITS ---
Author Organization Anthony Otero III, MD Address [address] [place] [address] Care Team Providers Care Die Trouble Shooter Name Role Phone Dr. Anthony Otero III Primary Care Provider [phone] REASON FOR VISIT New Refill Request Medications Medication SIG (Take, Route, Frequency, Duration) Notes Start Date End Date Status Zolpidem Tartrate 10 MG 1 tablet at bedt ashly Orally Once a day for 90 days 07/17/2024 11/30/2025 Active Social History Sex Assigned At : Social History Observation Description Sex Assigned At Male Encounters Encounter Location Date Provider Diagnosis Anthony Otero III, MD [address] [place] [address] [place] [address] 12/03/2024 Anthony Otero Nephrotic syndrome N04.9 Assessments [...] Provider Name:Anthony Otero , 03/10/2025 04:15:00 PM, [address] [place] [address] [place], [address], Progress Notes * Claudy HANLEYB:[birth year] (58 yo M)Acc No.[id number]:12/03/2024 Patient: Claudy STOUT Jr :1965 A ge:58 Y S ex:Male Address:[address] [place] [address], [address] * Refills Refill Zolpidem Tartrate Tablet, 10 MG, Orally, 90 Tablet, 1 tablet at bedtime, Once a day, 90 days, Refills=3 * true * Date: Generated for Lety garrett/Azam/eTtroysmitting on: 1 05:35 PM EDT
--- OUTSIDE RECORDS SUMMARY | 2024-12-03 13:48 | XMS_ITS ---
Author Organization Anthony Otero III, MD Address [address] [place] [address] [place] [address] Care Team Providers Care Rivet Tapping Machine Operator Name Role Phone Dr. Anthony Otero III Primary Care Provider REASON FOR VISIT New Refill Request Social History Sex Assigned At : Social History Observation Description Sex Assigned At Male Encounters Encounter Location Date Provider Diagnosis Anthony Otero III, MD [address] [place] [address] [place] [address] 12/03/2024 Anthony Otero Plan Of Treatment Next Appt Details Provider Name:Anthony Otero , 03/10/2025 04:15:00 PM, [address] [place] [address] [place], [address], Progress Notes * Claudy HANLEY JrDOB:[birth year] (58 yo M)Acc No.[id number]:12/03/2024 Patient: Claudy STOUT Jr :1965 A ge:58 Y S ex:Male Address:[address] [place], [address] * true * Date: Generated for Printi ng/Faxing/eTransmitting on: 05:36 PM EDT
--- OUTSIDE RECORDS SUMMARY | 2024-12-03 13:54 | XMS_ITS ---
Author Organization Anthony Otero III, MD Address [address] [place] [address] [place] [address] Care Team Providers Care Front Desk Lead Name Role Phone Dr. Anthony Otero III Primary Care Provider Reason For Referral Reason Evaluate and Treat Diagnosis 1 Primary osteoarthrit is, left shoulder (M19.012) Diagnosis 2 Primary osteoarthrit is, right shoulder (M19.011) Referral Organization Anthony Otero III, MD Referring Provider First Name Anthony Referring Provider Last Name Branden Referring Provider Speciality Internal M edicine Referred Provider [facility] er, Orthopedic Surgeons Referred Provider Specialty Orthopedic S [facility] General Notes DZara 12/10/2024 10:10:03 AM > Referral with last progress note faxed. Referral Priority Routine Referral Appointment Date 12/26/2024 REASON FOR VISIT New Referral Request Social History Sex Assigned At : Social History Observation Description Sex Assigned At Male Encounters Encounter Location Date Provider Diagnosis Anthony Otero III, MD [address] [place] [address] [address] [place] [address] 12/03/2024 Anthony Otero Plan Of Treatment Referrals Referral Date Details 12/06/2024 12/06/2024, Evaluate and Treat, Orthopedic Surgeons [facility] Next Appt Details Provider Name:Anthony Otero , 03/10/2025 04:15:00 PM, [address] [place] [address] [place], [address], Progress Notes * Claudy HANLEY JrDOB:[birth year] (58 yo M)Acc No.[id number]:12/03/2024 Patient: Claudy STOUT Jr :1965 A ge:58 Y S ex:Male Address:[address] [place] [address] [place], [address] Subjective: * Chief Complaints: * N ew Referral Request * Medical History: * Surgical History: * Hospitalization/Major Diagno stic Procedure: * Medications: Objective: * Vitals: * Physical Examination: Assessment: Plan: * Treatment: * Procedure Codes: * true * Date: Generated for Lety garrett/Azam/eTransmitting on: 1 05:36 PM EDT Consultation Request Notes Referral Date Referring Provider Referred Provider Not es 12/06/2024 Branden [facility], Orthopedic Surgeons Evaluate and Treat
[2024-12-26 14:36] VITALS: BMI 33.7
--- NOTE | 2024-12-26 14:36 | A.OFFVIS_ITS ---
Vital Signs 12/26/24 14:36 Height 5 ft 10 in Weight 235 lb BMI 33.7 Intake Visit Reasons: INJ- bilateral shoulder inj Intake Note: Claudy is a 58 year old right hand dominant male who presents today for a follow up of his Bilateral Shoulder Pain. He had bilateral shoulders injected on 06/03/24, these injections were helpful and he would like to repeat bilaterally today. Patient would like to repeat bilateral shoulder injections today Allergies most pain meds Allergy (Unknown, Uncoded 06/03/24 14:55) mild itching Medication List - Last Reconciled 12/26/24 by Veronique Encinas PA-C albuterol sulfate 90 mcg/actuation inhalation PRN atorvastatin 40 mg PO DAILY citalopram 40 mg PO DAILY fenofibrate nanocrystallized 145 mg PO DAILY lisinopril 40 mg PO DAILY meclizine 12.5 mg PO BID PRN metformin ER 500 mg PO DAILY omeprazole 40 mg PO DAILY prednisone 5 mg PO DAILY torsemide 20 mg PO DAILY zolpidem (Ambien) 10 mg PO BEDTIME PRN HPI HPI INJ- bilateral shoulder inj: Details: Claudy is a 58 year old right hand dominant male who presents today for a follow up of his Bilateral Shoulder Pain. He had bilateral shoulders injected on 06/03/24, these injections were helpful and he would like to repeat bilaterally today. Patient would like to repeat bilateral shoulder injections today [facility] Medical History (Updated 06/03/24 @ 17:57 by Amilcar Hartmann MD) Orbit injury, left GERD (gastroesophageal reflux disease) Left elbow tendonitis Back pain Nephrotic syndrome Elevated cholesterol HTN (hypertension) Anxiety Sleep apnea Asthma Surgical History Hx of elbow surgery Hx of esophagogastroduodenoscopy Hx of colonoscopy History of cholecystectomy History of arthroscopy of both shoulders History of bilateral carpal tunnel release H/O bilateral inguinal hernia repair Family History Father Heart disease Mother HTN (hypertension) Dementia Kidney disease Hypercholesteremia Social History Alcohol intake: current Alcohol intake frequency: a few times a month Alcohol type: beer Patient Tobacco Use Status: Never used Tobacco Review of Systems Const All systems reviewed & are unremarkable except as noted in HPI and below Physical Exam Vital Signs: BMI result Body Mass Index 33.7 Extrem Other: positive Vogt and Neer Negative empty can 40/90/130/L5 bilaterally Office Procedures AMB Joint Injection/Aspiration Joint Injection/Aspiration Primary Site: right shoulder Secondary Site: left shoulder Prep: site was prepped using aseptic technique, ethochloride spray was applied and injection warnings given Injected: 40 mg of, with 3 mL of, 1% plain lidocaine, 0.25% bupivacaine and in the subcromial space Approach Used: posterolateral Procedure: The patient tolerated the procedure well and there was some relief with the local anesthesia Coding 10376 - Glenohumeral/Tronchanteric Bursa/Intraarticular Procedure code (CPT) selection complete Assessment & Plan Assessment & Plan (1) Painful arc syndrome of left shoulder: Code(s): M75.102 - Unspecified rotator cuff tear or rupture of left shoulder, not specified as traumatic Category: Medical (2) Painful arc syndrome of right shoulder: Code(s): M75.101 - Unspecified rotator cuff tear or rupture of right shoulder, not specified as traumatic Category: Medical Plan We discussed options today, which include steroid injection. The patient did consent to move forward with the injection, which was tolerated well.? I recommended rest, ice and elevation and OTC antiinflammatories prn for discomfort. If symptoms persist over the next 6-8 weeks, they will contact our office, otherwise, prn Coding Level of Care Code Est Pt Level 3 (38144) Complex EM visit Add On G2211 Diagnoses Painful arc syndrome of left shoulder M75.102 Painful arc syndrome of right shoulder M75.101 CPT Codes Coding - Joint 7: 24277 - Glenohumeral/Tronchanteric Bursa/Intraarticular ([id number])
--- OUTSIDE RECORDS SUMMARY | 2024-12-26 17:37 | XMS_ITS | Patient Health Record ---
Author Organization [facility] Address [address] [place] [address] Care Team Providers Care Behavioral Medical Director Name Role Phone Jessika (RETIRED) Irvin BENSON Primary Care Provide r Unavailable Gwen Anthony Unavailable [phone] Allergies No Known Allergies Reason For Referral [...] 1 tablet with food Orally Once a day; Duration: 30 day(s) Active Ambien 10 MG 1 tablet at bedtime as needed Orally Once a day Active Omeprazole 40 MG 1 capsule 30 minutes before morning meal Orally Once a day; Duration: 90 days 02/06/2019 Not-Taking Omeprazole 20 MG [...] Problem Status W/U Status Risk Notes Problem Screening for malignant neoplasm of colon (404977866) Encounter for screening for malignant neoplasm of colon (Z12.11) Active confirmed Problem History of adenomatous polyp of colon (763922123) History of adenomatous polyp of colon (Z86.010) Active confirmed Problem Diverticular disease of colon (633283128) Diverticulosis of large intestine without perforation or abscess without bleeding (K57.30) Active confirmed Problem Gastroesophageal reflux disease (664967186) Gastroesophageal reflux disease (K21.9) Active confirmed Problem Gastroesophageal reflux disease (638201577) Gastroesophageal reflux disease, esophagitis presence not specified (K21.9) Active confirmed Problem Irregular bowel habits (110939544) Irregular bowel habits (R19.8) Active confirmed Problem Ojeda esophagus (888692102) 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 Problem Generalized abdominal pain (498739629) Abdominal pain, generalized (R10.84) Active confirmed Problem Ojeda's esophagus (177600609) Ojeda''s esophagus without dysplasia (K22.70) Active confirmed Problem Chronic gastric ulcer without hemorrhage AND without perforation (25792222) Chronic gastric ulcer without hemorrhage and without [...] End Date [employer] [address] [address] [place] [address] [id number] 3 AMAN HANLEY Self - patient is the insured Medical (General) History Medical History History ICD Code Denies NM,DM,CVA,Lung disease Hypertension Nephrotic syndrome- Dr. Henson Hyperlipidemia Anxiety Asthma/bronchitis Chronic back pain--gets atul odic RFA for nerve pain in the lower back/SI joints GERD Sleep apnea--not using CPAP Positive Hpylori serology treated with a ntibiotics and PPI in the past Screening colonoscopy [facility] er 2018 with removal of a cecal [...] negative for H. pylori Followup colonoscopy in [facility]2019 was negative for any recurrent polyps Upper [...]
--- OUTSIDE RECORDS SUMMARY | 2024-12-26 17:37 | XMS_ITS | Patient Health Record ---
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 Anthony Otero III Primary Care Provider Allergies Allergen (clinical drug ingredient) Drug/Non Drug Allergy documented on EMR Reaction Allergy Type Onset Date Status Pain medication (uncoded) Unknown Allergy Active Results Component Value Reference Range Notes Protein, 24 Hr Urine Group Reviewed date:03/04/2024 09:18:29 AM Interpretation: Performing Lab:[facility], [address] [place] [phone] Notes/Report: 1900 [id number] 1000 Protein 24 Hr Urine 39573 <150 mg/Day Protein mg/dL 1322 Creatinine, 24Hr Urine 2.2 1.0-2.0 G/Day Creatinine, mg/dL 113.30 Total Volume 24 Hour Urine 1900 Complete Blood Count Auto Di ff Reviewed date:03/05/2024 05:15:10 PM Interpretation: Performing Lab:[facility], [address] [place] [phone] Notes/Report: White Blood Count 7.5 4.8-10.8 X10*3/uL [...] Panel Reviewed date:03/05/2024 05:15:10 PM Interpretation: Performing Lab:[facility], [address] [place] [phone] Notes/Report: Sodium 141 135-145 mmol/L Potassium 4.0 [...] ff Reviewed date:03/11/2024 02:33:07 PM Interpretation: Performing Lab:[address] [phone] Notes/Report: White Blood Count 6.4 4.8-10.8 X10*3/uL [...] te Reviewed date:03/11/2024 02:33:07 PM Interpretation: Performing Lab:[facility], [address] [place] [phone] Notes/Report: Erythrocyte Sedimentation Rate 13 0-15 MM/HR Patients with polycythemia and many hemoglobin abnormalities may have depressed sed rates whereas patients with anemia may have elevated sed rates. Comprehensive Met. Panel Reviewed date:03/11/2024 02:33:07 PM Interpretation: Performing Lab:[facility], [address] [place] [phone] Notes/Report: Sodium 143 135-145 mmol/L Potassium 3.7 [...] Panel Reviewed date:03/21/2024 06:28:51 AM Interpretation: Performing Lab:[facility], [address] [place] [phone] Notes/Report: Sodium 139 135-145 mmol/L Potassium 4.0 [...] um Reviewed date:03/28/2024 09:26:04 AM Interpretation: Performing Lab:[facility], [address] [place] [phone] Notes/Report: Prot Elec - Total Protein 3.6 [...] clinical diagnosis. THIS TEST WAS PERFORMED AT: [facility] [address] [place] [phone] REMINGTON WILLIAMSON MD Complement C3 Reviewed date:03/21/2024 06:28:51 AM Interpretation: Performing Lab:[facility], [address] [place] [phone] Notes/Report: Complement C3 151 82-185 mg/dL THIS TEST WAS PERFORMED AT: [facility] [address] [place] [phone] REMINGTON WILLIAMSON MD Complement C4 Reviewed date:03/21/2024 06:28:51 AM Interpretation: Performing Lab:[facility], [address] [place] [phone] Notes/Report: Complement C4 35 15-53 mg/dL THIS TEST WAS PERFORMED AT: [facility] [address] [place] [phone] REMINGTON WILLIAMSON MD Phospholipase A2 Receptor Pn l Reviewed date:03/28/2024 09:26:04 AM Interpretation: Performing Lab:[facility], [address] [place] [phone] Notes/Report: Phospholipase A2 IgG SUSU <4 Reference Range: <14: NEGATIVE 14-19: BORDERLINE >19: POSITIVE Phospholipase A2 IgG IFA NEGATIVE NEGATIVE THIS TEST WAS PERFORMED AT: [facility] [address] [place] [address] EVAN SOMMER MD,PHD,VALERIO Basic Metabolic Panel Reviewed date:03/28/2024 09:26:04 AM Interpretation: Performing Lab:[facility], [address] [place] [phone] Notes/Report: Sodium 141 135-145 mmol/L Potassium 3.8 [...] Urine Reviewed date:03/28/2024 09:26:04 AM Interpretation: Performing Lab:[facility], [address] [place] [phone] Notes/Report: Creatinine Urine 71.15 Total Protein Urine Random Reviewed date:03/28/2024 09:26:04 AM Interpretation: Performing Lab:[facility], [address] [place] [phone] Notes/Report: Total Protein Urine Random 409 <12 mg/dL Urinalysis and Microscopic Reviewed date:04/01/2024 06:09:31 PM Interpretation: Performing Lab:[facility], [address] [place] [phone] Notes/Report: Color Urine Dark Yellow Appearance Urine Clear PH 7.0 5.0-9.0 Glucose Urine UA 500 Negative mg/dL Urine Blood Trace Negative Specific [place] - Urine 1.025 1.005-1.025 Urine Protein >=1000 [...] Urine Reviewed date:04/01/2024 06:09:32 PM Interpretation: Performing Lab:[facility], [address] [place] [phone] Notes/Report: Creatinine Urine 166.67 Total Protein Urine Random Reviewed date:04/01/2024 06:09:32 PM Interpretation: Performing Lab:[facility], [address] [place] [phone] Notes/Report: Total Protein Urine Random 1569 <12 mg/dL XR chest 2V Reviewed date:04/21/2024 09:08:31 AM Interpretation: Performing Lab: Notes/Report: [facility] [address] [place] [address] [place] [address] XRay Report Signed Patient: Claudy Berger Jr MR#: [id number] : 1965 Acct:[id number] Age/Sex: 58 / M ADM Date: 04/12/24 Loc: HO.HMGCX Attending Dr: Anthony Otero MD Ordering Physician: Anthony Otero MD Date of Service: 04/12/24 Procedure(s): XR chest 2V Accession Number(s): [id number] cc: Anthony Otero MD EXAMINATION: XR CHEST [...] by: Kris Zabala MD 04/16/2024 08:58 AM [facility] Dictated By: Kris Zabala MD Signed By: <Electronically signed by Kris Zabala MD in OV> 04/16/24 0858 DD/ 1619 TD/TT: 04/12/24 1625 Echo Tech: [facility] [address] [place] [address] [place] [address] XRay Report Signed Patient: Chandan Berger Jr MR#: [id number] : 1965 Acct:[id number] Age/Sex: 58 / M ADM Date: 04/12/24 Loc: HO.HMGCX Attending Dr: Anthony Otero MD Ordering Physician: Anthony Otero MD Date of Service: 04/12/24 Procedure(s): XR man st 2V Accession Number(s): [id number] cc: Anthony Otero MD EXAMINATION: XR CHEST [...] by: Kris Zabala MD 04/16/2024 08:58 AM [facility] [place] Dictated By: Kris Zabala MD Signed By: <Electronically signed by Kris Zabala MD in OV> 04/16/24 0858 DD/ 1619 TD/TT: 04/12/24 1625 Echo Tech: Complete Blood Count Auto Di ff Reviewed date:05/02/2024 08:46:40 PM Interpretation: Performing Lab:[facility], [address] [place] [phone] Notes/Report: White Blood Count 3.6 4.8-10.8 X10*3/uL [...] Microscopic Reviewed date:05/02/2024 08:46:40 PM Interpretation: Performing Lab:[facility], [address] [place] [phone] Notes/Report: Color Urine Yellow Appearance Urine Clear PH 7.5 5.0-9.0 Glucose Urine UA Negative Negative mg/dL Urine Blood Negative Negative Specific [place] - Urine 1.020 1.005-1.025 Urine Protein 300 (3+) Neg-Trace mg/dL Urine Ketones Negative Negative mg/dL Nitrite Urine Negative Negative Leukocyte Esterase Urine Negative Negative RBC Urine 0-2 0-2 /HPF WBC Urine 0-5 0-5 /HPF Squamous Epithelial Cell Urine 0-2 0-2 /HPF Bacteria Urine None Seen None Seen Hyaline Casts Urine 0-2 0-2 /LPF Comprehensive Issue. Panel Fa st Reviewed date:05/02/2024 08:46:40 PM Interpretation: Performing Lab:[facility], [address] [place] [phone] Notes/Report: Sodium 141 135-145 mmol/L Potassium 3.9 [...] Peptide Reviewed date:05/02/2024 08:46:40 PM Interpretation: Performing Lab:[address] [phone] Notes/Report: B Type Natriuretic Peptide 12 <100 pg/mL For those patients who are being treated with Natrecor (nesiritide, recombinant BNP), BNP testing should be performed at least two hours post treatment in order to ensure that only endogenous levels of BNP are detected. Microalbumin, Random Reviewed date:05/02/2024 08:46:40 PM Interpretation: Performing Lab:[address] [phone] Notes/Report: Creatinine Urine 125.53 Microalbumin Urine > 2000.0 Microalbum/Creatinine Ratio Ur 1593.2 <30 ug/mg cr Albumin/Creatinine Ratio Reference Ranges: Normal: < 30 ug/mg creatinine Microalbuminuria: 30 - 300 ug/mg creatinine Clinical Albuminuria: > 300 ug/mg creatinine Creatinine Urine Reviewed date:05/02/2024 08:46:40 PM Interpretation: Performing Lab:[address] [phone] Notes/Report: Creatinine Urine 124.68 Total Protein Urine Random Reviewed date:05/02/2024 08:46:40 PM Interpretation: Performing Lab:[address] [phone] Notes/Report: Total Protein Urine Random 346 <12 mg/dL Hemoglobin A1c Reviewed date:05/02/2024 08:46:40 PM Interpretation: Performing Lab:[address] [phone] Notes/Report: Hemoglobin A1c % 6.5 <6.0 % [...] average glucose, using the formula of the A4Y-Vyoulnz Average Glucose study (ADAG), Diabetes Care, Vol.31,#8, Sep. 2007 Urinalysis and Microscopic Reviewed date:06/06/2024 08:25:56 PM Interpretation: Performing Lab:[address] [phone] Notes/Report: Color Urine Yellow Appearance Urine Clear PH 7.5 5.0-9.0 Glucose Urine UA Negative Negative mg/dL Urine Blood Negative Negative Specific [place] - Urine 1.010 1.005-1.025 Urine Protein 300 (3+) Neg-Trace mg/dL Urine Ketones Negative Negative mg/dL Nitrite Urine Negative Negative Leukocyte Esterase Urine Negative Negative RBC Urine 0-2 0-2 /HPF WBC Urine 0-5 0-5 /HPF Squamous Epithelial Cell Urine 0-2 0-2 /HPF Bacteria Urine None Seen None Seen Hyaline Casts Urine 0-2 0-2 /LPF Basic Metabolic Panel Reviewed date:06/06/2024 08:25:56 PM Interpretation: Performing Lab:[facility], [address] [place] [phone] Notes/Report: Sodium 141 135-145 mmol/L Potassium 4.1 3.3-5.1 mmol/L Chloride 109 96-108 mmol/L Carbon Dioxide 26 22-29 mmol/L Anion Gap 10 12-20 Blood Urea Nitrogen 13 9-16 mg/dL Creatinine 0.77 0.5-1.4 mg/dL Estimated Glomerular Filt Rate > 60 Chronic Kidney Disease: Estimated GFR < 60 mL/min/1.73m2 Severe Kidney Disease: Estimated GFR < 15 mL/min/1.73m2 Glucose Random 104 60-115 mg/dL Calcium 8.7 8.4-10.2 mg/dL Complete Blood Count Auto Di ff Reviewed date:07/10/2024 11:38:05 AM Interpretation: Performing Lab:[facility], [address] [place] [phone] Notes/Report: White Blood Count 3.7 4.8-10.8 X10*3/uL Red Blood Count 4.12 4.60-5.80 X10*6/uL Hemoglobin 12.6 14.0-18.0 g/dl Hematocrit 37.3 42.0-52.0 % Mean Corpuscular Volume 90.5 80.0-98.0 fL Mean Corpuscular Hemoglobin 30.6 27.0-33.0 pg Mean Corpuscular HGB Conc 33.8 31.0-36.0 g/dl Red Cell Distribution Width 12.4 11.0-16.0 % Platelet Count 190 160-400 X10*3/uL Mean Platelet Volume 10.3 9.4-12.4 fL Neutrophils Percent Auto 45.0 45-73 % Imm Gran Pct Auto 0.5 0.0-0.4 % Lymphocytes Percent Auto 41.8 20-40 % Monocytes Percent Auto 9.2 2-11 % Eosinophils Percent Auto 2.7 0-4 % Basophils Percent Auto 0.8 0-2 % NRBC Pct Auto 0.0 0.0-0.2 /100WBC Neutrophils Absolute Auto 1.7 2.0-8.3 x10*3/uL Imm Gran Abs Auto 0.02 0.00-0.03 X10*3/uL Lymphocytes Absolute Auto 1.6 1.2-4.9 X10*3/uL Monocytes Absolute Auto 0.3 0.1-1.2 X10*3/uL Eosinophils Absolute Auto 0.1 0.0-0.4 X10*3/uL Basophils Absolute Auto 0.0 0.0-0.2 X10*3/uL NRBC Abs Auto 0.000 0.0-0.012 X10*3/uL Comprehensive Issue. Panel Fa st Reviewed date:07/10/2024 11:38:05 AM Interpretation: Performing Lab:[facility], [address] [place] [phone] Notes/Report: Sodium 142 135-145 mmol/L Potassium 3.8 3.3-5.1 mmol/L Chloride 105 96-108 mmol/L Carbon Dioxide 30 22-29 mmol/L Anion Gap 11 12-20 Blood Urea Nitrogen 16 9-16 mg/dL Creatinine 0.87 0.5-1.4 mg/dL Estimated Glomerular Filt Rate > 60 Chronic Kidney Disease: Estimated GFR < 60 mL/min/1.73m2 Severe Kidney Disease: Estimated GFR < 15 mL/min/1.73m2 Glucose Fasting 107 60-99 mg/dL A fasting glucose from 100-125 mg/dl is considered impaired (pre-diabetes). Calcium 8.2 8.4-10.2 mg/dL Bilirubin Total 0.2 0.0-1.0 mg/dL Aspartate Amino Transferase 26 5-37 U/L Alanine Aminotransferase 18 0-40 U/L Total Protein 5.0 6.5-8.0 g/dL Albumin Level 3.0 3.5-5.0 g/dL Alkaline Phosphatase 36 39-117 U/L Lipid Panel Reviewed date:07/10/2024 11:38:05 AM Interpretation: Performing Lab:[facility], [address] [place] [phone] Notes/Report: Triglycerides 175 <150 mg/dL Desirable Triglyceride: less than 150 mg/dL Borderline High Triglyceride 150-199 mg/dL High Triglyceride: 200-499 mg/dL Very High Triglyceride: greater than or equal to 5OO mg/dL Cholesterol 276 <200 mg/dL Desirable Cholesterol: less than 200 mg/dL Borderline High Cholesterol: 200-239 mg/dL High Cholesterol: greater than 239 mg/dL LDL Cholesterol Calculated 163 <100 mg/dL Desirable LDL: less than 100 mg/dL Near Optimal/Above Optimal LDL: 110-129 mg/dL Borderline High LDL: 130-159 mg/dL High LDL: 160-189 mg/dL Very High LDL: greater than or equal to 190 mg/dL HDL Cholesterol 78 >40 mg/dL Desirable HDL: greater than 40 mg/dL Note: This HDL assay may give artificially low results in patients with liver disease. Prostate Specific Antigen Reviewed date:07/10/2024 11:38:05 AM Interpretation: Performing Lab:[facility], [address] [place] [phone] Notes/Report: Prostate Specific Antigen 0.76 <0.05-4.0 ng/mL PSA methodology: Ortega Alinity i Chemiluminescent Microparticle Immunoassay (CMIA) Complete Blood Count Auto Di ff Reviewed date:09/28/2024 08:41:30 PM Interpretation: Performing Lab:[facility], [address] [place] [phone] Notes/Report: White Blood Count 4.4 4.8-10.8 X10*3/uL Red Blood Count 4.17 4.60-5.80 X10*6/uL Hemoglobin 12.7 14.0-18.0 g/dl Hematocrit 37.2 42.0-52.0 % Mean Corpuscular Volume 89.2 80.0-98.0 fL Mean Corpuscular Hemoglobin 30.5 27.0-33.0 pg Mean Corpuscular HGB Conc 34.1 31.0-36.0 g/dl Red Cell Distribution Width 12.8 11.0-16.0 % Platelet Count 179 160-400 X10*3/uL Mean Platelet Volume 10.3 9.4-12.4 fL Neutrophils Percent Auto 48.8 45-73 % Imm Gran Pct Auto 1.1 0.0-0.4 % Lymphocytes Percent Auto 38.0 20-40 % Monocytes Percent Auto 8.9 2-11 % Eosinophils Percent Auto 2.3 0-4 % Basophils Percent Auto 0.9 0-2 % NRBC Pct Auto 0.0 0.0-0.2 /100WBC Neutrophils Absolute Auto 2.2 2.0-8.3 x10*3/uL Imm Gran Abs Auto 0.05 0.00-0.03 X10*3/uL Lymphocytes Absolute Auto 1.7 1.2-4.9 X10*3/uL Monocytes Absolute Auto 0.4 0.1-1.2 X10*3/uL Eosinophils Absolute Auto 0.1 0.0-0.4 X10*3/uL Basophils Absolute Auto 0.0 0.0-0.2 X10*3/uL NRBC Abs Auto 0.000 0.0-0.012 X10*3/uL Urinalysis Reviewed date:09/28/2024 08:41:30 PM Interpretation: Performing Lab:[facility], [address] [place] [phone] Notes/Report: Color Urine Yellow Appearance Urine Clear PH 7.5 5.0-9.0 Glucose Urine UA Negative Negative mg/dL Urine Blood Negative Negative Specific [place] - Urine 1.020 1.005-1.025 Urine Protein >=1000 (4+) Neg-Trace mg/dL Urine Ketones Negative Negative mg/dL Nitrite Urine Negative Negative Leukocyte Esterase Urine Negative Negative Urine Microscopic Reviewed date:09/28/2024 08:41:30 PM Interpretation: Performing Lab:[facility], [address] [place] [phone] Notes/Report: RBC Urine 0-2 0-2 /HPF WBC Urine 0-5 0-5 /HPF Squamous Epithelial Cell Urine 0-2 0-2 /HPF Bacteria Urine None Seen None Seen Hyaline Casts Urine 0-2 0-2 /LPF Comprehensive Issue. Panel Fa st Reviewed date:09/28/2024 08:41:30 PM Interpretation: Performing Lab:[facility], [address] [place] [phone] Notes/Report: Sodium 145 135-145 mmol/L Potassium 4.0 3.3-5.1 mmol/L Chloride 107 96-108 mmol/L Carbon Dioxide 31 22-29 mmol/L Anion Gap 11 12-20 Blood Urea Nitrogen 27 9-16 mg/dL Creatinine 0.87 0.5-1.4 mg/dL Estimated Glomerular Filt Rate > 60 Chronic Kidney Disease: Estimated GFR < 60 mL/min/1.73m2 Severe Kidney Disease: Estimated GFR < 15 mL/min/1.73m2 Glucose Fasting 99 60-99 mg/dL Calcium 8.7 8.4-10.2 mg/dL Bilirubin Total 0.3 0.0-1.0 mg/dL Aspartate Amino Transferase 22 5-37 U/L Alanine Aminotransferase 15 0-40 U/L Total Protein 4.9 6.5-8.0 g/dL Albumin Level 2.9 3.5-5.0 g/dL Alkaline Phosphatase 35 39-117 U/L Lipid Panel Reviewed date:09/28/2024 08:41:30 PM Interpretation: Performing Lab:[facility], [address] [place] [phone] Notes/Report: Triglycerides 199 <150 mg/dL Desirable Triglyceride: less than 150 mg/dL Borderline High Triglyceride 150-199 mg/dL High Triglyceride: 200-499 mg/dL Very High Triglyceride: greater than or equal to 5OO mg/dL Cholesterol 281 <200 mg/dL Desirable Cholesterol: less than 200 mg/dL Borderline High Cholesterol: 200-239 mg/dL High Cholesterol: greater than 239 mg/dL LDL Cholesterol Calculated 155 <100 mg/dL Desirable LDL: less than 100 mg/dL Near Optimal/Above Optimal LDL: 110-129 mg/dL Borderline High LDL: 130-159 mg/dL High LDL: 160-189 mg/dL Very High LDL: greater than or equal to 190 mg/dL HDL Cholesterol 87 >40 mg/dL Desirable HDL: greater than 40 mg/dL Note: This HDL assay may give artificially low results in patients with liver disease. Prostate Specific Antigen Reviewed date:09/28/2024 08:41:30 PM Interpretation: Performing Lab:[address] [phone] Notes/Report: Prostate Specific Antigen 0.67 <0.05-4.0 ng/mL PSA methodology: Ortega Alinity i Chemiluminescent Microparticle Immunoassay (CMIA) Total Protein Urine Random Reviewed date:09/28/2024 08:41:30 PM Interpretation: Performing Lab:[address] [phone] Notes/Report: Total Protein Urine Random 615 <12 mg/dL Complete Blood Count Auto Di ff Reviewed date:10/15/2024 02:44:35 PM Interpretation: Performing Lab:[address] [phone] Notes/Report: White Blood Count 5.8 4.8-10.8 X10*3/uL Red Blood Count 4.08 4.60-5.80 X10*6/uL Hemoglobin 12.6 14.0-18.0 g/dl Hematocrit 37.3 42.0-52.0 % Mean Corpuscular Volume 91.4 80.0-98.0 fL Mean Corpuscular Hemoglobin 30.9 27.0-33.0 pg Mean Corpuscular HGB Conc 33.8 31.0-36.0 g/dl Red Cell Distribution Width 13.4 11.0-16.0 % Platelet Count 193 160-400 X10*3/uL Mean Platelet Volume 10.4 9.4-12.4 fL Neutrophils Percent Auto 58.6 45-73 % Imm Gran Pct Auto 2.1 0.0-0.4 % Lymphocytes Percent Auto 28.1 20-40 % Monocytes Percent Auto 9.0 2-11 % Eosinophils Percent Auto 1.7 0-4 % Basophils Percent Auto 0.5 0-2 % NRBC Pct Auto 0.0 0.0-0.2 /100WBC Neutrophils Absolute Auto 3.4 2.0-8.3 x10*3/uL Imm Gran Abs Auto 0.12 0.00-0.03 X10*3/uL Lymphocytes Absolute Auto 1.6 1.2-4.9 X10*3/uL Monocytes Absolute Auto 0.5 0.1-1.2 X10*3/uL Eosinophils Absolute Auto 0.1 0.0-0.4 X10*3/uL Basophils Absolute Auto 0.0 0.0-0.2 X10*3/uL NRBC Abs Auto 0.000 0.0-0.012 X10*3/uL Urinalysis and Microscopic Reviewed date:10/15/2024 02:44:35 PM Interpretation: Performing Lab:[address] [phone] Notes/Report: Color Urine Yellow Appearance Urine Clear PH 8.5 5.0-9.0 Glucose Urine UA Negative Negative mg/dL Urine Blood Negative Negative Specific [place] - Urine 1.020 1.005-1.025 Urine Protein 300 (3+) Neg-Trace mg/dL Urine Ketones Negative Negative mg/dL Nitrite Urine Negative Negative Leukocyte Esterase Urine Trace Negative RBC Urine 0-2 0-2 /HPF WBC Urine 0-5 0-5 /HPF Squamous Epithelial Cell Urine 0-2 0-2 /HPF Bacteria Urine None Seen None Seen Hyaline Casts Urine 0-2 0-2 /LPF Comprehensive Issue. Panel Fa Reviewed date:10/15/2024 02:44:35 PM Interpretation: Performing Lab:[address] [phone] Notes/Report: Sodium 143 135-145 mmol/L Potassium 3.5 3.3-5.1 mmol/L Chloride 103 96-108 mmol/L Carbon Dioxide 31 22-29 mmol/L Anion Gap 13 12-20 Blood Urea Nitrogen 25 9-16 mg/dL Creatinine 1.01 0.5-1.4 mg/dL Estimated Glomerular Filt Rate > 60 Chronic Kidney Disease: Estimated GFR < 60 mL/min/1.73m2 Severe Kidney Disease: Estimated GFR < 15 mL/min/1.73m2 Glucose Fasting 117 60-99 mg/dL A fasting glucose from 100-125 mg/dl is considered impaired (pre-diabetes). Calcium 8.1 8.4-10.2 mg/dL Bilirubin Total 0.4 0.0-1.0 mg/dL Aspartate Amino Transferase 23 5-37 U/L Alanine Aminotransferase 20 0-40 U/L Total Protein 5.5 6.5-8.0 g/dL Albumin Level 3.5 3.5-5.0 g/dL Alkaline Phosphatase 37 39-117 U/L B Type Natriuretic Peptide Reviewed date:10/15/2024 02:44:35 PM Interpretation: Performing Lab:[facility], [address] [place] [phone] Notes/Report: B Type Natriuretic Peptide 21 <100 pg/mL Lipid Panel Reviewed date:10/15/2024 02:44:35 PM Interpretation: Performing Lab:[facility], [address] [place] [phone] Notes/Report: Triglycerides 304 <150 mg/dL Desirable Triglyceride: less than 150 mg/dL Borderline High Triglyceride 150-199 mg/dL High Triglyceride: 200-499 mg/dL Very High Triglyceride: greater than or equal to 5OO mg/dL Cholesterol 274 <200 mg/dL Desirable Cholesterol: less than 200 mg/dL Borderline High Cholesterol: 200-239 mg/dL High Cholesterol: greater than 239 mg/dL LDL Cholesterol Calculated 136 <100 mg/dL Desirable LDL: less than 100 mg/dL Near Optimal/Above Optimal LDL: 110-129 mg/dL Borderline High LDL: 130-159 mg/dL High LDL: 160-189 mg/dL Very High LDL: greater than or equal to 190 mg/dL HDL Cholesterol 78 >40 mg/dL Desirable HDL: greater than 40 mg/dL Note: This HDL assay may give artificially low results in patients with liver disease. Creatinine Urine Reviewed date:10/15/2024 02:44:35 PM Interpretation: Performing Lab:[facility], [address] [place] [phone] Notes/Report: Creatinine Urine 121.23 Hemoglobin A1c Reviewed date:10/15/2024 02:44:35 PM Interpretation: Performing Lab:[facility], [address] [place] [phone] Notes/Report: Hemoglobin A1c % 6.3 <6.0 % Hemoglobin A1C Reference Range Adults: 4.8 - 6.0 % Non diabetic: < 6.0 % Goal: < 7.0 % Additional Action Suggested: > 8.0 % Note: Hemoglobin A1c results are invalid for patients with abnormal amounts of HbF. Blood transfusions may impact the HbA1c concentration in the patient sample. Estimated Average Glucose 134 eAG = Estimated average glucose which is %A1C expressed as average glucose, using the formula of the D0D-Kbxrakp Average Glucose study (ADAG), Diabetes Care, Vol.31,#8, 2007 Reason For Referral Reason Evaluate and Treat Diagnosis 1 Primary osteoarthrit is, left shoulder (M19.012) Diagnosis 2 Primary osteoarthrit is, right shoulder (M19.011) Referral Organization Anthony Otero III, MD Referring Provider First Name Anthony Referring Provider Last Name Branden Referring Provider Speciality Internal M edicine Referred Provider [facility], Orthopedic Surgeons Referred Provider Specialty Orthopedic [facility] General Notes DZara 12/10/2024 10:10:03 AM > Referral with last progress note faxed. Referral Priority Routine Referral Appointment Date 12/26/2024 Medications Medication SIG (Take, Route, Frequency, Duration) Notes Start Date End Date Status Zolpidem Tartrate 10 MG 1 tablet at bedt ashly Orally Once a day for 90 days 07/17/2024 11/30/2025 Active Citalopram Hydrobromide 40 MG 1 tablet Orally Once a day Active Atorvastatin Calcium 40 MG 1 tablet Oral ly Once a day Active Albuterol Sulfate HFA 108 (90 Base) MCG/ACT 1 puff as needed Inhalation every 4 hrs Active Atorvastatin Calcium 80 MG 1 tablet Oral ly Once a day for 90 days 10/15/2024 Active Furosemide 80 MG TAKE 1 TABLET BY JEET TWICE A DAY Active metFORMIN HCl 500 MG 1 tablet with a mariah l Orally Once a day Active predniSONE 5 MG 1 tablet with food o r milk Orally Once a day 07/17/2024 Active Torsemide 20 MG 1 tablet Orally Once a day 04/04/2024 Active Benzonatate 200 MG 1 capsule as needed Orally Three times a day 04/09/2024 Active Lisinopril 40 MG 1 tablet Orally Once a day Active Atorvastatin Calcium 80 MG 1 tablet Oral ly Once a day 10/19/2024 Active Omeprazole 40 MG 1 capsule Orally Onc e a day for 90 days Active Fenofibrate 145 MG 1 tablet Orally Once a day Active Immunizations Vaccine [...] Problem Status W/U Status Risk Notes Problem Obesity (105673883) Obesity (E66.9) Active confirmed He remai ns obese. We discussed her weight loss strategy today. We discussed the elements of her weight reduction diabetic diet at length. Problem 710191132 Other neutropenia (D70.8) Active confirmed His white blood cell count is stable. The value will be followed carefully periodically. He has had no infections recently. Problem [id number] Mixed hyperlipidemia (E78.2) Active confirmed His total cholesterol was 276 which is uncontrolled. I have recommended aggressive weight loss and consumption of a healthy Mediterranean diabetic weight loss diet.He says he has been taking the 40 mg of atorvastatin. I have increased it to 80 mg today. Problem [id number] Primary osteoarthritis, right shoulder (M19.011) Active confirmed Pain in his right shoulder with elevation remains a nuisance. He has declined an offer of orthopedic referral. Problem [id number] Primary osteoarthritis, left shoulder (M19.012) Active confirmed The pain in his left shoulder has improved somewhat. He declined an offer of referral to orthopedics. Problem Benign prostatic hypertrophy without outflow obstruction (219445892) BPH (benign prostatic hypertrophy) (N40.0) Active confirmed He rises from sleep once a night to urinate. We have reviewed lifestyle modifications he could make to reduce this. Problem 30114180 Essential hypertension (I10) Active confirmed His blood pressure is now in the normal range. Problem 970457152 History of cholecystectomy (Z90.49) Active confirmed Problem 488310270 Chronic insomnia (F51.04) Active confirmed He continues to maintain persistently on forcibly that he is unable to sleep without torie PDM. After long discussion I have refilled it. I will continue to discuss eliminating this medication from his regimen whenever I see him. Problem Nephrotic syndrome (66807785) Nephrotic syndrome (N04.9) Active confirmed He remains under the care of nephrology who only recently sought. Is going to see them again in 2 weeks. He has gained significant weight likely from fluid. This torsemide has been adjusted. Problem 980115258 History of inguinal hernia (Z87.19) Active confirmed Problem [id number] Bilateral carp al tunnel syndrome (G56.03) Active confirmed Problem 621191755 History of asthma (Z87.09) Active confirmed He did not give a history of asthma but this was documented no records. This will be further pursued. He does not require treatment at this time. Problem 564191553 Diabetes mellitus without complication (E11.9) Active confirmed His hemoglobin A1c has improved from 6.5-6.3. His fasting glucose is 117 on metformin. Current therapy was continued and weight loss was encouraged. Problem 385264047 Obesity, class 2 (E66.812) Active confirmed Problem 50268488469338582 History of Ojeda's esophagus (Z87.19) Active confirmed He has reported no recent history of dysphagia or esophageal pain. He will need to have upper endoscopy periodically. Problem 555634219 Ascending aorta dilation (I77.810) Active confirmed This is a finding on a recent echocardiogram . He is asymptomatic. The ascending aortic diameter was 3.9 cm. He will be observed. 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 He is currently asymptomatic. Vital Signs Heart Rate 64 /min 10/15/2024 Temperature 98.4 degrees Fahrenheit 10/15/2024 Oximetry 99 % 03/28/2024 Blood pressure diastolic 68 mm Hg 10/15/2024 Height 70 in 10/15/2024 Blood pressure systolic 132 mm Hg 10/15/2024 Weight 234 lbs 10/15/2024 BMI 33.57 kg/m2 10/15/2024 Encounters Encounter Location Date Provider Diagnosis Anthony Otero III, MD [address] [place] [address] [place] [address] 02/29/2024 Anthony Jamesonrne Nephrotic syndrome N 04.9 ; Essential hypertension I10 ; Mixed hyperlipidemia E78.2 ; Diabetes mellitus without complication E11.9 ; Chronic insomnia F51.04 ; Ascending aorta dilation I77.810 ; Other neutropenia D70.8 ; History of asthma Z87.09 and Spondylosis of cervicothoracic region without myelopathy or radiculopathy M47.813 Anthony Otero III, MD [address] [place] [address] [place] [address] 03/07/2024 Anthony Otero Mixed hyperlipidemia E78.2 ; Nephrotic syndrome N04.9 ; Other neutropenia D70.8 ; Essential hypertension I10 and Diabetes mellitus without complication E11.9 Anthony Otero III, MD [address] [place] [address] [place] [address] 03/28/2024 Anthony Otero Nephrotic syndrome N 04.9 ; Essential hypertension I10 ; Diabetes mellitus without complication E11.9 ; Other neutropenia D70.8 and Mixed hyperlipidemia E78.2 Anthony Otero III, MD [address] [place] [address] [place] [address] 04/03/2024 Anthony Otero Nephrotic syndrome N 04.9 ; Essential hypertension I10 ; Mixed hyperlipidemia E78.2 and Diabetes mellitus without complication E11.9 Anthony Otero III, MD [address] [place] [address] [place] [address] 04/09/2024 Anthony Otero Nephrotic syndrome N 04.9 ; Acute viral syndrome B34.9 ; Persistent cough R05.3 ; Diabetes mellitus without complication E11.9 and Mixed hyperlipidemia E78.2 Anthony Otero III, MD [address] [place] [address] [place] [address] 04/16/2024 Anthony Otero Nephrotic syndrome N 04.9 ; Diabetes mellitus without complication E11.9 ; Mixed hyperlipidemia E78.2 ; Essential hypertension I10 ; Ascending aorta dilation I77.810 ; Chronic insomnia F51.04 ; History of Ojeda's esophagus Z87.19 and Viral syndrome B34.9 Anthony Otero III, MD [address] [place] [address] [place] [address] 05/06/2024 Anthony Otero Nephrotic syndrome N 04.9 ; Mixed hyperlipidemia E78.2 ; Other neutropenia D70.8 and Essential hypertension I10 Anthony Otero III, MD [address] [place] [address] [place] [address] 07/17/2024 Anthony Otero Nephrotic syndrome N 04.9 ; Mixed hyperlipidemia E78.2 ; Diabetes mellitus without complication E11.9 ; Obesity E66.9 ; Essential hypertension I10 ; History of Ojead's esophagus Z87.19 ; Primary osteoarthritis, left shoulder M19.012 ; Primary osteoarthritis, right shoulder M19.011 ; Chronic insomnia F51.04 and Ascending aorta dilation I77.810 Anthony Otero III, MD [address] [place] [address] [place] [address] 10/15/2024 Anthony Branden Nephrotic syndrome N 04.9 ; Diabetes mellitus without complication E11.9 ; Mixed hyperlipidemia E78.2 ; Obesity E66.9 and BPH (benign prostatic hypertrophy) N40.0 Anthony Otero III, MD [address] [place] [address] [place] [address] 02/29/2024 Anthony Otero III, MD [address] [place] [address] [place] [address] 03/01/2024 Anthony Otero III, MD [address] [place] [address] [place] [address] 03/04/2024 Anthony Otero III, MD [address] [place] [address] [place] [address] 03/04/2024 Anthony Otero III, MD [address] [place] [address] [place] [address] 07/18/2024 Anthony Otero III, MD [address] [place] [address] [place] [address] 08/19/2024 Anthony Otero Mixed hyperlipidemia E78.2 ; Diabetes mellitus without complication E11.9 ; Obesity E66.9 and Other neutropenia D70.8 Anthony Otero III, MD [address] [place] [address] [place] [address] 03/20/2024 Anthony Otero III, MD [address] [place] [address] [place] [address] 04/17/2024 Anthony Otero III, MD [address] [place] [address] [place] [address] 12/03/2024 Anthony Otero Nephrotic syndrome N 04.9 Anthony Otero III, MD [address] [place] [address] [place] [address] 12/03/2024 Anthony Otero III, MD [address] [place] [address] [place] [address] 12/03/2024 Anthony Otero Assessments Encounter Date Diagnosis (ICD [...] (ICD-10 - N04.9) In the past his rv parts and service director has been Dr. Lionel Henson. He has not been seen in several years. An appointment has been made for him by Dr. Fenton to see the rv parts and service director at [facility] later this month. He does appear [...] sampled. I will discuss him with the rv parts and service director at [facility] with whom he has the appointment [...] I have reviewed the case with a rv parts and service director and strongly recommended he see the patient [...] He is taking torsemide instead of furosemide. 07/17/2024 Mixed hyperlipidemia (ICD-10 - E78.2) His total cholesterol was 276. At his request to continue the 40 mg dose of atorvastatin until his next visit. A repeat fasting lipid profiles been ordered. We discussed lifestyle modifications he could make to reduce cholesterol intake. I will increase the dose of a statin if it cholesterol remains at this level. 07/17/2024 Nephrotic syndrome (ICD-10 - N04.9) He remains under the care of nephrology who only recently sought. Is going to see them again in 2 weeks. He has gained significant weight likely from fluid. This torsemide has been adjusted. 10/15/2024 Nephrotic syndrome (ICD-10 - N04.9) He [...] was continued and weight loss was encouraged. 08/19/2024 Mixed hyperlipidemia (ICD-10 - E78.2) 12/03/2024 Nephrotic syndrome (ICD-10 - N04.9) He remains under the care of nephrology who only recently sought. Is going to see them again in 2 weeks. He has gained significant weight likely from fluid. This torsemide has been adjusted. 02/29/2024 Mixed hyperlipidemia (ICD-10 - E78.2) His [...] periodically. He has had no infections recently. 07/17/2024 Diabetes mellitus without complication (ICD-10 - E11.9) He has been compliant with his medication. His hemoglobin A1c is under 7.0. The diabetes is well controlled at this time. 10/15/2024 Mixed hyperlipidemia (ICD-10 - E78.2) His total cholesterol was 276 which is uncontrolled. I have recommended aggressive weight loss and consumption of a healthy Mediterranean diabetic weight loss diet.He says he has been taking the 40 mg of atorvastatin. I have increased it to 80 mg today. 08/19/2024 Diabetes mellitus without complication (ICD-10 - E11.9) 02/29/2024 Diabetes mellitus without complication (ICD-10 - [...] signs will be obtained and followed periodically. 07/17/2024 Obesity (ICD-10 - E66.9) He has gained substantial weight. Nephrology is managing his torsemide. I discussed with him the necessity of adhering his medications. 10/15/2024 Obesity (ICD-10 - E66.9) He remains obese. We discussed her weight loss strategy today. We discussed the elements of her weight reduction diabetic diet at length. 08/19/2024 Obesity (ICD-10 - E66.9) 02/29/2024 Chronic insomnia (ICD-10 - F51.04) He [...] was 3.9 cm. He will be observed. 07/17/2024 Essential hypertension (ICD-10 - I10) His blood pressure is now in the normal range. 10/15/2024 BPH (benign prostati c hypertrophy) (ICD-10 - N40.0) He rises from sleep once a night to urinate. We have reviewed lifestyle modifications he could make to reduce this. 08/19/2024 Other neutropenia (ICD-10 - D70.8) 02/29/2024 Ascending aorta dilation (ICD-10 - I77.810) This is a finding on a recent echocardiogram. He is asymptomatic. The ascending aortic diameter was 3.9 cm. He will be observed. 04/16/2024 Chronic insomnia (ICD-10 - F51.04) He reports that he is now able to sleep again since the refractory cough has resolved. 07/17/2024 History of Ojeda's esophagus (ICD-10 - Z87.19) He has reported no recent history of dysphagia or esophageal pain. He will need to have upper endoscopy periodically. 02/29/2024 Other neutropenia (ICD-10 - D70.8) Review of laboratory data in the [facility] database shows he is mildly but [...] declined an offer of referral to orthopedics. 02/29/2024 History of asthma (ICD-10 - Z87.09) [...] and the cough is no longer present. 07/17/2024 Primary osteoarthritis, right shoulder (ICD-10 - M19.011) Pain in his right shoulder with elevation remains a nuisance. He has declined an offer of orthopedic referral. 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 He is currently asymptomatic. 07/17/2024 Chronic insomnia (ICD-10 - F51.04) He [...] He will be observed. Plan Of Treatment Pending Test Test Name Order Date PROFILE, FASTING (COMPREHENSIVE METABOLI C) 10/15/2024 PROFILE, FASTING (COMPREHENSIVE METABOLI C) 07/17/2024 PROFILE, FASTING (COMPREHENSIVE METABOLI C) 03/28/2024 PROFILE, FASTING (COMPREHENSIVE METABOLI C) 05/06/2024 PROFILE, FASTING (COMPREHENSIVE METABOLI C) 08/19/2024 PROFILE, RANDOM (COMPREHENSIVE METABOLIC ) 02/29/2024 PROFILE, RANDOM (COMPREHENSIVE METABOLIC ) 03/07/2024 BRAIN NATRIURETIC PEPTIDE (BNP) 08/20/19 25 BRAIN NATRIURETIC PEPTIDE (BNP) 03/28/19 25 PSA, TOTAL 10/15/2024 PSA, TOTAL 07/17/2024 PSA, TOTAL 05/06/2024 CBC w DIFF 08/19/2024 CBC w DIFF 10/15/2024 CBC w DIFF 07/17/2024 CBC w DIFF 03/28/2024 CBC w DIFF 05/06/2024 SED RATE (ESR) 03/07/2024 URINALYSIS (UA) 08/19/2024 XR CHEST 2 VIEW PA & LAT 04/09/2024 CBC WITH AUTO DIFF 03/07/2024 CBC WITH AUTO DIFF 02/29/2024 Lipid Panel 05/06/2024 Lipid Panel 10/15/2024 Lipid Panel 08/19/2024 Lipid Panel 07/17/2024 Microalbumin, Random 03/28/2024 Protein 24 Hour Urine 02/29/2024 Hemoglobin A1c 03/28/2024 Hemoglobin A1c 08/19/2024 Next Appt Details Provider Name:Anthony Otero , 03/10/2025 04:15:00 PM, [address] [place] [address] , [address], [place], [id number], Insurance Providers Payer Name Payer Address Payer Phone Subscriber Number Group Number Insured Name Patient Relationship to Insured Coverage Start Date Coverage End Date [employer] [place] [address] [address] [place] [address] [id number] Claudy Berger Self - patient is the [...] 2022 Focal segmental glomerulosclerosis, yash l biopsy, [facility] Normal cardiac catheterization January 26, 2018 [facility] Surgical History Surgery Date(Month/Year) No history Bilateral inguinal herniorrhaphies Tubular adenoma colonoscopy 2012, Dr. Dimple Hidalgo Upper endoscopy and colonoscopy 2018 Elbow surgery Bilateral shoulder arthroscopies Carpal tunnel surgery on both hands Renal biopsy [facility], praful palacios cholecystectomy age 24 Hospitalization History Reason Date(Month/Year) No history None reported
== END 2024-12-26 15:30 | disposition home or self-care (01) ==
PROVIDERS: PCP Internal Medicine Medical Oncology; Visit Provider Physician Assistant
DX: M75.102 Unspecified rotator cuff tear or rupture of left shoulder, not specified as traumatic (principal); M75.101 Unspecified rotator cuff tear or rupture of right shoulder, not specified as traumatic
CPT/HCPCS: 20610; 99213

== ENCOUNTER → 2024-12-26 14:30 | Outpatient (BNVA) | payer OTHER, SELFPAY | PROVIDERS: PCP Internal Medicine Medical Oncology; Visit Provider Orthopaedic Surgery | DX: M75.102 Unspecified rotator cuff tear or rupture of left shoulder, not specified as traumatic (principal); M75.101 Unspecified rotator cuff tear or rupture of right shoulder, not specified as traumatic | CPT/HCPCS: 20610; J0665; J1100; J2003 ==

== ENCOUNTER 2025-02-21 09:05 | Outpatient (REF) | payer OTHER, SELFPAY ==
--- OUTSIDE RECORDS SUMMARY | 2024-04-17 13:51 | XMS_ITS ---
Author Organization Anthony Otero III, MD Address [address] [place] [address] [place] [address] Care Team Providers Care Iron Handler Name Role Phone Dr. Anthony Otero III Primary Care Provider [phone] REASON FOR VISIT New Refill Request Social History Sex Assigned At : Social History Observation Description Sex Assigned At Male Encounters Encounter Location Date Provider Diagnosis Anthony Otero III, MD [address] [place] [address] [place] [address] 04/17/2024 Anthony Otero Plan Of Treatment Next Appt Details Provider Name:Anthony Otero , 03/10/2025 04:15:00 PM, [address] [place] [address] [place], [address], Progress Notes * Claudy HANLEY JrDOB:[birth year] (58 yo M)Acc No.[id number]:04/17/2024 Patient: Claudy STOUT Jr :1965 A ge:58 Y S ex:Male Address:[address] [place], [address] * true * Date: Generated for Billyi tami/Coleg/eTransmitting on: 04/24/2024 09:10 AM EST
--- OUTSIDE RECORDS SUMMARY | 2024-05-06 11:15 | XMS_ITS ---
Author Organization Anthony Otero III, MD Address [address] [place] [address] Care Team Providers Care Poultry Raiser Name Role Phone Dr. Anthony Otero III Primary Care Provider [phone] Allergies Allergen (clinical drug ingredient) Drug/Non Drug Allergy documented on EMR Reaction Allergy Type Onset Date Status Pain medication (uncoded) Unknown Allergy Active REASON FOR VISIT Nephrotic syndrome, Type 2 diabetes mellitus, Hypertension, Obesity, Osteoarthritis both shoulders Medications Medication SIG (Take, Route, Frequency, Duration) [...] as needed Inhalation every 4 hrs Active Citalopram Hydrobromide 40 MG 1 tablet Orally Once a day Active Fenofibrate 145 MG 1 tablet Orally Once a day Active Atorvastatin Calcium 40 MG 1 tablet Oral ly Once a day Active metFORMIN HCl 500 MG 1 tablet with a mariah l Orally Once a day Active predniSONE 20 MG TAKE TWO (2) TABLETS (40MG) BY MOUTH EVERY DAY Active Social History Tobacco Use: Social History Observation Description Date Details (start date - stop date) Never Smoker NA - NA Sex Assigned At : Social History Observation Description Sex Assigned At Male Tobacco Control (Standard) Question Answer Notes Tobacco use: Nonsmoker Vital Signs Temperature 97.9 degrees Fahrenheit 05/07/19 25 Blood pressure systolic 133 mm Hg 05/07/19 25 Blood pressure diastolic 79 mm Hg 025 Heart Rate 74 /min 05/06/2024 Height 70 in 05/06/2024 Weight 220 lbs 05/06/2024 BMI 31.56 kg/m2 05/06/2024 Encounters Encounter Location Date Provider Diagnosis Anthony Otero III, MD [address] [place] [address] [place] [address] 05/06/2024 Anthony Otero Nephrotic syndrome N 04.9 ; Mixed hyperlipidemia E78.2 ; Other neutropenia D70.8 and Essential hypertension I10 Assessments Encounter Date Diagnosis (ICD Code) Assessment Notes Treat ment Notes Treatment Clinical Notes 05/06/2024 Nephrotic syndrome (ICD-10 - N04.9) He is markedly improved. He is now being managed by nephrology on a reduced dose of prednisone. He is taking torsemide instead of furosemide. 05/06/2024 Mixed hyperlipidemia (ICD-10 - E78.2) His lipids will be evaluated periodically. Statin will be considered. 05/06/2024 Other neutropenia (ICD-10 - D70.8) His white blood cell count is stable. The value will be followed carefully periodically. He has had no infections recently. 05/06/2024 Essential hypertension (ICD-10 - I10) His blood pressure is now in the normal range. He has lost 52 pounds mostly fluid. The vital signs will be obtained and followed periodically. Plan Of Treatment Medication Medication Name Sig [...] puff as needed Inhalation every 4 hrs Citalopram Hydrobromide 40 MG 1 tablet Orally Once a day Fenofibrate 145 MG 1 tablet Orally Once a day Atorvastatin Calcium 40 MG 1 tablet Orally Once a day metFORMIN HCl 500 MG 1 tablet with a mariah l Orally Once a day predniSONE 20 MG TAKE TWO (2) TABLETS (40MG) BY MOUTH EVERY DAY Pending Test Test Name Order Date PROFILE, FASTING (COMPREHENSIVE METABOLI C) 05/06/2024 PSA, TOTAL 05/06/2024 CBC w DIFF 05/06/2024 Lipid Panel 05/06/2024 Next Appt Details Follow Up: mid june, Reason: ov review labs Provider Name:Anthony Jamesonrne , 03/10/2025 04:15:00 PM, [address] [place] [address] DR, [facility] [address], [place], [address], Progress Notes * Claudy HANLEY JrDOB:[birth year] (58 yo M)Acc No.[id number]:05/06/2024 Progress Notes Patient: Claudy STOUT Jr Provider: Umm Otero MD :1965 A ge:58 Y S ex:Male Date:05/06/2024 Address:[address] [place], [place] [id number] Subjective: * Chief Complaints: * N ephrotic syndromeType 2 diabetes mellitusHypertensionObesityOsteoarthritis both shoulders * HPI: C OVID-19 Screening: Questions H ave you had any new onset fever, chills, cough, congestion, sore throat, shortness of breath, muscle aches? N o * ROS: G eneral/Constitutional: pain B oth shoulders, otherwise only normal aches and pains. C hills d enies. F atigue a dmits. F ever d enies. E NT: Decreased hearing d enies. R espiratory: Cough d enies. C ardiovascular: Chest pain with exertion d enies. D yspnea on exertion?with prolonged activity. S hortness of breath d enies. G astrointestinal: Constipation d enies. D ecreased appetite d enies.?Diarrhea d enies. H eartburn d enies. N ausea d enies. R ectal bleeding?denies. V omiting d enies. H ematology: bruising d enies. p etechiae d enies. S wollen glands n one have been noted. G enitourinary: Frequent urination d enies. M usculoskeletal: Muscle aches d enies. P ainful joints B oth shoulders. S ciatica d enies. W eakness d enies. S kin: Itching d enies. R helen d enies. S kin lesion(s)?denies. N eurologic: Difficulty speaking d enies. D izziness d enies.?Headache d enies. L ow back pain d enies. P sychiatric: Depressed mood d enies. * Medical History: * Surgical History: c holecystectomy age 24 Renal biopsy [facility], remote Carpal tunnel surgery on both hands Bilateral shoulder arthroscopies Elbow surgery Upper endoscopy and colonoscopy 2019 Tubular adenoma colonoscopy 2012, Dr. Anthony Hidalgo Bilateral inguinal herniorrhaphies No history * Hospitalization/Major Diagno stic Procedure: N one reported No history * Family History: F ather: , Myocardial infarction, coronary artery disease. M other: alive, Hypertension, dementia, renal disease, hyperlipidemia. He reports that his father of cardiac disease. His mother suffered from hypertension dementia kidney disease and hyperlipidemia. She is living. He has no children. He is . He is currently employed. He is not aware of any family history of substance abuse or mental illness or addiction. He has taken a nightly dose of zolpidem for over 20 years. * Social History: T obacco Use: T obacco Control (Standard) T obacco use: N onsmoker He was born in [facility]. He has been to [facility] for 15 years.? He has no children. 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 He has no restoration objection to blood transfusion. He does not smoke and does not drink alcohol. * Medications: T akingpredniSONE 20 MG Tablet TAKE TWO (2) TABLETS (40MG) BY MOUTH EVERY DAY metFORMIN HCl 500 MG Tablet 1 tablet [...] bedtime as needed Orally Once a day Benzonatate 200 MG Capsule 1 capsule as needed Orally Three times a day Taking predniSONE 20 MG Tablet TAKE TWO (2) TABLETS (40MG) BY MOUTH EVERY DAY Taking metFORMIN HCl 500 MG Tablet 1 [...] as needed Orally Once a day Taking Benzonatate 200 MG Capsule 1 capsule as needed Orally Three times a day DiscontinuedTorsemide 20 MG Tablet 1 tablet Orally Once a day Medication List reviewed and reconciled with the patientDiscontinued Torsemide 20 MG Tablet 1 tablet Orally Once a day Medication List reviewed and reconciled with the patient * Allergies: P edwinn adriannano[Allergies Verified] Objective: * Vitals: H t: 70, Wt: 220, BMI:31.56, BP: 133/79, HR: 74, Temp: 97.9, Ht-cm: 177.8, Wt-k.79. * P ast Orders: Lab:Urinalysis and Microscop ic * Collection Date 05/02/2024 04/01/2024 Collection Time 06:35 AM 12:21 PM Order Date 05/02/2024 04/01/2024 Color Urine Yellow Dark Yellow RBC Urine 0-2 (Ref Range: 0-2 /HPF) 3-5 A (Ref Range: 0-2 /HPF) Appearance Urine Clear Clear PH 7.5 (Ref Range: 5.0-9.0) 7.0 (Ref Range: 5.0-9.0) Glucose Urine UA Negative (Ref Range: Negative mg/dL) 500 A (Ref Range: Negative mg/dL) Urine Blood Negative (Ref Range: Negative) Trace A (Ref Range: Negative) Specific [place] - Urine 1.020 (Ref Range: 1.005-1.025) 1.025 (Ref Range: 1.005-1.025) Urine Protein 300 (3+) A (Ref Range: Neg-Trace mg/dL) >=1000 (4+) A (Ref Range: Neg-Trace mg/dL) Urine Ketones Negative (Ref Range: Negative mg/dL) Negative (Ref Range: Negative mg/dL) Nitrite Urine Negative (Ref Range: Negative) Negative (Ref Range: Negative) Leukocyte Esterase Urine Negative (Ref Range: Negative) Trace A (Ref Range: Negative) WBC Urine 0-5 (Ref Range: 0-5 /HPF) 0-5 (Ref Range: 0-5 /HPF) Squamous Epithelial Cell Urine 0-2 (Ref Range: 0-2 /HPF) 3-5 (Ref Range: 0-2 /HPF) Bacteria Urine None Seen (Ref Range: None Seen) None Seen (Ref Range: None Seen) Hyaline Casts Urine 0-2 (Ref Range: 0-2 /LPF) 3-5 (Ref Range: 0-2 /LPF) Granular Casts Urine NR Present Red Blood Cell Casts Urine NR Present ???Lab:Hemoglobin A1c (Order Date - 05/02/2024) (Collection Date & Time - 05/02/2024 06:35 AM)?ValueReference Range?Hemoglobin A1c %6.5H<6.0 - %?Estimated Average Jkwdids980- mg/dL ???Lab:Comprehensive [place]. Panel Fast (Order Date - 05/02/2024) (Collection Date & Time - 05/02/2024 06:35 AM)?ValueReference Range?Wgcrpv736809- 145 - mmol/L?Bilirubin Total0.50.0-1.0 - mg/dL?Aspartate Amino Nlytcebquqk384-12 - U/L?Alanine Knfbhmzmmfyjjisu45X2-73 - U/L ?Total Protein5.5L6.5-8.0 - g/dL?Albumin Level3.3L3.5-5.0 - g/dL ?Alkaline Jithupcmact9574-703 - U/L?Potassium3.93.3-5.1 - mmol/L ?Rybkogch73767-677 - mmol/L?Carbon Hlcudob5724-22 - mmol/L ?Anion Aqu3546-49 -?Blood Urea Plxnazmc52K1-84 - mg/dL ?Creatinine0.750.5-1.4 - mg/dL?Estimated Glomerular Filt Rate> 60- ?Glucose Ysywchu016M94-67 - mg/dL?Calcium8.58.4-10.2 - mg/dL ???Lab:B Type Natriuretic Peptide (Order Date - 05/02/2024) (Collection Date & Time - 05/02/2024 06:35 AM)?ValueReference Range?B Type Natriuretic Sjaqxnj98<100 - pg/mL ???Lab:Microalbumin, Random (Order Date - 05/02/2024) (Collection Date & Time - 05/02/2024 06:35 AM)?ValueReference Range?Creatinine Cauoq141.53- mg/dL?Microalbumin Urine> 2000.0- mg/L?Microalbum Creatinine Ratio Xt5457.2H<30 - ug/mg cr * Lab:Total Protein Urine [place] om * Collection Date 05/02/2024 04/01/2024 03/25/2024 Collection Time 06:35 AM 12:21 PM 09:45 AM Order Date 05/02/2024 04/01/2024 03/25/2024 Total Protein Urine Random 346 H (Ref Range: <12 mg/dL) 1569 H (Ref Range: <12 mg/dL) 409 H (Ref Range: <12 mg/dL) * Lab:Complete Blood Count Aut o Diff * Collection Date 05/02/2024 03/11/2024 03/05/2024 Collection Time 06:35 AM 11:38 AM 10:50 AM Order Date 05/02/2024 03/11/2024 03/05/2024 White Blood Count 3.6 L (Ref Range: 4.8-10.8 X10*3/uL) 6.4 (Ref Range: 4.8-10.8 X10*3/uL) 7.5 (Ref Range: 4.8-10.8 X10*3/uL) Red Blood Count 4.06 L (Ref Range: 4.60-5.80 X10*6/uL) 5.00 (Ref Range: 4.60-5.80 X10*6/uL) 5.27 (Ref Range: 4.60-5.80 X10*6/uL) Hemoglobin 12.3 L (Ref Range: 14.0-18.0 g/dl) 14.8 (Ref Range: 14.0-18.0 g/dl) 15.5 (Ref Range: 14.0-18.0 g/dl) Hematocrit 37.2 L (Ref Range: 42.0-52.0 %) 44.4 (Ref Range: 42.0-52.0 %) 47.3 (Ref Range: 42.0-52.0 %) Mean Corpuscular Volume 91.6 (Ref Range: 80.0-98.0 fL) 88.8 (Ref Range: 80.0-98.0 fL) 89.8 (Ref Range: 80.0-98.0 fL) Mean Corpuscular Hemoglobin 30.3 (Ref Range: 27.0-33.0 pg) 29.6 (Ref Range: 27.0-33.0 pg) 29.4 (Ref Range: 27.0-33.0 pg) Mean Corpuscular HGB Conc 33.1 (Ref Range: 31.0-36.0 g/dl) 33.3 (Ref Range: 31.0-36.0 g/dl) 32.8 (Ref Range: 31.0-36.0 g/dl) Red Cell Distribution Width 15.4 (Ref Range: 11.0-16.0 %) 13.2 (Ref Range: 11.0-16.0 %) 13.2 (Ref Range: 11.0-16.0 %) Platelet Count 182 (Ref Range: 160-400 X10*3/uL) 208 (Ref Range: 160-400 X10*3/uL) 265 (Ref Range: 160-400 X10*3/uL) Mean Platelet Volume 10.4 (Ref Range: 9.4-12.4 fL) 10.2 (Ref Range: 9.4-12.4 fL) 11.1 (Ref Range: 9.4-12.4 fL) Neutrophils Percent Auto 43.0 L (Ref Range: 45-73 %) 49.0 (Ref Range: 45-73 %) 65.2 (Ref Range: 45-73 %) Imm Gran Pct Auto 0.8 H (Ref Range: 0.0-0.4 %) 0.5 H (Ref Range: 0.0-0.4 %) 1.1 H (Ref Range: 0.0-0.4 %) Lymphocytes Percent Auto 43.1 H (Ref Range: 20-40 %) 41.5 H (Ref Range: 20-40 %) 26.6 (Ref Range: 20-40 %) Monocytes Percent Auto 9.6 (Ref Range: 2-11 %) 6.9 (Ref Range: 2-11 %) 6.7 (Ref Range: 2-11 %) Eosinophils Percent Auto 2.7 (Ref Range: 0-4 %) 1.9 (Ref Range: 0-4 %) 0.3 (Ref Range: 0-4 %) Basophils Percent Auto 0.8 (Ref Range: 0-2 %) 0.2 (Ref Range: 0-2 %) 0.1 (Ref Range: 0-2 %) NRBC Pct Auto 0.0 (Ref Range: 0.0-0.2 /100WBC) 0.0 (Ref Range: 0.0-0.2 /100WBC) 0.0 (Ref Range: 0.0-0.2 /100WBC) Neutrophils Absolute Auto 1.6 L (Ref Range: 2.0-8.3 x10*3/uL) 3.1 (Ref Range: 2.0-8.3 x10*3/uL) 4.9 (Ref Range: 2.0-8.3 x10*3/uL) Imm Gran Abs Auto 0.03 (Ref Range: 0.00-0.03 X10*3/uL) 0.03 (Ref Range: 0.00-0.03 X10*3/uL) 0.08 H (Ref Range: 0.00-0.03 X10*3/uL) Lymphocytes Absolute Auto 1.6 (Ref Range: 1.2-4.9 X10*3/uL) 2.7 (Ref Range: 1.2-4.9 X10*3/uL) 2.0 (Ref Range: 1.2-4.9 X10*3/uL) Monocytes Absolute Auto 0.4 (Ref Range: 0.1-1.2 X10*3/uL) 0.4 (Ref Range: 0.1-1.2 X10*3/uL) 0.5 (Ref Range: 0.1-1.2 X10*3/uL) Eosinophils Absolute Auto 0.1 (Ref Range: 0.0-0.4 X10*3/uL) 0.1 (Ref Range: 0.0-0.4 X10*3/uL) 0.0 (Ref Range: 0.0-0.4 X10*3/uL) Basophils Absolute Auto 0.0 (Ref Range: 0.0-0.2 X10*3/uL) 0.0 (Ref Range: 0.0-0.2 X10*3/uL) 0.0 (Ref Range: 0.0-0.2 X10*3/uL) NRBC Abs Auto 0.000 (Ref Range: 0.0-0.012 X10*3/uL) 0.000 (Ref Range: 0.0-0.012 X10*3/uL) 0.000 (Ref Range: 0.0-0.012 X10*3/uL) * Lab:Creatinine Urine * Collection Date 05/02/2024 04/01/2024 03/25/2024 Collection Time 06:35 AM 12:21 PM 09:45 AM Order Date 05/02/2024 04/01/2024 03/25/2024 Creatinine Urine 124.68 (Ref Range: mg/dL) 166.67 (Ref Range: mg/dL) 71.15 (Ref Range: mg/dL) * Lab:Basic Metabolic Panel * Collection Date 03/25/2024 03/18/2024 Collection Time 09:40 AM 11:17 AM Order Date 03/25/2024 03/18/2024 Sodium 141 (Ref Range: 135-145 mmol/L) 139 (Ref Range: 135-145 mmol/L) Blood Urea Nitrogen 10 (Ref Range: 9-16 mg/dL) 22 H (Ref Range: 9-16 mg/dL) Creatinine 0.74 (Ref Range: 0.5-1.4 mg/dL) 1.51 H (Ref Range: 0.5-1.4 mg/dL) Glucose Random 90 (Ref Range: 60-115 mg/dL) 125 H (Ref Range: 60-115 mg/dL) Calcium 7.7 L (Ref Range: 8.4-10.2 mg/dL) 7.2 L (Ref Range: 8.4-10.2 mg/dL) Potassium 3.8 (Ref Range: 3.3-5.1 mmol/L) 4.0 (Ref Range: 3.3-5.1 mmol/L) Chloride 112 H (Ref Range: 96-108 mmol/L) 108 (Ref Range: 96-108 mmol/L) Carbon Dioxide 28 (Ref Range: 22-29 mmol/L) 26 (Ref Range: 22-29 mmol/L) Anion Gap 5 L (Ref Range: 12-20) 9 L (Ref Range: 12-20) Estimated Glomerular Filt Rate > 60 48 ???Lab:Complement C4 (Order Date - 03/18/2024) (Collection Date & Time - 03/18/2024 11:17 AM)?ValueReference Range?Complement [id number] - mg/dL ???Lab:Phospholipase A2 Receptor Pnl (Order Date - 03/18/2024) (Collection Date & Time - 03/18/2024 11:17 AM)?ValueReference Range?Phospholipase A2 IgG SUSU<4- RU/mL?Phospholipase A2 IgG IFANEGATIVENEGATIVE - ???Imaging:XR chest 2V (Order Date - 04/12/2024) (Performed Date - 04/12/2024) ???Lab:Protein, 24 Hr Urine Group (Order Date - 03/02/2024) (Collection Date & Time - 03/02/2024 09:00 AM)?ValueReference Range?Protein 24 Hr Ogvxv97249S<150 - mg/Day?Protein mg/cA7291- mg/dL?Creatinine, 24Hr Urine2.2H1.0-2.0 - G/Day?Total Volume 24 Hour Mvqwi7811- mL ?Creatinine, mg/dL113.30- * Lab:Comprehensive Met. Panel * Collection Date [...] 27 (Ref Range: 0-40 U/L) Total Protein 4.1 L (Ref Range: 6.5-8.0 g/dL) 4.4 L (Ref Range: 6.5-8.0 g/dL) Albumin Level 2.0 L (Ref Range: 3.5-5.0 g/dL) 2.1 L (Ref Range: 3.5-5.0 g/dL) Alkaline Phosphatase 58 (Ref Range: 39-117 U/L) 66 (Ref Range: 39-117 U/L) Potassium 3.7 (Ref Range: 3.3-5.1 mmol/L) 4.0 (Ref Range: 3.3-5.1 mmol/L) Chloride 106 (Ref Range: 96-108 mmol/L) 107 (Ref Range: 96-108 mmol/L) Carbon Dioxide 33 H (Ref Range: 22-29 mmol/L) 29 (Ref Range: 22-29 mmol/L) Anion Gap 8 L (Ref Range: 12-20) 9 L (Ref Range: 12-20) Blood Urea Nitrogen 30 H (Ref Range: 9-16 mg/dL) 40 H (Ref Range: 9-16 mg/dL) Creatinine 1.14 (Ref Range: 0.5-1.4 mg/dL) 1.29 (Ref Range: 0.5-1.4 mg/dL) Estimated Glomerular Filt Rate > 60 58 Glucose Random 92 (Ref Range: 60-115 mg/dL) 175 H (Ref Range: 60-115 mg/dL) Calcium 7.4 L (Ref Range: 8.4-10.2 mg/dL) 7.3 L (Ref Range: 8.4-10.2 mg/dL) ???Lab:Erythrocyte Sedimentation Rate (Order Date - 03/11/2024) (Collection Date & Time - 03/11/2024 11:38 AM)?ValueReference Range?Erythrocyte Sedimentation Hvkv897-07 - MM/HR ???Lab:Complement C3 (Order Date - 03/18/2024) (Collection Date & Time - 03/18/2024 11:17 AM)?ValueReference Range?Complement [id number] - mg/dL ???Lab:Protein Electrophoresis, Serum (Order Date - 03/18/2024) [...] Protein Band 3TNP-?Prot Elec - InterpretationSEE NOTE- * Examination: G eneral Examination: GENERAL APPEARANCE: p leasant, well nourished, well developed, in no acute distress, calm and relaxed, obese, man. HEAD: a traumatic, normocephalic. EYES: e macie, perrla, anicteric, conjugate. EARS: n ormal. NOSE: s eptum intact. ORAL CAVITY: n ormal, unremarkable. NECK/THYROID: n o jugular venous distention, no carotid bruit, thyroid normal. LYMPH NODES: n o enlarged lymph nodes,spleen normal. SKIN: n o suspicious lesions, anicteric. HEART: n o clicks, gallops, murmurs, or rubs, regular rhythm, S1, S2 normal, no s3, or vascular bruits. LUNGS: c lear to auscultation . BREASTS: no masses palpable bilaterally. ABDOMEN: b owel sounds normal, no ascites, no organomegaly, no mass, centripital obesity. RECTAL EXAM: n ot examined. MUSCULOSKELETAL: e xtremities unremarkable, no clubbing, cyanosis or edema. PERIPHERAL PULSES: n ormal. NEUROLOGIC: a lert and oriented, cranial nerves 2-12 grossly intact, deep tendon reflexes 2+ symmetrical, motor strength normal upper and lower extremities, sensory exam intact. PSYCH: a lert, oriented, good eye contact, cooperative with exam, cognitive function intact, thought process logical, goal directed, speech clear. ? Assessment: * Assessment: 1. N ephrotic syndrome - N04.9 (Primary) N otes :He is markedly improved. He is now being managed by nephrology on a reduced dose of prednisone. He is taking torsemide instead of furosemide. 2 . M ixed hyperlipidemia - E78.2 N otes :His lipids will be evaluated periodically. Statin will be considered. 3 . O ther neutropenia - D70.8 N otes :His white blood cell count is stable. The value will be followed carefully periodically. He has had no infections recently. 4 . E ssential hypertension - I10 N otes :His blood pressure is now in the normal range. He has lost 52 pounds mostly fluid. The vital signs will be obtained and followed periodically. Plan: * Treatment: 2. M ixed hyperlipidemia L AB: PROFILE, FASTING (COMPREHENSIVE METABOLIC) L AB: PSA, TOTAL L AB: CBC w DIFF L AB: Lipid Panel 3. O ther neutropenia L AB: PROFILE, FASTING (COMPREHENSIVE METABOLIC) L AB: PSA, TOTAL L AB: CBC w DIFF L AB: Lipid Panel 4. E ssential hypertension L AB: PROFILE, FASTING (COMPREHENSIVE METABOLIC) L AB: PSA, TOTAL L AB: CBC w DIFF L AB: Lipid Panel 5. O thers Continue predniSONE Tablet, 20 MG, TAKE TWO (2) TABLETS (40MG) BY MOUTH EVERY DAY; C ontinue metFORMIN HCl Tablet, 500 MG, 1 tablet with a meal, Orally, Once a day; C ontinue Albuterol Sulfate HFA Aerosol Solution, 108 (90 Base) MCG/ACT, 1 puff as needed, Inhalation, every 4 hrs; C ontinue Omeprazole Capsule Delayed Release, 40 MG, 1 capsule, Orally, Once a day; C ontinue Fenofibrate Tablet, 145 MG, 1 tablet, Orally, Once a day; C ontinue Citalopram Hydrobromide Tablet, 40 MG, 1 tablet, Orally, Once a day; C ontinue Atorvastatin Calcium Tablet, 40 MG, 1 tablet, Orally, Once a day; C ontinue Lisinopril Tablet, 40 MG, 1 tablet, Orally, Once a day; C ontinue Zolpidem Tartrate Tablet, 10 MG, 1 tablet at bedtime as needed, Orally, Once a day; C ontinue Furosemide Tablet, 80 MG, 1 tablet, Orally, twice a day; C ontinue Benzonatate Capsule, 200 MG, 1 capsule as needed, Orally, Three times a day. * Procedure Codes: * Preventive Medicine: Counseling: C are goal follow-up plan: Counseling for abnormal BMI given Y es Above Normal BMI Follow-up D ietary management education, guidance, and counseling, Dietary needs education, Exercise promotion: strength training, Exercise promotion: stretching, Feeding regime, Giving encouragement to exercise, Lifestyle education regarding diet, Nutrition / feeding management, Nutrition therapy, Prescribed activity/exercise education, Prescribed diet education, Prescribed dietary intake, Special diet education, Weight monitoring , Intervention, Order not done: Medical or Other reason not done DM Care Plan: P atient Lifestyle Goals P atient wants to be able to manage diabetes without too much effort. T reatment Goals B lood Sugars less than < 115, HbA1C < 7.0. B arriers n o barriers. S elf-Managment Goals W ork on weight loss, with a goal of losing 1 lb per week. * Follow Up: m id june (Reason: ov review labs) * Images: * Sign off status: Completed true * Provider: Umm Otero MD Date: 0 05/06/2024 Generated for Billyi ng/Azam/eTransmitting on: 1 04/24/2024 09:10 AM EST History and Physical Notes * HPI (History of Present Illness) Category Sub-Category Detail Notes COVID-19 Screening Questions Have you had any new onset fever, chills, cough, congestion, sore throat, shortness of breath, muscle aches?: No Examination Category Sub-Category Detail Notes General Examination GENERAL APPEARANCE: pleasant , well nourished, well developed, in no acute distress, calm and relaxed, obese, man HEAD: atraumatic, normocep halic EYES: eomi, perrla, anicte reanna, conjugate EARS: normal NOSE: septum intact NECK/THYROID: no jugular venous di stention, no carotid bruit, thyroid normal HEART: no clicks, gallops, murmurs, or rubs, regular rhythm, S1, S2 normal, no s3, or vascular bruits LUNGS: clear to auscultatio n ABDOMEN: bowel sounds normal, no ascites, no organomegaly, no mass, centripital obesity NEUROLOGIC: alert and oriented, cranial nerves 2-12 grossly intact, deep tendon reflexes 2+ symmetrical, motor strength normal upper and lower extremities, sensory exam intact SKIN: no suspicious lesion s, anicteric PERIPHERAL PULSES: normal BREASTS: no masses palpable b ilaterally MUSCULOSKELETAL: extremities unremark able, no clubbing, cyanosis or edema LYMPH NODES: no enlarged lymph no trena,spleen normal RECTAL EXAM: not examined PSYCH: alert, oriented, goo d eye contact, cooperative with exam, cognitive function intact, thought process logical, goal directed, speech clear ORAL CAVITY: normal, unremarkable
--- OUTSIDE RECORDS SUMMARY | 2024-07-17 11:15 | XMS_ITS ---
Author Organization Anthony Otero III, MD Address [address] [address] Care Team Providers Care Bookkeeping Assistant Name Role Phone Dr. Anthony Otero III Primary Care Provider [phone] Allergies Allergen (clinical drug ingredient) Drug/Non Drug Allergy documented on EMR Reaction Allergy Type Onset Date Status Pain medication (uncoded) Unknown Allergy Active REASON FOR VISIT Nephrotic syndrome, Chronic insomnia, Hypertension, Hyperlipidemia, Diabetes, Obesity, Arthritis right shoulder Medications Medication SIG (Take, Route, Frequency, Duration) Notes Start Date End Date Status Zolpidem Tartrate 10 MG 1 tablet at bedt ashly Orally Once a day for 90 days 07/17/2024 07/12/2025 Active Albuterol Sulfate HFA 108 (90 Base) MCG/ACT 1 puff as needed Inhalation every 4 hrs Active metFORMIN HCl 500 MG 1 tablet with a mariah l Orally Once a day Active Omeprazole 40 MG 1 capsule Orally Onc e a day Active Furosemide 80 MG TAKE 1 TABLET BY JEET TH TWICE A DAY Active predniSONE 20 MG TAKE TWO (2) TABLETS (40MG) BY MOUTH EVERY DAY Active Benzonatate 200 MG 1 capsule as needed Orally Three times a day 04/09/2024 Active Torsemide 20 MG 1 tablet Orally Once a day 04/04/2024 Active predniSONE 5 MG 1 tablet with food o r milk Orally Once a day 07/17/2024 Active Atorvastatin Calcium 40 MG 1 tablet Oral ly Once a day Active Citalopram Hydrobromide 40 MG 1 tablet Orally Once a day Active Zolpidem Tartrate 10 MG [...] Nonsmoker Vital Signs Temperature 97.9 degrees Fahrenheit 07/18/19 25 Blood pressure systolic 120 mm Hg 07/18/19 25 Blood pressure diastolic 72 mm Hg 025 Heart Rate 66 /min 07/17/2024 Height 70 in 07/17/2024 Weight 232 lbs 07/17/2024 BMI 33.28 kg/m2 07/17/2024 Encounters Encounter Location Date Provider Diagnosis Anthony Otero III, MD [address] [place] [address] [place] [address] 07/17/2024 Atnhony Otero Nephrotic syndrome N 04.9 ; Mixed hyperlipidemia E78.2 ; Diabetes mellitus without complication E11.9 ; Obesity E66.9 ; Essential hypertension I10 ; History of Ojeda's esophagus Z87.19 ; Primary osteoarthritis, left shoulder M19.012 ; Primary osteoarthritis, right shoulder M19.011 ; Chronic insomnia F51.04 and Ascending aorta dilation I77.810 Assessments Encounter Date Diagnosis (ICD Code) Assessment Notes Treat ment Notes Treatment Clinical Notes 07/17/2024 Nephrotic syndrome (ICD-10 - N04.9) He remains under the care of nephrology who only recently sought. Is going to see them again in 2 weeks. He has gained significant weight likely from fluid. This torsemide has been adjusted. 07/17/2024 Mixed hyperlipidemia (ICD-10 - E78.2) His total cholesterol was 276. At his request to continue the 40 mg dose of atorvastatin until his next visit. A repeat fasting lipid profiles been ordered. We discussed lifestyle modifications he could make to reduce cholesterol intake. I will increase the dose of a statin if it cholesterol remains at this level. 07/17/2024 Diabetes mellitus without complication (ICD-10 - E11.9) He has been compliant with his medication. His hemoglobin A1c is under 7.0. The diabetes is well controlled at this time. 07/17/2024 Obesity (ICD-10 - E66.9) He has gained substantial weight. Nephrology is managing his torsemide. I discussed with him the necessity of adhering his medications. 07/17/2024 Essential hypertension (ICD-10 - I10) His blood pressure is now in the normal range. 07/17/2024 History of Ojeda's esophagus (ICD-10 - Z87.19) He has reported no recent history of dysphagia or esophageal pain. He will need to have upper endoscopy periodically. 07/17/2024 Primary osteoarthritis, left shoulder (ICD-10 - M19.012) The pain in his left shoulder has improved somewhat. He declined an offer of referral to orthopedics. 07/17/2024 Primary osteoarthritis, right shoulder (ICD-10 - M19.011) Pain in his right shoulder with elevation remains a nuisance. He has declined an offer of orthopedic referral. 07/17/2024 Chronic insomnia (ICD-10 - F51.04) He continues to maintain persistently on forcibly that he is unable to sleep without torie PDM. After long discussion I have refilled it. I will continue to discuss eliminating this medication from his regimen whenever I see him. 07/17/2024 Ascending aorta dilation (ICD-10 - I77.810) This is a finding on a recent echocardiogram. He is asymptomatic. The ascending aortic diameter was 3.9 cm. He will be observed. Plan Of Treatment Medication Medication Name Sig Start Date Stop Date Notes Zolpidem Tartrate 10 MG 1 tablet at bedt ashly Orally Once a day for 90 days 07/17/2024 07/12/2025 Albuterol Sulfate HFA 108 (9 0 Base) MCG/ACT 1 puff as needed Inhalation every 4 hrs metFORMIN HCl 500 MG 1 tablet with a mariah l Orally Once a day Omeprazole 40 MG 1 capsule Orally Once a day Furosemide 80 MG TAKE 1 TABLET BY JEET TH TWICE A DAY predniSONE 20 MG TAKE TWO (2) TABLETS (40MG) BY MOUTH EVERY DAY Benzonatate 200 MG 1 capsule as needed Orally Three times a day 04/09/2024 Torsemide 20 MG 1 tablet Orally Once a day 04/04/2024 predniSONE 5 MG 1 tablet with food o r milk Orally Once a day 07/17/2024 Atorvastatin Calcium 40 MG 1 tablet Orally Once a day Citalopram Hydrobromide 40 MG 1 tablet Orally Once a day Zolpidem Tartrate 10 MG 1 tablet at bedt ashly as needed Orally Once a day Lisinopril 40 MG 1 tablet Orally Once a day Fenofibrate 145 MG 1 tablet Orally Once a day Pending Test Test Name Order Date PROFILE, FASTING (COMPREHENSIVE METABOLI C) 07/17/2024 PSA, TOTAL 07/17/2024 CBC w DIFF 07/17/2024 Lipid Panel 07/17/2024 Next Appt Details Follow Up: 2 Months, Reason: OV Provider Name:Anthony Otero , 03/10/2025 04:15:00 PM, [address] [place] [address] , [facility] [address], [place], [address], Progress Notes * Claudy HANLEY JrDOB:[birth year] (58 yo M)Acc No.[id number]:07/17/2024 Progress Notes Patient: Claudy STOUT Jr Provider: Umm Otero MD :1965 A ge:58 Y S ex:Male Date:07/17/2024 Address:[address] [place], [place] [id number] Subjective: * Chief Complaints: * N ephrotic syndromeChronic insomniaHypertensionHyperlipidemiaDiabetesObesityArthritis right shoulder * HPI: C OVID-19 Screening: Avery palacios returns for medical management. He is going to see his cath lab tech in July 2024.? His weight has increased up to 231 pounds. He had trace pedal edema on today's examination. [place] to his knees. His cholesterol was 276. He recently saw his differential tester.? Is using his CPAP machine every night for sleep apnea. He continues to insist that he cannot sleep without soap id. We had a long and spirited discussion today about the wisdom of attempting to reduce his zolpidem use. However, he has been taking this medication for many years and insist that he is absolutely unable to sleep and function without it. Therefore I have refilled it. He is well aware primary care physician he has made very willing to refill it. We discussed this at length today.I did not increase his atorvastatin because he wants to try and reduce his cholesterol level through lifestyle modification. He has successfully done this in the past. Questions H ave you had any new onset fever, chills, cough, congestion, sore throat, shortness of breath, muscle aches? N o * ROS: G eneral/Constitutional: pain B oth shoulders, otherwiseonly normal aches and pains.?Chills d enies. F atigue a dmits. F ever d enies. E NT: Decreased hearing d enies. R espiratory: Cough d enies. C ardiovascular: Chest pain with exertion d enies. D yspnea on exertion?denies. S hortness of breath d enies. G astrointestinal: Constipation o ccasional. D ecreased appetite d enies. D iarrhea d enies. H e[place]burn o ccasional. N ausea d enies. R ectal bleeding d enies. V omiting d enies. H ematology: bruising d enies. p etechiae d enies. S wollen glands n one have been noted. G enitourinary: Frequent urination t wice a night. M usculoskeletal: Muscle aches d enies. P ainful joints d enies. S ciatica d enies. W eakness d enies. S kin: Itching d enies. R helen d enies. S kin lesion(s)?denies. N eurologic: Difficulty speaking d enies. D izziness d enies.?Headache d enies. L ow back pain d enies. P sychiatric: Depressed mood d enies. * Medical History: * Surgical History: c holecystectomy age 24 Renal biopsy [facility], remote Carpal tunnel surgery on both hands Bilateral shoulder arthroscopies Elbow surgery Upper endoscopy and colonoscopy 2019 Tubular adenoma colonoscopy 2013, Dr. Anthony Hidalgo Bilateral inguinal herniorrhaphies No [...] use: N onsmoker He was born in [facility]. He has been to [facility] for 15 years.? He has no children. 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 He has no jew objection to blood transfusion. He does not smoke and does not drink alcohol. * Medications: T akingpredniSONE 5 MG Tablet 1 tablet with food or milk Orally Once a day metFORMIN HCl 500 MG Tablet 1 tablet [...] bedtime as needed Orally Once a day Torsemide 20 MG Tablet 1 tablet Orally Once a day , Notes to Pharmacist: prnBenzonatate 200 MG Capsule 1 capsule as needed Orally Three times a day Taking predniSONE 5 MG Tablet 1 tablet with food or milk Orally Once a day Taking metFORMIN HCl [...] as needed Orally Once a day Taking Torsemide 20 MG Tablet 1 tablet Orally Once a day , Notes to Pharmacist: prnTaking Benzonatate 200 MG Capsule 1 capsule as needed Orally Three times a day DiscontinuedFurosemide 80 MG Tablet TAKE 1 TABLET BY MOUTH TWICE A DAY predniSONE 20 MG Tablet TAKE TWO (2) TABLETS (40MG) BY MOUTH EVERY DAY Medication List reviewed and reconciled with the patientDiscontinued Furosemide 80 MG Tablet TAKE 1 TABLET BY MOUTH TWICE A DAY Discontinued predniSONE 20 MG Tablet TAKE TWO (2) TABLETS (40MG) BY MOUTH EVERY DAY Medication List reviewed and reconciled with the patient * Allergies: P ain medicationno[Allergies Verified] Objective: * Vitals: H t: 70, Wt: 232, BMI:33.28, BP: 120/72, HR: 66, Temp: 97.9, Ht-cm: 177.8, Wt-k.23. * P ast Orders: L ab:Microalbumin, Random (Order Date - 05/02/2024) (Collection Date & Time - 05/02/2024 06:35 AM) Value Reference Range Creatinine Urine 125.53 - mg/dL Microalbumin Urine > 2000.0 - mg/L Microalbum Creatinine Ratio Ur 1593.2 H <30 - ug/ mg cr Lab:Creatinine Urine * Collection Date 05/02/2024 04/01/2024 03/25/2024 Collection Time 06:35 AM 12:21 PM 09:45 AM Order Date 05/02/2024 04/01/2024 03/25/2024 Creatinine Urine 124.68 (Ref Range: mg/dL) 166.67 (Ref Range: mg/dL) 71.15 (Ref Range: mg/dL) * Lab:Complete Blood Count Aut o Diff * Collection Date 07/10/2024 05/02/2024 03/11/2024 Collection Time 06:18 AM 06:35 AM 11:38 AM Order Date 07/10/2024 05/02/2024 03/11/2024 White Blood Count 3.7 L (Ref Range: 4.8-10.8 X10*3/uL) 3.6 L (Ref Range: 4.8-10.8 X10*3/uL) 6.4 (Ref Range: 4.8-10.8 X10*3/uL) Red Blood Count 4.12 L (Ref Range: 4.60-5.80 X10*6/uL) 4.06 L (Ref Range: 4.60-5.80 X10*6/uL) 5.00 (Ref Range: 4.60-5.80 X10*6/uL) Hemoglobin 12.6 L (Ref Range: 14.0-18.0 g/dl) 12.3 L (Ref Range: 14.0-18.0 g/dl) 14.8 (Ref Range: 14.0-18.0 g/dl) Hematocrit 37.3 L (Ref Range: 42.0-52.0 %) 37.2 L (Ref Range: 42.0-52.0 %) 44.4 (Ref Range: 42.0-52.0 %) Mean Corpuscular Volume 90.5 (Ref Range: 80.0-98.0 fL) 91.6 (Ref Range: 80.0-98.0 fL) 88.8 (Ref Range: 80.0-98.0 fL) Mean Corpuscular Hemoglobin 30.6 (Ref Range: 27.0-33.0 pg) 30.3 (Ref Range: 27.0-33.0 pg) 29.6 (Ref Range: 27.0-33.0 pg) Mean Corpuscular HGB Conc 33.8 (Ref Range: 31.0-36.0 g/dl) 33.1 (Ref Range: 31.0-36.0 g/dl) 33.3 (Ref Range: 31.0-36.0 g/dl) Red Cell Distribution Width 12.4 (Ref Range: 11.0-16.0 %) 15.4 (Ref Range: 11.0-16.0 %) 13.2 (Ref Range: 11.0-16.0 %) Platelet Count 190 (Ref Range: 160-400 X10*3/uL) 182 (Ref Range: 160-400 X10*3/uL) 208 (Ref Range: 160-400 X10*3/uL) Mean Platelet Volume 10.3 (Ref Range: 9.4-12.4 fL) 10.4 (Ref Range: 9.4-12.4 fL) 10.2 (Ref Range: 9.4-12.4 fL) Neutrophils Percent Auto 45.0 (Ref Range: 45-73 %) 43.0 L (Ref Range: 45-73 %) 49.0 (Ref Range: 45-73 %) Imm Gran Pct Auto 0.5 H (Ref Range: 0.0-0.4 %) 0.8 H (Ref Range: 0.0-0.4 %) 0.5 H (Ref Range: 0.0-0.4 %) Lymphocytes Percent Auto 41.8 H (Ref Range: 20-40 %) 43.1 H (Ref Range: 20-40 %) 41.5 H (Ref Range: 20-40 %) Monocytes Percent Auto 9.2 (Ref Range: 2-11 %) 9.6 (Ref Range: 2-11 %) 6.9 (Ref Range: 2-11 %) Eosinophils Percent Auto 2.7 (Ref Range: 0-4 %) 2.7 (Ref Range: 0-4 %) 1.9 (Ref Range: 0-4 %) Basophils Percent Auto 0.8 (Ref Range: 0-2 %) 0.8 (Ref Range: 0-2 %) 0.2 (Ref Range: 0-2 %) NRBC Pct Auto 0.0 (Ref Range: 0.0-0.2 /100WBC) 0.0 (Ref Range: 0.0-0.2 /100WBC) 0.0 (Ref Range: 0.0-0.2 /100WBC) Neutrophils Absolute Auto 1.7 L (Ref Range: 2.0-8.3 x10*3/uL) 1.6 L (Ref Range: 2.0-8.3 x10*3/uL) 3.1 (Ref Range: 2.0-8.3 x10*3/uL) Imm Gran Abs Auto 0.02 (Ref Range: 0.00-0.03 X10*3/uL) 0.03 (Ref Range: 0.00-0.03 X10*3/uL) 0.03 (Ref Range: 0.00-0.03 X10*3/uL) Lymphocytes Absolute Auto 1.6 (Ref Range: 1.2-4.9 X10*3/uL) 1.6 (Ref Range: 1.2-4.9 X10*3/uL) 2.7 (Ref Range: 1.2-4.9 X10*3/uL) Monocytes Absolute Auto 0.3 (Ref Range: 0.1-1.2 X10*3/uL) 0.4 (Ref Range: 0.1-1.2 X10*3/uL) 0.4 (Ref Range: 0.1-1.2 X10*3/uL) Eosinophils Absolute Auto 0.1 (Ref Range: 0.0-0.4 X10*3/uL) 0.1 (Ref Range: 0.0-0.4 X10*3/uL) 0.1 (Ref Range: 0.0-0.4 X10*3/uL) Basophils Absolute Auto 0.0 (Ref Range: 0.0-0.2 X10*3/uL) 0.0 (Ref Range: 0.0-0.2 X10*3/uL) 0.0 (Ref Range: 0.0-0.2 X10*3/uL) NRBC Abs Auto 0.000 (Ref Range: 0.0-0.012 X10*3/uL) 0.000 (Ref Range: 0.0-0.012 X10*3/uL) 0.000 (Ref Range: 0.0-0.012 X10*3/uL) * Lab:Total Protein Urine [place] * Collection Date 05/02/2024 04/01/2024 03/25/2024 Collection Time 06:35 AM 12:21 PM 09:45 AM Order Date 05/02/2024 04/01/2024 03/25/2024 Total Protein Urine Random 346 H (Ref Range: <12 mg/dL) 1569 H (Ref Range: <12 mg/dL) 409 H (Ref Range: <12 mg/dL) * Lab:Urinalysis and Microscop ic * Collection Date 06/01/2024 05/02/2024 04/01/2024 Collection Time 11:50 AM 06:35 AM 12:21 PM Order Date 06/01/2024 05/02/2024 04/01/2024 Color Urine Yellow Yellow Dark Yellow RBC Urine 0-2 (Ref Range: 0-2 /HPF) 0-2 (Ref Range: 0-2 /HPF) 3-5 A (Ref Range: 0-2 /HPF) Appearance Urine Clear Clear Clear PH 7.5 (Ref Range: 5.0-9.0) 7.5 (Ref Range: 5.0-9.0) 7.0 (Ref Range: 5.0-9.0) Glucose Urine UA Negative (Ref Range: Negative mg/dL) Negative (Ref Range: Negative mg/dL) 500 A (Ref Range: Negative mg/dL) Urine Blood Negative (Ref Range: Negative) Negative (Ref Range: Negative) Trace A (Ref Range: Negative) Specific [place] - Urine 1.010 (Ref Range: 1.005-1.025) 1.020 (Ref Range: 1.005-1.025) 1.025 (Ref Range: 1.005-1.025) Urine Protein 300 (3+) A (Ref Range: Neg-Trace mg/dL) 300 (3+) A (Ref Range: Neg-Trace mg/dL) >=1000 (4+) A (Ref Range: Neg-Trace mg/dL) Urine Ketones Negative (Ref Range: Negative mg/dL) Negative (Ref Range: Negative mg/dL) Negative (Ref Range: Negative mg/dL) Nitrite Urine Negative (Ref Range: Negative) Negative (Ref Range: Negative) Negative (Ref Range: Negative) Leukocyte Esterase Urine Negative (Ref Range: Negative) Negative (Ref Range: Negative) Trace A (Ref Range: Negative) WBC Urine 0-5 (Ref Range: 0-5 /HPF) 0-5 (Ref Range: 0-5 /HPF) 0-5 (Ref Range: 0-5 /HPF) Squamous Epithelial Cell Urine 0-2 (Ref Range: 0-2 /HPF) 0-2 (Ref Range: 0-2 /HPF) 3-5 (Ref Range: 0-2 /HPF) Bacteria Urine None Seen (Ref Range: None Seen) None Seen (Ref Range: None Seen) None Seen (Ref Range: None Seen) Hyaline Casts Urine 0-2 (Ref Range: 0-2 /LPF) 0-2 (Ref Range: 0-2 /LPF) 3-5 (Ref Range: 0-2 /LPF) Granular Casts Urine NR NR Present Red Blood Cell Casts Urine NR NR Present ???Lab:Hemoglobin A1c (Order Date - 05/02/2024) (Collection Date & Time - 05/02/2024 06:35 AM)?ValueReference Range?Hemoglobin A1c %6.5H<6.0 - %?Estimated Average Pvvjmmr377- mg/dL * Lab:Comprehensive [place]. Jasone l Fast * Collection Date 07/10/2024 05/02/2024 Collection Time 06:18 AM 06:35 AM Order Date 07/10/2024 05/02/2024 Sodium 142 (Ref Range: 135-145 mmol/L) 141 (Ref Range: 135-145 mmol/L) Bilirubin Total 0.2 (Ref Range: 0.0-1.0 mg/dL) 0.5 (Ref Range: 0.0-1.0 mg/dL) Aspartate Amino Transferase 26 (Ref Range: 5-37 U/L) 28 (Ref Range: 5-37 U/L) Alanine Aminotransferase 18 (Ref Range: 0-40 U/L) 42 H (Ref Range: 0-40 U/L) Total Protein 5.0 L (Ref Range: 6.5-8.0 g/dL) 5.5 L (Ref Range: 6.5-8.0 g/dL) Albumin Level 3.0 L (Ref Range: 3.5-5.0 g/dL) 3.3 L (Ref Range: 3.5-5.0 g/dL) Alkaline Phosphatase 36 L (Ref Range: 39-117 U/L) 45 (Ref Range: 39-117 U/L) Potassium 3.8 (Ref Range: 3.3-5.1 mmol/L) 3.9 (Ref Range: 3.3-5.1 mmol/L) Chloride 105 (Ref Range: 96-108 mmol/L) 106 (Ref Range: 96-108 mmol/L) Carbon Dioxide 30 H (Ref Range: 22-29 mmol/L) 26 (Ref Range: 22-29 mmol/L) Anion Gap 11 L (Ref Range: 12-20) 13 (Ref Range: 12-20) Blood Urea Nitrogen 16 (Ref Range: 9-16 mg/dL) 17 H (Ref Range: 9-16 mg/dL) Creatinine 0.87 (Ref Range: 0.5-1.4 mg/dL) 0.75 (Ref Range: 0.5-1.4 mg/dL) Estimated Glomerular Filt Rate > 60 > 60 Glucose Fasting 107 H (Ref Range: 60-99 mg/dL) 112 H (Ref Range: 60-99 mg/dL) Calcium 8.2 L (Ref Range: 8.4-10.2 mg/dL) 8.5 (Ref Range: 8.4-10.2 mg/dL) ???Lab:B Type Natriuretic Peptide (Order Date - 05/02/2024) (Collection Date & Time - 05/02/2024 06:35 AM)?ValueReference Range?B Type Natriuretic Hdpmqtd69<100 - pg/mL * Lab:Basic Metabolic Panel * Collection Date 06/01/2024 03/25/2024 03/18/2024 Collection Time 11:43 AM 09:40 AM 11:17 AM Order Date 06/01/2024 03/25/2024 03/18/2024 Sodium 141 (Ref Range: 135-145 mmol/L) 141 (Ref Range: 135-145 mmol/L) 139 (Ref Range: 135-145 mmol/L) Blood Urea Nitrogen 13 (Ref Range: 9-16 mg/dL) 10 (Ref Range: 9-16 mg/dL) 22 H (Ref Range: 9-16 mg/dL) Creatinine 0.77 (Ref Range: 0.5-1.4 mg/dL) 0.74 (Ref Range: 0.5-1.4 mg/dL) 1.51 H (Ref Range: 0.5-1.4 mg/dL) Glucose Random 104 (Ref Range: 60-115 mg/dL) 90 (Ref Range: 60-115 mg/dL) 125 H (Ref Range: 60-115 mg/dL) Calcium 8.7 (Ref Range: 8.4-10.2 mg/dL) 7.7 L (Ref Range: 8.4-10.2 mg/dL) 7.2 L (Ref Range: 8.4-10.2 mg/dL) Potassium 4.1 (Ref Range: 3.3-5.1 mmol/L) 3.8 (Ref Range: 3.3-5.1 mmol/L) 4.0 (Ref Range: 3.3-5.1 mmol/L) Chloride 109 H (Ref Range: 96-108 mmol/L) 112 H (Ref Range: 96-108 mmol/L) 108 (Ref Range: 96-108 mmol/L) Carbon Dioxide 26 (Ref Range: 22-29 mmol/L) 28 (Ref Range: 22-29 mmol/L) 26 (Ref Range: 22-29 mmol/L) Anion Gap 10 L (Ref Range: 12-20) 5 L (Ref Range: 12-20) 9 L (Ref Range: 12-20) Estimated Glomerular Filt Rate > 60 > 60 48 ???Lab:Lipid Panel (Order Date - 07/10/2024) (Collection Date & Time - 07/10/2024 06:18 AM)?ValueReference Range?Bhjtgahjqizen524P<150 - mg/dL?Vkfrqgzifps140Y<200 - mg/dL?LDL Cholesterol Igdnwrwaju349Z <100 - mg/dL?HDL Sfgqgwchvul15>40 - mg/dL ???Lab:Prostate Specific Antigen (Order Date - 07/10/2024) (Collection Date & Time - 07/10/2024 06:18 AM)?ValueReference Range?Prostate Specific Antigen0.76<0.05-4.0 - ng/mL * Examination: G eneral Examination: GENERAL APPEARANCE: [...] obesity. RECTAL EXAM: n ot examined. MUSCULOSKELETAL: M ild pitting edema [facility] up to the knees on either side, skin is intact without trophic changes. PERIPHERAL PULSES: n ormal. NEUROLOGIC: a lert and oriented, cranial nerves 2-12 grossly intact, deep tendon reflexes 2+ symmetrical, motor strength normal upper and lower extremities, sensory exam intact. PSYCH: a lert, oriented. Assessment: * Assessment: 1. N ephrotic syndrome - N04.9 (Primary) N otes :He remains under the care of nephrology who only recently sought. Is going to see them again in 2 weeks. He has gained significant weight likely from fluid. This torsemide has been adjusted. 2 . M ixed hyperlipidemia - E78.2 N otes :His total cholesterol was 276. At his request to continue the 40 mg dose of atorvastatin until his next visit. A repeat fasting lipid profiles been ordered. We discussed lifestyle modifications he could make to reduce cholesterol intake. I will increase the dose of a statin if it cholesterol remains at this level. 3 . D iabetes mellitus without complication - E11.9 N otes :He has been compliant with his medication. His hemoglobin A1c is under 7.0. The diabetes is well controlled at this time. 4 . O besity - E66.9 N otes :He has gained substantial weight. Nephrology is managing his torsemide. I discussed with him the necessity of adhering his medications. 5 . E ssential hypertension - I10 N otes :His blood pressure is now in the normal range. 6. H istory of Ojeda's esophagus - Z87.19 N otes :He has reported no recent history of dysphagia or esophageal pain. He will need to have upper endoscopy periodically. 7 . P rimary osteoarthritis, left shoulder - M19.012 N otes :The pain in his left shoulder has improved somewhat. He declined an offer of referral to orthopedics. 8 . P rimary osteoarthritis, right shoulder - M19.011 N otes :Pain in his right shoulder with elevation remains a nuisance. He has declined an offer of orthopedic referral. 9 . C hronic insomnia - F51.04 N otes :He continues to maintain persistently on forcibly that he is unable to sleep without torie PDM. After long discussion I have refilled it. I will continue to discuss eliminating this medication from his regimen whenever I see him. 1 0. A scending aorta dilation - I77.810 N otes :This is a finding on a recent echocardiogram. He is asymptomatic. The ascending aortic diameter was 3.9 cm. He will be observed. Plan: * Treatment: 2. M ixed hyperlipidemia L AB: PROFILE, FASTING (COMPREHENSIVE METABOLIC) L AB: PSA, TOTAL L AB: CBC w DIFF L AB: Lipid Panel 3. D iabetes mellitus without complication L AB: PROFILE, FASTING (COMPREHENSIVE METABOLIC) L AB: PSA, TOTAL L AB: CBC w DIFF L AB: Lipid Panel 4. O besity L AB: PROFILE, FASTING (COMPREHENSIVE METABOLIC) L [...] needed, Orally, Once a day; C ontinue Benzonatate Capsule, 200 MG, 1 capsule as needed, Orally, Three times a day; C ontinue Furosemide Tablet, 80 MG, TAKE 1 TABLET BY MOUTH TWICE A DAY. * Procedure Codes: * Preventive Medicine: Counseling: [...] 1 lb per week. * Follow Up: 2 Months (Reason: OV) * Images: * Sign off status: Completed true * Provider: Umm Otero MD Date: 0 07/17/2024 Generated for Billyi tami/Azam/eTransmitting on: 1 04/24/2024 09:09 AM EST History and Physical Notes * [...] BREASTS: no masses palpable b ilaterally MUSCULOSKELETAL: Mild pitting edema h alfway up to the knees on either side, skin is intact without trophic changes LYMPH NODES: no enlarged lymph no trena,spleen normal RECTAL EXAM: not examined PSYCH: alert, oriented ORAL CAVITY: normal, unremarkable
--- OUTSIDE RECORDS SUMMARY | 2024-07-18 05:04 | XMS_ITS ---
Author Organization Anthony Otero III, MD Address [address] [place] [address] Care Team Providers Care Auto Design Checker Name Role Phone Dr. Anthony Otero III Primary Care Provider [phone] REASON FOR VISIT Insurance Social History Sex Assigned At : Social History Observation Description Sex Assigned At Male Encounters Encounter Location Date Provider Diagnosis Anthony Otero III, MD [address] [place] [address] [place] [address] 07/18/2024 Anthony Otero Plan Of Treatment Next Appt Details Provider Name:Anthony Otero , 03/10/2025 04:15:00 PM, [address] [place] [address] [place], [address], Progress Notes * Claudy HANLEY JrDOB:[birth year] (58 yo M)Acc No.[id number]:07/18/2024 Patient: Claudy STOUT Jr :1965 A ge:58 Y S ex:Male Address:[address] [place], [address] * true * Date: Generated for Lety garrett/Azam/eTransmitting on: 04/24/2024 09:09 AM EST
--- OUTSIDE RECORDS SUMMARY | 2024-08-19 09:11 | XMS_ITS ---
Author Organization Anthony Otero III, MD Address [address] [place] [address] Care Team Providers Care Plumbing Inspector Name Role Phone Dr. Anthony Otero III Primary Care Provider [phone] REASON FOR VISIT Lab Request Social History Sex Assigned At : Social History Observation Description Sex Assigned At Male Encounters Encounter Location Date Provider Diagnosis Anthony Otero III, MD [address] [place] [address] [place] [address] 08/19/2024 Anthony Otero Mixed hyperlipidemia E78.2 ; [...] Provider Name:Anthony Otero , 03/10/2025 04:15:00 PM, [address] [place] [address] [place], [address], Progress Notes * Claudy HANLEY JrDOB:[birth year] (58 yo M)Acc No.[id number]:08/19/2024 Patient: Claudy STOUT Jr :1965 A ge:58 Y S ex:Male Address:[address] [place] [address], [address] Subjective: * Chief Complaints: * L ab [...]
--- OUTSIDE RECORDS SUMMARY | 2024-09-13 11:45 | XMS_ITS ---
Author Organization Anthony Otero III, MD Address [address] [place] [address] [place] [address] Care Team Providers Care Tennis Director Name Role Phone Dr. Anthony Otero III Primary Care Provider REASON FOR VISIT Follow up Social History Sex Assigned At : Social History Observation Description Sex Assigned At Male Encounters Encounter Location Date Provider Diagnosis Anthony Otero III, MD [address] [place] [address] [address] [place] [address] 09/13/2024 Anthony Otero Plan Of Treatment Next Appt Details Provider Name:Anthony Otero , 03/10/2025 04:15:00 PM, [address] [place] [address] [place], [address], Progress Notes * Claudy HANLEY JrDOB:[birth year] (59 yo M)Acc No.[id number]:09/13/2024 Progress Notes Patient: Anant TRAMMELL Claudy Eisenberg Provider: Umm Otero MD :1965 A ge:58 Y S ex:Male Date:09/13/2024 Address: [address] [id number] Subjective: * Chief Complaints: * 1 . [...] 0 09/13/2024 Generated for Lety garrett/Azam/Dannielle on: 1 04/24/2024 09:08 AM EST
--- OUTSIDE RECORDS SUMMARY | 2024-10-15 09:45 | XMS_ITS ---
Author Organization Anthony Otero III, MD Address [address] [place] [address] Care Team Providers Care Personal Financial Planner Name Role Phone Dr. Anthony Otero III Primary Care Provider [phone] Allergies Allergen (clinical drug ingredient) Drug/Non Drug [...] Date Provider Diagnosis Anthony Otero III, MD [address] [place] [address] [place] [address] 10/15/2024 Anthony Otero Nephrotic syndrome N 04.9 [...] Provider Name:Anthony Otero , 03/10/2025 04:15:00 PM, [address] [place] [address] DR, [address], [id number], Progress Notes * Claudy HANLEY JrDOB:[birth year] (58 yo M)Acc No.[id number]:10/15/2024 Progress Notes Patient: Claudy STOUT Jr Provider: Umm Otero MD :1965 A ge:58 Y S ex:Male Date:10/15/2024 Address:[address] [place], [place] [id number] Subjective: * Chief Complaints: * N ephrotic [...] History: c holecystectomy age 24 Renal biopsy [facility], remote Carpal tunnel surgery on both [...] use: N onsmoker He was born in [facility]. He has been to [place] for 15 years.? He has no children. 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 He has no adventism objection to blood transfusion. He does not [...] Range: 0.0-0.012 X10*3/uL) * Lab:Total Protein Urine [place] om * Collection Date 08/12/2024 05/02/2024 04/01/2024 [...] Urine UA NegativeNegative - mg/dL?Urine BloodNegativeNegative -?Specific [place] - Urine1.0201.005-1.025 -?Urine Protein>=1000 (4+)ANeg-Trace - mg/dL?Urine [...] Range: Negative) Negative (Ref Range: Negative) Specific [place] - Urine 1.020 (Ref Range: 1.005-1.025) 1.010 [...] 10/15/2024 Generated for Lety garrett/Azam/eTransmitting on: 1 04/24/2024 09:10 AM EST History [...]
--- OUTSIDE RECORDS SUMMARY | 2024-12-03 12:45 | XMS_ITS ---
Author Organization Anthony Otero III, MD Address [address] [address] Care Team Providers Care Material Liaison Name Role Phone Dr. Anthony Otero III Primary Care Provider REASON FOR VISIT New Refill Request Medications Medication SIG (Take, Route, Frequency, Duration) Notes Start Date End Date Status Zolpidem Tartrate 10 MG 1 tablet at bedt ashly Orally Once a day for 90 days 07/17/2024 11/30/2025 Active Social History Sex Assigned At : Social History Observation Description Sex Assigned At Male Encounters Encounter Location Date Provider Diagnosis Anthony Otero III, MD [address] [place] [address] [place] [address] 12/03/2024 Anthony Otero Nephrotic syndrome N04.9 Assessments Encounter Date Diagnosis (ICD Code) Assessment Notes Treatment Notes Treatment Clinical Notes 12/03/2024 Nephrotic syndrome (ICD-10 - N04.9) He remains under the care of nephrology who only recently sought. Is going to see them again in 2 weeks. He has gained significant weight likely from fluid. This torsemide has been adjusted. Plan Of Treatment Medication Medication Name Sig Start Date Stop Date Notes Zolpidem Tartrate 10 MG 1 tablet at bedt ashly Orally Once a day for 90 days 07/17/2024 11/30/2025 Next Appt Details Provider Name:Anthony Otero , 03/10/2025 04:15:00 PM, [address] [place] [address] [place], [address], Progress Notes * Claudy HANLEYB:[birth year] (58 yo M)Acc No.[id number]:12/03/2024 Patient: Claudy STOUT Jr :1965 A ge:58 Y S ex:Male Address:[address] [place] [address], [address] * Refills Refill Zolpidem Tartrate Tablet, 10 MG, Orally, 90 Tablet, 1 tablet at bedtime, Once a day, 90 days, Refills=3 * true * Date: Generated for Lety garrett/Azam/Demetrismitting on: 04/24/2024 09:09 AM EST
--- OUTSIDE RECORDS SUMMARY | 2024-12-03 12:48 | XMS_ITS ---
Author Organization Anthony Otero III, MD Address [address] [place] [address] [place] [address] Care Team Providers Care Requirements Analyst Name Role Phone Dr. Anthony Otero III Primary Care Provider [phone] REASON FOR VISIT New Refill Request Social History Sex Assigned At : Social History Observation Description Sex Assigned At Male Encounters Encounter Location Date Provider Diagnosis Anthony Otero III, MD [address] [place] [address] [place] [address] 12/03/2024 Anthony Otero Plan Of Treatment Next Appt Details Provider Name:Anthony Otero , 03/10/2025 04:15:00 PM, [address] [place] [address] [place], [address], Progress Notes * Claudy HANLEY JrDOB:[birth year] (58 yo M)Acc No.[id number]:12/03/2024 Patient: Claudy STOUT Jr :1965 A ge:58 Y S ex:Male Address:[address] [place], [address] * true * Date: Generated for Billyi ng/Coleg/eTransmitting on: 04/24/2024 09:10 AM EST
--- OUTSIDE RECORDS SUMMARY | 2024-12-03 12:54 | XMS_ITS ---
Author Organization Anthony Otero III, MD Address [address] [place] [address] [address] [place] [place] [address] Care Team Providers Care Company Tanker Truck Driver Name Role Phone Dr. Anthony Otero III Primary Care Provider Reason For Referral Reason Evaluate and Treat Diagnosis 1 Primary osteoarthrit is, left shoulder (M19.012) Diagnosis 2 Primary osteoarthrit is, right shoulder (M19.011) Referral Organization Anthony Otero III, MD Referring Provider First Name Anthony Referring Provider Last Name Branden Referring Provider Speciality Internal M edicine Referred Provider [facility] er, Orthopedic Surgeons Referred Provider Specialty Orthopedic S [facility] General Notes D Zara 12/10/2024 10:10:03 AM > Referral with last progress note faxed. Referral Priority Routine Referral Appointment Date 12/26/2024 REASON FOR VISIT New Referral Request Social History Sex Assigned At : Social History Observation Description Sex Assigned At Male Encounters Encounter Location Date Provider Diagnosis Anthony Otero III, MD [address] [place] [address] [address] [place] [address] 12/03/2024 Anthony Otero Plan Of Treatment Referrals Referral Date Details 12/06/2024 12/06/2024, Evaluate and Treat, Orthopedic Surgeons [facility] Next Appt Details Provider Name:Anthony Otero , 03/10/2025 04:15:00 PM, [address] [place] [address] [place], [address], Progress Notes * Claudy HANLEY JrDOB:[birth year] (58 yo M)Acc No.[id number]:12/03/2024 Patient: Claudy STOUT Jr :1965 A ge:58 Y S ex:Male Address:[address] [place] [address] [place], [address] Subjective: * Chief Complaints: * N ew Referral Request * Medical History: * Surgical History: * Hospitalization/Major Diagno stic Procedure: * Medications: Objective: * Vitals: * Physical Examination: Assessment: Plan: * Treatment: * Procedure Codes: * true * Date: Generated for Lety garrett/Azam/eTransmitting on: 1 04/24/2024 09:09 AM EST Consultation Request Notes Referral Date Referring Provider Referred Provider Not es 12/06/2024 Branden [facility], Orthopedic Surgeons Evaluate and Treat
--- OUTSIDE RECORDS SUMMARY | 2025-02-21 09:09 | XMS_ITS | Patient Health Record ---
Author Organization [facility] Address [address] [place] [address] Care Team Providers Care Cosmetic Account Coordinator Name Role Phone Jessika (RETIRED) Irvin BENSON Primary Care Provide r Hansa Hidalgo Anthony Unavailable [phone] Allergies No Known Allergies Reason For Referral No Information Medications Medication SIG (Take, Route, Frequency, Duration) Notes Start Date End Date Status Lisinopril 40 MG Tablet 1 tablet Orally Once a day Active Citalopram Hydrobromide 40 MG Tablet 0.5 tablet Orally Once a day Active Meclizine HCl as needed Active Atorvastatin Calcium 40 MG Tablet 1 tablet Orally Once a day Active Fenofibrate 145 MG Tablet 1 tablet with food Orally Once a day; Duration: 30 day(s) Active Ambien 10 MG Tablet 1 tablet at bedtime as needed Orally Once a day Active Omeprazole 40 MG Capsule Delayed Release 1 capsule 30 minutes before morning meal Orally Once a day; Duration: 90 days 02/06/2019 Not-Taking/PRN Omeprazole 20 MG Capsule Delayed Release 1 capsule Orally Once a day Active Immunizations Vaccine Route Administration Date Status Comme nts Influenza Unknown 08/17/2022 Refused Social History Social History Drugs/Alcohol: Social Info Question Answer Notes Alcohol Screen Did you have a drink containing alcohol in the past year? Yes How often did you have a drink containing alcohol in the past year? 2 to 4 times a month (2 points) How many drinks did you have on a typical day when you were drinking in the past year? 10 or more drinks (4 points) How often did you have 6 or more drinks on one occasion in the past year? Weekly (3 points) Points 9 Interpretation Positive Additional Details Category Social Info Options Details Miscellaneous: Marital status: Occupation: [employer] in [employer] Notes: Nonsmoker; 1 case of beer [...] Problem Screening for malignant neoplasm of colon (061537574) Encounter for screening for malignant neoplasm of colon (Z12.11) Active confirmed Problem History of adenomatous polyp of colon (894038282) History of adenomatous polyp of colon (Z86.010) Active confirmed Problem Diverticular disease of colon (114471068) Diverticulosis of large intestine without perforation or abscess without bleeding (K57.30) Active confirmed Problem Gastroesophageal reflux disease (739174093) Gastroesophageal reflux disease (K21.9) Active confirmed Problem Gastroesophageal reflux disease (252488223) Gastroesophageal reflux disease, esophagitis presence not specified (K21.9) Active confirmed Problem Irregular bowel habits (741560816) Irregular bowel habits (R19.8) Active confirmed Problem Ojeda esophagus (813756207) 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 Problem Generalized abdominal pain (611878747) Abdominal pain, generalized (R10.84) Active confirmed Problem Ojeda's esophagus (040928984) Ojeda''s esophagus without dysplasia (K22.70) Active confirmed Problem Chronic gastric ulcer without hemorrhage AND without perforation (79560964) Chronic gastric ulcer without hemorrhage and without [...] [employer] [place] [address] [address] [place] [address] [id number] AMAN HANLEY Self - patient is the insured Medical (General) History Medical History History ICD Code Denies GA,DM,CVA,Lung disease Hypertension Nephrotic syndrome- Dr. Henson Hyperlipidemia Anxiety Asthma/bronchitis Chronic back pain--gets atul odic RFA for nerve pain in the lower back/SI joints GERD Sleep apnea--not using CPAP Positive Hpylori serology treated with a ntibiotics and PPI in the past Screening colonoscopy [facility] [place] 2018 with removal of a cecal [...]
--- OUTSIDE RECORDS SUMMARY | 2025-02-21 09:10 | XMS_ITS | Patient Health Record ---
Author Organization Anthony Otero III, MD Address [address] [place] [address] Care Team Providers Care Bit Sharpener Operator Name Role Phone Dr. Anthony Otero III Primary Care Provider [phone] Allergies Allergen (clinical drug ingredient) Drug/Non Drug Allergy documented on EMR Reaction Allergy Type Onset Date Status Pain medication (uncoded) Unknown Allergy Active Results Component Value Reference Range Notes Protein, 24 Hr Urine Group Reviewed date:03/04/2024 09:18:29 AM Interpretation: Performing Lab:[facility], [address] [place] [address] Notes/Report: 1900 [id number] 0900 1000 Protein 24 Hr Urine 45004 <150 mg/Day Protein mg/dL 1322 Creatinine, 24Hr Urine 2.2 1.0-2.0 G/Day Creatinine, mg/dL 113.30 Total Volume 24 Hour Urine 1900 Complete Blood Count Auto Di ff Reviewed date:03/05/2024 05:15:10 PM Interpretation: Performing Lab:[facility], [address] [place] [address] Notes/Report: White Blood Count 7.5 4.8-10.8 X10*3/uL [...] Panel Reviewed date:03/05/2024 05:15:10 PM Interpretation: Performing Lab:[facility], [address] [place] [address] Notes/Report: Sodium 141 135-145 mmol/L Potassium 4.0 [...] ff Reviewed date:03/11/2024 02:33:07 PM Interpretation: Performing Lab:[address] [address] Notes/Report: White Blood Count 6.4 4.8-10.8 X10*3/uL [...] te Reviewed date:03/11/2024 02:33:07 PM Interpretation: Performing Lab:[facility], [address] [place] [address] Notes/Report: Erythrocyte Sedimentation Rate 13 0-15 MM/HR Patients with polycythemia and many hemoglobin abnormalities may have depressed sed rates whereas patients with anemia may have elevated sed rates. Comprehensive Met. Panel Reviewed date:03/11/2024 02:33:07 PM Interpretation: Performing Lab:[facility], [address] [place] [address] Notes/Report: Sodium 143 135-145 mmol/L Potassium 3.7 [...] Panel Reviewed date:03/21/2024 06:28:51 AM Interpretation: Performing Lab:[facility], [address] [place] [address] Notes/Report: Sodium 139 135-145 mmol/L Potassium 4.0 [...] um Reviewed date:03/28/2024 09:26:04 AM Interpretation: Performing Lab:[facility], [address] [place] [address] Notes/Report: Prot Elec - Total Protein 3.6 [...] clinical diagnosis. THIS TEST WAS PERFORMED AT: [facility] [address] [place] [phone] REMINGTON WILLIAMSON MD Complement C3 Reviewed date:03/21/2024 06:28:51 AM Interpretation: Performing Lab:[facility], [address] [place] [address] Notes/Report: Complement C3 151 82-185 mg/dL THIS TEST WAS PERFORMED AT: [facility] [address] [place] [phone] REMINGTON WILLIAMSON MD Complement C4 Reviewed date:03/21/2024 06:28:51 AM Interpretation: Performing Lab:[facility], [address] [place] [address] Notes/Report: Complement C4 35 15-53 mg/dL THIS TEST WAS PERFORMED AT: [facility] [address] [place] [phone] REMINGTON WILLIAMSON MD Phospholipase A2 Receptor Pn l Reviewed date:03/28/2024 09:26:04 AM Interpretation: Performing Lab:[facility], [address] [place] [address] Notes/Report: Phospholipase A2 IgG SUSU <4 Reference Range: <14: NEGATIVE 14-19: BORDERLINE >19: POSITIVE Phospholipase A2 IgG IFA NEGATIVE NEGATIVE THIS TEST WAS PERFORMED AT: [facility] [address] [place] [address] EVAN SOMMER MD,PHD,VALERIO Basic Metabolic Panel Reviewed date:03/28/2024 09:26:04 AM Interpretation: Performing Lab:[facility], [address] [place] [address] Notes/Report: Sodium 141 135-145 mmol/L Potassium 3.8 [...] Urine Reviewed date:03/28/2024 09:26:04 AM Interpretation: Performing Lab:[facility], [address] [place] [address] Notes/Report: Creatinine Urine 71.15 Total Protein Urine Random Reviewed date:03/28/2024 09:26:04 AM Interpretation: Performing Lab:[facility], [address] [place] [address] Notes/Report: Total Protein Urine Random 409 <12 mg/dL Urinalysis and Microscopic Reviewed date:04/01/2024 06:09:31 PM Interpretation: Performing Lab:[facility], [address] [place] [address] Notes/Report: Color Urine Dark Yellow Appearance Urine Clear PH 7.0 5.0-9.0 Glucose Urine UA 500 Negative mg/dL Urine Blood Trace Negative Specific [place] - Urine 1.025 1.005-1.025 Urine Protein >=1000 [...] Urine Reviewed date:04/01/2024 06:09:32 PM Interpretation: Performing Lab:[facility], [address] [place] [address] Notes/Report: Creatinine Urine 166.67 Total Protein Urine Random Reviewed date:04/01/2024 06:09:32 PM Interpretation: Performing Lab:[facility], [address] [place] [address] Notes/Report: Total Protein Urine Random 1569 <12 mg/dL XR chest 2V Reviewed date:04/21/2024 09:08:31 AM Interpretation: Performing Lab: Notes/Report: [facility] [address] [place] [address] [place] [address] XRay Report Signed Patient: Claudy Berger Jr MR#: [id number] : 1965 Acct:[id number] Age/Sex: 58 / M ADM Date: 04/12/24 Loc: HO.HMGCX Attending Dr: Anthony Otero MD Ordering Physician: Anthony Otero MD Date of Service: 04/12/24 Procedure(s): XR chest 2V Accession Number(s): [id number] cc: Anthony Otero MD EXAMINATION: XR CHEST [...] by: Kris Zabala MD 04/16/2024 08:58 AM [facility] Dictated By: Kris Zabala MD Signed By: <Electronically signed by Kris Zabala MD in OV> 04/16/24 0858 DD/ 1619 TD/TT: 04/12/24 1625 Timber Appraiser: [facility] [address] [place] [address] [place] [address] XRay Report Signed Patient: Chandan Berger Jr MR#: [id number] : 1965 Acct:[id number] Age/Sex: 58 / M ADM Date: 04/12/24 Loc: HO.HMGCX Attending Dr: Anthony Otero MD Ordering Physician: Anthony Otero MD Date of Service: 04/12/24 Procedure(s): XR man st 2V Accession Number(s): [id number] cc: Anthony Otero MD EXAMINATION: XR CHEST [...] by: Kris Zabala MD 04/16/2024 08:58 AM [facility] Dictated By: Kris Zabala MD Signed By: <Electronically signed by Kris Zabala MD in OV> 04/16/24 0858 DD/ 1619 TD/TT: 04/12/24 1625 Timber Appraiser: Complete Blood Count Auto Di ff Reviewed date:05/02/2024 08:46:40 PM Interpretation: Performing Lab:[facility], [address] [place] [address] Notes/Report: White Blood Count 3.6 4.8-10.8 X10*3/uL [...] Microscopic Reviewed date:05/02/2024 08:46:40 PM Interpretation: Performing Lab:[facility], [address] [place] [address] Notes/Report: Color Urine Yellow Appearance Urine Clear PH 7.5 5.0-9.0 Glucose Urine UA Negative Negative mg/dL Urine Blood Negative Negative Specific [place] - Urine 1.020 1.005-1.025 Urine Protein 300 (3+) Neg-Trace mg/dL Urine Ketones Negative Negative mg/dL Nitrite Urine Negative Negative Leukocyte Esterase Urine Negative Negative RBC Urine 0-2 0-2 /HPF WBC Urine 0-5 0-5 /HPF Squamous Epithelial Cell Urine 0-2 0-2 /HPF Bacteria Urine None Seen None Seen Hyaline Casts Urine 0-2 0-2 /LPF Comprehensive [place]. Panel Fa st Reviewed date:05/02/2024 08:46:40 PM Interpretation: Performing Lab:[facility], [address] [place] [address] Notes/Report: Sodium 141 135-145 mmol/L Potassium 3.9 [...] Peptide Reviewed date:05/02/2024 08:46:40 PM Interpretation: Performing Lab:[address] [address] Notes/Report: B Type Natriuretic Peptide 12 <100 pg/mL For those patients who are being treated with Natrecor (nesiritide, recombinant BNP), BNP testing should be performed at least two hours post treatment in order to ensure that only endogenous levels of BNP are detected. Microalbumin, Random Reviewed date:05/02/2024 08:46:40 PM Interpretation: Performing Lab:[address] [address] Notes/Report: Creatinine Urine 125.53 Microalbumin Urine > 2000.0 Microalbum/Creatinine Ratio Ur 1593.2 <30 ug/mg cr Albumin/Creatinine Ratio Reference Ranges: Normal: < 30 ug/mg creatinine Microalbuminuria: 30 - 300 ug/mg creatinine Clinical Albuminuria: > 300 ug/mg creatinine Creatinine Urine Reviewed date:05/02/2024 08:46:40 PM Interpretation: Performing Lab:[address] [address] Notes/Report: Creatinine Urine 124.68 Total Protein Urine Random Reviewed date:05/02/2024 08:46:40 PM Interpretation: Performing Lab:[address] [address] Notes/Report: Total Protein Urine Random 346 <12 mg/dL Hemoglobin A1c Reviewed date:05/02/2024 08:46:40 PM Interpretation: Performing Lab:[address] [address] Notes/Report: Hemoglobin A1c % 6.5 <6.0 % [...] average glucose, using the formula of the E9O-Rnjjsvy Average Glucose study (ADAG), Diabetes Care, Vol.31,#8, Sep. 2007 Urinalysis and Microscopic Reviewed date:06/06/2024 08:25:56 PM Interpretation: Performing Lab:[address] [address] Notes/Report: Color Urine Yellow Appearance Urine Clear PH 7.5 5.0-9.0 Glucose Urine UA Negative Negative mg/dL Urine Blood Negative Negative Specific [place] - Urine 1.010 1.005-1.025 Urine Protein 300 (3+) Neg-Trace mg/dL Urine Ketones Negative Negative mg/dL Nitrite Urine Negative Negative Leukocyte Esterase Urine Negative Negative RBC Urine 0-2 0-2 /HPF WBC Urine 0-5 0-5 /HPF Squamous Epithelial Cell Urine 0-2 0-2 /HPF Bacteria Urine None Seen None Seen Hyaline Casts Urine 0-2 0-2 /LPF Basic Metabolic Panel Reviewed date:06/06/2024 08:25:56 PM Interpretation: Performing Lab:[facility], [address] [place] [address] Notes/Report: Sodium 141 135-145 mmol/L Potassium 4.1 [...] ff Reviewed date:07/10/2024 11:38:05 AM Interpretation: Performing Lab:[facility], [address] [place] [address] Notes/Report: White Blood Count 3.7 4.8-10.8 X10*3/uL [...] NRBC Abs Auto 0.000 0.0-0.012 X10*3/uL Comprehensive [place]. Panel Fa st Reviewed date:07/10/2024 11:38:05 AM Interpretation: Performing Lab:[facility], [address] [place] [address] Notes/Report: Sodium 142 135-145 mmol/L Potassium 3.8 [...] Panel Reviewed date:07/10/2024 11:38:05 AM Interpretation: Performing Lab:[facility], [address] [place] [address] Notes/Report: Triglycerides 175 <150 mg/dL Desirable Triglyceride: [...] Antigen Reviewed date:07/10/2024 11:38:05 AM Interpretation: Performing Lab:[facility], [address] [place] [address] Notes/Report: Prostate Specific Antigen 0.76 <0.05-4.0 ng/mL PSA methodology: Ortega Alinity i Chemiluminescent Microparticle Immunoassay (CMIA) Complete Blood Count Auto Di ff Reviewed date:09/28/2024 08:41:30 PM Interpretation: Performing Lab:[facility], [address] [place] [address] Notes/Report: White Blood Count 4.4 4.8-10.8 X10*3/uL [...] Urinalysis Reviewed date:09/28/2024 08:41:30 PM Interpretation: Performing Lab:[facility], [address] [place] [address] Notes/Report: Color Urine Yellow Appearance Urine Clear PH 7.5 5.0-9.0 Glucose Urine UA Negative Negative mg/dL Urine Blood Negative Negative Specific [place] - Urine 1.020 1.005-1.025 Urine Protein >=1000 (4+) Neg-Trace mg/dL Urine Ketones Negative Negative mg/dL Nitrite Urine Negative Negative Leukocyte Esterase Urine Negative Negative Urine Microscopic Reviewed date:09/28/2024 08:41:30 PM Interpretation: Performing Lab:[facility], [address] [place] [address] Notes/Report: RBC Urine 0-2 0-2 /HPF WBC Urine 0-5 0-5 /HPF Squamous Epithelial Cell Urine 0-2 0-2 /HPF Bacteria Urine None Seen None Seen Hyaline Casts Urine 0-2 0-2 /LPF Comprehensive [place]. Panel Fa st Reviewed date:09/28/2024 08:41:30 PM Interpretation: Performing Lab:[facility], [address] [place] [address] Notes/Report: Sodium 145 135-145 mmol/L Potassium 4.0 [...] Panel Reviewed date:09/28/2024 08:41:30 PM Interpretation: Performing Lab:[facility], [address] [place] [address] Notes/Report: Triglycerides 199 <150 mg/dL Desirable Triglyceride: [...] Antigen Reviewed date:09/28/2024 08:41:30 PM Interpretation: Performing Lab:[address] [address] Notes/Report: Prostate Specific Antigen 0.67 <0.05-4.0 ng/mL PSA methodology: Ortega Alinity i Chemiluminescent Microparticle Immunoassay (CMIA) Total Protein Urine Random Reviewed date:09/28/2024 08:41:30 PM Interpretation: Performing Lab:[address] [address] Notes/Report: Total Protein Urine Random 615 <12 mg/dL Complete Blood Count Auto Di ff Reviewed date:10/15/2024 02:44:35 PM Interpretation: Performing Lab:[address] [address] Notes/Report: White Blood Count 5.8 4.8-10.8 X10*3/uL [...] Microscopic Reviewed date:10/15/2024 02:44:35 PM Interpretation: Performing Lab:[address] [address] Notes/Report: Color Urine Yellow Appearance Urine Clear PH 8.5 5.0-9.0 Glucose Urine UA Negative Negative mg/dL Urine Blood Negative Negative Specific [place] - Urine 1.020 1.005-1.025 Urine Protein 300 (3+) Neg-Trace mg/dL Urine Ketones Negative Negative mg/dL Nitrite Urine Negative Negative Leukocyte Esterase Urine Trace Negative RBC Urine 0-2 0-2 /HPF WBC Urine 0-5 0-5 /HPF Squamous Epithelial Cell Urine 0-2 0-2 /HPF Bacteria Urine None Seen None Seen Hyaline Casts Urine 0-2 0-2 /LPF Comprehensive [place]. Panel Fa Reviewed date:10/15/2024 02:44:35 PM Interpretation: Performing Lab:[address] [address] Notes/Report: Sodium 143 135-145 mmol/L Potassium 3.5 [...] Peptide Reviewed date:10/15/2024 02:44:35 PM Interpretation: Performing Lab:[facility], [address] [place] [address] Notes/Report: B Type Natriuretic Peptide 21 <100 pg/mL Lipid Panel Reviewed date:10/15/2024 02:44:35 PM Interpretation: Performing Lab:[facility], [address] [place] [address] Notes/Report: Triglycerides 304 <150 mg/dL Desirable Triglyceride: [...] Urine Reviewed date:10/15/2024 02:44:35 PM Interpretation: Performing Lab:[facility], [address] [place] [address] Notes/Report: Creatinine Urine 121.23 Hemoglobin A1c Reviewed date:10/15/2024 02:44:35 PM Interpretation: Performing Lab:[facility], [address] [place] [address] Notes/Report: Hemoglobin A1c % 6.3 <6.0 % [...] average glucose, using the formula of the Z2M-Fbpybih Average Glucose study (ADAG), Diabetes Care, Vol.31,#8, 2007 Reason For Referral Reason Evaluate and Treat Diagnosis 1 Primary osteoarthrit is, left shoulder (M19.012) Diagnosis 2 Primary osteoarthrit is, right shoulder (M19.011) Referral Organization Anthony Otero III, MD Referring Provider First Name Anthony Referring Provider Last Name Branden Referring Provider Speciality Internal M edicine Referred Provider [facility], Orthopedic Surgeons Referred Provider [facility] Notes DZara 12/10/2024 10:10:03 AM [...] Status W/U Status Risk Notes Problem Obesity (515108312) Obesity (E66.9) Active confirmed He remai ns obese. We discussed her weight loss strategy today. We discussed the elements of her weight reduction diabetic diet at length. Problem 674178545 Other neutropenia (D70.8) Active confirmed His white blood cell count is stable. The value will be followed carefully periodically. He has had no infections recently. Problem 288432044 Mixed hyperlipidemia (E78.2) Active confirmed His total cholesterol was 276 which is uncontrolled. I have recommended aggressive weight loss and consumption of a healthy Mediterranean diabetic weight loss diet.He says he has been taking the 40 mg of atorvastatin. I have increased it to 80 mg today. Problem 282069527197861 Primary osteoarthritis, right shoulder (M19.011) Active confirmed Pain in his right shoulder with elevation remains a nuisance. He has declined an offer of orthopedic referral. Problem 813977996395377 Primary osteoarthritis, left shoulder (M19.012) Active confirmed The pain in his left shoulder has improved somewhat. He declined an offer of referral to orthopedics. Problem Benign prostatic hypertrophy without outflow obstruction (526955391) BPH (benign prostatic hypertrophy) (N40.0) Active confirmed He rises from sleep once a night to urinate. We have reviewed lifestyle modifications he could make to reduce this. Problem 84438869 Essential hypertension (I10) Active confirmed His blood pressure is now in the normal range. Problem 671441628 History of cholecystectomy (Z90.49) Active confirmed Problem 314750000 Chronic insomnia (F51.04) Active confirmed He continues to maintain persistently on forcibly that he is unable to sleep without torie PDM. After long discussion I have refilled it. I will continue to discuss eliminating this medication from his regimen whenever I see him. Problem Nephrotic syndrome (57675429) Nephrotic syndrome (N04.9) Active confirmed He remains under the care of nephrology who only recently sought. Is going to see them again in 2 weeks. He has gained significant weight likely from fluid. This torsemide has been adjusted. Problem 380917131 History of inguinal hernia (Z87.19) Active confirmed Problem [id number] Bilateral carp al tunnel syndrome (G56.03) Active confirmed Problem 278626080 History of asthma (Z87.09) Active confirmed He did not give a history of asthma but this was documented no records. This will be further pursued. He does not require treatment at this time. Problem 983911588 Diabetes mellitus without complication (E11.9) Active confirmed His hemoglobin A1c has improved from 6.5-6.3. His fasting glucose is 117 on metformin. Current therapy was continued and weight loss was encouraged. Problem 982482358 Obesity, class 2 (E66.812) Active confirmed Problem 91813058708975044 History of Ojeda's esophagus (Z87.19) Active confirmed He has reported no recent history of dysphagia or esophageal pain. He will need to have upper endoscopy periodically. Problem 259781972 Ascending aorta dilation (I77.810) Active confirmed This is a finding on a recent echocardiogram . He is asymptomatic. The ascending aortic diameter was 3.9 cm. He will be observed. 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 M47.813 Anthony Otero III, MD [address] [place] [address] [place] [address] 03/07/2024 Anthony Otero Mixed hyperlipidemia E78.2 ; Nephrotic syndrome N04.9 ; Other neutropenia D70.8 ; Essential hypertension I10 and Diabetes mellitus without complication E11.9 Anthony Otero III, MD [address] [place] [address] [place] [address] 03/28/2024 Anthony Otero Nephrotic syndrome N 04.9 ; Essential hypertension I10 ; Diabetes mellitus without complication E11.9 ; Other neutropenia D70.8 and Mixed hyperlipidemia E78.2 Anthony Otero III, MD [address] [place] [address] [place] [address] 04/03/2024 Anthony Otero Nephrotic syndrome N 04.9 ; Essential hypertension I10 ; Mixed hyperlipidemia E78.2 and Diabetes mellitus without complication E11.9 Anthony Otero III, MD [address] [place] [address] [place] [address] 04/09/2024 Anthony Otero Nephrotic syndrome N 04.9 ; Acute viral syndrome B34.9 ; Persistent cough R05.3 ; Diabetes mellitus without complication E11.9 and Mixed hyperlipidemia E78.2 Anthony Otero III, MD [address] [place] [address] [place] [address] 04/16/2024 Anthony Otero Nephrotic syndrome N 04.9 ; Diabetes mellitus without complication E11.9 ; Mixed hyperlipidemia E78.2 ; Essential hypertension I10 ; Ascending aorta dilation I77.810 ; Chronic insomnia F51.04 ; History of Ojeda's esophagus Z87.19 and Viral syndrome B34.9 Anthony Otero III, MD [address] [place] [address] [place] [address] 05/06/2024 Anthony Otero Nephrotic syndrome N 04.9 ; Mixed hyperlipidemia E78.2 ; Other neutropenia D70.8 and Essential hypertension I10 Anthony Otero III, MD [address] [place] [address] [place] [address] 07/17/2024 Anthony Otero Nephrotic syndrome N 04.9 ; Mixed hyperlipidemia E78.2 ; Diabetes mellitus without complication E11.9 ; Obesity E66.9 ; Essential hypertension I10 ; History of Ojeda's esophagus Z87.19 ; Primary osteoarthritis, left shoulder M19.012 ; Primary osteoarthritis, right shoulder M19.011 ; Chronic insomnia F51.04 and Ascending aorta dilation I77.810 Anthony Otero III, MD [address] [place] [address] [place] [address] 10/15/2024 Anthony Branden Nephrotic syndrome N 04.9 ; Diabetes mellitus without complication E11.9 ; Mixed hyperlipidemia E78.2 ; Obesity E66.9 and BPH (benign prostatic hypertrophy) N40.0 Anthony Otero III, MD [address] [place] [address] [place] [address] 02/29/2024 Anthony Otero III, MD [address] [place] [address] [place] [address] 03/01/2024 Anthony Otero III, MD [address] [place] [address] [place] [address] 03/04/2024 Anthony Otero III, MD [address] [place] [address] [place] [address] 03/04/2024 Anthony Otero III, MD [address] [place] [address] [place] [address] 07/18/2024 Anthony Otero III, MD [address] [place] [address] [place] [address] 08/19/2024 Anthony Otero Mixed hyperlipidemia E78.2 ; Diabetes mellitus without complication E11.9 ; Obesity E66.9 and Other neutropenia D70.8 Anthony Otero III, MD [address] [place] [address] [place] [address] 03/20/2024 Anthony Otero III, MD [address] [place] [address] [place] [address] 04/17/2024 Anthony Otero III, MD [address] [place] [address] [place] [address] 12/03/2024 Anthony Otero Nephrotic syndrome N 04.9 Anthony Otero III, MD [address] [place] [address] [place] [address] 12/03/2024 Anthony Otero III, MD [address] [place] [address] [place] [address] 12/03/2024 Anthony Otero Assessments Encounter Date Diagnosis [...] (ICD-10 - N04.9) In the past his lone lead lineman has been Dr. Lionel Henson. He has not been seen in several years. An appointment has been made for him by Dr. Fenton to see the lone lead lineman at [facility] later this month. He does appear [...] sampled. I will discuss him with the lone lead lineman at [facility] with whom he has the appointment [...] I have reviewed the case with a lone lead lineman and strongly recommended he see the patient [...] D70.8) Review of laboratory data in the [facility] database shows he is mildly but [...] Provider Name:Anthony Otero , 03/10/2025 04:15:00 PM, [address] [place] [address] , [address], [place], [address], Insurance Providers Payer Name Payer Address Payer Phone Subscriber Number Group Number Insured Name Patient Relationship to Insured Coverage Start Date Coverage End Date [employer] [place] [address] [address] [place] [address] [id number] Claudy Berger Self - patient is the [...] Hospital Normal cardiac catheterization January 26, 2018 [facility] Surgical History Surgery Date(Month/Year) No history Bilateral inguinal herniorrhaphies Tubular adenoma colonoscopy 2012, Dr. Dimple Hidalgo Upper endoscopy and colonoscopy 2018 Elbow surgery Bilateral shoulder arthroscopies Carpal tunnel surgery on both hands Renal biopsy [facility], [place] cholecystectomy age 24 Hospitalization History Reason Date(Month/Year) No history None reported
[2025-02-21 10:15] LABS: MANUAL DIFF FLAG NO
[2025-02-21 10:35] LABS: Hematocrit 36.4 % (42.0-52.0); Hemoglobin 12.0 g/dl (14.0-18.0); Imm Gran Abs Auto 0.04 X10*3/uL (0.00-0.03); Imm Gran Pct Auto 0.9 % (0.0-0.4); Lymphocytes Absolute Auto 1.4 X10*3/uL (1.2-4.9); Mean Corpuscular HGB Conc 33.0 g/dl (31.0-36.0); Mean Corpuscular Hemoglobin 30.3 pg (27.0-33.0); Mean Corpuscular Volume 91.9 fL (80.0-98.0); NRBC Abs Auto 0.000 X10*3/uL (0.0-0.012); NRBC Pct Auto 0.0 /100WBC (0.0-0.2); Platelet Count 205 X10*3/uL (160-400); Red Blood Count 3.96 X10*6/uL (4.60-5.80); White Blood Count 4.4 X10*3/uL (4.8-10.8)
[2025-02-21 10:54] LABS: Alanine Aminotransferase 28 U/L (0-40); Albumin Level 3.8 g/dL (3.5-5.0); Alkaline Phosphatase 41 U/L (39-117); Anion Gap 12 (12-20); Aspartate Amino Transferase 33 U/L (5-37); Blood Urea Nitrogen 17 mg/dL (9-16); Calcium 9.0 mg/dL (8.4-10.2); Carbon Dioxide 29 mmol/L (22-29); Chloride 108 mmol/L (96-108); Cholesterol 245 mg/dL (<200); Estimated Glomerular Filt Rate > 60; HDL Cholesterol 51 mg/dL (>40); Potassium 3.7 mmol/L (3.3-5.1); Sodium 145 mmol/L (135-145); Total Protein 5.8 g/dL (6.5-8.0); Triglycerides 469 mg/dL (<150)
[2025-02-21 11:25] LABS: Prostate Specific Antigen 0.78 ng/mL (<0.05-4.0)
== END 2025-02-21 09:06 | disposition home or self-care (01) ==
LOC: HO.HMGCLDS 09:05
PROVIDERS: PCP Internal Medicine Medical Oncology; Visit Provider Internal Medicine Medical Oncology
DX: E11.9 Type 2 diabetes mellitus without complications (principal); E78.2 Mixed hyperlipidemia; N40.0 Benign prostatic hyperplasia without lower urinary tract symptoms; E66.9 Obesity, unspecified; Z12.5 Encounter for screening for malignant neoplasm of prostate
CPT/HCPCS: 36415; 80053; 80061; 84153; 85025

== ENCOUNTER 2025-02-26 06:01 | Outpatient (REF) | payer OTHER, SELFPAY ==
--- OUTSIDE RECORDS SUMMARY | 2024-04-17 13:51 | XMS_ITS ---
Author Organization Anthony Otero III, MD Address [address] [place] [address] Care Team Providers Care Abstracter Name Role Phone Dr. Anthony Otero III Primary Care Provider REASON FOR VISIT New Refill Request Social History Sex Assigned At : Social History Observation Description Sex Assigned At Male Encounters Encounter Location Date Provider Diagnosis Anthony Otero III, MD [address] [place] [address] [place] [address] 04/17/2024 Anthony Otero Plan Of Treatment Next Appt Details Provider Name:Anthony Otero , 03/10/2025 04:15:00 PM, [address] [place] [address] [place], [address], Progress Notes * Claudy HANLEY JrDOB:[birth year] (58 yo M)Acc No.[id number]:04/17/2024 Patient: Claudy STOUT Jr :1965 A ge:58 Y S ex:Male Address:[address] [place], [address] * true * Date: Generated for Printi ng/Fasharadg/eTransmitting on: 06:05 AM EST
--- OUTSIDE RECORDS SUMMARY | 2024-05-06 11:15 | XMS_ITS ---
Author Organization Anthony Otero III, MD Address [address] [place] [address] Care Team Providers Care Deployment Manager Name Role Phone Dr. Anthony Otero III Primary Care Provider Allergies Allergen (clinical drug [...] Date Provider Diagnosis Anthony Otero III, MD [address] [place] [address] [place] [address] 05/06/2024 Anthony Otero Nephrotic syndrome N 04.9 [...] Provider Name:Anthony Jamesonrne , 03/10/2025 04:15:00 PM, [address] [place] [address] DR, [facility] [address], [place], [address], Progress Notes * Claudy HANLEY JrDOB:[birth year] (58 yo M)Acc No.[id number]:05/06/2024 Progress Notes Patient: Claudy STOUT Jr Provider: Umm Otero MD :1965 A ge:58 Y S ex:Male Date:05/06/2024 Address:[address] [place], [place] [id number] Subjective: * Chief Complaints: * N ephrotic [...] History: c holecystectomy age 24 Renal biopsy [facility], remote Carpal tunnel surgery on both [...] use: N onsmoker He was born in [facility]. He has been to [facility] for 15 years.? He has no children. 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 He has no roman catholic objection to blood transfusion. He does not [...] Negative) Trace A (Ref Range: Negative) Specific [place] - Urine 1.020 (Ref Range: 1.005-1.025) 1.025 [...] AM)?ValueReference Range?Hemoglobin A1c %6.5H<6.0 - %?Estimated Average Iqrcnxu164- mg/dL ???Lab:Comprehensive [place]. Panel Fast (Order Date - 05/02/2024) (Collection Date & Time - 05/02/2024 06:35 AM)?ValueReference Range?Zzlpjx788292- 145 - mmol/L?Bilirubin Total0.50.0-1.0 - mg/dL?Aspartate Amino Ebhmmvdhivh096-49 - U/L?Alanine Joovlbneabgpifgj57G3-84 - U/L ?Total Protein5.5L6.5-8.0 - g/dL?Albumin Level3.3L3.5-5.0 - g/dL ?Alkaline Pyahmgxnvqp3883-288 - U/L?Potassium3.93.3-5.1 - mmol/L ?Oesuwcmn01004-406 - mmol/L?Carbon Pbvzfiy4562-19 - mmol/L ?Anion Vos2891-87 -?Blood Urea Slpobfku95O5-81 - mg/dL ?Creatinine0.750.5-1.4 - mg/dL?Estimated Glomerular Filt Rate> 60- ?Glucose Rguicnd144V04-55 - mg/dL?Calcium8.58.4-10.2 - mg/dL ???Lab:B Type Natriuretic Peptide (Order Date - 05/02/2024) (Collection Date & Time - 05/02/2024 06:35 AM)?ValueReference Range?B Type Natriuretic Emdorgl76<100 - pg/mL ???Lab:Microalbumin, Random (Order Date - 05/02/2024) (Collection Date & Time - 05/02/2024 06:35 AM)?ValueReference Range?Creatinine Bvqjh344.53- mg/dL?Microalbumin Urine> 2000.0- mg/L?Microalbum Creatinine Ratio Vn4512.2H<30 - ug/mg cr * Lab:Total Protein Urine [place] om * Collection Date 05/02/2024 04/01/2024 03/25/2024 [...] & Time - 03/18/2024 11:17 AM)?ValueReference Range?Complement E27598-01 - mg/dL ???Lab:Phospholipase A2 Receptor Pnl (Order Date - 03/18/2024) (Collection Date & Time - 03/18/2024 11:17 AM)?ValueReference Range?Phospholipase A2 IgG SUSU<4- RU/mL?Phospholipase A2 IgG IFANEGATIVENEGATIVE - ???Imaging:XR chest 2V (Order Date - 04/12/2024) (Performed Date - 04/12/2024) ???Lab:Protein, 24 Hr Urine Group (Order Date - 03/02/2024) (Collection Date & Time - 03/02/2024 09:00 AM)?ValueReference Range?Protein 24 Hr Vtyll87095F<150 - mg/Day?Protein mg/xD4698- mg/dL?Creatinine, 24Hr Urine2.2H1.0-2.0 - G/Day?Total Volume 24 Hour Eqjsp5353- mL ?Creatinine, mg/dL113.30- * Lab:Comprehensive Met. Panel [...] Time - 03/11/2024 11:38 AM)?ValueReference Range?Erythrocyte Sedimentation Nama491-38 - MM/HR ???Lab:Complement C3 (Order Date - 03/18/2024) (Collection Date & Time - 03/18/2024 11:17 AM)?ValueReference Range?Complement [id number] - mg/dL ???Lab:Protein Electrophoresis, Serum (Order Date [...] 0 05/06/2024 Generated for Billyi ng/Azam/eTransmitting on: 06:05 AM EST History and Physical Notes * [...]
--- OUTSIDE RECORDS SUMMARY | 2024-07-17 11:15 | XMS_ITS ---
Author Organization Anthony Otero III, MD Address [address] [address] Care Team Providers Care Port Traffic Manager Name Role Phone Dr. Anthony Otero [...] Encounters Encounter Location Date Provider Diagnosis Anthony tOero III, MD [address] [place] [address] [place] [address] 07/17/2024 Anthony Otero Nephrotic syndrome N 04.9 ; [...] Provider Name:Anthony Otero , 03/10/2025 04:15:00 PM, [address] [place] [address] , [facility] [address], [place], [address], Progress Notes * Claudy HANLEY JrDOB:[birth year] (58 yo M)Acc No.[id number]:07/17/2024 Progress Notes Patient: Claudy STOUT Jr Provider: Umm Otero MD :1965 A ge:58 Y S ex:Male Date:07/17/2024 Address:[address] [place], [place] [phone] Subjective: * Chief Complaints: * N ephrotic syndromeChronic insomniaHypertensionHyperlipidemiaDiabetesObesityArthritis right shoulder * HPI: C OVID-19 Screening: Avery palacios returns for medical management. He is going to see his shuttle driver in July 2024.? His weight has increased up to 231 pounds. He had trace pedal edema on today's examination. [place] to his knees. His cholesterol was 276. He recently saw his refractive surgeon.? Is using his CPAP machine every night [...] History: c holecystectomy age [address] [facility] [...] use: N onsmoker He was born in [facility]. He has been to [facility] for 15 years.? He has no children. 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 He has no orthodox objection to blood transfusion. He does not [...] Range: 0.0-0.012 X10*3/uL) * Lab:Total Protein Urine [facility] om * Collection Date 05/02/2024 04/01/2024 03/25/2024 [...] Negative) Trace A (Ref Range: Negative) Specific [place] - Urine 1.010 (Ref Range: 1.005-1.025) 1.020 [...] AM)?ValueReference Range?Hemoglobin A1c %6.5H<6.0 - %?Estimated Average Ndnbhpn519- mg/dL * Lab:Comprehensive [place]. Jasone l Fast * Collection Date 07/10/2024 [...] - 05/02/2024 06:35 AM)?ValueReference Range?B Type Natriuretic Zaiztvz46<100 - pg/mL * Lab:Basic Metabolic Panel * [...] Date & Time - 07/10/2024 06:18 AM)?ValueReference Range?Wrdvwvxnyhrxg033K<150 - mg/dL?Ssnpebeaojw666O<200 - mg/dL?LDL Cholesterol Uqcfsupatt406B <100 - mg/dL?HDL Gjvvpqpdkur84>40 - mg/dL ???Lab:Prostate Specific Antigen (Order Date [...] ot examined. MUSCULOSKELETAL: M ild pitting edema senior living up to the knees on either side, [...] 07/17/2024 Generated for Billyi tami/Azam/eTransmitting on: 1 06:04 AM EST History and Physical Notes * [...]
--- OUTSIDE RECORDS SUMMARY | 2024-07-18 05:04 | XMS_ITS ---
Author Organization Anthony Otero III, MD Address [address] [place] [address] Care Team Providers Care Chronic Disease Epidemiologist Name Role Phone Dr. Anthony Otero III Primary Care Provider [phone] REASON FOR VISIT Insurance Social History Sex Assigned At : Social History Observation Description Sex Assigned At Male Encounters Encounter Location Date Provider Diagnosis Anthony Otero III, MD [address] [place] [address] [place] [address] 07/18/2024 Anthony Otero Plan Of Treatment Next Appt Details Provider Name:Anthony Otero , 03/10/2025 04:15:00 PM, [address] [place] [address] [place], [address], Progress Notes * Claudy HANLEY JrDOB:[birth year] (58 yo M)Acc No.[id number]:07/18/2024 Patient: Claudy STOUT Jr :1965 A ge:58 Y S ex:Male Address:[place], [address] * true * Date: Generated for Billyi tami/Azam/eTransmitting on: 06:04 AM EST
--- OUTSIDE RECORDS SUMMARY | 2024-08-19 09:11 | XMS_ITS ---
Author Organization Anthony Otero III, MD Address [address] [place] [address] Care Team Providers Care Tile Edger Name Role Phone Dr. Anthony Otero III Primary Care Provider REASON FOR VISIT Lab Request Social History Sex Assigned At : Social History Observation Description Sex Assigned At Male Encounters Encounter Location Date Provider Diagnosis Anthony Otero III, MD [address] [place] [address] [place] [address] 08/19/2024 Anthony Otero Mixed hyperlipidemia E78.2 ; Diabetes mellitus without complication E11.9 ; Obesity E66.9 and Other neutropenia D70.8 Assessments Encounter Date Diagnosis (ICD Code) Assessment Notes Treat ment Notes Treatment Clinical Notes 08/19/2024 Mixed hyperlipidemia (ICD-10 - E78.2) 08/19/2024 Diabetes mellitus without complication (ICD-10 - E11.9) 08/19/2024 Obesity (ICD-10 - E66.9) 08/19/2024 Other neutropenia (ICD-10 - D70.8) Plan Of Treatment Pending Test Test Name Order Date PROFILE, FASTING (COMPREHENSIVE METABOLI C) 08/19/2024 BRAIN NATRIURETIC PEPTIDE (BNP) 08/20/19 CBC w DIFF 08/19/2024 URINALYSIS (UA) 08/19/2024 Lipid Panel 08/19/2024 Hemoglobin A1c 08/19/2024 Next Appt Details Provider Name:Anthony Otero , 03/10/2025 04:15:00 PM, [address] [place] [address] [place], [address], Progress Notes * Claudy HANLEY JrDOB:[birth year] (58 yo M)Acc No.[id number]:08/19/2024 Patient: Claudy STOUT Jr :1965 A ge:58 Y S ex:Male Address:[address] [place] [address], [address] Subjective: * Chief Complaints: * L ab Request * Medical History: * Surgical History: * Hospitalization/Major Diagno stic Procedure: * Medications: Objective: * Vitals: * Physical Examination: Assessment: * Assessment: 1. M ixed hyperlipidemia - E78.2 2 . D iabetes mellitus without complication - E11.9 3 . O besity - E66.9 4 . O ther neutropenia - D70.8 Plan: * Treatment: 2. D iabetes mellitus without complication L AB: PROFILE, FASTING (COMPREHENSIVE METABOLIC) L AB: BRAIN NATRIURETIC PEPTIDE (BNP) L AB: CBC w DIFF L AB: URINALYSIS (UA) L AB: Lipid Panel L AB: Hemoglobin A1c 3. O besity L AB: PROFILE, FASTING (COMPREHENSIVE METABOLIC) L AB: BRAIN NATRIURETIC PEPTIDE (BNP) L AB: CBC w DIFF L AB: URINALYSIS (UA) L AB: Lipid Panel L AB: Hemoglobin A1c 4. O ther neutropenia L AB: PROFILE, FASTING (COMPREHENSIVE METABOLIC) L AB: BRAIN NATRIURETIC PEPTIDE (BNP) L AB: CBC w DIFF L AB: URINALYSIS (UA) L AB: Lipid Panel L AB: Hemoglobin A1c * Procedure Codes: * true * Date: Generated for Lety garrett/Azam/eTransmitting on: 06:04 AM EST
--- OUTSIDE RECORDS SUMMARY | 2024-09-13 11:45 | XMS_ITS ---
Author Organization Anthony Otero III, MD Address [address] [place] [address] [place] [address] Care Team Providers Care Cutting Torch Operator Name Role Phone Dr. Anthony Otero III Primary Care Provider [phone] REASON FOR VISIT Follow up Social History Sex Assigned At : Social History Observation Description Sex Assigned At Male Encounters Encounter Location Date Provider Diagnosis Anthony Otero III, MD [address] [place] [address] [address] [facility] [address] 09/13/2024 Anthony Otero Plan Of Treatment Next Appt Details Provider Name:Anthony Otero , 03/10/2025 04:15:00 PM, [address] [place] [address] [place], [address], Progress Notes * Claudy HANLEY JrDOB:[birth year] (59 yo M)Acc No.[id number]:09/13/2024 Progress Notes Patient: Anant TRAMMELL Claudy Eisenberg Provider: Umm Otero MD :1965 A ge:58 Y S ex:Male Date:09/13/2024 Address: [address] [id number] Subjective: * Chief Complaints: * 1 . Follow up. * Medical History: Objective: * Vitals: Assessment: Plan: * Treatment: * Images: * The named appointment provid er may or may not be the originator of this progress note, and it is not deemed complete until electronically signed by the appointment provider. Sign off status: Pending * Provider: Umm Otero MD Date: 0 09/13/2024 Generated for Lety garrett/Azam/Dannielle on: 06:03 AM EST
--- OUTSIDE RECORDS SUMMARY | 2024-10-15 09:45 | XMS_ITS ---
Author Organization Anthony Otero III, MD Address [address] [place] [address] Care Team Providers Care Osteopathic Medicine Teacher Name Role Phone Dr. Anthony Otero III Primary Care Provider Allergies Allergen (clinical drug ingredient) Drug/Non Drug Allergy documented on EMR Reaction Allergy Type Onset Date Status Pain medication (uncoded) Unknown Allergy Active REASON FOR VISIT Nephrotic syndrome, Hypertension, Hyperlipidemia, Diabetes, Obesity, Right shoulder arthritis, Leftshoulder arthritis, Benign prostatic hypertrophy Medications Medication SIG (Take, Route, Frequency, Duration) Notes Start Date End Date Status Atorvastatin Calcium 80 MG 1 tablet Oral ly Once a day for 90 days 10/15/2024 Active Lisinopril 40 MG 1 tablet Orally Once a day Active Atorvastatin Calcium 80 MG 1 tablet Oral ly Once a day 10/19/2024 Active Citalopram Hydrobromide 40 MG 1 tablet Orally Once a day Active Atorvastatin Calcium 40 MG 1 tablet Oral ly Once a day Active Albuterol Sulfate HFA 108 (90 Base) MCG/ACT 1 puff as needed Inhalation every 4 hrs Active Omeprazole 40 MG 1 capsule Orally Onc e a day Active Fenofibrate 145 MG 1 tablet Orally Once a day Active Zolpidem Tartrate 10 MG 1 tablet at bedt ashly Orally Once a day 07/17/2024 Active Furosemide 80 MG TAKE 1 TABLET BY JEET TH TWICE A DAY Active metFORMIN HCl 500 MG 1 tablet with a mariah l Orally Once a day Active predniSONE 5 MG 1 tablet with food o r milk Orally Once a day 07/17/2024 Active Torsemide 20 MG 1 tablet Orally Once a day 04/04/2024 Active Benzonatate 200 MG 1 capsule as needed Orally Three times a day 04/09/2024 Active Social History Tobacco Use: Social History Observation Description Date Details (start date - stop date) Never Smoker NA - NA Sex Assigned At : Social History Observation Description Sex Assigned At Male Tobacco Control (Standard) Question Answer Notes Tobacco use: Nonsmoker Vital Signs Temperature 98.4 degrees Fahrenheit 10/16/19 25 Blood pressure systolic 132 mm Hg 10/16/19 25 Blood pressure diastolic 68 mm Hg 025 Heart Rate 64 /min 10/15/2024 Height 70 in 10/15/2024 Weight 234 lbs 10/15/2024 BMI 33.57 kg/m2 10/15/2024 Encounters Encounter Location Date Provider Diagnosis Anthony Otero III, MD [address] [place] [address] [place] [address] 10/15/2024 Anthony Otero Nephrotic syndrome N 04.9 ; Diabetes mellitus without complication E11.9 ; Mixed hyperlipidemia E78.2 ; Obesity E66.9 and BPH (benign prostatic hypertrophy) N40.0 Assessments Encounter Date Diagnosis (ICD Code) Assessment Notes Treat ment Notes Treatment Clinical Notes 10/15/2024 Nephrotic syndrome (ICD-10 - N04.9) He remains under the care of nephrology who only recently sought. Is going to see them again in 2 weeks. He has gained significant weight likely from fluid. This torsemide has been adjusted. 10/15/2024 Diabetes mellitus without complication (ICD-10 - E11.9) His hemoglobin A1c has improved from 6.5-6.3. His fasting glucose is 117 on metformin. Current therapy was continued and weight loss was encouraged. 10/15/2024 Mixed hyperlipidemia (ICD-10 - E78.2) His total cholesterol was 276 which is uncontrolled. I have recommended aggressive weight loss and consumption of a healthy Mediterranean diabetic weight loss diet.He says he has been taking the 40 mg of atorvastatin. I have increased it to 80 mg today. 10/15/2024 Obesity (ICD-10 - E66.9) He remains obese. We discussed her weight loss strategy today. We discussed the elements of her weight reduction diabetic diet at length. 10/15/2024 BPH (benign prostati c hypertrophy) (ICD-10 - N40.0) He rises from sleep once a night to urinate. We have reviewed lifestyle modifications he could make to reduce this. Plan Of Treatment Medication Medication Name Sig Start Date Stop Date Notes Atorvastatin Calcium 80 MG 1 tablet Oral ly Once a day for 90 days 10/15/2024 Lisinopril 40 MG 1 tablet Orally Once a day Atorvastatin Calcium 80 MG 1 tablet Orally Once a day 09/28 Citalopram Hydrobromide 40 MG 1 tablet Orally Once a day Atorvastatin Calcium 40 MG 1 tablet Orally Once a day Albuterol Sulfate HFA 108 (9 0 Base) MCG/ACT 1 puff as needed Inhalation every 4 hrs Omeprazole 40 MG 1 capsule Orally Once a day Fenofibrate 145 MG 1 tablet Orally Once a day Zolpidem Tartrate 10 MG 1 tablet at bedt ashly Orally Once a day 07/17/2024 Furosemide 80 MG TAKE 1 TABLET BY JEET TH TWICE A DAY metFORMIN HCl 500 MG 1 tablet with a mariah l Orally Once a day predniSONE 5 MG 1 tablet with food o r milk Orally Once a day 07/17/2024 Torsemide 20 MG 1 tablet Orally Once a day 04/04/2024 Benzonatate 200 MG 1 capsule as needed Orally Three times a day 04/09/2024 Pending Test Test Name Order Date PROFILE, FASTING (COMPREHENSIVE METABOLI C) 10/15/2024 PSA, TOTAL 10/15/2024 CBC w DIFF 10/15/2024 Lipid Panel 10/15/2024 Next Appt Details Follow Up: As Scheduled, Kenia son: Annual Exam Provider Name:Anthony Otero , 03/10/2025 04:15:00 PM, [address] [place] [address] DR, [address], [address], Progress Notes * Claudy HANLEY JrDOB:[birth year] (58 yo M)Acc No.[id number]:10/15/2024 Progress Notes Patient: Claudy STOUT Jr Provider: Umm Otero MD :1965 A ge:58 Y S ex:Male Date:10/15/2024 Address:[address] [place], [place] [id number] Subjective: * Chief Complaints: * N ephrotic syndromeHypertensionHyperlipidemiaDiabetesObesityRight shoulder arthritisLeft shoulder arthritisBenign prostatic hypertrophy * HPI: C OVID-19 Screening: He remains on 5 mg of prednisone daily for his nephrotic syndrome which has improved substantially. He has a nephrology appointment after this appointment today. His shoulders are only slightly painful. He is conducting all of the activities of daily life. He is sleeping better. He has had no infections. He is trying to consume a healthy diet and lose weight.His blood pressure is 132/68. He has gained 2 pounds. Questions H ave you had any new onset fever, chills, cough, congestion, sore throat, shortness of breath, muscle aches? N o * ROS: G eneral/Constitutional: pain o nly normal aches and pains. C hills d enies.?Fatigue a dmits. F ever d enies. E NT: Decreased hearing d enies. R espiratory: Cough d enies. C ardiovascular: Chest pain with exertion d enies. D yspnea on exertion?denies. S hortness of breath d enies. G astrointestinal: Constipation o ccasional. D ecreased appetite d enies. D iarrhea d enies. H eartburn d enies. N ausea d enies. R ectal bleeding d enies. V omiting d enies. H ematology: bruising d enies. p etechiae d enies. S wollen glands n one have been noted. G enitourinary: Frequent urination o nce a night. M usculoskeletal: Muscle aches d [...] History: c holecystectomy age 24 Renal biopsy [facility], remote Carpal tunnel surgery on [...] N onsmoker He was born in [facility]. He has been to [place] for 15 years.? He has no children. 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 He has no cheondoism objection to blood transfusion. He does not smoke and does not drink alcohol. * Medications: T akingAtorvastatin Calcium 80 MG Tablet 1 tablet Orally Once a day metFORMIN [...] Tablet 1 tablet Orally Once a day Torsemide 20 MG Tablet 1 tablet Orally Once a day Benzonatate 200 MG Capsule 1 capsule as needed Orally Three times a day Furosemide 80 MG Tablet TAKE 1 TABLET BY MOUTH TWICE A DAY Zolpidem Tartrate 10 MG Tablet 1 tablet at bedtime Orally Once a day , stop date 07/12/2025predniSONE 5 MG Tablet 1 tablet with food or milk Orally Once a day Taking Atorvastatin Calcium 80 MG Tablet 1 tablet Orally Once a [...] 1 tablet Orally Once a day Taking Torsemide 20 MG Tablet 1 tablet Orally Once a day Taking Benzonatate 200 MG Capsule 1 capsule as needed Orally Three times a day Taking Furosemide 80 MG Tablet TAKE 1 TABLET BY MOUTH TWICE A DAY Taking Zolpidem Tartrate 10 MG Tablet 1 tablet at bedtime Orally Once a day , stop date 07/12/2025Taking predniSONE 5 MG Tablet 1 tablet with food or milk Orally Once a day DiscontinuedAtorvastatin Calcium 40 MG Tablet 1 tablet Orally Once a day predniSONE 20 MG Tablet TAKE TWO (2) TABLETS (40MG) BY MOUTH EVERY DAY Zolpidem Tartrate 10 MG Tablet 1 tablet at bedtime as needed Orally Once a day Medication List reviewed and reconciled with the patientDiscontinued Atorvastatin Calcium 40 MG Tablet 1 tablet Orally Once a day Discontinued predniSONE 20 MG Tablet TAKE TWO (2) TABLETS (40MG) BY MOUTH EVERY DAY Discontinued Zolpidem Tartrate 10 MG Tablet 1 tablet at bedtime as needed Orally Once a day Medication List reviewed and reconciled with the patient * Allergies: P ain medicationno[Allergies Verified] Objective: * Vitals: H t: 70, Wt: 234, BMI:33.57, BP: 132/68, HR: 64, Temp: 98.4, Ht-cm: 177.8, Wt-k.14. * P ast Orders: Lab:Prostate Specific Antige n * Collection Date 08/12/2024 07/10/2024 Collection Time 06:10 AM 06:18 AM Order Date 08/12/2024 07/10/2024 Prostate Specific Antigen 0.67 (Ref Range: <0.05-4.0 ng/mL) 0.76 (Ref Range: <0.05-4.0 ng/mL) * Lab:Complete Blood Count Aut o Diff * Collection Date 10/09/2024 08/12/2024 07/10/2024 Collection Time 12:25 PM 06:10 AM 06:18 AM Order Date 10/09/2024 08/12/2024 07/10/2024 White Blood Count 5.8 (Ref Range: 4.8-10.8 X10*3/uL) 4.4 L (Ref Range: 4.8-10.8 X10*3/uL) 3.7 L (Ref Range: 4.8-10.8 X10*3/uL) Red Blood Count 4.08 L (Ref Range: 4.60-5.80 X10*6/uL) 4.17 L (Ref Range: 4.60-5.80 X10*6/uL) 4.12 L (Ref Range: 4.60-5.80 X10*6/uL) Hemoglobin 12.6 L (Ref Range: 14.0-18.0 g/dl) 12.7 L (Ref Range: 14.0-18.0 g/dl) 12.6 L (Ref Range: 14.0-18.0 g/dl) Hematocrit 37.3 L (Ref Range: 42.0-52.0 %) 37.2 L (Ref Range: 42.0-52.0 %) 37.3 L (Ref Range: 42.0-52.0 %) Mean Corpuscular Volume 91.4 (Ref Range: 80.0-98.0 fL) 89.2 (Ref Range: 80.0-98.0 fL) 90.5 (Ref Range: 80.0-98.0 fL) Mean Corpuscular Hemoglobin 30.9 (Ref Range: 27.0-33.0 pg) 30.5 (Ref Range: 27.0-33.0 pg) 30.6 (Ref Range: 27.0-33.0 pg) Mean Corpuscular HGB Conc 33.8 (Ref Range: 31.0-36.0 g/dl) 34.1 (Ref Range: 31.0-36.0 g/dl) 33.8 (Ref Range: 31.0-36.0 g/dl) Red Cell Distribution Width 13.4 (Ref Range: 11.0-16.0 %) 12.8 (Ref Range: 11.0-16.0 %) 12.4 (Ref Range: 11.0-16.0 %) Platelet Count 193 (Ref Range: 160-400 X10*3/uL) 179 (Ref Range: 160-400 X10*3/uL) 190 (Ref Range: 160-400 X10*3/uL) Mean Platelet Volume 10.4 (Ref Range: 9.4-12.4 fL) 10.3 (Ref Range: 9.4-12.4 fL) 10.3 (Ref Range: 9.4-12.4 fL) Neutrophils Percent Auto 58.6 (Ref Range: 45-73 %) 48.8 (Ref Range: 45-73 %) 45.0 (Ref Range: 45-73 %) Imm Gran Pct Auto 2.1 H (Ref Range: 0.0-0.4 %) 1.1 H (Ref Range: 0.0-0.4 %) 0.5 H (Ref Range: 0.0-0.4 %) Lymphocytes Percent Auto 28.1 (Ref Range: 20-40 %) 38.0 (Ref Range: 20-40 %) 41.8 H (Ref Range: 20-40 %) Monocytes Percent Auto 9.0 (Ref Range: 2-11 %) 8.9 (Ref Range: 2-11 %) 9.2 (Ref Range: 2-11 %) Eosinophils Percent Auto 1.7 (Ref Range: 0-4 %) 2.3 (Ref Range: 0-4 %) 2.7 (Ref Range: 0-4 %) Basophils Percent Auto 0.5 (Ref Range: 0-2 %) 0.9 (Ref Range: 0-2 %) 0.8 (Ref Range: 0-2 %) NRBC Pct Auto 0.0 (Ref Range: 0.0-0.2 /100WBC) 0.0 (Ref Range: 0.0-0.2 /100WBC) 0.0 (Ref Range: 0.0-0.2 /100WBC) Neutrophils Absolute Auto 3.4 (Ref Range: 2.0-8.3 x10*3/uL) 2.2 (Ref Range: 2.0-8.3 x10*3/uL) 1.7 L (Ref Range: 2.0-8.3 x10*3/uL) Imm Gran Abs Auto 0.12 H (Ref Range: 0.00-0.03 X10*3/uL) 0.05 H (Ref Range: 0.00-0.03 X10*3/uL) 0.02 (Ref Range: 0.00-0.03 X10*3/uL) Lymphocytes Absolute Auto 1.6 (Ref Range: 1.2-4.9 X10*3/uL) 1.7 (Ref Range: 1.2-4.9 X10*3/uL) 1.6 (Ref Range: 1.2-4.9 X10*3/uL) Monocytes Absolute Auto 0.5 (Ref Range: 0.1-1.2 X10*3/uL) 0.4 (Ref Range: 0.1-1.2 X10*3/uL) 0.3 (Ref Range: 0.1-1.2 X10*3/uL) Eosinophils Absolute Auto 0.1 (Ref Range: 0.0-0.4 X10*3/uL) 0.1 (Ref Range: 0.0-0.4 X10*3/uL) 0.1 (Ref Range: 0.0-0.4 X10*3/uL) Basophils Absolute Auto 0.0 (Ref Range: 0.0-0.2 X10*3/uL) 0.0 (Ref Range: 0.0-0.2 X10*3/uL) 0.0 (Ref Range: 0.0-0.2 X10*3/uL) NRBC Abs Auto 0.000 (Ref Range: 0.0-0.012 X10*3/uL) 0.000 (Ref Range: 0.0-0.012 X10*3/uL) 0.000 (Ref Range: 0.0-0.012 X10*3/uL) * Lab:Total Protein Urine [place] om * Collection Date 08/12/2024 05/02/2024 04/01/2024 Collection Time 06:20 AM 06:35 AM 12:21 PM Order Date 08/12/2024 05/02/2024 04/01/2024 Total Protein Urine Random 615 H (Ref Range: <12 mg/dL) 346 H (Ref Range: <12 mg/dL) 1569 H (Ref Range: <12 mg/dL) ???Lab:Urinalysis (Order Date - 08/12/2024) (Collection Date & Time - 08/12/2024 06:20 AM)?ValueReference Range?Color UrineYellow- ?Appearance UrineClear-?[id number] -?Glucose Urine UA NegativeNegative - mg/dL?Urine BloodNegativeNegative -?Specific [place] - Urine1.0201.005-1.025 -?Urine Protein>=1000 (4+)ANeg-Trace - mg/dL?Urine KetonesNegativeNegative - mg/dL?Nitrite UrineNegative Negative -?Leukocyte Esterase UrineNegativeNegative - ???Lab:Urine Microscopic (Order Date - 08/12/2024) (Collection Date & Time - 08/12/2024 06:20 AM)?ValueReference Range?RBC Urine0-20-2 - /HPF ?WBC Urine0-50-5 - /HPF?Squamous Epithelial Cell Urine0-20-2 - /HPF?Bacteria UrineNone SeenNone Seen -?Hyaline Casts Urine0-20-2 - /LPF * Lab:Comprehensive [place]. [facility] [place] Fast * Collection Date 10/09/2024 08/12/2024 07/10/2024 Collection Time 12:25 PM 06:10 AM 06:18 AM Order Date 10/09/2024 08/12/2024 07/10/2024 Sodium 143 (Ref Range: 135-145 mmol/L) 145 (Ref Range: 135-145 mmol/L) 142 (Ref Range: 135-145 mmol/L) Bilirubin Total 0.4 (Ref Range: 0.0-1.0 mg/dL) 0.3 (Ref Range: 0.0-1.0 mg/dL) 0.2 (Ref Range: 0.0-1.0 mg/dL) Aspartate Amino Transferase 23 (Ref Range: 5-37 U/L) 22 (Ref Range: 5-37 U/L) 26 (Ref Range: 5-37 U/L) Alanine Aminotransferase 20 (Ref Range: 0-40 U/L) 15 (Ref Range: 0-40 U/L) 18 (Ref Range: 0-40 U/L) Total Protein 5.5 L (Ref Range: 6.5-8.0 g/dL) 4.9 L (Ref Range: 6.5-8.0 g/dL) 5.0 L (Ref Range: 6.5-8.0 g/dL) Albumin Level 3.5 (Ref Range: 3.5-5.0 g/dL) 2.9 L (Ref Range: 3.5-5.0 g/dL) 3.0 L (Ref Range: 3.5-5.0 g/dL) Alkaline Phosphatase 37 L (Ref Range: 39-117 U/L) 35 L (Ref Range: 39-117 U/L) 36 L (Ref Range: 39-117 U/L) Potassium 3.5 (Ref Range: 3.3-5.1 mmol/L) 4.0 (Ref Range: 3.3-5.1 mmol/L) 3.8 (Ref Range: 3.3-5.1 mmol/L) Chloride 103 (Ref Range: 96-108 mmol/L) 107 (Ref Range: 96-108 mmol/L) 105 (Ref Range: 96-108 mmol/L) Carbon Dioxide 31 H (Ref Range: 22-29 mmol/L) 31 H (Ref Range: 22-29 mmol/L) 30 H (Ref Range: 22-29 mmol/L) Anion Gap 13 (Ref Range: 12-20) 11 L (Ref Range: 12-20) 11 L (Ref Range: 12-20) Blood Urea Nitrogen 25 H (Ref Range: 9-16 mg/dL) 27 H (Ref Range: 9-16 mg/dL) 16 (Ref Range: 9-16 mg/dL) Creatinine 1.01 (Ref Range: 0.5-1.4 mg/dL) 0.87 (Ref Range: 0.5-1.4 mg/dL) 0.87 (Ref Range: 0.5-1.4 mg/dL) Estimated Glomerular Filt Rate > 60 > 60 > 60 Glucose Fasting 117 H (Ref Range: 60-99 mg/dL) 99 (Ref Range: 60-99 mg/dL) 107 H (Ref Range: 60-99 mg/dL) Calcium 8.1 L (Ref Range: 8.4-10.2 mg/dL) 8.7 (Ref Range: 8.4-10.2 mg/dL) 8.2 L (Ref Range: 8.4-10.2 mg/dL) * Lab:Lipid Panel * Collection Date 10/09/2024 08/12/2024 07/10/2024 Collection Time 12:25 PM 06:10 AM 06:18 AM Order Date 10/09/2024 08/12/2024 07/10/2024 Triglycerides 304 H (Ref Range: <150 mg/dL) 199 H (Ref Range: <150 mg/dL) 175 H (Ref Range: <150 mg/dL) Cholesterol 274 H (Ref Range: <200 mg/dL) 281 H (Ref Range: <200 mg/dL) 276 H (Ref Range: <200 mg/dL) LDL Cholesterol Calculated 136 H (Ref Range: <100 mg/dL) 155 H (Ref Range: <100 mg/dL) 163 H (Ref Range: <100 mg/dL) HDL Cholesterol 78 (Ref Range: >40 mg/dL) 87 (Ref Range: >40 mg/dL) 78 (Ref Range: >40 mg/dL) * Lab:B Type Natriuretic Pepti de * Collection Date 10/09/2024 05/02/2024 Collection Time 12:28 PM 06:35 AM Order Date 10/09/2024 05/02/2024 B Type Natriuretic Peptide 21 (Ref Range: <100 pg/mL) 12 (Ref Range: <100 pg/mL) * Lab:Creatinine Urine * Collection Date 10/09/2024 05/02/2024 04/01/2024 Collection Time 12:30 PM 06:35 AM 12:21 PM Order Date 10/09/2024 05/02/2024 04/01/2024 Creatinine Urine 121.23 (Ref Range: mg/dL) 124.68 (Ref Range: mg/dL) 166.67 (Ref Range: mg/dL) * Lab:Hemoglobin A1c * Collection Date 10/09/2024 05/02/2024 Collection Time 12:25 PM 06:35 AM Order Date 10/09/2024 05/02/2024 Hemoglobin A1c % 6.3 H (Ref Range: <6.0 %) 6.5 H (Ref Range: <6.0 %) Estimated Average Glucose 134 (Ref Range: mg/dL) 140 (Ref Range: mg/dL) * Lab:Urinalysis and Microscop ic * Collection Date 10/09/2024 06/01/2024 05/02/2024 Collection Time 12:30 PM 11:50 AM 06:35 AM Order Date 10/09/2024 06/01/2024 05/02/2024 Color Urine Yellow Yellow Yellow RBC Urine 0-2 (Ref Range: 0-2 /HPF) 0-2 (Ref Range: 0-2 /HPF) 0-2 (Ref Range: 0-2 /HPF) Appearance Urine Clear Clear Clear PH 8.5 (Ref Range: 5.0-9.0) 7.5 (Ref Range: 5.0-9.0) 7.5 (Ref Range: 5.0-9.0) Glucose Urine UA Negative (Ref Range: Negative mg/dL) Negative (Ref Range: Negative mg/dL) Negative (Ref Range: Negative mg/dL) Urine Blood Negative (Ref Range: Negative) Negative (Ref Range: Negative) Negative (Ref Range: Negative) Specific [place] - Urine 1.020 (Ref Range: 1.005-1.025) 1.010 (Ref Range: 1.005-1.025) 1.020 (Ref Range: 1.005-1.025) Urine Protein 300 (3+) A (Ref Range: Neg-Trace mg/dL) 300 (3+) A (Ref Range: Neg-Trace mg/dL) 300 (3+) A (Ref Range: Neg-Trace mg/dL) Urine Ketones Negative (Ref Range: Negative mg/dL) Negative (Ref Range: Negative mg/dL) Negative (Ref Range: Negative mg/dL) Nitrite Urine Negative (Ref Range: Negative) Negative (Ref Range: Negative) Negative (Ref Range: Negative) Leukocyte Esterase Urine Trace A (Ref Range: Negative) Negative (Ref Range: Negative) Negative (Ref Range: Negative) WBC Urine 0-5 (Ref Range: 0-5 /HPF) 0-5 (Ref Range: 0-5 /HPF) 0-5 (Ref Range: 0-5 /HPF) Squamous Epithelial Cell Urine 0-2 (Ref Range: 0-2 /HPF) 0-2 (Ref Range: 0-2 /HPF) 0-2 (Ref Range: 0-2 /HPF) Bacteria Urine None Seen (Ref Range: None Seen) None Seen (Ref Range: None Seen) None Seen (Ref Range: None Seen) Hyaline Casts Urine 0-2 (Ref Range: 0-2 /LPF) 0-2 (Ref Range: 0-2 /LPF) 0-2 (Ref Range: 0-2 /LPF) * Examination: G eneral Examination: GENERAL APPEARANCE: p garrett, well nourished, well developed, in no acute distress, calm and relaxed: obese: man. HEAD: a traumatic, normocephalic. EYES: e [...] sounds normal, no ascites, no organomegaly, no mass: centripital obesity. RECTAL EXAM: n ot examined. MUSCULOSKELETAL: e xtremities unremarkable, no clubbing, cyanosis or edema, Mild discomfort and return decreased range of motion both shoulders on elevation.? PERIPHERAL PULSES: n ormal. NEUROLOGIC: a lert [...] This torsemide has been adjusted. 2 . D iabetes mellitus without complication - E11.9 N otes :His hemoglobin A1c has improved from 6.5-6.3. His fasting glucose is 117 on metformin. Current therapy was continued and weight loss was encouraged. 3 . M ixed hyperlipidemia - E78.2 N otes :His total cholesterol was 276 which is uncontrolled. I have recommended aggressive weight loss and consumption of a healthy Mediterranean diabetic weight loss diet.He says he has been taking the 40 mg of atorvastatin. I have increased it to 80 mg today. 4 . O besity - E66.9 N otes :He remains obese. We discussed her weight loss strategy today. We discussed the elements of her weight reduction diabetic diet at length. 5 . B PH (benign prostatic hypertrophy) - N40.0 N otes :He rises from sleep once a night to urinate. We have reviewed lifestyle modifications he could make to reduce this. Plan: * Treatment: 2. D iabetes mellitus without complication L AB: PROFILE, FASTING (COMPREHENSIVE METABOLIC) L AB: PSA, TOTAL L AB: CBC w DIFF L AB: Lipid Panel 3. M ixed hyperlipidemia L AB: PROFILE, FASTING (COMPREHENSIVE METABOLIC) L AB: PSA, TOTAL L AB: CBC w DIFF L AB: Lipid Panel 4. O besity L AB: PROFILE, FASTING (COMPREHENSIVE METABOLIC) L AB: PSA, TOTAL L AB: CBC w DIFF L AB: Lipid Panel 5. B PH (benign prostatic hypertrophy) L AB: PROFILE, FASTING (COMPREHENSIVE METABOLIC) L AB: PSA, TOTAL L AB: CBC w DIFF L AB: Lipid Panel 6. O thers Continue metFORMIN HCl Tablet, 500 MG, 1 tablet [...] tablet, Orally, Once a day; C ontinue Benzonatate [...] a goal of losing 1 lb per week, Increase exercise to 3 times a week for 30 mins, Stop drinking juice and/or soda, replace with more water. * Follow Up: A s Scheduled (Reason: Annual Exam) * Images: * Sign off status: Completed true * Provider: Umm Otero MD Date: 0 10/15/2024 Generated for Lety garrett/Azam/eTransmitting on: 1 06:05 AM EST History and Physical Notes * HPI (History of Present Illness) Category Sub-Category Detail Notes COVID-19 Screening Questions Have you had any new onset fever, chills, cough, congestion, sore throat, shortness of breath, muscle aches?: No Examination Category Sub-Category Detail Notes General Examination GENERAL APPEARANCE: pleasant , well nourished, well developed, in no acute distress, calm and relaxed: obese: man HEAD: atraumatic, normocep halic EYES: eomi, perrla, anicte reanna, conjugate EARS: normal NOSE: septum intact NECK/THYROID: no jugular venous di stention, no carotid bruit, thyroid normal HEART: no clicks, gallops, murmurs, or rubs, regular rhythm, S1, S2 normal, no s3, or vascular bruits LUNGS: clear to auscultatio n ABDOMEN: bowel sounds normal, no ascites, no organomegaly, no mass: centripital obesity NEUROLOGIC: alert and oriented, cranial nerves 2-12 grossly intact, deep tendon reflexes 2+ symmetrical, motor strength normal upper and lower extremities, sensory exam intact SKIN: no suspicious lesion s, anicteric PERIPHERAL PULSES: normal BREASTS: no masses palpable b ilaterally MUSCULOSKELETAL: extremities unremark able, no clubbing, cyanosis or edema, Mild discomfort and return decreased range of motion both shoulders on elevation LYMPH NODES: no enlarged lymph no trena,spleen normal RECTAL EXAM: not examined PSYCH: alert, oriented ORAL CAVITY: normal, unremarkable
--- OUTSIDE RECORDS SUMMARY | 2024-12-03 12:45 | XMS_ITS ---
Author Organization Anthony Otero III, MD Address [address] [place] [address] Care Team Providers Care Metalsmith Helper Name Role Phone Dr. Anthony Otero [...] Provider Diagnosis Anthony Otero III, MD [address] [place] [address] [place] [address] 12/03/2024 Anthony Otero Nephrotic syndrome N04.9 Assessments [...] Name:Anthony Otero , 03/10/2025 04:15:00 PM, [address] [place] [address] [place], [address], Progress Notes * Claudy HANLEYB:[birth year] (58 yo M)Acc No.[id number]:12/03/2024 Patient: Claudy STOUT Jr :1965 A ge:58 Y S ex:Male Address:[address] [place] [address], [address] * Refills Refill Zolpidem Tartrate Tablet, 10 MG, Orally, 90 Tablet, 1 tablet at bedtime, Once a day, 90 days, Refills=3 * true * Date: Generated for Lety garrett/Azam/Demetrismitting on: 06:04 AM EST
--- OUTSIDE RECORDS SUMMARY | 2024-12-03 12:48 | XMS_ITS ---
Author Organization Anthony Otero III, MD Address [address] [place] [address] [place] [address] Care Team Providers Care Learning Engineer Name Role Phone Dr. Anthony Otero III Primary Care Provider [phone] REASON FOR VISIT New Refill Request Social History Sex Assigned At : Social History Observation Description Sex Assigned At Male Encounters Encounter Location Date Provider Diagnosis Anthony Otero III, MD [address] [place] [address] [place] [address] 12/03/2024 Anthony Otero Plan Of Treatment Next Appt Details Provider Name:Anthony Otero , 03/10/2025 04:15:00 PM, [address] [place] [address] [place], [address], Progress Notes * Claudy HANLEY JrDOB:[birth year] (58 yo M)Acc No.[id number]:12/03/2024 Patient: Claudy STOUT Jr :1965 A ge:58 Y S ex:Male Address:[address] [place], [address] * true * Date: Generated for Printi ng/Fasharadg/eTransmitting on: 06:05 AM EST
--- OUTSIDE RECORDS SUMMARY | 2024-12-03 12:54 | XMS_ITS ---
Author Organization Anthony Otero III, MD Address [address] [place] [address] [address] [place] [facility] [place] [address] Care Team Providers Care Senior Software Development Manager Name Role Phone Dr. Anthony Otero III Primary Care Provider [phone] Reason For Referral Reason Evaluate and Treat Diagnosis 1 Primary osteoarthrit is, left shoulder (M19.012) Diagnosis 2 Primary osteoarthrit is, right shoulder (M19.011) Referral Organization Anthony Otero III, MD Referring Provider First Name Anthony Referring Provider Last Name Branden Referring Provider Speciality Internal M edicine Referred Provider [facility] er, Orthopedic Surgeons Referred Provider Specialty Orthopedic S [facility] General Notes DZara 12/10/2024 10:10:03 AM > Referral with last progress note faxed. Referral Priority Routine Referral Appointment Date 12/26/2024 REASON FOR VISIT New Referral Request Social History Sex Assigned At : Social History Observation Description Sex Assigned At Male Encounters Encounter Location Date Provider Diagnosis Anthony Otero III, MD [address] [place] [address] [address] [facility] [facility] [address] 12/03/2024 Anthony Otero Plan Of Treatment Referrals Referral Date Details 12/06/2024 12/06/2024, Evaluate and Treat, Orthopedic Surgeons [facility] Next Appt Details Provider Name:Anthony Otero , 03/10/2025 04:15:00 PM, [address] [place] [address] [place], [address], Progress Notes * Claudy HANLEY JrDOB:[birth year] (58 yo M)Acc No.[id number]:12/03/2024 Patient: Claudy STOUT Jr :1965 A ge:58 Y S ex:Male Address:[address] [place] [address] [place], [address] Subjective: * Chief Complaints: * N ew Referral Request * Medical History: * Surgical History: * Hospitalization/Major Diagno stic Procedure: * Medications: Objective: * Vitals: * Physical Examination: Assessment: Plan: * Treatment: * Procedure Codes: * true * Date: Generated for Lety garrett/Azam/eTransmitting on: 1 06:04 AM EST Consultation Request Notes Referral Date Referring Provider Referred Provider Not es 12/06/2024 Branden [facility], Orthopedic Surgeons Evaluate and Treat
--- OUTSIDE RECORDS SUMMARY | 2025-02-26 06:04 | XMS_ITS | Patient Health Record ---
Author Organization Anthony Otero III, MD Address [address] [facility] [place] [address] Care Team Providers Care Hydroelectric Systems Technician Name Role Phone Dr. Anthony Otero III Primary Care Provider Allergies Allergen (clinical drug ingredient) Drug/Non Drug Allergy documented on EMR Reaction Allergy Type Onset Date Status Pain medication (uncoded) Unknown Allergy Active Results Component Value Reference Range Notes Protein, 24 Hr Urine Group Reviewed date:03/04/2024 09:18:29 AM Interpretation: Performing Lab:[facility], [address] [place] [address] Notes/Report: 1900 [id number] 0900 1000 Protein 24 Hr Urine 30216 <150 mg/Day Protein mg/dL 1322 Creatinine, 24Hr Urine 2.2 1.0-2.0 G/Day Creatinine, mg/dL 113.30 Total Volume 24 Hour Urine 1900 Complete Blood Count Auto Di ff Reviewed date:03/05/2024 05:15:10 PM Interpretation: Performing Lab:[facility], [address] [place] [address] Notes/Report: White Blood Count 7.5 4.8-10.8 X10*3/uL [...] Panel Reviewed date:03/05/2024 05:15:10 PM Interpretation: Performing Lab:[facility], [address] [place] [address] Notes/Report: Sodium 141 135-145 mmol/L Potassium 4.0 [...] ff Reviewed date:03/11/2024 02:33:07 PM Interpretation: Performing Lab:[address] [address] Notes/Report: White Blood Count 6.4 4.8-10.8 X10*3/uL [...] te Reviewed date:03/11/2024 02:33:07 PM Interpretation: Performing Lab:[facility], [address] [place] [address] Notes/Report: Erythrocyte Sedimentation Rate 13 0-15 MM/HR Patients with polycythemia and many hemoglobin abnormalities may have depressed sed rates whereas patients with anemia may have elevated sed rates. Comprehensive Met. Panel Reviewed date:03/11/2024 02:33:07 PM Interpretation: Performing Lab:[facility], [address] [place] [address] Notes/Report: Sodium 143 135-145 mmol/L Potassium 3.7 [...] Panel Reviewed date:03/21/2024 06:28:51 AM Interpretation: Performing Lab:[facility], [address] [place] [address] Notes/Report: Sodium 139 135-145 mmol/L Potassium 4.0 [...] um Reviewed date:03/28/2024 09:26:04 AM Interpretation: Performing Lab:[facility], [address] [place] [phone] Notes/Report: Prot Elec - Total Protein 3.6 [...] clinical diagnosis. THIS TEST WAS PERFORMED AT: [facility] [address] [place] [phone] REMINGTON WILLIAMSON MD Complement C3 Reviewed date:03/21/2024 06:28:51 AM Interpretation: Performing Lab:[facility], [address] [place] [address] Notes/Report: Complement C3 151 82-185 mg/dL THIS TEST WAS PERFORMED AT: [facility] [address] [place] [phone] REMINGTON WILLIAMSON MD Complement C4 Reviewed date:03/21/2024 06:28:51 AM Interpretation: Performing Lab:[facility], [address] [place] [address] Notes/Report: Complement C4 35 15-53 mg/dL THIS TEST WAS PERFORMED AT: [facility] [address] [place] [phone] REMINGTON WILLIAMSON MD Phospholipase A2 Receptor Pn l Reviewed date:03/28/2024 09:26:04 AM Interpretation: Performing Lab:[facility], [address] [place] [address] Notes/Report: Phospholipase A2 IgG SUSU <4 Reference Range: <14: NEGATIVE 14-19: BORDERLINE >19: POSITIVE Phospholipase A2 IgG IFA NEGATIVE NEGATIVE THIS TEST WAS PERFORMED AT: [facility] [address] [place] [address] EVAN SOMMER MD,PHD,VALERIO Basic Metabolic Panel Reviewed date:03/28/2024 09:26:04 AM Interpretation: Performing Lab:[facility], [address] [place] [address] Notes/Report: Sodium 141 135-145 mmol/L Potassium 3.8 [...] Urine Reviewed date:03/28/2024 09:26:04 AM Interpretation: Performing Lab:[facility], [address] [place] [address] Notes/Report: Creatinine Urine 71.15 Total Protein Urine Random Reviewed date:03/28/2024 09:26:04 AM Interpretation: Performing Lab:[facility], [address] [place] [address] Notes/Report: Total Protein Urine Random 409 <12 mg/dL Urinalysis and Microscopic Reviewed date:04/01/2024 06:09:31 PM Interpretation: Performing Lab:[facility], [address] [place] [address] Notes/Report: Color Urine Dark Yellow Appearance Urine Clear PH 7.0 5.0-9.0 Glucose Urine UA 500 Negative mg/dL Urine Blood Trace Negative Specific [place] - Urine 1.025 1.005-1.025 Urine Protein >=1000 [...] Urine Reviewed date:04/01/2024 06:09:32 PM Interpretation: Performing Lab:[facility], [address] [place] [address] Notes/Report: Creatinine Urine 166.67 Total Protein Urine Random Reviewed date:04/01/2024 06:09:32 PM Interpretation: Performing Lab:[facility], [address] [place] [phone] Notes/Report: Total Protein Urine Random 1569 <12 mg/dL XR chest 2V Reviewed date:04/21/2024 09:08:31 AM Interpretation: Performing Lab: Notes/Report: [facility] [address] [place] [address] [place] [address] XRay Report Signed Patient: Claudy Berger Jr MR#: [id number] : 1965 Acct:[id number] Age/Sex: 58 / M ADM Date: 04/12/24 Loc: HO.HMGCX Attending Dr: Anthony Otero MD Ordering Physician: Anthony Otero MD Date of Service: 04/12/24 Procedure(s): XR chest 2V Accession Number(s): [id number] cc: Anthony Otero MD EXAMINATION: XR CHEST [...] MD 04/16/2024 08:58 AM [facility]ict[place] By: Kris Zabala MD Signed By: <Electronically signed by Kris Zabala MD in OV> 04/16/24 0858 DD/ 1619 TD/TT: 04/12/24 1625 Manager Clinical Informatics: [facility] [address] [place] [address] [place] [address] XRay Report Signed Patient: Chandan Berger Jr MR#: [id number] : 1965 Acct:[id number] Age/Sex: 58 / M ADM Date: 04/12/24 Loc: HO.HMGCX Attending Dr: Anthony Otero MD Ordering Physician: Anthony Otero MD Date of Service: 04/12/24 Procedure(s): XR man st 2V Accession Number(s): [id number] cc: Anthony Otero MD EXAMINATION: XR CHEST [...] MD 04/16/2024 08:58 AM [facility] Dictated By: Kris Zabala MD Signed By: <Electronically signed by Kris Zabala MD in OV> 04/16/24 0858 DD/ 1619 TD/TT: 04/12/24 1625 Manager Clinical Informatics: Complete Blood Count Auto Di ff Reviewed date:05/02/2024 08:46:40 PM Interpretation: Performing Lab:[facility], [address] [place] [address] Notes/Report: White Blood Count 3.6 4.8-10.8 X10*3/uL [...] Microscopic Reviewed date:05/02/2024 08:46:40 PM Interpretation: Performing Lab:[facility], [address] [place] [address] Notes/Report: Color Urine Yellow Appearance Urine Clear PH 7.5 5.0-9.0 Glucose Urine UA Negative Negative mg/dL Urine Blood Negative Negative Specific [place] - Urine 1.020 1.005-1.025 Urine Protein 300 (3+) Neg-Trace mg/dL Urine Ketones Negative Negative mg/dL Nitrite Urine Negative Negative Leukocyte Esterase Urine Negative Negative RBC Urine 0-2 0-2 /HPF WBC Urine 0-5 0-5 /HPF Squamous Epithelial Cell Urine 0-2 0-2 /HPF Bacteria Urine None Seen None Seen Hyaline Casts Urine 0-2 0-2 /LPF Comprehensive Proctor. Panel Fa st Reviewed date:05/02/2024 08:46:40 PM Interpretation: Performing Lab:[facility], [address] [place] [address] Notes/Report: Sodium 141 135-145 mmol/L Potassium 3.9 [...] Peptide Reviewed date:05/02/2024 08:46:40 PM Interpretation: Performing Lab:[address] [address] Notes/Report: B Type Natriuretic Peptide 12 <100 pg/mL For those patients who are being treated with Natrecor (nesiritide, recombinant BNP), BNP testing should be performed at least two hours post treatment in order to ensure that only endogenous levels of BNP are detected. Microalbumin, Random Reviewed date:05/02/2024 08:46:40 PM Interpretation: Performing Lab:[address] [address] Notes/Report: Creatinine Urine 125.53 Microalbumin Urine > 2000.0 Microalbum/Creatinine Ratio Ur 1593.2 <30 ug/mg cr Albumin/Creatinine Ratio Reference Ranges: Normal: < 30 ug/mg creatinine Microalbuminuria: 30 - 300 ug/mg creatinine Clinical Albuminuria: > 300 ug/mg creatinine Creatinine Urine Reviewed date:05/02/2024 08:46:40 PM Interpretation: Performing Lab:[address] [address] Notes/Report: Creatinine Urine 124.68 Total Protein Urine Random Reviewed date:05/02/2024 08:46:40 PM Interpretation: Performing Lab:[address] [address] Notes/Report: Total Protein Urine Random 346 <12 mg/dL Hemoglobin A1c Reviewed date:05/02/2024 08:46:40 PM Interpretation: Performing Lab:[address] [address] Notes/Report: Hemoglobin A1c % 6.5 <6.0 % [...] average glucose, using the formula of the [id number] Average Glucose study (ADAG), Diabetes Care, Vol.31,#8, Sep. 2007 Urinalysis and Microscopic Reviewed date:06/06/2024 08:25:56 PM Interpretation: Performing Lab:[address] [address] Notes/Report: Color Urine Yellow Appearance Urine Clear PH 7.5 5.0-9.0 Glucose Urine UA Negative Negative mg/dL Urine Blood Negative Negative Specific [place] - Urine 1.010 1.005-1.025 Urine Protein 300 (3+) Neg-Trace mg/dL Urine Ketones Negative Negative mg/dL Nitrite Urine Negative Negative Leukocyte Esterase Urine Negative Negative RBC Urine 0-2 0-2 /HPF WBC Urine 0-5 0-5 /HPF Squamous Epithelial Cell Urine 0-2 0-2 /HPF Bacteria Urine None Seen None Seen Hyaline Casts Urine 0-2 0-2 /LPF Basic Metabolic Panel Reviewed date:06/06/2024 08:25:56 PM Interpretation: Performing Lab:[facility], [address] [place] [phone] Notes/Report: Sodium 141 135-145 mmol/L Potassium 4.1 [...] ff Reviewed date:07/10/2024 11:38:05 AM Interpretation: Performing Lab:[facility], [address] [place] [address] Notes/Report: White Blood Count 3.7 4.8-10.8 X10*3/uL [...] NRBC Abs Auto 0.000 0.0-0.012 X10*3/uL Comprehensive Proctor. Panel Fa st Reviewed date:07/10/2024 11:38:05 AM Interpretation: Performing Lab:[facility], [address] [place] [address] Notes/Report: Sodium 142 135-145 mmol/L Potassium 3.8 [...] Panel Reviewed date:07/10/2024 11:38:05 AM Interpretation: Performing Lab:[facility], [address] [place] [address] Notes/Report: Triglycerides 175 <150 mg/dL Desirable Triglyceride: [...] Antigen Reviewed date:07/10/2024 11:38:05 AM Interpretation: Performing Lab:[facility], [address] [place] [address] Notes/Report: Prostate Specific Antigen 0.76 <0.05-4.0 ng/mL PSA methodology: Ortega Alinity i Chemiluminescent Microparticle Immunoassay (CMIA) Complete Blood Count Auto Di ff Reviewed date:09/28/2024 08:41:30 PM Interpretation: Performing Lab:[facility], [address] [place] [address] Notes/Report: White Blood Count 4.4 4.8-10.8 X10*3/uL [...] Urinalysis Reviewed date:09/28/2024 08:41:30 PM Interpretation: Performing Lab:[facility], [address] [place] [phone] Notes/Report: Color Urine Yellow Appearance Urine Clear PH 7.5 5.0-9.0 Glucose Urine UA Negative Negative mg/dL Urine Blood Negative Negative Specific [place] - Urine 1.020 1.005-1.025 Urine Protein >=1000 (4+) Neg-Trace mg/dL Urine Ketones Negative Negative mg/dL Nitrite Urine Negative Negative Leukocyte Esterase Urine Negative Negative Urine Microscopic Reviewed date:09/28/2024 08:41:30 PM Interpretation: Performing Lab:[facility], [address] [place] [phone] Notes/Report: RBC Urine 0-2 0-2 /HPF WBC Urine 0-5 0-5 /HPF Squamous Epithelial Cell Urine 0-2 0-2 /HPF Bacteria Urine None Seen None Seen Hyaline Casts Urine 0-2 0-2 /LPF Comprehensive Proctor. Panel Fa st Reviewed date:09/28/2024 08:41:30 PM Interpretation: Performing Lab:[facility], [address] [place] [address] Notes/Report: Sodium 145 135-145 mmol/L Potassium 4.0 [...] Panel Reviewed date:09/28/2024 08:41:30 PM Interpretation: Performing Lab:[facility], [address] [place] [phone] Notes/Report: Triglycerides 199 <150 mg/dL Desirable Triglyceride: [...] Antigen Reviewed date:09/28/2024 08:41:30 PM Interpretation: Performing Lab:[address] [address] Notes/Report: Prostate Specific Antigen 0.67 <0.05-4.0 ng/mL PSA methodology: Ortega Alinity i Chemiluminescent Microparticle Immunoassay (CMIA) Total Protein Urine Random Reviewed date:09/28/2024 08:41:30 PM Interpretation: Performing Lab:[address] [address] Notes/Report: Total Protein Urine Random 615 <12 mg/dL Complete Blood Count Auto Di ff Reviewed date:10/15/2024 02:44:35 PM Interpretation: Performing Lab:[address] [phone] Notes/Report: White Blood Count 5.8 4.8-10.8 X10*3/uL [...] Microscopic Reviewed date:10/15/2024 02:44:35 PM Interpretation: Performing Lab:[address] [address] Notes/Report: Color Urine Yellow Appearance Urine Clear PH 8.5 5.0-9.0 Glucose Urine UA Negative Negative mg/dL Urine Blood Negative Negative Specific [place] - Urine 1.020 1.005-1.025 Urine Protein 300 (3+) Neg-Trace mg/dL Urine Ketones Negative Negative mg/dL Nitrite Urine Negative Negative Leukocyte Esterase Urine Trace Negative RBC Urine 0-2 0-2 /HPF WBC Urine 0-5 0-5 /HPF Squamous Epithelial Cell Urine 0-2 0-2 /HPF Bacteria Urine None Seen None Seen Hyaline Casts Urine 0-2 0-2 /LPF Comprehensive Proctor. Panel Fa Reviewed date:10/15/2024 02:44:35 PM Interpretation: Performing Lab:[address] [address] Notes/Report: Sodium 143 135-145 mmol/L Potassium 3.5 [...] Peptide Reviewed date:10/15/2024 02:44:35 PM Interpretation: Performing Lab:[facility], [address] [place] [address] Notes/Report: B Type Natriuretic Peptide 21 <100 pg/mL Lipid Panel Reviewed date:10/15/2024 02:44:35 PM Interpretation: Performing Lab:[facility], [address] [place] [address] Notes/Report: Triglycerides 304 <150 mg/dL Desirable Triglyceride: [...] Urine Reviewed date:10/15/2024 02:44:35 PM Interpretation: Performing Lab:[facility], [address] [place] [address] Notes/Report: Creatinine Urine 121.23 Hemoglobin A1c Reviewed date:10/15/2024 02:44:35 PM Interpretation: Performing Lab:[facility], [address] [place] [address] Notes/Report: Hemoglobin A1c % 6.3 <6.0 % [...] average glucose, using the formula of the [place] Average Glucose study (ADAG), Diabetes Care, Vol.31,#8, 2007 Complete Blood Count Auto Di ff Reviewed date:02/23/2025 11:17:51 AM Interpretation: Performing Lab:[facility], [address] [place] [address] Notes/Report: White Blood Count 4.4 4.8-10.8 X10*3/uL Red Blood Count 3.96 4.60-5.80 X10*6/uL Hemoglobin 12.0 14.0-18.0 g/dl Hematocrit 36.4 42.0-52.0 % Mean Corpuscular Volume 91.9 80.0-98.0 fL Mean Corpuscular Hemoglobin 30.3 27.0-33.0 pg Mean Corpuscular HGB Conc 33.0 31.0-36.0 g/dl Red Cell Distribution Width 13.0 11.0-16.0 % Platelet Count 205 160-400 X10*3/uL Mean Platelet Volume 10.0 9.4-12.4 fL Neutrophils Percent Auto 56.4 45-73 % Imm Gran Pct Auto 0.9 0.0-0.4 % Lymphocytes Percent Auto 32.4 20-40 % Monocytes Percent Auto 7.3 2-11 % Eosinophils Percent Auto 2.3 0-4 % Basophils Percent Auto 0.7 0-2 % NRBC Pct Auto 0.0 0.0-0.2 /100WBC Neutrophils Absolute Auto 2.5 2.0-8.3 x10*3/uL Imm Gran Abs Auto 0.04 0.00-0.03 X10*3/uL Lymphocytes Absolute Auto 1.4 1.2-4.9 X10*3/uL Monocytes Absolute Auto 0.3 0.1-1.2 X10*3/uL Eosinophils Absolute Auto 0.1 0.0-0.4 X10*3/uL Basophils Absolute Auto 0.0 0.0-0.2 X10*3/uL NRBC Abs Auto 0.000 0.0-0.012 X10*3/uL Comprehensive Proctor. Panel Fa st Reviewed date:02/23/2025 11:17:51 AM Interpretation: Performing Lab:[facility], [address] [place] [phone] Notes/Report: Sodium 145 135-145 mmol/L Potassium 3.7 3.3-5.1 mmol/L Chloride 108 96-108 mmol/L Carbon Dioxide 29 22-29 mmol/L Anion Gap 12 12-20 Blood Urea Nitrogen 17 9-16 mg/dL Creatinine 1.02 0.5-1.4 mg/dL Estimated Glomerular Filt Rate > 60 Chronic Kidney Disease: Estimated GFR < 60 mL/min/1.73m2 Severe Kidney Disease: Estimated GFR < 15 mL/min/1.73m2 Glucose Fasting 119 60-99 mg/dL A fasting glucose from 100-125 mg/dl is considered impaired (pre-diabetes). Calcium 9.0 8.4-10.2 mg/dL Bilirubin Total 0.4 0.0-1.0 mg/dL Aspartate Amino Transferase 33 5-37 U/L Alanine Aminotransferase 28 0-40 U/L Total Protein 5.8 6.5-8.0 g/dL Albumin Level 3.8 3.5-5.0 g/dL Alkaline Phosphatase 41 39-117 U/L Lipid Panel Reviewed date:02/23/2025 11:17:51 AM Interpretation: Performing Lab:[facility], [address] [place] [address] Notes/Report: Triglycerides 469 <150 mg/dL Desirable Triglyceride: less than 150 mg/dL Borderline High Triglyceride 150-199 mg/dL High Triglyceride: 200-499 mg/dL Very High Triglyceride: greater than or equal to 5OO mg/dL Cholesterol 245 <200 mg/dL Desirable Cholesterol: less than 200 mg/dL Borderline High Cholesterol: 200-239 mg/dL High Cholesterol: greater than 239 mg/dL LDL Cholesterol Calculated TNP <100 mg/dL Unable to calculate the LDL. The formula of Friedwald, Tong, and Deja is only valid if the triglycerides are less than 400 mg/dl. HDL Cholesterol 51 >40 mg/dL Desirable HDL: greater than 40 mg/dL Note: This HDL assay may give artificially low results in patients with liver disease. Prostate Specific Antigen Reviewed date:02/23/2025 11:17:51 AM Interpretation: Performing Lab:[facility], [address] [place] [address] Notes/Report: Prostate Specific Antigen 0.78 <0.05-4.0 ng/mL PSA methodology: Phantomnity i Chemiluminescent Microparticle Immunoassay (CMIA) Reason For Referral Reason Evaluate and Treat Diagnosis 1 Primary osteoarthrit is, left shoulder (M19.012) Diagnosis 2 Primary osteoarthrit is, right shoulder (M19.011) Referral Organization Anthony Otero III, MD Referring Provider First Name Anthony Referring Provider Last Name Branden Referring Provider Speciality Internal M edicine Referred Provider [facility], Orthopedic Surgeons Referred Provider Specialty Orthopedic S urgery General Notes Zara Rocha 12/10/2024 10:10:03 AM > Referral with last [...] Orally Three times a day 04/09/2024 Active Atorvastatin Calcium 80 MG 1 tablet Oral ly Once a day 10/19/2024 Active Omeprazole 40 MG 1 capsule Orally Onc e a day for 90 days Active Fenofibrate 145 MG 1 tablet Orally Once a day Active Lisinopril 40 MG TAKE 1 TABLET BY JEET TH ONCE A DAY for 90 Active Immunizations Vaccine Route Administration Date Status [...] Status W/U Status Risk Notes Problem Obesity (135281885) Obesity (E66.9) Active confirmed He remai ns obese. We discussed her weight loss strategy today. We discussed the elements of her weight reduction diabetic diet at length. Problem 708006478 Other neutropenia (D70.8) Active confirmed His white blood cell count is stable. The value will be followed carefully periodically. He has had no infections recently. Problem 794789372 Mixed hyperlipidemia (E78.2) Active confirmed His total cholesterol was 276 which is uncontrolled. I have recommended aggressive weight loss and consumption of a healthy Mediterranean diabetic weight loss diet.He says he has been taking the 40 mg of atorvastatin. I have increased it to 80 mg today. Problem 252809537368510 Primary osteoarthritis, right shoulder (M19.011) Active confirmed Pain in his right shoulder with elevation remains a nuisance. He has declined an offer of orthopedic referral. Problem [id number] Primary osteoarthritis, left shoulder (M19.012) Active confirmed The pain in his left shoulder has improved somewhat. He declined an offer of referral to orthopedics. Problem Benign prostatic hypertrophy without outflow obstruction (232807191) BPH (benign prostatic hypertrophy) (N40.0) Active confirmed He rises from sleep once a night to urinate. We have reviewed lifestyle modifications he could make to reduce this. Problem 98946076 Essential hypertension (I10) Active confirmed His blood pressure is now in the normal range. Problem 476454070 History of cholecystectomy (Z90.49) Active confirmed Problem 089283852 Chronic insomnia (F51.04) Active confirmed He continues to maintain persistently on forcibly that he is unable to sleep without torie PDM. After long discussion I have refilled it. I will continue to discuss eliminating this medication from his regimen whenever I see him. Problem Nephrotic syndrome (09989562) Nephrotic syndrome (N04.9) Active confirmed He remains under the care of nephrology who only recently sought. Is going to see them again in 2 weeks. He has gained significant weight likely from fluid. This torsemide has been adjusted. Problem 196693027 History of inguinal hernia (Z87.19) Active confirmed Problem 62222448032527801 Bilateral carp al tunnel syndrome (G56.03) Active confirmed Problem 679691520 History of asthma (Z87.09) Active confirmed He did not give a history of asthma but this was documented no records. This will be further pursued. He does not require treatment at this time. Problem 289548309 Diabetes mellitus without complication (E11.9) Active confirmed His hemoglobin A1c has improved from 6.5-6.3. His fasting glucose is 117 on metformin. Current therapy was continued and weight loss was encouraged. Problem 176236584 Obesity, class 2 (E66.812) Active confirmed Problem 14712401051459729 History of Ojeda's esophagus (Z87.19) Active confirmed He has reported no recent history of dysphagia or esophageal pain. He will need to have upper endoscopy periodically. Problem 805467417 Ascending aorta dilation (I77.810) Active confirmed This is a finding on a recent echocardiogram . He is asymptomatic. The ascending aortic diameter was 3.9 cm. He will be observed. 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 M47.813 Anthony Otero III, MD [address] [place] [address] [place] [address] 03/07/2024 Anthony Otero Mixed hyperlipidemia E78.2 ; Nephrotic syndrome N04.9 ; Other neutropenia D70.8 ; Essential hypertension I10 and Diabetes mellitus without complication E11.9 Anthony Otero III, MD [address] [place] [address] [place] [address] 03/28/2024 Anthony Otero Nephrotic syndrome N 04.9 ; Essential hypertension I10 ; Diabetes mellitus without complication E11.9 ; Other neutropenia D70.8 and Mixed hyperlipidemia E78.2 Anthony Otero III, MD [address] [place] [address] [place] [address] 04/03/2024 Anthony Otero Nephrotic syndrome N 04.9 ; Essential hypertension I10 ; Mixed hyperlipidemia E78.2 and Diabetes mellitus without complication E11.9 Anthony Otero III, MD [address] [place] [address] [place] [address] 04/09/2024 Anthony Otero Nephrotic syndrome N 04.9 ; Acute viral syndrome B34.9 ; Persistent cough R05.3 ; Diabetes mellitus without complication E11.9 and Mixed hyperlipidemia E78.2 Anthony Otero III, MD [address] [place] [address] [place] [address] 04/16/2024 Anthony Otero Nephrotic syndrome N 04.9 ; Diabetes mellitus without complication E11.9 ; Mixed hyperlipidemia E78.2 ; Essential hypertension I10 ; Ascending aorta dilation I77.810 ; Chronic insomnia F51.04 ; History of Ojeda's esophagus Z87.19 and Viral syndrome B34.9 Anthony Otero III, MD [address] [place] [address] [place] [address] 05/06/2024 Anthony Otero Nephrotic syndrome N 04.9 ; Mixed hyperlipidemia E78.2 ; Other neutropenia D70.8 and Essential hypertension I10 Anthony Otero III, MD [address] [place] [address] DR [place], [place] [address] 07/17/2024 Anthony Branden Nephrotic syndrome N 04.9 ; Mixed hyperlipidemia E78.2 ; Diabetes mellitus without complication E11.9 ; Obesity E66.9 ; Essential hypertension I10 ; History of Ojeda's esophagus Z87.19 ; Primary osteoarthritis, left shoulder M19.012 ; Primary osteoarthritis, right shoulder M19.011 ; Chronic insomnia F51.04 and Ascending aorta dilation I77.810 Anthony Otero III, MD [address] [place] [address] [place] [address] 10/15/2024 Anthony Jamesonrne Nephrotic syndrome N 04.9 ; Diabetes mellitus without complication E11.9 ; Mixed hyperlipidemia E78.2 ; Obesity E66.9 and BPH (benign prostatic hypertrophy) N40.0 Anthony Otero III, MD [address] [place] [address] [place] [address] 02/29/2024 Anthony Otero III, MD [address] [place] [address] [place] [address] 03/01/2024 Anthony Otero III, MD [address] [place] [address] [place] [address] 03/04/2024 Anthony Otero III, MD [address] [place] [address] [place] [address] 03/04/2024 Anthony Otero III, MD [address] [place] [address] [place] [address] 07/18/2024 Anthony Otero III, MD [address] [place] [address] [place] [address] 08/19/2024 Anthony Otero Mixed hyperlipidemia E78.2 ; Diabetes mellitus without complication E11.9 ; Obesity E66.9 and Other neutropenia D70.8 Anthony Otero III, MD [address] [place] [address] [place] [address] 03/20/2024 Anthony Otero III, MD [address] [place] [address] [place], [place] [address] 04/17/2024 Anthony Otero III, MD [address] [place] [address] [place] [address] 12/03/2024 Anthony Otero Nephrotic syndrome N 04.9 Anthony Otero III, MD [address] [place] [address] [place] [address] 12/03/2024 Anthony Otero III, MD [address] [place] [address] [place] [address] 12/03/2024 Anthony Otero Assessments Encounter Date Diagnosis [...] (ICD-10 - N04.9) In the past his ostomy nurse has been Dr. Lionel Henson. He has not been seen in several years. An appointment has been made for him by Dr. Fenton to see the ostomy nurse at [facility] later this month. He does [...] sampled. I will discuss him with the ostomy nurse at [facility] with whom he has the [...] I have reviewed the case with a ostomy nurse and strongly recommended he see the patient [...] D70.8) Review of laboratory data in the [facility] database shows he is mildly [...] Date PROFILE, FASTING (COMPREHENSIVE METABOLI C) 08/19/2024 PROFILE, FASTING (COMPREHENSIVE METABOLI C) 10/15/2024 PROFILE, [...] Provider Name:Anthony Otero , 03/10/2025 04:15:00 PM, [address] [place] [address] [address], [place], [address], Insurance Providers Payer Name Payer Address Payer Phone Subscriber Number Group Number Insured Name Patient Relationship to Insured Coverage Start Date Coverage End Date [employer] [place] [address] [address] [place] [address] [id number] Claudy Berger Self - patient is the [...] 2022 Focal segmental glomerulosclerosis, yash l biopsy, [facility] Normal cardiac catheterization January 26, 2018 [facility] Surgical History Surgery Date(Month/Year) No history Bilateral inguinal herniorrhaphies Tubular adenoma colonoscopy 2012, Dr. Dimple Hidalgo Upper endoscopy and colonoscopy 2018 Elbow surgery Bilateral shoulder arthroscopies Carpal tunnel surgery on both hands Renal biopsy [facility], gerardot suzanne cholecystectomy age 24 Hospitalization History Reason Date(Month/Year) No history None reported
--- OUTSIDE RECORDS SUMMARY | 2025-02-26 06:04 | XMS_ITS | Patient Health Record ---
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 [employer] Notes: Nonsmoker; 1 case of beer [...] Problem Screening for malignant neoplasm of colon (558745268) Encounter for screening for malignant neoplasm of colon (Z12.11) Active confirmed Problem History of adenomatous polyp of colon (664435204) History of adenomatous polyp of colon (Z86.010) Active confirmed Problem Diverticular disease of colon (966409353) Diverticulosis of large intestine without perforation or abscess without bleeding (K57.30) Active confirmed Problem Gastroesophageal reflux disease (641247579) Gastroesophageal reflux disease (K21.9) Active confirmed Problem Gastroesophageal reflux disease (061670751) Gastroesophageal reflux disease, esophagitis presence not specified (K21.9) Active confirmed Problem Irregular bowel habits (081646178) Irregular bowel habits (R19.8) Active confirmed Problem Ojeda esophagus (674289597) 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 Henson Hyperlipidemia Anxiety Asthma/bronchitis Chronic back pain--gets atul odic RFA for nerve pain in the lower back/SI joints GERD Sleep apnea--not using CPAP Positive Hpylori serology treated with a ntibiotics and PPI in the past Screening colonoscopy [facility] er 2018 with removal of a cecal [...]
[2025-02-26 10:35] LABS: Albumin Level 4.0 g/dL (3.5-5.0); Anion Gap 13 (12-20); Blood Urea Nitrogen 17 mg/dL (9-16); Calcium 8.5 mg/dL (8.4-10.2); Carbon Dioxide 29 mmol/L (22-29); Chloride 104 mmol/L (96-108); Estimated Glomerular Filt Rate > 60; Potassium 3.8 mmol/L (3.3-5.1); Sodium 142 mmol/L (135-145); Total Protein 6.0 g/dL (6.5-8.0)
[2025-02-26 11:01] LABS: Protein/Creatinine Ratio, Ur 1.53 (<0.2); Total Protein Urine Random 238 mg/dL (<12)
== END 2025-02-26 06:02 | disposition home or self-care (01) ==
LOC: HO.HMGCLDS 06:01
PROVIDERS: PCP Internal Medicine Medical Oncology; Visit Provider Internal Medicine Nephrology
DX: N04.9 Nephrotic syndrome with unspecified morphologic changes (principal)
CPT/HCPCS: 80051; 82040; 82310; 82565; 82570; 82784; 84155; 84156; 84520; 86334; 86335